=== PATIENT | female | born 1955 | race Caucasian/White ===

== ENCOUNTER 2019-12-23 13:24 | Outpatient (CLI) | payer OTHER, SELFPAY ==
--- NOTE | 2019-12-23 13:30 | MM_ITS ---
WS: [id number] RIGHT DIGITAL MAMMOGRAPHY WITH CAD CLINICAL INFORMATION: Breast mass HISTORY: Breast mass TECHNIQUE: 8 views of the right breast were obtained. FINDINGS: The right breast is composed of heterogeneous fibroglandular density tissue, which can limit the dete ction of small underlying mass lesions. Diffuse skin thickening with architectural distortion mid dep th right breast. Soft tissue thickening in the area of skin ulceration with indentation Architectural distortion mid and posterior depth right breast with punctate indeterminate calcificati ons. Ultrasound is pending. Left breast is unremarkable. ULTRASOUND BREAST RIGHT TECHNIQUE: Ultrasound right breast focused area of concern. CLINICAL INFORMATION: Breast mass COMPARISON: None. FINDINGS: Ultrasound right breast in the area of ulceration. Large hypoechoic ill-defined shadowing lesion susp icious for malignancy. Margins are difficult to define. Recommend further evaluation with ultrasound guided biopsy. Increased vascularity. Overlying skin thickening. Inverted nipple. MM/[place] [id number] IMPRESSION: BI-RADS: 4C-Suspicious: Moderate FOLLOW UP: US Guided Biopsy Recommended
--- NOTE | 2019-12-23 14:00 | US_ITS ---
WS: [id number] RIGHT DIGITAL MAMMOGRAPHY WITH CAD CLINICAL INFORMATION: Breast mass HISTORY: Breast mass TECHNIQUE: 8 views of the right breast were obtained. FINDINGS: The right breast is composed of heterogeneous fibroglandular density tissue, which can limit the dete ction of small underlying mass lesions. Diffuse skin thickening with architectural distortion mid dep th right breast. Soft tissue thickening in the area of skin ulceration with indentation Architectural distortion mid and posterior depth right breast with punctate indeterminate calcificati ons. Ultrasound is pending. Left breast is unremarkable. ULTRASOUND BREAST RIGHT TECHNIQUE: Ultrasound right breast focused area of concern. CLINICAL INFORMATION: Breast mass COMPARISON: None. FINDINGS: Ultrasound right breast in the area of ulceration. Large hypoechoic ill-defined shadowing lesion susp icious for malignancy. Margins are difficult to define. Recommend further evaluation with ultrasound guided biopsy. Increased vascularity. Overlying skin thickening. Inverted nipple. US/US breast RT complete [id number] IMPRESSION: BI-RADS: 4C-Suspicious: Moderate FOLLOW UP: US Guided Biopsy Recommended
== END 2019-12-23 13:25 | disposition home or self-care (01) ==
PROVIDERS: PCP Physician Assistant Medical; Visit Provider Surgery
DX: N63.10 Unspecified lump in the right breast, unspecified quadrant (principal)
CPT/HCPCS: 76641; 77066

== ENCOUNTER 2019-12-30 06:23 | Outpatient (CLI) | payer OTHER, SELFPAY ==
--- NOTE | 2019-12-30 | US_ITS ---
WS: [id number] ULTRASOUND-GUIDED RIGHT BREAST BIOPSY ULTRASOUND-GUIDED RIGHT AXILLARY LYMPH NODE BIOPSY HISTORY: RIGHT breast mass and abnormal RIGHT axillary lymph node. COMPARISON: 12/23/2019 Procedure, risks and complications are explained to the patient. Medications are reviewed. Consent is obtained. The mass in the RIGHT breast is localized with ultrasound. Skin is cleansed with ChloraPrep and anest hetized with 1% buffered lidocaine. Small dermatome is made. Under sterile conditions mass is biopsie d with a 14-gauge Achieve needle. Multiple core biopsies are performed. Material placed in formalin a nd sent to pathology for review. No complications encountered. Breast tissue marker ([employer] ultrasound enhanced ribbon): None. The neoplastic process is diffuse and t he biopsies were scattered over the breast. RIGHT axillary lymph node biopsy performed with 20-gauge achieve needle. Multiple biopsies were obtai zarina. Specimen placed in saline as requested by pathology. No biopsy clip placed in the lymph node. Patient left the radiology suite with no complications. Patient is instructed to return to [facility] or [facility] with any concerns. / biopsy lymph node [id number] IMPRESSION: 1. Uncomplicated core needle biopsy visualized palpable RIGHT breast mass. Mul tiple biopsies were performed at different locations. PATHOLOGY: Invasive lobular carcinoma RECOMMENDATION: Surgical and oncological follow-up. 2. Uncomplicated core needle biopsy RIGHT axillary lymph node. PATHOLOGY: Invasive lobular carcinoma extending into the fibroadipose tissue wi th extensive involvement. RECOMMENDATION: Surgical and oncological follow-up.
--- NOTE | 2019-12-30 08:00 | US_ITS ---
WS: [id number] ULTRASOUND-GUIDED RIGHT BREAST BIOPSY ULTRASOUND-GUIDED RIGHT AXILLARY LYMPH NODE BIOPSY HISTORY: RIGHT breast mass and abnormal RIGHT axillary lymph node. COMPARISON: 12/23/2019 Procedure, risks and complications are explained to the patient. Medications are reviewed. Consent is obtained. The mass in the RIGHT breast is localized with ultrasound. Skin is cleansed with ChloraPrep and anest hetized with 1% buffered lidocaine. Small dermatome is made. Under sterile conditions mass is biopsie d with a 14-gauge Achieve needle. Multiple core biopsies are performed. Material placed in formalin a nd sent to pathology for review. No complications encountered. Breast tissue marker ([employer] ultrasound enhanced ribbon): None. The neoplastic process is diffuse and t he biopsies were scattered over the breast. RIGHT axillary lymph node biopsy performed with 20-gauge achieve needle. Multiple biopsies were obtai zarina. Specimen placed in saline as requested by pathology. No biopsy clip placed in the lymph node. Patient left the radiology suite with no complications. Patient is instructed to return to [facility] or [facility] with any concerns. US/[place] [id number] IMPRESSION: 1. Uncomplicated core needle biopsy visualized palpable RIGHT breast mass. Mul tiple biopsies were performed at different locations. PATHOLOGY: Invasive lobular carcinoma RECOMMENDATION: Surgical and oncological follow-up. 2. Uncomplicated core needle biopsy RIGHT axillary lymph node. PATHOLOGY: Invasive lobular carcinoma extending into the fibroadipose tissue wi th extensive involvement. RECOMMENDATION: Surgical and oncological follow-up.
== END 2019-12-30 06:24 | disposition home or self-care (01) ==
PROVIDERS: PCP Physician Assistant Medical; Visit Provider Surgery
DX: C50.911 Malignant neoplasm of unspecified site of right female breast (principal); C77.3 Secondary and unspecified malignant neoplasm of axilla and upper limb lymph nodes
CPT/HCPCS: 19083; 38505; 76942; 88305

== ENCOUNTER 2020-01-13 07:16 | Outpatient (CLI) | payer OTHER, SELFPAY ==
--- NOTE | 2020-01-13 10:26 | ONC CON_ITS ---
Dr. Antunez New Patient Note Patient: Violetta Beaulieu Unit #: [id number]: [id number] Dicatated By: Lexi Antunez M.D.Date of Visit: Jan 13, 2020 Onc MED New Patient/Consult Referring Physician: Dr. ANDERS CUEVAS M.D. History of Present Illness: Ms. Violetta Beaulieu, is a 64-year-old female with more than year-long history of abnormality in the right breast, as per patient about a year ago she noticed a small skin lesion in her right breast, she thought it was a mosquito bite later on she noticed a scab but it did not bother her until about 2 months ago when she noted a skin wound with some discharge along with damage in the right breast nipple and since then it has progressed, now with destruction of right breast nipple and firmness and shrinkage in more than two third of her right breast eventually patient went to see her primary care physician and underwent bilateral mammogram and ultrasonogram on December 23, 2019 and right breast showed heterogeneous fibroglandular density tissue with diffuse skin thickening with architectural distortion mid depth right breast, soft tissue thickening in the area of skin ulceration and indentation. Architectural distortion mid and posterior depth right breast with punctate indeterminate calcification and ultrasound right breast in the area of ulceration showed large hypoechoic ill-defined shadowing lesion suspicious for malignancy. Margins are difficult to define with overlying skin thickening and inverted nipple. Patient was seen by Dr. cuevas and on exam he he noticed right axillary lymphadenopathy subsequently on December 30, 2019 patient underwent ultrasound-guided right breast biopsy as well as right axillary lymph node biopsy final pathology report came back invasive lobular carcinoma breast 3 out of 5 cores involved longest positive core was 1.2 cm. And right axillary lymph node biopsy also confirmed invasive lobular carcinoma extending into fibroadipose tissue with extensive involvement and very little lymphoid tissue identified. Prognostic molecular profiling was done which confirmed ER KY positive disease ER being 99% positive KY 90% positive HER-2/chuckie negative with a markedly elevated Ki-67 at 75% which is unfavorable. Patient is complaining of vague rib cage pain more on the right side and occasionally back pain otherwise denies any weight loss denies any headaches blurred vision double vision denies any jaundice denies any hemoptysis or hematemesis. No family history positive for breast cancer No history of smoking or alcohol use no history of diabetes, postmenopausal and menarche at age 12 or 13 years of age. Patient denies any fever or chills, denies any nausea or vomiting, denies any diarrhea or constipation, denies any vaginal bleeding denies any hematuria. Past Medical History: Ms. Velez medical history consists of depression and hypertension. Past Surgical History: Ms. Velez surgical/procedural history consists of appendectomy, breast biopsy, and cholecystectomy. Medications: Cardizem CD 1 Capsule (of 240 mg) Capsule SR 24 HR Oral daily, Oxybutynin Chloride 1 Tablet (of 5 mg) Oral daily, PROzac 1 Capsule (of 20 mg) Oral daily Allergies: No Known Allergies. 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 Ms. Beaulieu has never smoked. She has no history of drinking. Ms. Beaulieu reports the following support systems: lives with spouse, significant other, family, or friends, lives in own house, supportive family/friends willing to assist with needs, and transportation problems exist and will require assistance. Her diet consists of regular meals. She indicates her activity level as: regular exercise. Family History: Ms. Beaulieu's mother at age 73: type II diabetes. Ms. Beaulieu's father at age 61: lung cancer. Review Of Symptoms: Constitutional - Appetite is good and weight is stable. No fever, night sweats, or hot flashes. Energy level is fair but Pt does fatigue easily, ENMT - No sinus congestion/drainage. No mouth sores. No sore throat or difficulty swallowing, Hematologic/Lymphatic - Positive for easy bruising, Respiratory - No shortness of breath. No cough. No pleuritic pain or hemoptysis, Cardiovascular - No angina pain. No palpitations, Gastrointestinal - No nausea or vomiting. Positive for heartburn and acid reflux. No diarrhea or constipation. No blood in the stool or black stools, Genitourinary (F) - No dysuria or hematuria. Positive for nighttime urinary frequency. No urgency or incontinence, Musculoskeletal - Positive for joint pain, Neurologic - No headache or dizziness. No numbness or tingling. No other focal neurologic symptoms, Psychiatric - No anxiety or depression. No insomnia. Vital Signs: Performed on Jan 13, 2020 08:32: 0, 31.20 (HIGH), 1.79 sq.m, 62.00 in, 97 %, 59 /min (LOW), 24 /min, 147/75 mm(hg) (HIGH), 98.5 F, and 170.6 lbs (HIGH). Performance Status: 0 - Fully active, able to carry on all predisease activities without restrictions. (ECOG) Physical Examination: ENMT - No mouth sores, no thrush, no jaundice, Respiratory - Lungs are clear, Cardiovascular - Regular rate and rhythm of heart, Abdomen - Soft, bowel sounds present, Extremities - No visible edema, right breast exam shows ulceration and right nipple destruction and about two thirds of breast is replaced by mass with decreased mobility over chest wall, right axilla palpable lymphadenopathy. Lab/Imaging: Most recent lab results are not available for this patient. Impression: Locally advance invasive lobular carcinoma involving the right breast and right axillary lymph node per ultrasound-guided biopsy done on December 30, 2019 ER 99% positive KY 90% positive HER-2/chuckie negative, Ki-67 75% Plan: Discussed with patient regarding her disease status, clinically, it appears she has locally advanced disease, on physical exam she was noted to have large right breast mass which has replaced about two third of her breast with skin ulceration and destruction of nipple and breast appeared to be fixed to the chest wall or with minimum mobility with a palpable right axillary lymphadenopathy again involvement was confirmed by right axial lymph node biopsy. At this point, considering her vague symptoms like rib cage pain and discomfort and also off and on back pain, will consider CT PET scan for staging purposes, if she has metastatic disease, in that case, we will consider limited systemic chemotherapy to achieve enough response in the primary so that simple mastectomy with clear margins can be achieved. Followed by hormonal therapy with aromatase inhibitor or aromatase inhibitor upfront and to assess the response in the primary before considering palliative surgery, but with hormonal therapy, response is usually slow on the other , hand if she has local regional disease then consider neoadjuvant chemotherapy upfront to have better chances of clear surgical margins moreover response to chemotherapy has prognostic value too. And followed by radiation therapy to right chest wall and right axilla and hormonal therapy with aromatase inhibitor for 5 years Case was discussed with Dr cuevas this morning and he agreed with the plan, will consider Port-A-Cath placement to facilitate chemotherapy and in the meantime order CT PET scan for staging purposes and CBC CMP as baseline. Patient expressed full understanding and agreed with the plan. Return to clinic after CT PET scan for further discussion Signed By: Lexi Antunez M.D. <<Signature on File>>
== END 2020-01-13 07:17 | disposition home or self-care (01) ==
LOC: ONCMED 07:20
PROVIDERS: PCP Physician Assistant Medical; Referring Provider Surgery; Visit Provider Internal Medicine Hematology & Oncology
DX: C50.811 Malignant neoplasm of overlapping sites of right female breast (principal); C77.3 Secondary and unspecified malignant neoplasm of axilla and upper limb lymph nodes; Z17.0 Estrogen receptor positive status [ER+]
CPT/HCPCS: 99203

== ENCOUNTER 2020-01-18 06:36 | Day surgery (SDC) | payer OTHER, SELFPAY ==
[2020-01-17 13:07] VITALS: BMI 32.1
--- NOTE | 2020-01-18 | SCC_ITS ---
Procedure Done: Left subclavian vein PowerPort placement under fluoroscopic guidance with all fluoroscopic interpretation was done by me through the whole entire procedure. 10.8 seconds of fluoroscopic guidance, for a cumulative dose of 1.32 mGy, was provided to Dr. Castillo by the radiology department. C-arm images of the chest were saved for the patient's permanent record. [id number]
[2020-01-18 07:00] VITALS: BP 189/92; PULSE 67; RESP 18; TEMP 36.2; O2SAT 94
[2020-01-18] MEDS: sodium chloride 0.9% 1,000 ML 30 ML IV (07:15)
--- NOTE | 2020-01-18 07:37 | P.ANESASSM_ITS ---
Pre-Anesthetic Assessment Pre-Anesthetic Assessment: Height/Weight: Height 1.57 m Weight 79.832 kg Temp Pulse Resp BP Pulse Ox 97.2 F L 67 18 189/92 94 01/18/20 07:00 01/18/20 07:00 01/18/20 07:00 01/18/20 07:00 01/18/20 07:00 Preop Diagnosis: breast cancer Proposed Procedure: Operation Date: 01/18/20 08:10 Proposed Procedures p Portacath Placement 08580 C50.911(Not Applicable) - Lalito Castillo MD Familial anesthetic complications: none Last intake: Intake Last Liquid Date 01/17/20 Last Liquid Time 17:00 Last Solid Date 01/17/20 Last Solid Time 17:00 Social: Social History: No alcohol and No tobacco Exam: Pre-Anes Outpt Exam: alert, oriented x 3, clear to auscultation bilaterally and regular rate & rhythm Airway: Cervical ROM: WNL MP: 3 Dentition: False and Other Anesthetic Plan: ASA status: 2 Anesthesia: MAC Meds/Allergies Current Medications: Current Medications Generic Name Dose Route Start Last Admin Trade Name Freq PRN Reason Stop Dose Admin Sodium Chloride 1,000 mls @ 30 ml s/hr 01/18/20 07:00 01/18/20 07:15 Sodium Chloride 0.9% IV 01/19/20 06:59 30 mls/hr .Q24H CURTIS Administration PFSH Anesthesia PFSH: Medical History (Updated 01/05/20 @ 17:48 by Lalito Castillo MD) Depression Irregularly shaped mass of breast Surgical History History of laparoscopic cholecystectomy (~1994) Status post laparoscopic appendectomy (~1994) Family History Father Cancer LUNG CANCER Hypertension Mother Diabetes Hypertension Denies family history of Anesthesia complication Bleeding disorder Social History Smoking and tobacco status: never smoked Second hand smoke exposure: No Alcohol intake: never Adopted: No Caregiver/support person: Yes Lives independently: Yes Household members: family Housing: Assisted Living Facility Marital status: service: No Current occupational status: employed Current occupational exposures/hazards: No Pets and animals: No History of recent travel: No Sexually active: No Current gender identity: Female Shanell/Orthodoxy: Yazdanism Data Anesthesia Cardiac Studies: No Data to Display
--- NOTE | 2020-01-18 08:06 | W.PM.OPSUD ---
Surgery/Procedure H&P Update DATE OF PROCEDURE: January 18, 2020 DATE H&P PERFORMED: 01/05/20 H&P UPDATE INFORMATION: I have reviewed H&P completed within last 30 days, I have examined patient prior to procedure and No changes to prior documentation PREOP DIAGNOSIS: Breast cancer requiring port-a-cath PRIMARY INDICATION FOR PROCEDURE: The same PLANNED PROCEDURE: Operation Date: 01/18/20 08:10 Proposed Procedures p Portacath Placement 81463 C50.911(Not Applicable) - Lalito Castillo MD
--- NOTE | 2020-01-18 08:11 | SC_ITS ---
WS: [id number] INTRAOPERATIVE TECHNIQUE: 2 Spot fluoroscopic images for intraoperative purposes. FLUOROSCOPY TIME: 10.8 seconds CLINICAL INFORMATION: For Port-A-Cath placement COMPARISON: None. FINDINGS: Left Port-A-Cath with tip in the distal SVC. No pneumothorax. SC/C-arm [place] for CVA [id number] IMPRESSION: Images obtained for intraoperative purposes.
[2020-01-18] MEDS: heparin, porcine 1,000 unit/mL INJ 10 mL 10000 UNIT INJECTION (09:15)
[2020-01-18] MEDS: lidocaine 2% INJ 20 mL INJECTION (09:17)
--- NOTE | 2020-01-18 09:20 | XRR_ITS ---
PROCEDURE INFORMATION: Exam: XR Chest, 1 View Exam date and time: 01/18/2020 9:39 AM Age: 64 years old Clinical indication: Other vascular access device placement or adjustment; Patient HX: S/P left subclavian power port placement; Additional info: Status post left subclavian powerport placement TECHNIQUE: Imaging protocol: XR of the chest Views: 1 view. COMPARISON: No relevant prior studies available. FINDINGS: Tubes, catheters and devices: There is a left subclavian port present with the catheter tip in the superior vena cava. Lungs: Poor inspiration. Decreased lung volumes. Right upper lobe scarring versus atelectasis. Pleural space: No pneumothorax or pleural effusion. Heart/Mediastinum: The heart is not felt to be enlarged when allowing for a left epicardial fat pad. The mediastinal contours are normal. Bones/joints: Old, healed right 4th rib fracture. Curvature of the thoracic spine convex to the right, possibly accentuated by patient rotation. XR/XR chest 1V portable [id number] IMPRESSION: 1. Port catheter tip in the superior vena cava. 2. No pneumothorax.
--- NOTE | 2020-01-18 09:21 | PM.OP ---
Operative Report Date of procedure: January 18, 2020 Pre-op Diagnosis: Breast cancer requiring port-a-cath Post-op diagnosis: same Procedure Done: Left subclavian vein PowerPort placement under fluoroscopic guidance with all fluoroscopic interpretation was done by me through the whole entire procedure. Implants: Left subclavian vein PowerPort placement Surgeon: Lalito Castillo Digital Strategy Manager: Law Guerra Circulating nurse [place]annah Anesthesia: MAC (hand cutter apprentice Smart) Estimated blood loss (mL): 5 Complications: No immediate complication Condition: stable Disposition: same day Brief History: This is a pleasant 64 years old female patient with advanced right breast cancer that will require chemotherapy, patient was counseled for Port-A-Cath placement. Plan of care; After thorough history physical examination and reviewing the chart, I counseled the patient for Port-A-Cath placement, indications, risks including pneumothorax and injury of major vascular structures, benefits,indications and alternatives were all discussed with the patient, patient understands and is interested to proceed. Rationale was carefully and clearly discussed with the patient.Appropriate informed consent have been reviewed and signed. Procedure: Patient was identified in the holding area and taken to the operative room and placed in supine position IV propofol was given by the anesthesia provider ,both arms were tucked,Time-out was done verifying the patient's name/date of /planned procedure and destination after the procedure, all were in agreement. SCDs confirmed to be functioning, preoperative antibiotics administered per protocol, and beta zully protocol was confirmed, appropriate positioning of the patient was done by me. Medications were reviewed to assess for anticoagulant usage. Risks and benefits and prevention of central line associated blood stream infection (CLABSI) were discussed with the patient/CPOA, and a consent was obtained. Monitors were in place and monitored throughout the procedure. All necessary supplies were available prior to start. Hand hygiene was completed prior to starting. Maximum barrier technique was utilized including a sterile gown, sterile gloves with a hat and mask. Site was was prepped with [chlorhexidine] and a full body drape was placed. 5 mL of 2% lidocaine was injected into the skin with a 25 gauge needle. Prep& drape was done under the usual sterile technique, lidocaine 2% was injected at the site of the stick, started by the left subclavian stick that retrieved venous blood was obtained from the first stick, a guidewire was then threaded and under the guidance of fluoroscopy position was confirmed to be in the IVC and my interpretation, there was no PVC changes, at that point the guidewire was secured to the drapes with a hemostat and the needle was taken out, attention was then deviated towards creation of a pocket for the port were lidocaine 2% was injected using an 15 blade knife skin incision was created dissection using the Bovie to create a pocket for the Port-A-Cath to be accommodated, hemostasis was secured, after the port being appropriately flushed it was inserted into the pocket and a tunneler was used to accommodate the catheter of the port cath to be delivered through the incision first created at the site of the stick, at that point under fluoroscopy an estimated length was measured for the catheter and was cut at the designed level, followed by that a dilator with the sheath introduced onto the guidewire the dilator and the wire were retrieved and the catheter of the port was introduced via the sheath where it was peeled off and the catheter maintained to be in the SVC that was confirmed with fluoroscopy, and the fluoroscopy interpretation was done by me throughout the entire procedure. The port continues to be appropriately placed in its pocket, 3-0 Vicryl deep subdermal interrupted sutures, skin was then closed by 4-0 Monocryl as subcuticular closure. The stick site was closed by 3-0 Vicryl and Dermabond was used followed by dressing.Multiple flushes were obtained by diluted and strong heparin and appropriately venous blood was retrieved and flashback with ease. Patient tolerated the procedure well was taken to the recovery area. Count was correct at the end of the procedure I was present for the whole entire procedure. Position of the catheter was checked with a postoperative chest x-ray and it was in good position without evidence of pneumothorax
[2020-01-18 09:31] VITALS: BP 132/54; PULSE 58; RESP 18; TEMP 36.2; O2SAT 98
[2020-01-18 09:56] VITALS: BP 150/68; PULSE 67; RESP 18; TEMP 36.2; O2SAT 98
== END 2020-01-18 10:09 | disposition home or self-care (01) ==
PROVIDERS: PCP Physician Assistant Medical; Visit Provider Surgery
PROC: (CPT 36561; principal; 2020-01-18 08:10)
DX: C50.911 Malignant neoplasm of unspecified site of right female breast (principal); Z79.891 Long term (current) use of opiate analgesic
CPT/HCPCS: 36561; 12345; 71045; 76000; 77001; C1788; J0690; J1644; J3010; J7030

== ENCOUNTER 2020-01-27 12:05 | Outpatient (CLI) | payer OTHER, MEDICAID, SELFPAY ==
[2020-01-27 12:50] LABS: Basophils % 0.6 %; Eosinophils # 0.1 10^3/uL (0.0-0.8); Hematocrit 41.4 % (37.0-47.0); Hemoglobin 12.6 g/dL (11.5-15.3); Lymphocytes # 1.5 10^3/uL (0.8-4.8); Lymphocytes % 21.6 %; Mean Corpuscular HGB Conc 30.4 g/dL (30.0-36.0); Mean Corpuscular Hemoglobin 29.7 pg (28.0-34.0); Mean Corpuscular Volume 97.6 fL (81-99); Monocytes # 0.6 10^3/uL (0.2-0.9); Monocytes % 7.8 %; Neutrophils # 4.91 10^3/uL (1.8-7.7); Neutrophils % 68.7 %; Nucleated Red Blood Cells % 0 %; Platelet Count 346 10^3/cmm (130-400); Red Blood Count 4.24 10^6/uL (4.1-5.3); Red Cell Distribution Width 12.5 % (12.1-15.1); White Blood Count 7.1 10^3/uL (4.0-10.0)
[2020-01-27 13:24] LABS: Alanine Aminotransferase 12 U/L (0-33); Albumin Level 3.9 g/dL (3.5-5.2); Alkaline Phosphatase 79 IU/L (35-105); Anion Gap 12.8 (5-19); Aspartate Amino Transferase 12 U/L (0-32); Blood Urea Nitrogen 17 mg/dL (8-23); Calcium 8.9 mg/dL (8.5-10.5); Carbon Dioxide 25 mmol/L (22-29); Chloride 105 mmol/L (98-107); Globulin 3.4 g/dL (1.3-4.6); Glomerular Filtration Rate 84.2 mL/min (90-130); Glucose 93 mg/dL (65-115); Osmolality Calculated 284 mOsm/kg (285-295); Potassium 3.8 mmol/L (3.5-5.1); Sodium 139 mmol/L (136-145); Total Bilirubin 0.4 mg/dL (0.15-1.2); Total Protein 7.3 g/dL (6.6-8.7)
--- NOTE | 2020-01-27 15:23 | ONC FU_ITS ---
Dr. Antunez follow up note Patient: Violetta Beaulieu Unit #: [id number]: 1955 Dicatated By: Lexi Antunez M.D.Date of Visit:Jan 27, 2020 Onc Med Follow-up/Prog Note History of Present Illness: Ms. Violetta Beaulieu, is a 64-year-old female with more than year-long history of abnormality in the right breast, as per patient about a year ago she noticed a small skin lesion in her right breast, she thought it was a mosquito bite later on she noticed a scab but it did not bother her until about 2 months ago when she noted a skin wound with some discharge along with damage in the right breast nipple and since then it has progressed, now with destruction of right breast nipple and firmness and shrinkage in more than two third of her right breast eventually patient went to see her primary care physician and underwent bilateral mammogram and ultrasonogram on December 23, 2019 and right breast showed heterogeneous fibroglandular density tissue with diffuse skin thickening with architectural distortion mid depth right breast, soft tissue thickening in the area of skin ulceration and indentation. Architectural distortion mid and posterior depth right breast with punctate indeterminate calcification and ultrasound right breast in the area of ulceration showed large hypoechoic ill-defined shadowing lesion suspicious for malignancy. Margins are difficult to define with overlying skin thickening and inverted nipple. Patient was seen by Dr. holt and on exam he he noticed right axillary lymphadenopathy subsequently on December 30, 2019 patient underwent ultrasound-guided right breast biopsy as well as right axillary lymph node biopsy final pathology report came back invasive lobular carcinoma breast 3 out of 5 cores involved longest positive core was 1.2 cm. And right axillary lymph node biopsy also confirmed invasive lobular carcinoma extending into fibroadipose tissue with extensive involvement and very little lymphoid tissue identified. Prognostic molecular profiling was done which confirmed ER [place] positive disease ER being 99% positive CO 90% positive HER-2/chuckie negative with a markedly elevated Ki-67 at 75% which is unfavorable. Patient is complaining of vague rib cage pain more on the right side and occasionally back pain otherwise denies any weight loss denies any headaches blurred vision double vision denies any jaundice denies any hemoptysis or hematemesis. No family history positive for breast cancer No history of smoking or alcohol use no history of diabetes, postmenopausal and menarche at age 12 or 13 years of age. Patient denies any fever or chills, denies any nausea or vomiting, denies any diarrhea or constipation, denies any vaginal bleeding denies any hematuria. Came for follow-up, denies any specific complaints, no fever chills, no nausea or vomiting, no diarrhea or constipation, patient was scheduled follow-up CT PET scan but because of high copayment she could not afford. Medications: Cardizem CD 1 Capsule (of 240 mg) Capsule SR 24 HR Oral daily, Oxybutynin Chloride 1 Tablet (of 5 mg) Oral daily, PROzac 1 Capsule (of 20 mg) Oral daily Allergies: No Known Allergies. Review of Systems: Constitutional - Appetite is good and weight is stable. No fever, night sweats, or hot flashes. Energy level is fair but Pt does fatigue easily, ENMT - No sinus congestion/drainage. No mouth sores. No sore throat or difficulty swallowing, Hematologic/Lymphatic - Positive for easy bruising, Respiratory - No shortness of breath. No cough. No pleuritic pain or hemoptysis, Cardiovascular - No angina pain. No palpitations, Gastrointestinal - No nausea or vomiting. Positive for heartburn and acid reflux. No diarrhea or constipation. No blood in the stool or black stools, Genitourinary (F) - No dysuria or hematuria. Positive for nighttime urinary frequency. No urgency or incontinence, Musculoskeletal - Positive for joint pain, Neurologic - No headache or dizziness. No numbness or tingling. No other focal neurologic symptoms, Psychiatric - No anxiety or depression. No insomnia. Vital Signs: Performed on Jan 27, 2020 13:34 Height - 62.00 in Weight - 175.6 lbs (HIGH) BSA - 1.81 sq.m BMI - 32.12 (HIGH) Temperature - 98.6 F Pulse - 74 /min Respiration - 24 /min BP - 149/58 mm(hg) (HIGH) O2 Sat - 98 % Pain - 0 Performance Status: 0 - Fully active, able to carry on all predisease activities without restrictions. (ECOG) Physical Examination: Respiratory - Lungs are clear, Cardiovascular - Regular rate and rhythm of heart, Gastrointestinal - Soft, bowel sounds present, Extremities - No visible edema, no. Lab/Imaging: Most recent lab results are not available for this patient. Impression: Locally advance invasive lobular carcinoma involving the right breast With a skin ulceration and right axillary lymph node per ultrasound-guided biopsy done on December 30, 2019 ER 99% positive CO 90% positive HER-2/chuckie negative, Ki-67 75% Clinical stage T4b, N1 Mx IIIB Plan: Discussed with patient regarding her labs white blood count 7.1 hemoglobin 12.6 hematocrit 41.4 platelets 346,000 CMP within normal limits Clinically, patient is doing reasonably well, denies any new symptoms except off and on right chest wall discomfort, she was scheduled for CT PET scan but patient could not afford copayments so declined CT PET scan. Case was discussed with Dr. Holt and decided to proceed with neoadjuvant chemotherapy, patient has locally advanced disease with area of skin ulceration, right axillary lymph node biopsy confirmed invasive lobular carcinoma extending into the fibroadipose tissue with very little lymphoid tissue identified and patient has no other comorbid conditions. Patient already has Port-A-Cath placed and, will obtain echocardiogram and if, will consider dose dense Adriamycin/Cytoxan every 2 weeks with Neulasta support followed by Taxol weekly x12 on the other hand if echo shows any abnormality, will consider Cytoxan/Taxotere based regimen. Patient return to clinic after echo for further discussion. Signed By: Lexi Antunez M.D. <<Signature on File>>
== END 2020-01-27 12:06 | disposition home or self-care (01) ==
LOC: ONCMED 12:07
PROVIDERS: PCP Physician Assistant Medical; Visit Provider Internal Medicine Hematology & Oncology
DX: C50.811 Malignant neoplasm of overlapping sites of right female breast (principal); Z17.0 Estrogen receptor positive status [ER+]; I10 Essential (primary) hypertension; F32.9 Major depressive disorder, single episode, unspecified
CPT/HCPCS: 36415; 80053; 85025; 99214

== ENCOUNTER 2020-02-01 14:42 | Outpatient (CLI) | payer OTHER, MEDICAID, SELFPAY ==
--- NOTE | 2020-02-01 14:51 | USCV_ITS ---
Violetta Beaulieu Age: 64 Gender: F : 1955 Exam Date: 02/01/2020 15:12 Ordering Phys: Lexi Antunez MD Technologist: Pablo Isabel [place]am Location[place] [facility] [place]ication: HIGH RISK MEDS BP: 124 / 75 HR: 63 Rhythm: Sinus Technical Quality: Good MEASUREMENTS (Male / Female) Normal Values 2D ECHO LV Diastolic Diameter PLAX 4.2 cm 4.2 - 5.9 / 3.9 - 5.3 cm LV Systolic Diameter PLAX 2.2 cm IVS Diastolic Thickness 1.1 cm 0.6 - 1.0 / 0.6 - 0.9 cm IVS Systolic Thickness 1.2 cm LVPW Diastolic Thickness 1.0 cm 0.6 - 1.0 / 0.6 - 0.9 cm LVPW Systolic Thickness 0.9 cm LVOT Diameter 2.1 cm LV Ejection Fraction 2D Teich 79.6 % LV Ejection Fraction MOD 2C 53.1 % LV Ejection Fraction 2C AL 55.9 % LA Diameter 4.5 cm LA Width 4.3 cm LA Height 5.7 cm RA Width 4.1 cm RA Height 5.0 cm Aorta at Sinotubular Diameter 2.7 cm M-MODE LV Diastolic Diameter MM 5.8 cm 4.2 - 5.9 / 3.9 - 5.3 cm LV Systolic Diameter MM 2.7 cm LV Ejection Fraction MM Teich 83.4 % IVS Diastolic Thickness MM 1.1 cm 0.6 - 1.0 / 0.6 - 0.9 cm IVS Systolic Thickness MM 1.4 cm LVPW Diastolic Thickness MM 1.0 cm 0.6 - 1.0 / 0.6 - 0.9 cm LVPW Systolic Thickness MM 1.5 cm RV Diastolic Diameter MM 0.9 cm Aortic Annulus Diameter 3.4 cm LA Ao Ratio MM 1.3 MV E Point Septal Separation 0.9 cm DOPPLER AV Peak Velocity 209.0 cm/s LVOT Peak Velocity 116.0 cm/s AV Area Cont Eq vti 2.7 cm squared AV Area Cont Eq pk 1.9 cm squared MV Area PHT 5.0 cm squared Mitral E to A Ratio 1.2 MV E' Velocity 10.0 cm/s Mitral E to MV E' Ratio 8.3 Mitral E to LV E' Lateral Ratio 7.3 Mitral E to LV E' Septal Ratio 9.7 TR Peak Velocity 353.0 cm/s TR Peak Gradient 49.8 mmHg TV Peak E Velocity 142.0 cm/s Right Atrial Pressure 3.0 mmHg Pulmonary Artery Systolic Pressu 52.8 mmHg PV Peak Velocity 152.0 cm/s FINDINGS Left Ventricle Normal left ventricular cavity size. Normal left ventricular systolic function. No regional wall motion abnormalities. Left ventricular ejection fraction is estimated at 65 %. No regional wall motion abnormalities. Grade II/IV diastolic dysfunction, moderately elevated filling pressures. Right Ventricle The right ventricle is normal in size and function. Moderate pulmonary hypertension, RVSP 52.8 mmHg. Right Atrium The right atrium is normal in size. Left Atrium Moderately increased left atrial size. Mitral Valve Moderately thickened mitral valve. No mitral valve stenosis. Mild-moderate mitral valve regurgitation. Aortic Valve Moderate aortic valve calcification. Aortic valve sclerosis, mean gradient 6.2 mmHg, LUZ 2.7 cm squared. Tricuspid Valve Structurally normal tricuspid valve without significant stenosis or regurgitation. Pulmonic Valve Structurally normal pulmonic valve without significant stenosis. There is no pulmonic regurgitation. Pericardium Normal pericardium without effusion. Aorta Normal ascending aorta dimension. CONCLUSIONS 1-Normal left ventricular cavity size. Normal left ventricular systolic function. No regional wall motion abnormalities. Left ventricular ejection fraction is estimated at 65 %. No regional wall motion abnormalities. Grade II/IV diastolic dysfunction, moderately elevated filling pressures. 2-Moderately increased left atrial size. 3-Moderate aortic valve calcification. Aortic valve sclerosis, mean gradient 6.2 mmHg, LUZ 2.7 cm squared. 4-Structurally normal tricuspid valve without significant stenosis or regurgitation. Pulmonary artery systolic pressure is normal. 5-Moderately thickened mitral valve. No mitral valve stenosis. Mild-moderate mitral valve regurgitation. 6-There is no pericardial effusion. 7-The right ventricle is normal in size and function. Moderate pulmonary hypertension, RVSP 52.8 mmHg. 8-Right atrial pressure is around 5 mm of mercury. 9-There are no prior echocardiogram studies to compare. Blaze Cartwright MD (Electronically Signed) Final Date: 01 February 2020 19:55 S
--- NOTE | 2020-02-01 14:51 | XRR_ITS ---
PROCEDURE INFORMATION: Exam: XR Chest, 2 Views Exam date and time: 02/01/2020 3:29 PM Age: 64 years old Clinical indication: Condition or disease; Other: Breast cancer; Patient HX: Patient states no chest complaints; Additional info: R breast cancer TECHNIQUE: Imaging protocol: XR of the chest Views: 2 views. COMPARISON: CR XR chest 1V portable [id number] 01/18/2020 9:27 AM FINDINGS: Tubes, catheters and devices: There is a left subclavian port with tip in the superior vena cava. Lungs: There is mild basilar fibrosis versus atelectasis. The lungs are otherwise clear. No lobar consolidation. The vascularity is within normal limits. Pleural space: Unremarkable. No pleural effusion. No pneumothorax. Heart/Mediastinum: There is borderline cardiomegaly. Bones/joints: Old rib fracture deformities are noted. There is scoliosis with moderate degenerative changes in the spine. XR/XR chest 2V* [id number] IMPRESSION: No active pulmonary disease.
== END 2020-02-01 14:43 | disposition home or self-care (01) ==
PROVIDERS: PCP Physician Assistant Medical; Visit Provider Internal Medicine Hematology & Oncology
DX: Z79.899 Other long term (current) drug therapy (principal); I08.3 Combined rheumatic disorders of mitral, aortic and tricuspid valves; C50.811 Malignant neoplasm of overlapping sites of right female breast
CPT/HCPCS: 71046; 93306

== ENCOUNTER 2020-02-03 13:21 | Outpatient (CLI) | payer OTHER, MEDICAID, SELFPAY ==
--- NOTE | 2020-02-03 15:25 | ONC FU_ITS ---
Dr. Antunez follow up note Patient: Violetta Beaulieu Unit #: [id number]: 1955 Dicatated By: Lexi Antunez M.D.Date of Visit:Feb 03, 2020 Onc Med Follow-up/Prog Note History of Present Illness: Ms. Violetta Beaulieu, is a 64-year-old female with more than year-long history of abnormality in the right breast, as per patient about a year ago she noticed a small skin lesion in her right breast, she thought it was a mosquito bite later on she noticed a scab but it did not bother her until about 2 months ago when she noted a skin wound with some discharge along with damage in the right breast nipple and since then it has progressed, now with destruction of right breast nipple and firmness and shrinkage in more than two third of her right breast eventually patient went to see her primary care physician and underwent bilateral mammogram and ultrasonogram on December 23, 2019 and right breast showed heterogeneous fibroglandular density tissue with diffuse skin thickening with architectural distortion mid depth right breast, soft tissue thickening in the area of skin ulceration and indentation. Architectural distortion mid and posterior depth right breast with punctate indeterminate calcification and ultrasound right breast in the area of ulceration showed large hypoechoic ill-defined shadowing lesion suspicious for malignancy. Margins are difficult to define with overlying skin thickening and inverted nipple. Patient was seen by Dr. holt and on exam he he noticed right axillary lymphadenopathy subsequently on December 30, 2019 patient underwent ultrasound-guided right breast biopsy as well as right axillary lymph node biopsy final pathology report came back invasive lobular carcinoma breast 3 out of 5 cores involved longest positive core was 1.2 cm. And right axillary lymph node biopsy also confirmed invasive lobular carcinoma extending into fibroadipose tissue with extensive involvement and very little lymphoid tissue identified. Prognostic molecular profiling was done which confirmed ER [place] positive disease ER being 99% positive [place] 90% positive HER-2/chuckie negative with a markedly elevated Ki-67 at 75% which is unfavorable. Patient is complaining of vague rib cage pain more on the right side and occasionally back pain otherwise denies any weight loss denies any headaches blurred vision double vision denies any jaundice denies any hemoptysis or hematemesis. No family history positive for breast cancer No history of smoking or alcohol use no history of diabetes, postmenopausal and menarche at age 12 or 13 years of age. Patient denies any fever or chills, denies any nausea or vomiting, denies any diarrhea or constipation, denies any vaginal bleeding denies any hematuria. Echocardiogram done on February 01, 2020 showed ejection fraction 65% Came for follow-up, denies any specific complaint except fullness in her right breast otherwise no fever or chills, no nausea or vomiting, no diarrhea or constipation no new bony pains Medications: Cardizem CD 1 Capsule (of 240 mg) Capsule SR 24 HR Oral daily, Oxybutynin Chloride 1 Tablet (of 5 mg) Oral daily, PROzac 1 Capsule (of 20 mg) Oral daily Allergies: No Known Allergies. Review of Systems: Constitutional - Appetite is good and weight is stable. No fever, night sweats, or hot flashes. Energy level is fair but Pt does fatigue easily, ENMT - No sinus congestion/drainage. No mouth sores. No sore throat or difficulty swallowing, Hematologic/Lymphatic - Positive for easy bruising, Respiratory - No shortness of breath. No cough. No pleuritic pain or hemoptysis, Cardiovascular - No angina pain. No palpitations, Gastrointestinal - No nausea or vomiting. Positive for heartburn and acid reflux. No diarrhea or constipation. No blood in the stool or black stools, Genitourinary (F) - No dysuria or hematuria. Positive for nighttime urinary frequency. No urgency or incontinence, Musculoskeletal - Positive for joint pain, Neurologic - No headache or dizziness. No numbness or tingling. No other focal neurologic symptoms, Psychiatric - No anxiety or depression. No insomnia. Vital Signs: Performed on Feb 03, 2020 13:28 Height - 62.00 in Weight - 175.0 lbs (LOW) BSA - 1.81 sq.m BMI - 32.01 (HIGH) Temperature - 98.0 F (LOW) Pulse - 80 /min Respiration - 18 /min BP - 183/72 mm(hg) (HIGH) O2 Sat - 98 % Pain - 6 Performance Status: 0 - Fully active, able to carry on all predisease activities without restrictions. (ECOG) Physical Examination: Respiratory - Lungs are clear, Cardiovascular - Regular rate and rhythm of heart, Gastrointestinal - Soft, bowel sounds present, Extremities - No visible edema or rash. Lab/Imaging: Most recent lab results are not available for this patient. Impression: Locally advance invasive lobular carcinoma involving the right breast With a skin ulceration and right axillary lymph node per ultrasound-guided biopsy done on December 30, 2019 ER 99% positive [place] 90% positive HER-2/chuckie negative, Ki-67 75% Clinical stage T4b, N1 Mx IIIB Plan: Discussed with patient regarding her echocardiogram report which shows ejection fraction within normal limits, in that case because of her locally advanced disease, will consider dose dense chemotherapy with Adriamycin Cytoxan every 2 weeks x4 with Neulasta support to prevent chemotherapy-induced neutropenia/leukopenia, followed by weekly Taxol x12 followed by surgical evaluation for mastectomy followed by referral to radiation oncology for evaluation for post mastectomy radiation therapy and adjuvant hormonal therapy All the side effects possible benefit associated with systemic chemotherapy were discussed again, further teaching done by chemotherapy nurse, will obtain approval from her insurance prior to the treatment. And she return to clinic 1 week after chemotherapy is initiated with CBC CMP Signed By: Lexi Antunez M.D. <<Signature on File>>
== END 2020-02-03 13:22 | disposition home or self-care (01) ==
LOC: ONCMED 13:22
PROVIDERS: PCP Physician Assistant Medical; Visit Provider Internal Medicine Hematology & Oncology
DX: C50.811 Malignant neoplasm of overlapping sites of right female breast (principal); Z17.0 Estrogen receptor positive status [ER+]
CPT/HCPCS: 99214

== ENCOUNTER 2020-02-18 05:35 | Outpatient (RCR) | payer OTHER, MEDICAID, SELFPAY ==
[2020-02-09 08:26] LABS: Basophils % 0.4 %; Eosinophils # 0.1 10^3/uL (0.0-0.8); Eosinophils % 0.9 %; Hematocrit 40.7 % (37.0-47.0); Hemoglobin 12.9 g/dL (11.5-15.3); Lymphocytes # 1.1 10^3/uL (0.8-4.8); Lymphocytes % 14.1 %; Mean Corpuscular HGB Conc 31.7 g/dL (30.0-36.0); Mean Corpuscular Hemoglobin 30.4 pg (28.0-34.0); Mean Corpuscular Volume 95.8 fL (81-99); Mean Platelet Volume 9.2 fL (7.4-10.4); Monocytes # 0.6 10^3/uL (0.2-0.9); Monocytes % 7.8 %; Neutrophils # 6.06 10^3/uL (1.8-7.7); Neutrophils % 76.4 %; Nucleated Red Blood Cells % 0 %; Platelet Count 348 10^3/cmm (130-400); Red Blood Count 4.25 10^6/uL (4.1-5.3); Red Cell Distribution Width 12.5 % (12.1-15.1); White Blood Count 7.9 10^3/uL (4.0-10.0)
[2020-02-09 08:45] LABS: Alanine Aminotransferase 13 U/L (0-33); Albumin Level 3.9 g/dL (3.5-5.2); Alkaline Phosphatase 87 IU/L (35-105); Anion Gap 12.6 (5-19); Aspartate Amino Transferase 13 U/L (0-32); Blood Urea Nitrogen 18 mg/dL (8-23); Calcium 8.7 mg/dL (8.5-10.5); Carbon Dioxide 27 mmol/L (22-29); Chloride 104 mmol/L (98-107); Globulin 3.3 g/dL (1.3-4.6); Glomerular Filtration Rate 84.2 mL/min (90-130); Glucose 131 mg/dL (65-115); Osmolality Calculated 288 mOsm/kg (285-295); Potassium 3.6 mmol/L (3.5-5.1); Sodium 140 mmol/L (136-145); Total Bilirubin 0.4 mg/dL (0.15-1.2); Total Protein 7.2 g/dL (6.6-8.7)
[2020-02-09] MEDS: sodium chloride 0.9% 250 ML 999 ML IV (09:15)
[2020-02-09] MEDS: pegfilgrastim 6 mg/0.6 mL Kit (onpro) SUBCUT (11:40)
--- NOTE | 2020-02-18 11:48 | ONC FU_ITS ---
Dr. Antunez follow up note Patient: Violetta Beaulieu Unit #: [id number]: 1955 Dicatated By: Lexi Antunez M.D.Date of Visit:Feb 18, 2020 Onc Med Follow-up/Prog Note History of Present Illness: Ms. Violetta Beaulieu, is a 64-year-old female with more than year-long history of abnormality in the right breast, as per patient about a year ago she noticed a small skin lesion in her right breast, she thought it was a mosquito bite later on she noticed a scab but it did not bother her until about 2 months ago when she noted a skin wound with some discharge along with damage in the right breast nipple and since then it has progressed, now with destruction of right breast nipple and firmness and shrinkage in more than two third of her right breast eventually patient went to see her primary care physician and underwent bilateral mammogram and ultrasonogram on December 23, 2019 and right breast showed heterogeneous fibroglandular density tissue with diffuse skin thickening with architectural distortion mid depth right breast, soft tissue thickening in the area of skin ulceration and indentation. Architectural distortion mid and posterior depth right breast with punctate indeterminate calcification and ultrasound right breast in the area of ulceration showed large hypoechoic ill-defined shadowing lesion suspicious for malignancy. Margins are difficult to define with overlying skin thickening and inverted nipple. Patient was seen by Dr. holt and on exam he he noticed right axillary lymphadenopathy subsequently on December 30, 2019 patient underwent ultrasound-guided right breast biopsy as well as right axillary lymph node biopsy final pathology report came back invasive lobular carcinoma breast 3 out of 5 cores involved longest positive core was 1.2 cm. And right axillary lymph node biopsy also confirmed invasive lobular carcinoma extending into fibroadipose tissue with extensive involvement and very little lymphoid tissue identified. Prognostic molecular profiling was done which confirmed ER [place] positive disease ER being 99% positive [place] 90% positive HER-2/chuckie negative with a markedly elevated Ki-67 at 75% which is unfavorable. Patient is complaining of vague rib cage pain more on the right side and occasionally back pain otherwise denies any weight loss denies any headaches blurred vision double vision denies any jaundice denies any hemoptysis or hematemesis. No family history positive for breast cancer No history of smoking or alcohol use no history of diabetes, postmenopausal and menarche at age 12 or 13 years of age. Patient denies any fever or chills, denies any nausea or vomiting, denies any diarrhea or constipation, denies any vaginal bleeding denies any hematuria. Echocardiogram done on February 01, 2020 showed ejection fraction 65% Started on dose dense Adriamycin Cytoxan every 2 weeks with Neulasta support on February 09, 2020 Came for follow-up, denies any specific complaints, no fever chills, no nausea or vomiting, no diarrhea constipation, tolerated first cycle of chemotherapy with Adriamycin Cytoxan with Neulasta support to prevent chemotherapy-induced neutropenia well Medications: Cardizem CD 1 Capsule (of 240 mg) Capsule SR 24 HR Oral daily, Oxybutynin Chloride 1 Tablet (of 5 mg) Oral daily, PROzac 1 Capsule (of 20 mg) Oral daily Allergies: No Known Allergies. Review of Systems: Review of Systems is not available for this patient. Vital Signs: Performed on Feb 18, 2020 11:19 Height - 62.00 in Weight - 170.6 lbs (LOW) BSA - 1.79 sq.m BMI - 31.20 (HIGH) Temperature - 97.5 F (LOW) Pulse - 60 /min Respiration - 20 /min BP - 149/57 mm(hg) (HIGH) O2 Sat - 98 % Pain - 0 Performance Status: 0 - Fully active, able to carry on all predisease activities without restrictions. (ECOG) Physical Examination: Respiratory - Lungs are clear, Cardiovascular - Regular rate and rhythm of heart, Gastrointestinal - Soft, bowel sounds present, Extremities - No edema or rash. Lab/Imaging: Test performed on Feb 15, 2020 09:32 Glucose 100 mg/dL BUN 15 mg/dL Creatinine 0.58 mg/dL Cr Clearance (Est) 122.80 mL/min Sodium 138 mmol/L Potassium 4.3 mmol/L Chloride 103 mmol/L CO2 27 mmol/L Calcium 9.1 mg/dL Protein, Total 6.7 g/dL Albumin 3.8 g/dL Bilirubin, Total 0.5 mg/dL Alkaline Phosphatase 80 IU/L AST (SGOT) 10 IU/L ALT (SGPT) 11 IU/L WBC 5.6 10^9/L RBC 4.03 10^12/L HGB 12.2 g/dL HCT 37.7 % MCV 93.5 fl MCH 30.3 pg MCHC 32.4 g/dL RDW 12.0 % Platelet Count 260 10^9/L MPV 9.0 fL Neutrophils (Gran) 4.59 10^9/L Lymphocytes 0.67 10^9/L Monocytes 0.03 10^9/L Eosinophils 0.20 10^9/L Basophils 0.02 10^9/L Manual Lymphocytes 12 % Manual Monocytes 1 % Manual Eosinophils 4 % Manual Basophils 0 % Impression: Locally advance invasive lobular carcinoma involving the right breast With a skin ulceration and right axillary lymph node per ultrasound-guided biopsy done on December 30, 2019 ER 99% positive [place] 90% positive HER-2/chuckie negative, Ki-67 75% Clinical stage T4b, N1 Mx IIIB Ejection fraction was 65% on echo done on February 01, 2020, Started on Neoadjuvant chemotherapy with dose dense Adriamycin Cytoxan with Neulasta support x4 on February 09, 2020, will be followed by weekly Taxol x12 Plan: Discussed with patient regarding her labs white blood count 5.6 hemoglobin 12.2 hematocrit 37.7 platelets 260,000 CMP within normal limits Clinically, patient is doing well with no new signs symptoms, tolerated first cycle of chemotherapy with Adriamycin Cytoxan with Neulasta support, well .her follow-up lab looks reasonable, she will return to clinic in 1 week with CBC CMP and if in a desirable range will proceed with second cycle of chemotherapy with Adriamycin Cytoxan with Neulasta support to prevent chemotherapy-induced neutropenia/leukopenia. Signed By: Lexi Antunez M.D. <<Signature on File>>
== END 2020-02-21 23:59 | disposition home or self-care (01) ==
LOC: ONCMED 05:35
PROVIDERS: PCP Physician Assistant Medical; Visit Provider Internal Medicine Hematology & Oncology
DX: Z51.12 Encounter for antineoplastic immunotherapy (principal); Z51.11 Encounter for antineoplastic chemotherapy; C50.811 Malignant neoplasm of overlapping sites of right female breast; Z17.0 Estrogen receptor positive status [ER+]; F32.9 Major depressive disorder, single episode, unspecified; I10 Essential (primary) hypertension
CPT/HCPCS: 80053; 85025; 96367; 96372; 96411; 96413; 99214; J1100; J1200; J1453; J2469; J2505; J7040; J7050; J9000; J9070

== ENCOUNTER 2020-03-17 05:42 | Outpatient (RCR) | payer OTHER, SELFPAY ==
[2020-03-02] MEDS: sodium chloride 0.9% 250 ML 75 ML IV (13:35)
--- NOTE | 2020-03-11 14:13 | ONC FU_ITS ---
[facility] Patient Note Patient: Violetta Beaulieu Unit #: [id number]: 1955 Dictated By: Cam MarmolejoDate of Visit: Mar 02, 2020 Onc MED Follow-Up/Prog Note Chief Complaint: Right breast cancer History of Present Illness: Ms. Violetta Beaulieu, is a 64-year-old female with more than year-long history of abnormality in the right breast, as per patient about a year ago she noticed a small skin lesion in her right breast, she thought it was a mosquito bite later on she noticed a scab but it did not bother her until about 2 months ago when she noted a skin wound with some discharge along with damage in the right breast nipple and since then it has progressed, now with destruction of right breast nipple and firmness and shrinkage in more than two third of her right breast eventually patient went to see her primary care physician and underwent bilateral mammogram and ultrasonogram on December 23, 2019 and right breast showed heterogeneous fibroglandular density tissue with diffuse skin thickening with architectural distortion mid depth right breast, soft tissue thickening in the area of skin ulceration and indentation. Architectural distortion mid and posterior depth right breast with punctate indeterminate calcification and ultrasound right breast in the area of ulceration showed large hypoechoic ill-defined shadowing lesion suspicious for malignancy. Margins are difficult to define with overlying skin thickening and inverted nipple. Patient was seen by Dr. holt and on exam he he noticed right axillary lymphadenopathy subsequently on December 30, 2019 patient underwent ultrasound-guided right breast biopsy as well as right axillary lymph node biopsy final pathology report came back invasive lobular carcinoma breast 3 out of 5 cores involved longest positive core was 1.2 cm. And right axillary lymph node biopsy also confirmed invasive lobular carcinoma extending into fibroadipose tissue with extensive involvement and very little lymphoid tissue identified. Prognostic molecular profiling was done which confirmed ER MN positive disease ER being 99% positive MN 90% positive HER-2/chuckie negative with a markedly elevated Ki-67 at 75% which is unfavorable. No family history positive for breast cancer No history of smoking or alcohol use no history of diabetes, postmenopausal and menarche at age 12 or 13 years of age. Patient denies any fever or chills, denies any nausea or vomiting, denies any diarrhea or constipation, denies any vaginal bleeding denies any hematuria. Echocardiogram done on February 01, 2020 showed ejection fraction 65%. Ms Beaulieu began dose dense Adriamycin Cytoxan every 2 weeks with Neulasta support on February 09, 2020. She did have severe chemo induced neutropenia resulting in cycle 2 being delayed. She has tolerated it well otherwise. She is here today for consideration of cycle 2 chemotherapy with Adriamycin Cytoxan. Ms. Beaulieu reports overall she is doing well. She is eating good. She denies any fever or chills. She did have some bone pain with the Neulasta but states it was not anything that was all bothersome. She denies nausea or vomiting. She states her bowels have been normal for her. She denies any neuropathy. She is had no alopecia although she has had some shedding currently. She denies any mouth sores, sore throat or difficulty swallowing. She states that her energy is fair. She does tire easily but recovers well with rest. She denies any urinary symptoms. She is had no neuropathy. She states her wound on the right breast is better, and it seems to be slowly improving. She denies any pain or drainage from the area. She denies any other concerns with her chest wall/breast area. Her ECOG is 1. Past Medical History: Depression Hypertension Past Surgical History: Appendectomy Breast biopsy Cholecystectomy Portacatheter placement dr. luis Allergies: No Known Allergies. Medications: Cardizem CD 1 Capsule (of 240 mg) Capsule SR 24 HR Oral daily Oxybutynin Chloride 1 Tablet (of 5 mg) Oral daily PROzac 1 Capsule (of 20 mg) Oral daily Family History: Ms. Beaulieu's mother at age 73: type II diabetes. Ms. Beaulieu's father at age 61: lung cancer. Social History: Ms. 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 Ms. Beaulieu has never smoked. She has no history of drinking. Ms. Beaulieu reports the following support systems: lives with spouse, significant other, family, or friends, lives in own house, supportive family/friends willing to assist with needs, and transportation problems exist and will require assistance. Her diet consists of regular meals. She indicates her activity level as: regular exercise. Review Of Symptoms: Constitutional Denies fevers, chills, night sweats, excessive fatigue or weight loss. Allergic/Immunologic No reactions. Eyes Denies significant visual changes. No diplopia. No amaurosis. ENMT Denies changes in hearing, sore throat, mouth sores, difficulty or changes in swallowing ability, and/or sinus drainage. Endocrine No diabetes, thyroid disease or hormone replacement. Denies hot flashes or night sweats. Hematologic/Lymphatic Denies easy bruising or bleeding. The patient denies any tender or palpable lymph nodes. Respiratory Denies dyspnea on exertion, chest pain, cough or hemoptysis. Denies orthopnea. Cardiovascular Denies anginal chest pain, palpitations or orthopnea. Gastrointestinal Denies nausea, vomiting, diarrhea, GI bleeding, or constipation. Denies change in bowel habits and/or stool color, no heartburn or early satiety. Genitourinary (F) No hematuria, hesitancy, incontinence, vaginal bleeding, discharge or other problems with urination. Musculoskeletal Denies joint pain, swelling or redness. No decreased range of motion. Integumentary Denies chronic rashes, inflammation, ulcerations or skin changes. Neurologic Denies headache, blurred vision, and no areas of focal weakness or numbness. Normal gait. No sensory problems. Psychiatric Denies insomnia, depression, staci or mood swings. Vital Signs: Performed on Mar 02, 2020 12:44 Height - 62.00 in Weight - 172.2 lbs (HIGH) BSA - 1.79 sq.m BMI - 31.50 (HIGH) Temperature - 96.6 F (LOW) Pulse - 65 /min Respiration - 16 /min BP - 151/67 mm(hg) (HIGH) O2 Sat - 96 % Pain - 0,1 - No physically strenuous activity, but ambulatory and able to carry out light or sedentary work (e.g. office work, light house work). (ECOG) Physical Examination: Constitutional Alert, oriented, no acute distress. Skin pink, warm and dry. Head Normocephalic; atraumatic. Eyes Conjunctivae and sclerae are clear and without icterus. Pupils are reactive and equal. ENMT No oral exudates, ulcers, masses, thrush or mucositis. Oropharynx clear. Tongue normal. Neck Supple without masses or thyromegaly. No jugular venous distension. Hematologic/Lymphatic No petechiae or purpura. No tender or palpable lymph nodes in the cervical or supraclavicular areas. Respiratory Lungs are clear to auscultation without rhonchi or wheezing. Cardiovascular Regular rate and rhythm of heart without murmurs,clicks, gallops or rubs. Chest Chest is symmetric without chest wall deformities. Breasts A scabbed area on the right breast that is approximately 3 cm in length by 2 cm in width that is mildly erythemic without tenderness. There is no drainage. The scab is noted to be dry but not peeling at present. There is no associated swelling. There is no odor. She states it has improved since she started on the chemotherapy. Abdomen Non-tender, non-distended, no masses or ascites. Good bowel sounds noted in all quads. No guarding or rebound tenderness. No pulsatile masses. Back/Spine Non-tender to palpation. Extremities No visible deformities, no cyanosis, clubbing or edema. Musculoskeletal No tenderness or swelling, normal range of motion without obvious weakness. Integumentary No rashes or lesions. Neurologic No sensory or motor deficits, normal cerebellar function, normal gait. Psychiatric Alert and oriented times three. Coherent speech. Verbalizes understanding of our discussions today. Laboratory:Test performed on Mar 08, 2020 09:14 WBC 1.2 10^9/L RBC 3.85 10^12/L HGB 11.3 g/dL HCT 35.8 % MCV 93 fl MCH 29.4 pg MCHC 31.6 g/dL RDW 12.5 % Platelet Count 210 10^9/L Neutrophils (Gran) 0.61 10^9/L Lymphocytes 0.49 10^9/L Monocytes 0.01 10^9/L Eosinophils 0.06 10^9/L Basophils 0.01 10^9/L Test performed on Mar 01, 2020 09:40 Glucose 99 mg/dL BUN 13 mg/dL Creatinine 0.87 mg/dL Cr Clearance (Est) 81.86 mL/min Sodium 140 mmol/L Potassium 4.2 mmol/L Chloride 105 mmol/L CO2 27 mmol/L Calcium 9.2 mg/dL Protein, Total 6.5 g/dL Albumin 3.7 g/dL Bilirubin, Total 0.2 mg/dL Alkaline Phosphatase 80 IU/L AST (SGOT) 15 IU/L ALT (SGPT) 12 IU/L MPV 8.0 fL Manual Lymphocytes 14 % Manual Monocytes 14 % Manual Eosinophils 0 % Manual Basophils 1 % Impression: Locally advance invasive lobular carcinoma involving the right breast With a skin ulceration and right axillary lymph node per ultrasound-guided biopsy done on December 30, 2019 ER 99% positive MN 90% positive HER-2/chuckie negative, Ki-67 75% Clinical stage T4b, N1 Mx IIIB Ejection fraction was 65% on echo done on February 01, 2020, Started on Neoadjuvant chemotherapy with dose dense Adriamycin Cytoxan with Neulasta support x4 on February 09, 2020, will be followed by weekly Taxol x12. She is tolerated her first cycle of Adriamycin Cytoxan well although she did have significant chemotherapy-induced neutropenia resulting in a delay in starting cycle 2. She is here today and her counts have recovered she will start cycle 2 Adriamycin and Cytoxan today. Plan: 1. Proceed with cycle 2 Adriamycin Cytoxan. 2. Continue current antiemetics as they are working well. She will continue using Compazine and Ativan as needed at home. 3. We will have her use the actual Neulasta shot and not be on pro with this administration. She did have significant neutropenia with cycle 1 with an ANC of 120. It is uncertain what the shot actually was appropriate or not so therefore we will administer it and monitor her with this cycle. 4. Labs from March 01, 2020 were reviewed in detail and discussed with Mrs. Beaulieu and a copy was given to her. WBC 9.9, hemoglobin 11.8, platelets 674,000 ANC 6660 potassium 4.2 creatinine 0.87 LFTs are normal. 5. She will continue with weekly labs. 6. We will see her back in 2 weeks with CBC CMP and follow-up for consideration of cycle 3 Adriamycin Cytoxan. 7. Ms. Beaulieu was encouraged to contact us in interim should questions or problems arise. Signed By: Cam Marmolejo-ZAIRA, AODORON Antunez MD <<Signature on File>>
--- NOTE | 2020-03-16 09:41 | ONC FU_ITS ---
Dr. Antunez follow up note Patient: Violetta Beaulieu Unit #: [id number]: 1955 Dicatated By: Lexi Antunez M.D.Date of Visit:Mar 16, 2020 Onc Med Follow-up/Prog Note History of Present Illness: Ms. Violetta Beaulieu, is a 64-year-old female with more than year-long history of abnormality in the right breast, as per patient about a year ago she noticed a small skin lesion in her right breast, she thought it was a mosquito bite later on she noticed a scab but it did not bother her until about 2 months ago when she noted a skin wound with some discharge along with damage in the right breast nipple and since then it has progressed, now with destruction of right breast nipple and firmness and shrinkage in more than two third of her right breast eventually patient went to see her primary care physician and underwent bilateral mammogram and ultrasonogram on December 23, 2019 and right breast showed heterogeneous fibroglandular density tissue with diffuse skin thickening with architectural distortion mid depth right breast, soft tissue thickening in the area of skin ulceration and indentation. Architectural distortion mid and posterior depth right breast with punctate indeterminate calcification and ultrasound right breast in the area of ulceration showed large hypoechoic ill-defined shadowing lesion suspicious for malignancy. Margins are difficult to define with overlying skin thickening and inverted nipple. Patient was seen by Dr. holt and on exam he he noticed right axillary lymphadenopathy subsequently on December 30, 2019 patient underwent ultrasound-guided right breast biopsy as well as right axillary lymph node biopsy final pathology report came back invasive lobular carcinoma breast 3 out of 5 cores involved longest positive core was 1.2 cm. And right axillary lymph node biopsy also confirmed invasive lobular carcinoma extending into fibroadipose tissue with extensive involvement and very little lymphoid tissue identified. Prognostic molecular profiling was done which confirmed ER NJ positive disease ER being 99% positive NJ 90% positive HER-2/chuckie negative with a markedly elevated Ki-67 at 75% which is unfavorable. No family history positive for breast cancer No history of smoking or alcohol use no history of diabetes, postmenopausal and menarche at age 12 or 13 years of age. Patient denies any fever or chills, denies any nausea or vomiting, denies any diarrhea or constipation, denies any vaginal bleeding denies any hematuria. Echocardiogram done on February 01, 2020 showed ejection fraction 65%. Ms Beaulieu began dose dense Adriamycin Cytoxan every 2 weeks with Neulasta support on February 09, 2020. She did have severe chemo induced neutropenia resulting in cycle 2 being delayed. She has tolerated it well otherwise. Came for follow-up, denies any specific complaints, no fever chills, no nausea or vomiting, no diarrhea or constipation, no discharge from right breast skin over the mass. But right breast fullness is still there no nipple discharge.. Tolerating neoadjuvant chemotherapy with Adriamycin Cytoxan well Medications: Cardizem CD 1 Capsule (of 240 mg) Capsule SR 24 HR Oral daily, Oxybutynin Chloride 1 Tablet (of 5 mg) Oral daily, PROzac 1 Capsule (of 20 mg) Oral daily Allergies: No Known Allergies. Review of Systems: Review of Systems is not available for this patient. Vital Signs: Performed on Mar 16, 2020 09:11 Height - 62.00 in Weight - 169.2 lbs (LOW) BSA - 1.78 sq.m BMI - 30.95 (HIGH) Temperature - 97.8 F (LOW) Pulse - 58 /min (LOW) Respiration - 22 /min BP - 171/59 mm(hg) (HIGH) O2 Sat - 97 % Pain - 0 Performance Status: 0 - Fully active, able to carry on all predisease activities without restrictions. (ECOG) Physical Examination: Respiratory - Lungs are clear to auscultation, Cardiovascular - Regular rate and rhythm of heart, Gastrointestinal - Soft, bowel sounds present, Extremities - No edema or rash. Lab/Imaging: Test performed on Mar 15, 2020 09:02 Glucose 113 mg/dL BUN 9 mg/dL Creatinine 0.75 mg/dL Cr Clearance (Est) 94.96 mL/min Sodium 142 mmol/L Potassium 3.8 mmol/L Chloride 106 mmol/L CO2 28 mmol/L Calcium 9.5 mg/dL Protein, Total 6.3 g/dL Albumin 3.6 g/dL Bilirubin, Total 0.2 mg/dL Alkaline Phosphatase 72 IU/L AST (SGOT) 12 IU/L ALT (SGPT) 11 IU/L WBC 9.3 10^9/L RBC 3.58 10^12/L HGB 10.9 g/dL HCT 33.2 % MCV 92.7 fl MCH 30.4 pg MCHC 32.8 g/dL RDW 12.3 % Platelet Count 215 10^9/L MPV 8.4 fL Neutrophils (Gran) 6.70 10^9/L Lymphocytes 1.30 10^9/L Monocytes 0.93 10^9/L Eosinophils 0.09 10^9/L Manual Lymphocytes 14 % Manual Monocytes 10 % Manual Eosinophils 1 % Metamyelocytes 3 % Platelet Estimate Consistent with count RBC Morphology normal Test performed on Mar 08, 2020 09:14 Basophils 0.01 10^9/L Test performed on Mar 01, 2020 09:40 Manual Basophils 1 % Impression: Locally advance invasive lobular carcinoma involving the right breast With a skin ulceration and right axillary lymph node per ultrasound-guided biopsy done on December 30, 2019 ER 99% positive NJ 90% positive HER-2/chuckie negative, Ki-67 75% Clinical stage T4b, N1 Mx IIIB Ejection fraction was 65% on echo done on February 01, 2020, Started on Neoadjuvant chemotherapy with dose dense Adriamycin Cytoxan with Neulasta support x4 on February 09, 2020, will be followed by weekly Taxol x12. She is tolerated her first cycle of Adriamycin Cytoxan well although she did have significant chemotherapy-induced neutropenia resulting in a delay in starting cycle 2. She is here today and her counts have recovered she will start cycle 2 Adriamycin and Cytoxan today. Plan: Discussed with patient regarding her labs white blood count 9.3 hemoglobin 10.9 hematocrit 33.2 platelets 215,000 CMP within normal limits Clinically, patient is doing well, tolerating neoadjuvant chemotherapy well, her second dose of Adriamycin Cytoxan was delayed because of persistent leukopenia but this time her blood count has recovered in time so we will proceed with cycle #3/4 Adriamycin Cytoxan in dose dense fashion today with Neulasta support to prevent chemotherapy-induced neutropenia/leukopenia. On physical exam her right breast mass did not show significant shrinkage but overlying skin shows no discharge or oozing. No right axillary lymphadenopathy felt. We will consider right breast sonogram/right axilla sonogram prior to next treatment and if there is no significant improvement when compared with previous study then we may consider changing her neoadjuvant chemotherapy or proceed with surgery. We will check her CBC in a week if she has neutropenia will consider prophylactic Levaquin otherwise she will return to clinic in 2 weeks with CBC CMP and right breast/axilla sonogram to assess disease response. Signed By: Lexi Antunez M.D. <<Signature on File>>
[2020-03-16] MEDS: alteplase 1 mg/mL SDV 2 mL 2 MG INTRACATH ×2 (10:07→12:29)
[2020-03-16] MEDS: sodium chloride 0.9% 250 ML 999 ML IV (10:49)
[2020-03-17] MEDS: pegfilgrastim 6 mg/0.6 mL Kit (onpro) SUBCUT (10:53)
== END 2020-03-22 23:59 | disposition home or self-care (01) ==
LOC: ONCMED 05:42
PROVIDERS: PCP Physician Assistant Medical; Visit Provider Internal Medicine Hematology & Oncology
DX: Z51.12 Encounter for antineoplastic immunotherapy (principal); Z51.11 Encounter for antineoplastic chemotherapy; C50.811 Malignant neoplasm of overlapping sites of right female breast; Z17.0 Estrogen receptor positive status [ER+]; F32.9 Major depressive disorder, single episode, unspecified; I10 Essential (primary) hypertension; Z79.899 Other long term (current) drug therapy
CPT/HCPCS: 36593; 96367; 96372; 96375; 96376; 96411; 96413; 96417; 99214; J1100; J1200; J1453; J2469; J2505; J2997; J3490; J7040; J7050; J9000; J9070

== ENCOUNTER 2020-04-11 09:20 | Outpatient (CLI) | payer OTHER, MEDICAID, SELFPAY ==
--- NOTE | 2020-04-11 09:28 | US_ITS ---
WS: [id number] ULTRASOUND RIGHT BREAST RIGHT axilla ultrasound HISTORY: BREAST CANCER COMPARISON: 12/30/2019 and 12/23/2019 TECHNIQUE: 2-D and Doppler. There is a large amount of edema within the soft tissues of the breast. Also large amount shadowing c entered over the areola. There is no discrete well-formed mass. On the initial evaluation the mass wa s also very difficult to visualize and infiltrating. Posterior to the areola there is persistent ill -defined area measuring 18 x 12 mm in the site of the previously described mass which does appear sma ller. No increased vascularity. Small benign-appearing lymph nodes at the RIGHT axilla. The abnormal lymph node noted on the prior st udy is no longer evident. US/US breast RT complete [id number] IMPRESSION: BI-RADS: 6-Known Biopsy-Proven Malignancy FOLLOW-UP: See Report Large amount of infiltrating soft tissue edema. The large mass in the RIGHT christiano ast does appear smaller in size as compared to 12/23/2019 but the margins are poo rly visualized. The abnormal lymph notes in the RIGHT axilla is no longer present. There are se veral benign-appearing lymph nodes in the RIGHT axilla.
== END 2020-04-11 09:21 | disposition home or self-care (01) ==
LOC: RAD 09:23
PROVIDERS: PCP Physician Assistant Medical; Visit Provider Internal Medicine Hematology & Oncology
DX: C50.811 Malignant neoplasm of overlapping sites of right female breast (principal); R60.0 Localized edema
CPT/HCPCS: 76641

== ENCOUNTER 2020-06-13 11:16 | Outpatient (CLI) | payer MEDICAID, SELFPAY ==
[2020-06-13 12:05] LABS: Basophils % 0.9 %; Eosinophils # 0.1 10^3/uL (0.0-0.8); Eosinophils % 2.5 %; Hematocrit 40.4 % (37.0-47.0); Hemoglobin 12.4 g/dL (11.5-15.3); Lymphocytes # 0.8 10^3/uL (0.8-4.8); Lymphocytes % 17.6 %; Mean Corpuscular HGB Conc 30.7 g/dL (30.0-36.0); Mean Corpuscular Volume 97.6 fL (81-99); Mean Platelet Volume 8.7 fL (7.4-10.4); Monocytes # 0.5 10^3/uL (0.2-0.9); Monocytes % 11.8 %; Neutrophils # 2.96 10^3/uL (1.8-7.7); Nucleated Red Blood Cells % 0 %; Platelet Count 297 10^3/cmm (130-400); Red Blood Count 4.14 10^6/uL (4.1-5.3); Red Cell Distribution Width 12.3 % (12.1-15.1); White Blood Count 4.4 10^3/uL (4.0-10.0)
--- NOTE | 2020-06-13 14:36 | ONC FU_ITS ---
Dr. Antunez follow up note Patient: Violetta Beaulieu Unit #: [id number]: 1955 Dicatated By: Lexi Antunez M.D.Date of Visit:Jun 13, 2020 Onc Med Follow-up/Prog Note History of Present Illness: Ms. Violetta Beaulieu, is a 64-year-old female with more than year-long history of abnormality in the right breast, as per patient about a year ago she noticed a small skin lesion in her right breast, she thought it was a mosquito bite later on she noticed a scab but it did not bother her until about 2 months ago when she noted a skin wound with some discharge along with damage in the right breast nipple and since then it has progressed, now with destruction of right breast nipple and firmness and shrinkage in more than two third of her right breast eventually patient went to see her primary care physician and underwent bilateral mammogram and ultrasonogram on December 23, 2019 and right breast showed heterogeneous fibroglandular density tissue with diffuse skin thickening with architectural distortion mid depth right breast, soft tissue thickening in the area of skin ulceration and indentation. Architectural distortion mid and posterior depth right breast with punctate indeterminate calcification and ultrasound right breast in the area of ulceration showed large hypoechoic ill-defined shadowing lesion suspicious for malignancy. Margins are difficult to define with overlying skin thickening and inverted nipple. Patient was seen by Dr. holt and on exam he he noticed right axillary lymphadenopathy subsequently on December 30, 2019 patient underwent ultrasound-guided right breast biopsy as well as right axillary lymph node biopsy final pathology report came back invasive lobular carcinoma breast 3 out of 5 cores involved longest positive core was 1.2 cm. And right axillary lymph node biopsy also confirmed invasive lobular carcinoma extending into fibroadipose tissue with extensive involvement and very little lymphoid tissue identified. Prognostic molecular profiling was done which confirmed ER VA positive disease ER being 99% positive VA 90% positive HER-2/chuckie negative with a markedly elevated Ki-67 at 75% which is unfavorable. No family history positive for breast cancer No history of smoking or alcohol use no history of diabetes, postmenopausal and menarche at age 12 or 13 years of age. Patient denies any fever or chills, denies any nausea or vomiting, denies any diarrhea or constipation, denies any vaginal bleeding denies any hematuria. Echocardiogram done on February 01, 2020 showed ejection fraction 65%. Ms Beaulieu began dose dense Adriamycin Cytoxan every 2 weeks with Neulasta support on February 09, 2020. She did have severe chemo induced neutropenia resulting in cycle 2 being delayed. She has tolerated it well otherwise. Patient received third cycle of dose dense Adriamycin/Cytoxan on March 16, 2020 subsequently underwent ultrasound right breast which showed large mass in the right breast did appear smaller in size when compared with December 23, 2019 but margins were poorly visualized. The abnormal lymph nodes in the right axilla is no longer present was several benign-appearing lymph nodes seen in the right axilla. Patient was supposed to conclude her dose dense chemotherapy e.g. cycle #4 in first week of March 2020 but patient never came back due to her family/social problems as per patient her brother got sick and there was no one to drive her to the clinic and she was also looking after him and decided to postpone her chemotherapy until he gets better knowing the risk versus benefits involved with delaying any chemotherapy. Came for follow-up, denies any specific complaints, no fever chills, no nausea or vomiting, no diarrhea constipation, still has fullness in her right breast but no discharge or pain. Denies any new bony pains denies any headaches. Patient said she stopped her chemotherapy after third cycle of chemotherapy With Adriamycin/Cytoxan because of her family issue and problem with transportation., She was looking after her sick brother, now he is feeling better and now she would consider resuming her treatments. Medications: Cardizem CD 1 Capsule (of 240 mg) Capsule SR 24 HR Oral daily, Oxybutynin Chloride 1 Tablet (of 5 mg) Oral daily, PROzac 1 Capsule (of 20 mg) Oral daily Allergies: No Known Allergies. Review of Systems: Constitutional - Appetite is good and weight is stable. No fever, night sweats, or hot flashes. Energy level is fair but Pt does fatigue easily, ENMT - No sinus congestion/drainage. No mouth sores. No sore throat or difficulty swallowing, Hematologic/Lymphatic - Positive for easy bruising, Respiratory - No shortness of breath. No cough. No pleuritic pain or hemoptysis, Cardiovascular - No angina pain. No palpitations, Gastrointestinal - No nausea or vomiting. Positive for heartburn and acid reflux. No diarrhea or constipation. No blood in the stool or black stools, Genitourinary (F) - No dysuria or hematuria. Positive for nighttime urinary frequency. No urgency or incontinence, Musculoskeletal - Positive for joint pain, Neurologic - No headache or dizziness. No numbness or tingling. No other focal neurologic symptoms, Psychiatric - No anxiety or depression. No insomnia. Vital Signs: Performed on Jun 13, 2020 12:42 Height - 62.00 in Weight - 168.5 lbs (LOW) BSA - 1.78 sq.m BMI - 30.82 (HIGH) Temperature - 97.6 F (LOW) Pulse - 72 /min Respiration - 16 /min BP - 161/87 mm(hg) (HIGH) O2 Sat - 97 % Pain - 0 Performance Status: 0 - Fully active, able to carry on all predisease activities without restrictions. (ECOG) Physical Examination: Respiratory - Lungs are clear to auscultation, Cardiovascular - Regular rate and rhythm of heart, Breasts - Right breast enlargement with fullness and vague mass in her right breast with overlying crusting but no discharge, no right axillary lymphadenopathy,, Gastrointestinal - Soft, bowel sounds present, Extremities - No edema or rash. Lab/Imaging: Test performed on Mar 15, 2020 09:02 Glucose 113 mg/dL BUN 9 mg/dL Creatinine 0.75 mg/dL Cr Clearance (Est) 94.96 mL/min Sodium 142 mmol/L Potassium 3.8 mmol/L Chloride 106 mmol/L CO2 28 mmol/L Calcium 9.5 mg/dL Protein, Total 6.3 g/dL Albumin 3.6 g/dL Bilirubin, Total 0.2 mg/dL Alkaline Phosphatase 72 IU/L AST (SGOT) 12 IU/L ALT (SGPT) 11 IU/L WBC 9.3 10^9/L RBC 3.58 10^12/L HGB 10.9 g/dL HCT 33.2 % MCV 92.7 fl MCH 30.4 pg MCHC 32.8 g/dL RDW 12.3 % Platelet Count 215 10^9/L MPV 8.4 fL Neutrophils (Gran) 6.70 10^9/L Lymphocytes 1.30 10^9/L Monocytes 0.93 10^9/L Eosinophils 0.09 10^9/L Manual Lymphocytes 14 % Manual Monocytes 10 % Manual Eosinophils 1 % Metamyelocytes 3 % Platelet Estimate Consistent with count RBC Morphology normal Test performed on Mar 08, 2020 09:14 Basophils 0.01 10^9/L Test performed on Mar 01, 2020 09:40 Manual Basophils 1 % Test performed on Feb 09, 2020 08:10 Anion Gap 12.6 eGFR 84.2 mL/min Osmolality - Calculated 288 mOsm/kg Globulin 3.3 g/dL Neutrophil % 76.4 % Lymphocyte % 14.1 % Monocyte % 7.8 % Eosinophil % 0.9 % Basophils % 0.4 % NRBC % 0 % Impression: Locally advance invasive lobular carcinoma involving the right breast With a skin ulceration and right axillary lymph node per ultrasound-guided biopsy done on December 30, 2019 ER 99% positive VA 90% positive HER-2/chuckie negative, Ki-67 75% Clinical stage T4b, N1 Mx IIIB Ejection fraction was 65% on echo done on February 01, 2020, Started on Neoadjuvant chemotherapy with dose dense Adriamycin Cytoxan with Neulasta support x4 on February 09, 2020, will be followed by weekly Taxol x12. She is tolerated her first cycle of Adriamycin Cytoxan well although she did have significant chemotherapy-induced neutropenia resulting in a delay in starting cycle 2.But patient stopped taking dose dense Adriamycin/Cytoxan after cycle # 3/4, because of her personal/family issues, as per patient her brother got sick and she was looking after him so she decided to delay her chemotherapy until he recovers, knowing the risk versus benefit involved with delaying neoadjuvant chemotherapy and also her transportation issue. Right breast ultrasound done After 3 cycles of dose dense Adriamycin/Cytoxan on April 11, 2020 showed large mass in the right breast does appear smaller in size as compared to December 23, 2019 but margins are poorly visualized and abnormal lymph nodes in the right axilla is no longer present Plan: Discussed with patient regarding her labs white blood count 4.4 hemoglobin 12.4 hematocrit 40.4 platelets 297,000 ANC 2960 and her follow-up ultrasound right breast after 3 cycles of Adriamycin/Cytoxan findings which showed improvement in the right breast mass as well as resolution of right axillary lymphadenopathy Clinically, patient is doing well with no new signs symptoms but has persistent mass and edema in her right breast with overlying's scarring no discharge no palpable right axillary lymph node clinically it appears there may be disease progression in her right breast, as patient on her own, against medical advise decided to stop neoadjuvant chemotherapy after third cycle of chemotherapy with Adriamycin Cytoxan done on March 16, 2020 and patient said she was aware of risks involved in delaying her treatment but she was looking after her sick brother and also had some transportation problem but now her brother has improved and would consider completing her neoadjuvant chemotherapy. In that case we will resume her neoadjuvant chemotherapy with cycle #4/final dose of Adriamycin/Cytoxan on Friday after Shalini with Neulasta support to prevent chemotherapy-induced leukopenia/neutropenia and then she will return to clinic following week with CBC CMP and to discuss about further neoadjuvant chemotherapy with weekly Taxol x12. And we will also obtain follow-up echocardiogram. Patient was advised to complete her neoadjuvant chemotherapy as recommended without further delay and also discussed about importance of compliance with the chemotherapy schedule, patient expressed full understanding. Signed By: Lexi Antunez M.D. <<Signature on File>>
== END 2020-06-13 11:17 | disposition home or self-care (01) ==
LOC: ONCMED 11:19
PROVIDERS: PCP Physician Assistant Medical; Visit Provider Internal Medicine Hematology & Oncology
DX: C50.811 Malignant neoplasm of overlapping sites of right female breast (principal); Z17.0 Estrogen receptor positive status [ER+]; R60.0 Localized edema; Z79.899 Other long term (current) drug therapy; Z91.14 Patient's other noncompliance with medication regimen
CPT/HCPCS: 36415; 85025; 99214

== ENCOUNTER 2020-06-22 08:27 | Outpatient (CLI) | payer MEDICAID, SELFPAY ==
--- NOTE | 2020-06-22 08:42 | USCV_ITS ---
Violetta Beaulieu Age: 64 Gender: F : 1955 Exam Date: 06/22/2020 08:53 Ordering Phys: Lexi Antunez MD Technologist: Pascale Hood Exam Location: [facility] – [place] Indication: BASELINE FOR CHEMOTHERAPY BP: / HR: 84 Rhythm: Sinus Technical Quality: Adequate MEASUREMENTS (Male / Female) Normal Values 2D ECHO LV Diastolic Diameter PLAX 4.0 cm 4.2 - 5.9 / 3.9 - 5.3 cm LV Systolic Diameter PLAX 2.1 cm LV Chamber Size 3.7 cm IVS Diastolic Thickness 1.4 cm 0.6 - 1.0 / 0.6 - 0.9 cm IVS Systolic Thickness 1.5 cm LVPW Diastolic Thickness 1.2 cm 0.6 - 1.0 / 0.6 - 0.9 cm LVPW Systolic Thickness 1.6 cm RV Chamber Size 2.5 cm LVOT Diameter 2.0 cm LV Ejection Fraction 2D Teich 77.5 % LV Ejection Fraction MOD 2C 44.6 % LV Ejection Fraction 2C AL 50.5 % LA Diameter 3.6 cm LA Width 2.6 cm LA Height 3.8 cm RA Width 3.3 cm RA Height 4.0 cm Aorta at Sinotubular Diameter 2.9 cm M-MODE LV Diastolic Diameter MM 4.5 cm 4.2 - 5.9 / 3.9 - 5.3 cm LV Systolic Diameter MM 2.4 cm LV Ejection Fraction MM Teich 78.5 % IVS Diastolic Thickness MM 0.9 cm 0.6 - 1.0 / 0.6 - 0.9 cm IVS Systolic Thickness MM 1.4 cm LVPW Diastolic Thickness MM 0.9 cm 0.6 - 1.0 / 0.6 - 0.9 cm LVPW Systolic Thickness MM 1.7 cm RV Diastolic Diameter MM 0.9 cm Aortic Annulus Diameter 3.5 cm LA Ao Ratio MM 1.1 MV E Point Septal Separation 0.3 cm DOPPLER AV Peak Velocity 171.0 cm/s LVOT Peak Velocity 105.0 cm/s AV Area Cont Eq vti 2.1 cm squared AV Area Cont Eq pk 1.9 cm squared MV Area PHT 3.9 cm squared Mitral E to A Ratio 0.8 MV E' Velocity 30.0 cm/s Mitral E to MV E' Ratio 8.8 Mitral E to LV E' Lateral Ratio 11.0 Mitral E to LV E' Septal Ratio 7.4 TR Peak Velocity 237.9 cm/s TR Peak Gradient 22.6 mmHg TR Mean Velocity 183.9 cm/s TR Mean Gradient 14.9 mmHg TR Velocity Time Integral 66.7 cm TV Peak E Velocity 78.0 cm/s Right Atrial Pressure 3.0 mmHg Pulmonary Artery Systolic Pressu 25.6 mmHg PV Peak Velocity 90.0 cm/s RV Acceleration Time 0.1 s RV Ejection Time 0.3 s RV AcT/ET 0.3 FINDINGS Left Ventricle Normal left ventricular size and systolic function with no regional wall motion abnormalities. LV EF is 65%. Grade 1 diastolic dysfunction is seen. Right Ventricle The right ventricle is normal in size and function. RVSP is 30- 35 mmHg. This is consistent with mild pulmonary hypertension. Right Atrium The right atrium is normal in size. Normal RA pressure. Left Atrium The left atrium is normal in size. Mitral Valve Mildly thickened valve without significant stenosis or prolapse. There is mild mitral regurgitation. Aortic Valve Structurally normal aortic valve without significant sclerosis or stenosis. There is no aortic regurgitation. Tricuspid Valve Structurally normal tricuspid valve without significant stenosis or regurgitation. RVSP is 30-35 mmHg. Consistent with a mild pulmonary hypertension. Pulmonic Valve Structurally normal pulmonic valve without significant stenosis. There is trace pulmonic regurgitation. Pericardium Normal pericardium without effusion. Aorta Normal ascending aorta dimension. CONCLUSIONS LV systolic function is normal with a EF of 65%. Grade 1 diastolic dysfunction is seen. There is mild pulmonary hypertension with RVSP of 30 to 35 mmHg There is mild mitral regurgitation. Compared to prior echocardiogram from 02/01/2020, no significant changes are noted. Doug Tran MD (Electronically Signed) Final Date: 02 July 2020 11:52 S
== END 2020-06-22 08:28 | disposition home or self-care (01) ==
LOC: ONCMED 08:27
PROVIDERS: PCP Physician Assistant Medical; Visit Provider Internal Medicine Hematology & Oncology
DX: C50.811 Malignant neoplasm of overlapping sites of right female breast (principal); Z17.0 Estrogen receptor positive status [ER+]
CPT/HCPCS: 93306

== ENCOUNTER 2020-07-04 10:58 | Outpatient (CLI) | payer MEDICAID, SELFPAY ==
[2020-07-04] MEDS: alteplase 1 mg/mL SDV 2 mL 2 MG IV ×2 (11:35→13:55)
[2020-07-04 12:50] LABS: Basophils % 0.5 %; Eosinophils # 0.1 10^3/uL (0.0-0.8); Eosinophils % 1.7 %; Hematocrit 40.7 % (37.0-47.0); Hemoglobin 12.7 g/dL (11.5-15.3); Lymphocytes # 0.8 10^3/uL (0.8-4.8); Lymphocytes % 13.3 %; Mean Corpuscular HGB Conc 31.2 g/dL (30.0-36.0); Mean Corpuscular Hemoglobin 29.9 pg (28.0-34.0); Mean Corpuscular Volume 95.8 fL (81-99); Mean Platelet Volume 8.9 fL (7.4-10.4); Monocytes # 0.6 10^3/uL (0.2-0.9); Monocytes % 10.4 %; Neutrophils # 4.28 10^3/uL (1.8-7.7); Neutrophils % 73.9 %; Nucleated Red Blood Cells % 0 %; Platelet Count 304 10^3/cmm (130-400); Red Blood Count 4.25 10^6/uL (4.1-5.3); White Blood Count 5.8 10^3/uL (4.0-10.0)
[2020-07-04 13:10] LABS: Alanine Aminotransferase 13 U/L (0-33); Albumin Level 3.5 g/dL (3.5-5.2); Alkaline Phosphatase 106 IU/L (35-105); Anion Gap 12.1 (5-19); Aspartate Amino Transferase 12 U/L (0-32); Blood Urea Nitrogen 10 mg/dL (8-23); Calcium 9.4 mg/dL (8.5-10.5); Carbon Dioxide 27 mmol/L (22-29); Chloride 104 mmol/L (98-107); Globulin 3.1 g/dL (1.3-4.6); Glomerular Filtration Rate 100.6 mL/min (90-130); Glucose 98 mg/dL (65-115); Osmolality Calculated 287 mOsm/kg (285-295); Potassium 4.1 mmol/L (3.5-5.1); Sodium 139 mmol/L (136-145); Total Bilirubin 0.3 mg/dL (0.15-1.2); Total Protein 6.6 g/dL (6.6-8.7)
--- NOTE | 2020-07-06 10:28 | ONC FU_ITS ---
[facility] Patient Note Patient: Violetta Beaulieu Unit #: [id number]: 1955 Dictated By: Cam MarmolejoDate of Visit: Jul 04, 2020 Onc MED Follow-Up/Prog Note Chief Complaint: Right breast cancer Invasive lobular carcinoma ER/OH positive HER-2 negative Ki-67 at 75% History of Present Illness: Ms. Beaulieu is a 64-year-old female with more than year-long history of abnormality in the right breast. She reports that in about 2018 she noticed a small skin lesion in her right breast, she thought it was a mosquito bite. Later on she noticed a scab but it did not bother her until about 2 months ago when she noted a skin wound with some discharge along with damage in the right breast nipple and since then it has progressed, now with destruction of right breast nipple and firmness and shrinkage in more than two third of her right breast. Eventually, Ms Beaulieu went to see her primary care physician and underwent bilateral mammogram and ultrasonogram on December 23, 2019. The right breast showed heterogeneous fibroglandular density tissue with diffuse skin thickening with architectural distortion mid depth right breast, soft tissue thickening in the area of skin ulceration and indentation. Architectural distortion mid and posterior depth right breast with punctate indeterminate calcification and ultrasound right breast in the area of ulceration showed large hypoechoic ill-defined shadowing lesion suspicious for malignancy. Margins are difficult to define with overlying skin thickening and inverted nipple. Patient was seen by Dr. Castillo and on exam he he noticed right axillary lymphadenopathy. Subsequently on December 30, 2019 Mrs Beaulieu underwent ultrasound-guided right breast biopsy as well as right axillary lymph node biopsy. The final pathology report came back invasive lobular carcinoma breast 3 out of 5 cores involved longest positive core was 1.2 cm. And right axillary lymph node biopsy also confirmed invasive lobular carcinoma extending into fibroadipose tissue with extensive involvement and very little lymphoid tissue identified. Prognostic molecular profiling was done which confirmed ER OH positive disease ER being 99% positive OH 90% positive HER-2/chuckie negative with a markedly elevated Ki-67 at 75% which is unfavorable. No family history positive for breast cancer No history of smoking or alcohol use no history of diabetes, postmenopausal and menarche at age 12 or 13 years of age. Patient denies any fever or chills, denies any nausea or vomiting, denies any diarrhea or constipation, denies any vaginal bleeding denies any hematuria. Echocardiogram done on February 01, 2020 showed ejection fraction 65%. Ms Beaulieu began dose dense Adriamycin Cytoxan every 2 weeks with Neulasta support on February 09, 2020. She did have severe chemo induced neutropenia resulting in cycle 2 being delayed. She has tolerated it well otherwise. Patient received third cycle of dose dense Adriamycin/Cytoxan on March 16, 2020 subsequently underwent ultrasound right breast which showed large mass in the right breast did appear smaller in size when compared with December 23, 2019 but margins were poorly visualized. The abnormal lymph nodes in the right axilla is no longer present was several benign-appearing lymph nodes seen in the right axilla. Ms Beaulieu was supposed to conclude her dose dense chemotherapy e.g. cycle #4 in first week of March 2020 but patient never came back due to her family/social problems as per patient her brother got sick and there was no one to drive her to the clinic and she was also looking after him and decided to postpone her chemotherapy until he gets better knowing the risk versus benefits involved with delaying any chemotherapy. Ms. Beaulieu is here today for follow-up. Her last chemotherapy was March 16, 2020 at which time she had received cycle 3 cyclophosphamide Adriamycin. She was supported with Neulasta at that time as well. She has not had treatment since then as she took time off to take care of her brother who was ill. Now she wants to resume treatment. Per Dr. Antunez's request she will receive cycle 4 Adriamycin Cytoxan today. She has no new concerns. She denies any shortness of breath orthopnea. She is had no lower extremity edema. She denies any nausea or vomiting. She denies any fever or chills. She denies any known Covid exposure or symptoms. She has had no recent testing or pending test. She states her appetite is good. She denies any diarrhea or constipation. She states her bladder is normal for her. She is able to do all her ADLs without any assistance. She states she is highly motivated to proceed with treatment. Her ECOG is 0. She had restaging echocardiogram on 06/22/2020 which reported mild mitral regurgitation and LV systolic function with EF of 65%. She had mild pulmonary hypertension with RVSP of 30 to 35 mmHg. Compared to her scan from January 2020 there was no significant changes noted. Past Medical History: Depression Hypertension Past Surgical History: Appendectomy Breast biopsy Cholecystectomy Portacatheter placement dr. luis Allergies: No Known Allergies. Medications: Cardizem CD 1 Capsule (of 240 mg) Capsule SR 24 HR Oral daily Oxybutynin Chloride 1 Tablet (of 5 mg) Oral daily PROzac 1 Capsule (of 20 mg) Oral daily Family History: Ms. Beaulieu's mother at age 73: type II diabetes. Ms. Beaulieu's father at age 61: lung cancer. 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 Ms. Beaulieu has never smoked. Ms. Beaulieu reports the following support systems: lives with spouse, significant other, family, or friends, lives in own house, supportive family/friends willing to assist with needs, and transportation problems exist and will require assistance. Her diet consists of regular meals. She indicates her activity level as: regular exercise. Review Of Symptoms: Constitutional Denies fevers, chills, night sweats, excessive fatigue or weight loss. Allergic/Immunologic No reactions. Eyes Denies significant visual changes. No diplopia. No amaurosis. ENMT Denies changes in hearing, sore throat, mouth sores, difficulty or changes in swallowing ability, and/or sinus drainage. Hematologic/Lymphatic Denies easy bruising or bleeding. The patient denies any tender or palpable lymph nodes. Breasts Respiratory Denies dyspnea on exertion, chest pain, cough or hemoptysis. Denies orthopnea. Cardiovascular Denies anginal chest pain, palpitations or orthopnea. Gastrointestinal Denies nausea, vomiting, diarrhea, GI bleeding, or constipation. Denies change in bowel habits and/or stool color, no heartburn or early satiety. Genitourinary (F) No hematuria, hesitancy, incontinence, vaginal bleeding, discharge or other problems with urination. Musculoskeletal Denies joint pain, swelling or redness. No decreased range of motion. Integumentary Denies chronic rashes, inflammation, ulcerations or skin changes. Neurologic Denies headache, blurred vision, and no areas of focal weakness or numbness. Normal gait. No sensory problems. Psychiatric Denies insomnia, depression, staci or mood swings. Vital Signs: Performed on Jul 04, 2020 13:13 Height - 62.00 in Weight - 168.6 lbs (HIGH) BSA - 1.78 sq.m BMI - 30.84 (HIGH) Temperature - 98.0 F (LOW) Pulse - 66 /min Respiration - 18 /min BP - 172/66 mm(hg) (HIGH) O2 Sat - 91 % (LOW) Pain - 5,0 - Fully active, able to carry on all predisease activities without restrictions. (ECOG) Physical Examination: Constitutional Alert, oriented, no acute distress. Skin pink, warm and dry. Head Normocephalic; atraumatic. Eyes Conjunctivae and sclerae are clear and without icterus. Pupils are reactive and equal. Neck Supple without masses or thyromegaly. No jugular venous distension. Hematologic/Lymphatic No petechiae or purpura. No tender or palpable lymph nodes in the cervical or supraclavicular areas. Respiratory Lungs are clear to auscultation without rhonchi or wheezing. Cardiovascular Regular rate and rhythm of heart without murmurs,clicks, gallops or rubs. Chest Chest is symmetric without chest wall deformities. Left venous access device insertion site is unremarkable. Abdomen Non-tender, non-distended, no masses or ascites. Good bowel sounds noted in all quads. No guarding or rebound tenderness. No pulsatile masses. Back/Spine Non-tender to palpation. Extremities No visible deformities, no cyanosis, clubbing or edema. Musculoskeletal No tenderness or swelling, normal range of motion without obvious weakness. Integumentary No rashes or lesions. Neurologic No sensory or motor deficits, normal cerebellar function, normal gait. Psychiatric Alert and oriented times three. Coherent speech. Verbalizes understanding of our discussions today. Laboratory:Test performed on Jul 04, 2020 12:25 Sodium 139 mmol/L Potassium 4.1 mmol/L Chloride 104 mmol/L CO2 27 mmol/L Anion Gap 12.1 BUN 10 mg/dL Creatinine 0.6 mg/dL Cr Clearance (Est) 118.7000 mL/min eGFR 100.6 mL/min Glucose 98 mg/dL Osmolality - Calculated 287 mOsm/kg Calcium 9.4 mg/dL Protein, Total 6.6 g/dL Albumin 3.5 g/dL Globulin 3.1 g/dL Bilirubin, Total 0.3 mg/dL ALT (SGPT) 13 U/L AST (SGOT) 12 U/L Alkaline Phosphatase 106 IU/L WBC 5.8 10 3/uL RBC 4.25 10 6/uL HGB 12.7 g/dL HCT 40.7 % MCV 95.8 fL MCH 29.9 pg MCHC 31.2 g/dL RDW 12.0 % Platelet Count 304 10 3/cmm MPV 8.9 fL Neutrophils 4.28 10 3/uL Lymphocytes 0.8 10 3/uL Monocytes 0.6 10 3/uL Eosinophils 0.1 10 3/uL Basophils 0.0 10 3/uL Neutrophil % 73.9 % Lymphocyte % 13.3 % Monocyte % 10.4 % Eosinophil % 1.7 % Basophils % 0.5 % NRBC % 0 % Test performed on Mar 15, 2020 09:02 Manual Lymphocytes 14 % Manual Monocytes 10 % Manual Eosinophils 1 % Metamyelocytes 3 % Platelet Estimate Consistent with count RBC Morphology normal Test performed on Mar 01, 2020 09:40 Manual Basophils 1 % Impression: Locally advance invasive lobular carcinoma involving the right breast With a skin ulceration and right axillary lymph node per ultrasound-guided biopsy done on December 30, 2019 ER 99% positive OH 90% positive HER-2/chuckie negative, Ki-67 75% Clinical stage T4b, N1 Mx IIIB Ejection fraction was 65% on echo done on February 01, 2020, Started on Neoadjuvant chemotherapy with dose dense Adriamycin Cytoxan with Neulasta support x4 on February 09, 2020, will be followed by weekly Taxol x12. She is tolerated her first cycle of Adriamycin Cytoxan well although she did have significant chemotherapy-induced neutropenia resulting in a delay in starting cycle 2.But patient stopped taking dose dense Adriamycin/Cytoxan after cycle # 3/4, because of her personal/family issues, as per patient her brother got sick and she was looking after him so she decided to delay her chemotherapy until he recovers, knowing the risk versus benefit involved with delaying neoadjuvant chemotherapy and also her transportation issue. Right breast ultrasound done after 3 cycles of dose dense Adriamycin/Cytoxan on April 11, 2020 showed large mass in the right breast does appear smaller in size as compared to December 23, 2019 but margins are poorly visualized and abnormal lymph nodes in the right axilla is no longer present. Mrs. Beaulieu last chemotherapy was cycle 3 Adriamycin Cytoxan on March 16, 2020. She stopped treatment on her own/AGAIN[employer] MEDICAL ADVICE to take care of her brother who was sick and she had transportation issues as well. Those situations have now resolved. Clinically, patient is doing well with no new signs symptoms but has persistent mass and edema in her right breast with overlying scarring. Per Dr Antunez's most recent followup note, clinically it appears there may be disease progression in her right breast. In that case, he has recommended that she resume her neoadjuvant chemotherapy with cycle #4/final dose of Adriamycin/Cytoxan on Friday after [place] with Neulasta support. She will then be encouraged to proceed with weekly Taxol x12. Dr Antunez advised Ms Beaulieu to complete neoadjuvant chemotherapy as recommended without further delay and also discussed about importance of compliance with the chemotherapy schedule, patient expressed full understanding. She is highly motivated to complete treatment per her verbalization today. Plan: PROBLEMS ADDRESSED TODAY 1. Locally advanced invasive lobular carcinoma of the right breast: A. Proceed with cycle 4 Adriamycin Cytoxan at normal dosing. B. Continue with Neulasta support to prevent chemotherapy induced neutropenia. Her ANC on day 8 of cycle 2 was 610. On day 0 of cycle 2 was 6660. C. Continue aggressive antiemetics due to high risk regimen. She may also continue Compazine and lorazepam as needed at home for antiemetics. D. Today's labs were reviewed in detail and discussed with Ms. Beaulieu and a copy was given to her. WBC 5.8, hemoglobin 12.7, platelets 204,000 ANC is 4280. Creatinine 0.6 glucose 98 LFTs are normal alk phos is 106 calcium is 9.4 her weight is stable at 168.6. She is afebrile. D. Follow-up echocardiogram from 06/22/2020 reports LVEF at 65%. Mild pulmonary hypertension with RVSP at 30 to 35 mmHg; mild mitral regurgitation???compared to prior echo from 02/01/2020, no significant changes were noted. E. We will plan for weekly interim counts. F. We did discuss continuation of neoadjuvant chemotherapy with weekly paclitaxel starting in 2 weeks. We discussed the need for premed steroids due to high risk of allergic/infusion reaction. We also discussed other side effects to include but not limited to rash, alopecia, neutropenia, anemia, thrombocytopenia, higher risk for infection, nausea vomiting, peripheral neuropathy, diarrhea, constipation and fatigue as well as taste changes. G. We will plan to see her back in 2 weeks with CBC CMP. She again was reminded she will need to take premed steroids and these will be called in for her and written instructions given to her per chemotherapy nursing staff. H. Mrs. Beaulieu was encouraged to contact us in interim should questions or problems arise. I. Total time spent in review of patient's records, current plan of care, planning and educating for new cycle of chemotherapy as well as post visit documentation was 60 minutes. Signed By: Cam Marmolejo-, AOCNP Lexi Antunez MD <<Signature on File>>
== END 2020-07-04 10:59 | disposition home or self-care (01) ==
LOC: ONCMED 11:01
PROVIDERS: PCP Physician Assistant Medical; Visit Provider Nurse Practitioner
DX: C50.811 Malignant neoplasm of overlapping sites of right female breast (principal); Z17.0 Estrogen receptor positive status [ER+]; C77.3 Secondary and unspecified malignant neoplasm of axilla and upper limb lymph nodes; Z79.899 Other long term (current) drug therapy
CPT/HCPCS: 36593; 80053; 85025; 96374; 96376; 99215; J2469; J2997; J9000

== ENCOUNTER 2020-07-05 09:21 | Outpatient (CLI) | payer MEDICAID, SELFPAY ==
--- NOTE | 2020-07-05 | IR_ITS ---
WS: [id number] FLUOROSCOPIC GUIDED PORT STUDY TECHNIQUE fluoroscopic images for port patency assessment FLUOROSCOPY TIME: 0.6 seconds CLINICAL INFORMATION: HAVING ISSUES WITH DRAWING BLOOD COMPARISON: None. FINDINGS: 15 cc of contrast injected into the existing left central venous catheter. Central venous catheter in the left innominate with tip directed laterally. There is suspected fibrin sheath about the distal a spect of the catheter with subtotal occlusion. Contrast refluxes along the distal aspect of the rocky ter in the distal left innominate and SVC which appear patent. No contrast is seen exiting from the c atheter tip. IR/[place] [id number] IMPRESSION: Suspected fibrin sheath with subtotal occlusion left central venous catheter. C ontrast is seen to reflux along the distal catheter into the left innominate an d SVC.
[2020-07-05] MEDS: iohexol 300 mg/mL 50 mL Btl IV (09:55)
== END 2020-07-05 09:22 | disposition home or self-care (01) ==
LOC: RAD 09:25
PROVIDERS: PCP Physician Assistant Medical; Visit Provider Internal Medicine Hematology & Oncology
DX: T82.9XXA Unspecified complication of cardiac and vascular prosthetic device, implant and graft, initial encounter (principal); X58.XXXA Exposure to other specified factors, initial encounter
CPT/HCPCS: 36598

== ENCOUNTER → 2020-07-13 12:15 | Outpatient (BNVA) | payer MEDICAID, SELFPAY | PROVIDERS: PCP Physician Assistant Medical; Referring Provider Internal Medicine Hematology & Oncology; Visit Provider Surgery | DX: Z01.812 Encounter for preprocedural laboratory examination (principal); C50.911 Malignant neoplasm of unspecified site of right female breast | CPT/HCPCS: 87635 ==

== ENCOUNTER 2020-07-17 11:59 | Day surgery (SDC) | payer MEDICAID, SELFPAY ==
[2020-07-14 13:59] VITALS: BMI 30.3
[2020-07-17] VITALS (7 sets, daily range): BP systolic 130–173; BP diastolic 67–88; PULSE 53–64; RESP 16–18; TEMP 36.2–36.4; O2SAT 93–99
--- NOTE | 2020-07-17 | SCC_ITS ---
Procedure Done: Explantation of a left upper chest Port-A-Cath and placement of left subclavian vein PowerPort. Ultrasound and fluoroscopic interpretation was done by me through the whole entire procedure 101.2 seconds of fluoroscopic guidance, for a cumulative dose of 13.23 mGy, was provided to Dr. Castillo by the radiology department. C-arm images of the chest were saved for the patient's permanent record. SHAHRZAD
--- NOTE | 2020-07-17 12:06 | SC_ITS ---
WS: [id number] INTRAOPERATIVE TECHNIQUE: 3 Spot fluoroscopic images for intraoperative purposes. FLUOROSCOPY TIME: 101.2 seconds CLINICAL INFORMATION: Powerport Placement COMPARISON: None. FINDINGS: Left Port-A-Cath with tip in the mid SVC in good position. No visualized pneumothorax. SC/C-arm FL for CVA [id number] IMPRESSION: Images obtained for intraoperative purposes.
[2020-07-17] MEDS: sodium chloride 0.9% 1,000 ML 30 ML IV (12:45)
--- NOTE | 2020-07-17 12:48 | W.PM.OPSUD ---
Surgery/Procedure H&P Update DATE OF PROCEDURE: July 17, 2020 DATE H&P PERFORMED: 06/13/20 H&P UPDATE INFORMATION: I have reviewed H&P completed within last 30 days, I have examined patient prior to procedure and No changes to prior documentation PREOP DIAGNOSIS: Right breast cancer/malfunction left subclavian port-a-cath. PRIMARY INDICATION FOR PROCEDURE: The same PLANNED PROCEDURE: Operation Date: 07/17/20 13:30 Proposed Procedures p Portacath Exchange 62058 C50.911(Not Applicable) - Lalito Castillo MD
[2020-07-17] MEDS: heparin, porcine 1,000 unit/mL INJ 10 mL 10000 UNIT INJECTION (13:57)
[2020-07-17] MEDS: lidocaine 2% INJ 20 mL INJECTION (14:26)
--- NOTE | 2020-07-17 14:29 | XR_ITS ---
WS: [id number] Exam: XR chest 1V portable [id number] Date/Time of Exam: 07/17/2020 2:37 PM Reason For Exam: s/p replacment of left subclavian power port A left subclavian port has been placed and appears to end in the lower one third of the SVC. The lung s are bilaterally clear and fully expanded. Heart size is top limits normal. No pleural effusions. Ol d fourth posterior right rib fracture XR/XR chest 1V portable [id number] IMPRESSION: 1. Left subclavian port appearing to be in satisfactory position. 2. No acute cardiopulmonary finding.
--- NOTE | 2020-07-17 14:29 | PM.OP ---
Operative Report Date of procedure: July 17, 2020 Pre-op Diagnosis: Right breast cancer/malfunction left subclavian port-a-cath. Post-op diagnosis: same Post-op Diagnosis: Difficulty in passing the wire via the left internal jugular vein Procedure Done: Explantation of a left upper chest Port-A-Cath and placement of left subclavian vein PowerPort. Ultrasound and fluoroscopic interpretation was done by me through the whole entire procedure Implants: PowerPort Specimens removed/disposition: Left subclavian PowerPort for gross pathology Surgeon: Lalito Castillo Blood Bank Order Control Clerk: plastic process technician Bindu Circulating nurse [place] Anesthesia: General (LMA speech and hearing clinic director Siri) Estimated blood loss (mL): 15 Condition: stable Disposition: same day Brief History: This is a pleasant 64 years old female patient with history of right breast cancer requiring chemotherapy. Patient undergone uneventful left subclavian PowerPort back in December 2019 and continued to have good care and receiving chemotherapy yet recently started to have problems with the port and she was referred back to me for potential replacement of this port. Plan of care; After thorough history physical examination and reviewing the chart, I counseled the patient for Port-A-Cath replacement, indications, risks including pneumothorax and injury of major vascular structures, benefits,indications and alternatives were all discussed with the patient, patient understands and is interested to proceed. Rationale was carefully and clearly discussed with the patient.Appropriate informed consent have been reviewed and signed. Procedure: Patient was identified in the holding area and taken to the operative room and placed in supine position LMA was placed by the anesthesia provider ,both arms were tucked,Time-out was done verifying the patient's name/date of /planned procedure and destination after the procedure, all were in agreement.SCDs confirmed to be functioning, preoperative antibiotics administered per protocol, and beta zully protocol was confirmed, appropriate positioning of the patient was done by me. Medications were reviewed to assess for anticoagulant usage. Risks and benefits and prevention of central line associated blood stream infection (CLABSI) were discussed with the patient/CPOA, and a consent was obtained. Monitors were in place and monitored throughout the procedure. All necessary supplies were available prior to start. Hand hygiene was completed prior to starting. Maximum barrier technique was utilized including a sterile gown, sterile gloves with a hat and mask. Site was was prepped with [chlorhexidine] and a full body drape was placed. 5 mL of 2% lidocaine was injected into the skin with a 25 gauge needle. Prep& drape was done under the usual sterile technique, skin incision was created at the previous port site located at the left upper chest and dissection was done all the way to the fascia for explantation of the port that was taken out without complication and pressure was maintained on the side of the index stick for at least 5 minutes. Afterwards,attention was deviated towards the left IJ vein under ultrasound guidance were there was no intraluminal thrombosis and I was able to access the left IJ and retrieved venous blood and multiple attempts were tried to pass the wire but it would not thread at certain point towards the SVC. Interpretation of the ultrasound was done by me through the whole entire procedure,after holding appropriate pressure on the left IJ site.I decided at this point to abort and access the left subclavian vein lidocaine 2% was injected at the site of the stick, started by left subclavian stick that retrieved venous blood was obtained from the first stick, a guidewire was then threaded and under the guidance of fluoroscopy position was confirmed to be in the IVC and my interpretation(I had to tilt the table to the left liver to help with a smooth passage of the wire), there were no PVC changes, at that point the guidewire was secured to the drapes with a hemostat and the needle was taken out, attention was then deviated towards creation of a pocket for the port were lidocaine 2% was injected using an 15 blade knife skin incision(fresh incision) was created dissection using the Bovie to create a pocket for the Port-A-Cath to be accommodated, hemostasis was secured, after the port being appropriately flushed it was inserted into the pocket and a tunneler was used to accommodate the catheter of the port cath to be delivered through the incision first created at the site of the stick, at that point under fluoroscopy an estimated length was measured for the catheter and was cut at the designed level,followed by that a dilator with the sheath introduced onto the guidewire the dilator and the wire were retrieved and the catheter of the port was introduced via the sheath where it was peeled off and the catheter maintained to be in the SVC that was confirmed with fluoroscopy, and the fluoroscopy interpretation was done by me throughout the entire procedure. The port was kept in place,3-0 Vicryl deep subdermal interrupted sutures, skin was then closed by 4-0 Monocryl as subcuticular closure.Thorough irrigation was done at the site of the original port placement from before and was closed by 3-0 Vicryl followed by 4/0 Monocryl. The stick site was closed by 3-0 Vicryl and surgical glue was used followed by dressing. Patient tolerated the procedure well was taken to the recovery area Count was correct at the end of the procedure I was present for the whole entire procedure Position of the catheter was checked with a postoperative chest x-ray and it was in good position without evidence of pneumothorax
--- NOTE | 2020-07-17 15:20 | ANE.PACU2 ---
Inpatient post-anesthesia follow up: Airway intact: Yes Vital signs: Temperature 97.2 F Pulse Rate 57 Respiratory Rate 18 Blood Pressure 161/82 Pulse Oximetry 94 Oxygen Delivery Me thod Room Air Oxygen Flow Rate 8 Fraction of Inspir ed Oxygen Hydration adequate: Yes Nausea and vomiting: No Pain level: 2 Mental status: Baseline
== END 2020-07-17 15:40 | disposition home or self-care (01) ==
PROVIDERS: PCP Physician Assistant Medical; Visit Provider Surgery
PROC: (CPT 36590; principal; 2020-07-17 13:10)
DX: Z45.2 Encounter for adjustment and management of vascular access device (principal); C50.911 Malignant neoplasm of unspecified site of right female breast
CPT/HCPCS: 36590; 12345; 71045; 76000; 77001; 88300; C1788; J0690; J1644; J2250; J2405; J3010; J7030

== ENCOUNTER 2020-08-17 16:00 | Outpatient (RCR) | payer MEDICAID, SELFPAY ==
[2020-07-24] MEDS: alteplase 1 mg/mL SDV 2 mL 2 MG IV ×3 (09:17→11:30)
[2020-07-24 09:23] LABS: Basophils % 0.5 %; Eosinophils % 0.5 %; Hematocrit 41.8 % (37.0-47.0); Hemoglobin 13.1 g/dL (11.5-15.3); Lymphocytes # 0.6 10^3/uL (0.8-4.8); Lymphocytes % 8.7 %; Mean Corpuscular HGB Conc 31.3 g/dL (30.0-36.0); Mean Corpuscular Hemoglobin 29.4 pg (28.0-34.0); Mean Corpuscular Volume 93.7 fL (81-99); Mean Platelet Volume 8.4 fL (7.4-10.4); Monocytes # 0.6 10^3/uL (0.2-0.9); Monocytes % 8.7 %; Neutrophils # 5.95 10^3/uL (1.8-7.7); Neutrophils % 81.2 %; Nucleated Red Blood Cells % 0 %; Platelet Count 332 10^3/cmm (130-400); Red Blood Count 4.46 10^6/uL (4.1-5.3); White Blood Count 7.3 10^3/uL (4.0-10.0)
[2020-07-24 09:50] LABS: Alanine Aminotransferase 7 U/L (0-33); Albumin Level 3.9 g/dL (3.5-5.2); Alkaline Phosphatase 105 IU/L (35-105); Aspartate Amino Transferase 10 U/L (0-32); Blood Urea Nitrogen 17 mg/dL (8-23); Calcium 9.4 mg/dL (8.5-10.5); Carbon Dioxide 27 mmol/L (22-29); Chloride 103 mmol/L (98-107); Globulin 3.2 g/dL (1.3-4.6); Glomerular Filtration Rate 100.6 mL/min (90-130); Glucose 78 mg/dL (65-115); Osmolality Calculated 284 mOsm/kg (285-295); Sodium 137 mmol/L (136-145); Total Bilirubin 0.3 mg/dL (0.15-1.2); Total Protein 7.1 g/dL (6.6-8.7)
[2020-07-24] MEDS: sodium chloride 0.9% 250 ML 75 ML IV (11:30)
[2020-07-24] MEDS: palonosetron 0.25 mg/5 mL SDV IV (11:35)
[2020-07-24] MEDS: diphenhydrAMINE 50 mg/mL SDV 1mL 25 MG IV (11:55)
[2020-07-24] MEDS: pegfilgrastim 6 mg/0.6 mL Kit (onpro) SUBCUT (13:15)
--- NOTE | 2020-07-31 08:50 | ONC FU_ITS ---
[facility] Patient Note Patient: Violetta Beaulieu Unit #: [id number]: 1955 Dictated By: Cam MarmolejoDate of Visit: Jul 24, 2020 Onc MED Follow-Up/Prog Note Chief Complaint: Right breast cancer Invasive lobular carcinoma ER/OK positive HER-2 negative Ki-67 at 75% History of Present Illness: Ms. Beaulieu is a 64-year-old female with more than year-long history of abnormality in the right breast. She reports that in about 2018 she noticed a small skin lesion in her right breast, she thought it was a mosquito bite. Later on she noticed a scab but it did not bother her until about 2 months ago when she noted a skin wound with some discharge along with damage in the right breast nipple and since then it has progressed, now with destruction of right breast nipple and firmness and shrinkage in more than two third of her right breast. Eventually, Ms Beaulieu went to see her primary care physician and underwent bilateral mammogram and ultrasonogram on December 23, 2019. The right breast showed heterogeneous fibroglandular density tissue with diffuse skin thickening with architectural distortion mid depth right breast, soft tissue thickening in the area of skin ulceration and indentation. Architectural distortion mid and posterior depth right breast with punctate indeterminate calcification and ultrasound right breast in the area of ulceration showed large hypoechoic ill-defined shadowing lesion suspicious for malignancy. Margins are difficult to define with overlying skin thickening and inverted nipple. Patient was seen by Dr. Castillo and on exam he he noticed right axillary lymphadenopathy. Subsequently on December 30, 2019 Mrs Beaulieu underwent ultrasound-guided right breast biopsy as well as right axillary lymph node biopsy. The final pathology report came back invasive lobular carcinoma breast 3 out of 5 cores involved longest positive core was 1.2 cm. And right axillary lymph node biopsy also confirmed invasive lobular carcinoma extending into fibroadipose tissue with extensive involvement and very little lymphoid tissue identified. Prognostic molecular profiling was done which confirmed ER OK positive disease ER being 99% positive OK 90% positive HER-2/chuckie negative with a markedly elevated Ki-67 at 75% which is unfavorable. No family history positive for breast cancer No history of smoking or alcohol use no history of diabetes, postmenopausal and menarche at age 12 or 13 years of age. Patient denies any fever or chills, denies any nausea or vomiting, denies any diarrhea or constipation, denies any vaginal bleeding denies any hematuria. Echocardiogram done on February 01, 2020 showed ejection fraction 65%. Ms Beaulieu began dose dense Adriamycin Cytoxan every 2 weeks with Neulasta support on February 09, 2020. She did have severe chemo induced neutropenia resulting in cycle 2 being delayed. She has tolerated it well otherwise. Patient received third cycle of dose dense Adriamycin/Cytoxan on March 16, 2020 subsequently underwent ultrasound right breast which showed large mass in the right breast did appear smaller in size when compared with December 23, 2019 but margins were poorly visualized. The abnormal lymph nodes in the right axilla is no longer present was several benign-appearing lymph nodes seen in the right axilla. Ms Beaulieu was supposed to conclude her dose dense chemotherapy e.g. cycle #4 in first week of March 2020 but patient never came back due to her family/social problems as per patient her brother got sick and there was no one to drive her to the clinic and she was also looking after him and decided to postpone her chemotherapy until he gets better knowing the risk versus benefits involved with delaying any chemotherapy. Ms. Beaulieu is here today for follow-up. Her last chemotherapy was March 16, 2020 at which time she had received cycle 3 cyclophosphamide Adriamycin. She was supported with Neulasta at that time as well. She has not had treatment since then as she took time off to take care of her brother who was ill. Now she wants to resume treatment. Per Dr. Antunez's request she will receive cycle 4 Adriamycin Cytoxan today. She was due to resume treatment on July 04, 2020 but was found to have a nonfunctioning Port-A-Cath. She was referred back to Dr. Castillo and she underwent explantation of the left upper chest Port-A-Cath and placement of a new PowerPort in the left subclavian vein on July 17, 2020. She has no new concerns. She denies any shortness of breath orthopnea. She has had no lower extremity edema. She denies any nausea or vomiting. She denies any fever or chills. She denies any known Covid exposure or symptoms. She has had no recent testing or pending test. She states her appetite is good. She denies any diarrhea or constipation. She states her bladder is normal for her. She is able to do all her ADLs without any assistance. She states she is highly motivated to proceed with treatment. Her ECOG is 0. She had restaging echocardiogram on 06/22/2020 which reported mild mitral regurgitation and LV systolic function with EF of 65%. She had mild pulmonary hypertension with RVSP of 30 to 35 mmHg. Compared to her scan from January 2020 there was no significant changes noted. Past Medical History: Depression Hypertension Past Surgical History: Appendectomy Breast biopsy Cholecystectomy Portacatheter placement dr. luis Allergies: No Known Allergies. Medications: Cardizem CD 1 Capsule (of 240 mg) Capsule SR 24 HR Oral daily Oxybutynin Chloride 1 Tablet (of 5 mg) Oral daily PROzac 1 Capsule (of 20 mg) Oral daily Family History: Ms. Beaulieu's mother at age 73: type II diabetes. Ms. Beaulieu's father at age 61: lung cancer. 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 Ms. Beaulieu has never smoked. Ms. Beaulieu reports the following support systems: lives with spouse, significant other, family, or friends, lives in own house, supportive family/friends willing to assist with needs, and transportation problems exist and will require assistance. Her diet consists of regular meals. She indicates her activity level as: regular exercise. Review Of Symptoms: Constitutional Denies fevers, chills, night sweats, excessive fatigue or weight loss. Allergic/Immunologic No reactions. ENMT Denies changes in hearing, sore throat, mouth sores, difficulty or changes in swallowing ability, and/or sinus drainage. Hematologic/Lymphatic Denies easy bruising or bleeding. The patient denies any tender or palpable lymph nodes. Respiratory Denies dyspnea on exertion, chest pain, cough or hemoptysis. Denies orthopnea. Cardiovascular Denies anginal chest pain, palpitations or orthopnea. Gastrointestinal Denies nausea, vomiting, diarrhea, GI bleeding, or constipation. Denies change in bowel habits and/or stool color, no heartburn or early satiety. Genitourinary (F) No hematuria, hesitancy, incontinence, vaginal bleeding, discharge or other problems with urination. Musculoskeletal Denies joint pain, swelling or redness. No decreased range of motion. Integumentary Denies chronic rashes, inflammation, ulcerations or skin changes. Neurologic Denies headache, blurred vision, and no areas of focal weakness or numbness. Normal gait. No sensory problems. Psychiatric Denies insomnia, depression, staci or mood swings. Vital Signs: Performed on Jul 24, 2020 10:42 Height - 62.00 in Weight - 165.6 lbs (LOW) BSA - 1.76 sq.m BMI - 30.29 (HIGH) Temperature - 96.9 F (LOW) Pulse - 62 /min Respiration - 17 /min BP - 150/66 mm(hg) (HIGH) O2 Sat - 98 % Pain - 5,0 - Fully active, able to carry on all predisease activities without restrictions. (ECOG) Physical Examination: Constitutional Alert, oriented, no acute distress. Skin pink, warm and dry. Head Normocephalic; atraumatic. Eyes Conjunctivae and sclerae are clear and without icterus. Pupils are reactive and equal. Neck Supple without masses or thyromegaly. No jugular venous distension. Hematologic/Lymphatic No petechiae or purpura. No tender or palpable lymph nodes in the cervical or supraclavicular areas. Respiratory Lungs are clear to auscultation without rhonchi or wheezing. Cardiovascular Regular rate and rhythm of heart without murmurs,clicks, gallops or rubs. Chest Chest is symmetric without chest wall deformities. Left venous access device insertion site is unremarkable. It is noted to be healing well. Abdomen Non-tender, non-distended, no masses or ascites. Good bowel sounds noted in all quads. No guarding or rebound tenderness. No pulsatile masses. Back/Spine Non-tender to palpation. Extremities No visible deformities, no cyanosis, clubbing or edema. Musculoskeletal No tenderness or swelling, normal range of motion without obvious weakness. Integumentary No rashes or lesions. Neurologic No sensory or motor deficits, normal cerebellar function, normal gait. Psychiatric Alert and oriented times three. Coherent speech. Verbalizes understanding of our discussions today. Laboratory:Test performed on Jul 24, 2020 09:05 Sodium 137 mmol/L Potassium 4.0 mmol/L Chloride 103 mmol/L CO2 27 mmol/L Anion Gap 11.0 BUN 17 mg/dL Creatinine 0.6 mg/dL Cr Clearance (Est) 118.7000 mL/min eGFR 100.6 mL/min Glucose 78 mg/dL Osmolality - Calculated 284 mOsm/kg Calcium 9.4 mg/dL Protein, Total 7.1 g/dL Albumin 3.9 g/dL Globulin 3.2 g/dL Bilirubin, Total 0.3 mg/dL ALT (SGPT) 7 U/L AST (SGOT) 10 U/L Alkaline Phosphatase 105 IU/L WBC 7.3 10 3/uL RBC 4.46 10 6/uL HGB 13.1 g/dL HCT 41.8 % MCV 93.7 fL MCH 29.4 pg MCHC 31.3 g/dL RDW 12.0 % Platelet Count 332 10 3/cmm MPV 8.4 fL Neutrophils 5.95 10 3/uL Lymphocytes 0.6 10 3/uL Monocytes 0.6 10 3/uL Eosinophils 0.0 10 3/uL Basophils 0.0 10 3/uL Neutrophil % 81.2 % Lymphocyte % 8.7 % Monocyte % 8.7 % Eosinophil % 0.5 % Basophils % 0.5 % NRBC % 0 % Test performed on Mar 15, 2020 09:02 Manual Lymphocytes 14 % Manual Monocytes 10 % Manual Eosinophils 1 % Metamyelocytes 3 % Platelet Estimate Consistent with count RBC Morphology normal Test performed on Mar 01, 2020 09:40 Manual Basophils 1 % Impression: Locally advance invasive lobular carcinoma involving the right breast With a skin ulceration and right axillary lymph node per ultrasound-guided biopsy done on December 30, 2019 ER 99% positive OK 90% positive HER-2/chuckie negative, Ki-67 75% Clinical stage T4b, N1 Mx IIIB Ejection fraction was 65% on echo done on February 01, 2020, Started on Neoadjuvant chemotherapy with dose dense Adriamycin Cytoxan with Neulasta support x4 on February 09, 2020, will be followed by weekly Taxol x12. She is tolerated her first cycle of Adriamycin Cytoxan well although she did have significant chemotherapy-induced neutropenia resulting in a delay in starting cycle 2.But patient stopped taking dose dense Adriamycin/Cytoxan after cycle # 3/4, because of her personal/family issues, as per patient her brother got sick and she was looking after him so she decided to delay her chemotherapy until he recovers, knowing the risk versus benefit involved with delaying neoadjuvant chemotherapy and also her transportation issue. Right breast ultrasound done after 3 cycles of dose dense Adriamycin/Cytoxan on April 11, 2020 showed large mass in the right breast does appear smaller in size as compared to December 23, 2019 but margins are poorly visualized and abnormal lymph nodes in the right axilla is no longer present. Mrs. Beaulieu last chemotherapy was cycle 3 Adriamycin Cytoxan on March 16, 2020. She stopped treatment on her own/[employer]AIN[employer]ICAL ADVICE to take care of her brother who was sick and she had transportation issues as well. Those situations have now resolved. Clinically, patient is doing well with no new signs symptoms but has persistent mass and edema in her right breast with overlying scarring. Per Dr Antunez's most recent followup note, clinically it appears there may be disease progression in her right breast. In that case, he has recommended that she resume her neoadjuvant chemotherapy with cycle #4/final dose of Adriamycin/Cytoxan on Friday after Shalini with Neulasta support. She will then be encouraged to proceed with weekly Taxol x12. Dr Antunez advised Ms Beaulieu to complete neoadjuvant chemotherapy as recommended without further delay and also discussed about importance of compliance with the chemotherapy schedule, patient expressed full understanding. She is highly motivated to complete treatment per her verbalization today. Plan: PROBLEMS ADDRESSED TODAY 1. Locally advanced invasive lobular carcinoma of the right breast: A. Proceed with cycle 4 Adriamycin Cytoxan at normal dosing. She does have a functional venous access device now. B. Continue with Neulasta support to prevent chemotherapy induced neutropenia. Her ANC on day 8 of cycle 2 was 610. On day 0 of cycle 2 was 6660. C. Continue aggressive antiemetics due to high risk regimen. She may also continue Compazine and lorazepam as needed at home for antiemetics. D. Today's labs were reviewed in detail and discussed with Ms. Beaulieu and a copy was given to her. WBC 7.3, hemoglobin 13.1, platelets 332,000 ANC is 6000 creatinine 0.6 random glucose 78 LFTs are normal. D. Follow-up echocardiogram from 06/22/2020 reports LVEF at 65%. Mild pulmonary hypertension with RVSP at 30 to 35 mmHg; mild mitral regurgitation???compared to prior echo from 02/01/2020, no significant changes were noted. E. We will plan for weekly interim counts. F. We did discuss continuation of neoadjuvant chemotherapy with weekly paclitaxel starting in 2 weeks. We discussed the need for premed steroids due to high risk of allergic/infusion reaction. We also discussed other side effects to include but not limited to rash, alopecia, neutropenia, anemia, thrombocytopenia, higher risk for infection, nausea vomiting, peripheral neuropathy, diarrhea, constipation and fatigue as well as taste changes. G. We will plan to see her back in 2 weeks with CBC CMP. She again was reminded she will need to take premed steroids and these will be called in for her and written instructions given to her per chemotherapy nursing staff. H. Mrs. Beaulieu was encouraged to contact us in interim should questions or problems arise. Signed By: Cam Marmolejo-, CNP Mark Antunez MD <<Signature on File>>
[2020-08-17] MEDS: alteplase 1 mg/mL SDV 2 mL 2 MG INTRACATH (13:00)
[2020-08-17 13:42] LABS: Hematocrit 40.1 % (37.0-47.0); Hemoglobin 12.7 g/dL (11.5-15.3); Lymphocytes # 0.2 10^3/uL (0.8-4.8); Lymphocytes % 3.3 %; Mean Corpuscular HGB Conc 31.7 g/dL (30.0-36.0); Mean Corpuscular Hemoglobin 29.7 pg (28.0-34.0); Mean Corpuscular Volume 93.7 fL (81-99); Mean Platelet Volume 8.6 fL (7.4-10.4); Monocytes % 0.4 %; Neutrophils # 4.87 10^3/uL (1.8-7.7); Neutrophils % 95.9 %; Nucleated Red Blood Cells % 0 %; Platelet Count 510 10^3/cmm (130-400); Red Blood Count 4.28 10^6/uL (4.1-5.3); Red Cell Distribution Width 13.8 % (12.1-15.1); White Blood Count 5.1 10^3/uL (4.0-10.0)
[2020-08-17] MEDS: alteplase 1 mg/mL SDV 2 mL 2 MG IV (14:06)
[2020-08-17 14:08] LABS: Alanine Aminotransferase 10 U/L (0-33); Albumin Level 4.1 g/dL (3.5-5.2); Alkaline Phosphatase 92 IU/L (35-105); Aspartate Amino Transferase 10 U/L (0-32); Blood Urea Nitrogen 15 mg/dL (8-23); Calcium 9.5 mg/dL (8.5-10.5); Carbon Dioxide 25 mmol/L (22-29); Chloride 102 mmol/L (98-107); Globulin 3.1 g/dL (1.3-4.6); Glomerular Filtration Rate 100.6 mL/min (90-130); Glucose 156 mg/dL (65-115); Osmolality Calculated 292 mOsm/kg (285-295); Sodium 139 mmol/L (136-145); Total Bilirubin 0.2 mg/dL (0.15-1.2); Total Protein 7.2 g/dL (6.6-8.7)
--- NOTE | 2020-08-17 16:05 | IR_ITS ---
WS: [id number] FLUOROSCOPIC GUIDED PORT INJECTION TECHNIQUE: 20 cc contrast Omnipaque 300 injected through the existing Port-A-Cath under fluoroscopic guidance. FLUOROSCOPY TIME: 1.1 minutes CLINICAL INFORMATION: NO BLOOD RETURN ON VASCULAR DEVICE; HX OF CLOTTING ON PREV P COMPARISON: None. FINDINGS: Left Port-A-Cath with tip in the distal innominate vein directed laterally. This has retracted since the prior examination July 17, 2020. Turbulent flow of contrast exiting from the distal catheter w ith surrounding irregular fibrin sheath. Visualized distal innominate and SVC appear patent. IR/[place] [id number] IMPRESSION: Left Port-A-Cath with tip in the distal innominate directed laterally with fibr in sheath about the distal catheter with partial obstruction and turbulent flow .
[2020-08-17] MEDS: iohexol 300 mg/mL 50 mL Btl IV (16:12)
--- NOTE | 2020-08-18 09:36 | ONC FU_ITS ---
[facility] Patient Note Patient: Violetta Beaulieu Unit #: [id number]: 1955 Dictated By: Cam MarmolejoDate of Visit: Aug 17, 2020 Onc MED Follow-Up/Prog Note Chief Complaint: Right breast cancer Invasive lobular carcinoma ER/MT positive HER-2 negative Ki-67 at 75% History of Present Illness: Ms. Beaulieu is a 64-year-old female with more than year-long history of abnormality in the right breast. She reports that in about 2018 she noticed a small skin lesion in her right breast, she thought it was a mosquito bite. Later on she noticed a scab but it did not bother her until about 2 months ago when she noted a skin wound with some discharge along with damage in the right breast nipple and since then it has progressed, now with destruction of right breast nipple and firmness and shrinkage in more than two third of her right breast. Eventually, Ms Beaulieu went to see her primary care physician and underwent bilateral mammogram and ultrasonogram on December 23, 2019. The right breast showed heterogeneous fibroglandular density tissue with diffuse skin thickening with architectural distortion mid depth right breast, soft tissue thickening in the area of skin ulceration and indentation. Architectural distortion mid and posterior depth right breast with punctate indeterminate calcification and ultrasound right breast in the area of ulceration showed large hypoechoic ill-defined shadowing lesion suspicious for malignancy. Margins are difficult to define with overlying skin thickening and inverted nipple. Ms Curran was seen by Dr. Castillo and on exam he he noticed right axillary lymphadenopathy. Subsequently on December 30, 2019 Mrs Beaulieu underwent ultrasound-guided right breast biopsy as well as right axillary lymph node biopsy. The final pathology report came back invasive lobular carcinoma breast 3 out of 5 cores involved longest positive core was 1.2 cm. And right axillary lymph node biopsy also confirmed invasive lobular carcinoma extending into fibroadipose tissue with extensive involvement and very little lymphoid tissue identified. Prognostic molecular profiling was done which confirmed ER MT positive disease ER being 99% positive MT 90% positive HER-2/chuckie negative with a markedly elevated Ki-67 at 75% which is unfavorable. No family history positive for breast cancer No history of smoking or alcohol use no history of diabetes, postmenopausal and menarche at age 12 or 13 years of age. Patient denies any fever or chills, denies any nausea or vomiting, denies any diarrhea or constipation, denies any vaginal bleeding denies any hematuria. Echocardiogram done on February 01, 2020 showed ejection fraction 65%. Ms Beaulieu began dose dense Adriamycin Cytoxan every 2 weeks with Neulasta support on February 09, 2020. She did have severe chemo induced neutropenia resulting in cycle 2 being delayed. She has tolerated it well otherwise. Patient received third cycle of dose dense Adriamycin/Cytoxan on March 16, 2020 subsequently underwent ultrasound right breast which showed large mass in the right breast did appear smaller in size when compared with December 23, 2019 but margins were poorly visualized. The abnormal lymph nodes in the right axilla is no longer present was several benign-appearing lymph nodes seen in the right axilla. Ms Beaulieu was supposed to conclude her dose dense chemotherapy e.g. cycle #4 in first week of March 2020 but patient never came back due to her family/social problems as per patient her brother got sick and there was no one to drive her to the clinic. 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 Ms. Beaulieu resumed her chemotherapy on 07/24/2020. Her last chemotherapy prior to that was March 16, 2020 at which time she had received cycle 3 cyclophosphamide Adriamycin. She was supported with Neulasta at that time as well. She has not had treatment since then as she took time off to take care of her brother who was ill. She was due to resume treatment on July 04, 2020 but was found to have a nonfunctioning Port-A-Cath. She was referred back to Dr. Castillo and she underwent explantation of the left upper chest Port-A-Cath and placement of a new PowerPort in the left subclavian vein on July 17, 2020. She tolerated cycle 4 adrimycin/Cytoxan well. She was due to start her taxane portion of her treatment plan on 08/07/2020 but that was delayed due to inclement weather. Ms. Beaulieu is here today for follow-up and to begin the taxane portion of her treatment plan. This will be week 1 of 12 of paclitaxel. She has no new concerns. She denies any shortness of breath orthopnea. She has had no lower extremity edema. She denies any nausea or vomiting. She denies any fever or chills. She denies any known Covid exposure or symptoms. She has had no recent testing or pending test. She states her appetite is good. She denies any diarrhea or constipation. She states her bladder is normal for her. She is able to do all her ADLs without any assistance. She states she is highly motivated to proceed with treatment. Her ECOG is 0. Past Medical History: Depression Hypertension Past Surgical History: Appendectomy Breast biopsy Cholecystectomy Portacatheter placement dr. luis Placement of left subclavian Power Port-Dr Castillo in 2020 Removal of left internal juglar port Dr Castillo in 2020 Allergies: No Known Allergies. Medications: Acetaminophen 1 - 2 Capsule (of 325 mg) Oral daily PRN Cardizem CD 1 Capsule (of 240 mg) Capsule SR 24 HR Oral daily Oxybutynin Chloride 1 Tablet (of 5 mg) Oral daily PROzac 1 Capsule (of 20 mg) Oral daily Family History: Ms. Beaulieu's mother at age 73: type II diabetes. Ms. Beaulieu's father at age 61: lung cancer. 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 Ms. Beaulieu has never smoked. Ms. Beaulieu reports the following support systems: lives with spouse, significant other, family, or friends, lives in own house, supportive family/friends willing to assist with needs, and transportation problems exist and will require assistance. Her diet consists of regular meals. She indicates her activity level as: regular exercise. Review Of Symptoms: Constitutional Denies fevers, chills, night sweats, excessive fatigue or weight loss. Allergic/Immunologic No reactions. Eyes Denies significant visual changes. No diplopia. No amaurosis. ENMT Denies changes in hearing, sore throat, mouth sores, difficulty or changes in swallowing ability, and/or sinus drainage. Endocrine No diabetes, thyroid disease or hormone replacement. Denies hot flashes or night sweats. Hematologic/Lymphatic Denies easy bruising or bleeding. The patient denies any tender or palpable lymph nodes. Respiratory Denies dyspnea on exertion, chest pain, cough or hemoptysis. Denies orthopnea. Cardiovascular Denies anginal chest pain, palpitations or orthopnea. Gastrointestinal Denies nausea, vomiting, diarrhea, GI bleeding, or constipation. Denies change in bowel habits and/or stool color, no heartburn or early satiety. Genitourinary (F) No hematuria, hesitancy, incontinence, vaginal bleeding, discharge or other problems with urination. Musculoskeletal Denies joint pain, swelling or redness. No decreased range of motion. Integumentary Denies chronic rashes, inflammation, ulcerations or skin changes. Neurologic Denies headache, blurred vision, and no areas of focal weakness or numbness. Normal gait. No sensory problems. Psychiatric Denies insomnia, depression, staci or mood swings. Vital Signs: Performed on Aug 17, 2020 14:02 Height - 62.00 in Weight - 164.4 lbs (LOW) BSA - 1.76 sq.m BMI - 30.07 (HIGH) Temperature - 97.8 F (LOW) Pulse - 86 /min Respiration - 18 /min BP - 156/73 mm(hg) (HIGH) O2 Sat - 97 % Pain - 0,0 - Fully active, able to carry on all predisease activities without restrictions. (ECOG) Physical Examination: Constitutional Alert, oriented, no acute distress. Skin pink, warm and dry. Head Normocephalic; atraumatic. Eyes Conjunctivae and sclerae are clear and without icterus. Pupils are reactive and equal. Neck Supple without masses or thyromegaly. No jugular venous distension. Hematologic/Lymphatic No petechiae or purpura. No tender or palpable lymph nodes in the cervical or supraclavicular areas. Respiratory Lungs are clear to auscultation without rhonchi or wheezing. Cardiovascular Regular rate and rhythm of heart without murmurs,clicks, gallops or rubs. Chest Chest is symmetric without chest wall deformities. Left venous access device insertion site is unremarkable. It is noted to be healing well. Abdomen Non-tender, non-distended, no masses or ascites. Good bowel sounds noted in all quads. No guarding or rebound tenderness. No pulsatile masses. Back/Spine Non-tender to palpation. Extremities No visible deformities, no cyanosis, clubbing or edema. Musculoskeletal No tenderness or swelling, normal range of motion without obvious weakness. Integumentary No rashes or lesions. Neurologic No sensory or motor deficits, normal cerebellar function, normal gait. Psychiatric Alert and oriented times three. Coherent speech. Verbalizes understanding of our discussions today. Laboratory:Test performed on Aug 17, 2020 13:15 Sodium 139 mmol/L Potassium 4.0 mmol/L Chloride 102 mmol/L CO2 25 mmol/L Anion Gap 16.0 BUN 15 mg/dL Creatinine 0.6 mg/dL Cr Clearance (Est) 111.51 mL/min eGFR 100.6 mL/min Glucose 156 mg/dL Osmolality - Calculated 292 mOsm/kg Calcium 9.5 mg/dL Protein, Total 7.2 g/dL Albumin 4.1 g/dL Globulin 3.1 g/dL Bilirubin, Total 0.2 mg/dL ALT (SGPT) 10 U/L AST (SGOT) 10 U/L Alkaline Phosphatase 92 IU/L WBC 5.1 10 3/uL RBC 4.28 10 6/uL HGB 12.7 g/dL HCT 40.1 % MCV 93.7 fL MCH 29.7 pg MCHC 31.7 g/dL RDW 13.8 % Platelet Count 510 10 3/cmm MPV 8.6 fL Neutrophils 4.87 10 3/uL Lymphocytes 0.2 10 3/uL Monocytes 0.0 10 3/uL Eosinophils 0.0 10 3/uL Basophils 0.0 10 3/uL Neutrophil % 95.9 % Lymphocyte % 3.3 % Monocyte % 0.4 % Eosinophil % 0.0 % Basophils % 0.0 % NRBC % 0 % Test performed on Mar 15, 2020 09:02 Manual Lymphocytes 14 % Manual Monocytes 10 % Manual Eosinophils 1 % Metamyelocytes 3 % Platelet Estimate Consistent with count RBC Morphology normal Test performed on Mar 01, 2020 09:40 Manual Basophils 1 % Impression: Locally advance invasive lobular carcinoma involving the right breast With a skin ulceration and right axillary lymph node per ultrasound-guided biopsy done on December 30, 2019 ER 99% positive MT 90% positive HER-2/chuckie negative, Ki-67 75% Clinical stage T4b, N1 Mx IIIB Ejection fraction was 65% on echo done on February 01, 2020, Started on Neoadjuvant chemotherapy with dose dense Adriamycin Cytoxan with Neulasta support x4 on February 09, 2020, will be followed by weekly Taxol x12. She is tolerated her first cycle of Adriamycin Cytoxan well although she did have significant chemotherapy-induced neutropenia resulting in a delay in starting cycle 2.But patient stopped taking dose dense Adriamycin/Cytoxan after cycle # 3/4, because of her personal/family issues, as per patient her brother got sick and she was looking after him so she decided to delay her chemotherapy until he recovers, knowing the risk versus benefit involved with delaying neoadjuvant chemotherapy and also her transportation issue. Right breast ultrasound done after 3 cycles of dose dense Adriamycin/Cytoxan on April 11, 2020 showed large mass in the right breast does appear smaller in size as compared to December 23, 2019 but margins are poorly visualized and abnormal lymph nodes in the right axilla is no longer present. Mrs. Beaulieu chemotherapy plan with Adriamycin/Cytoxan has been interupted with cycle 3 on March 16, 2020. She stopped treatment on her own/AGAINST MEDICAL ADVICE to take care of her brother who was sick and she had transportation issues as well. Those situations have now resolved. Clinically, patient is doing well with no new signs symptoms but has persistent mass and edema in her right breast with overlying scarring. Per Dr Antunez's most recent followup note, clinically it appears there may be disease progression in her right breast. In that case, it was recommended that she resume her neoadjuvant chemotherapy with cycle #4/final dose of Adriamycin/Cytoxan. She resumed cycle 4 Adriamycin/Cytoxan on 07/24/2020 with Neulasta support. She was due to resume treatment on July 04, 2020 but was found to have a nonfunctioning Port-A-Cath. She was referred back to Dr. Castillo and she underwent explantation of the left upper chest Port-A-Cath and placement of a new PowerPort in the left subclavian vein on July 17, 2020. She tolerated cycle 4 adrimycin/Cytoxan well. She was due to start her taxane portion of her treatment plan on 08/07/2020 but that was delayed due to inclement weather. She was encouraged to proceed with weekly Taxol x12. Dr Antunez advised Ms Beaulieu to complete neoadjuvant chemotherapy as recommended without further delay and also discussed about importance of compliance with the chemotherapy schedule, patient expressed full understanding. She is highly motivated to complete treatment. She presents today for week 1/12 Taxol. However, nursing staff was unable to obtain a blood return from her port. She was sent for fluoroscopy flow study which did show the left Port-A-Cath with the tip in the distal innominate directly lateral with fibrin sheath around the distal catheter with partial obstruction and turbulent flow. Her chemotherapy will be delayed until we can determine how to manage her port. She may require PICC line to allow for completion of her treatment. She will be referred back to Dr Castillo for input on her venous access. Plan: PROBLEMS ADDRESSED TODAY 1. Absense of blood return for left Power Port A. Fluoroscopy flow study reports left Port-A-Cath with tip in the distal innominate vein directed laterally. This is retracted since the prior exam on July 17, 2020. Turbulent flow of contrast exiting from the distal catheter with surrounding irregular fibrin sheath. Visual distal innominate and SVC appear patent. Final impression was left Port-A-Cath with tip in distal innominate vein directly lateral with fibrin sheath around the distal catheter with partial obstruction and turbulent flow. Verbal report to nursing staff per Dr. Shirley was he advised him not to use the Port-A-Cath and recommend that it be replaced. B. Refer her back to Dr. Castillo for further assessment of her venous access. She may require PICC line so that we can complete her 12 weeks of chemotherapy. C. She is currently not on any type of aspirin or blood thinner and this may need to be a consideration as well. 2. Locally advanced invasive lobular carcinoma of the right breast: A. She has completed 4 cycles of Adriamycin Cytoxan at normal dosing. B. She did receive Neulasta support to prevent chemotherapy induced neutropenia. Her ANC on day 8 of cycle 2 was 610. On day 0 of cycle 2 was 6660. C. Continue aggressive antiemetics due to high risk regimen. She may also continue Compazine and lorazepam as needed at home for antiemetics. D. Today's labs were reviewed in detail and discussed with Ms. Beaulieu and a copy was given to her. WBC 5.1, hemoglobin 12.7, platelets 510,000 ANC is 4870. D. Follow-up echocardiogram from 06/22/2020 reports LVEF at 65%. Mild pulmonary hypertension with RVSP at 30 to 35 mmHg; mild mitral regurgitation???compared to prior echo from 02/01/2020, no significant changes were noted. E. Her Taxol will be held today due to lack of venous access and it is not an option to administer the taxane via a peripheral IV due to concerns of potential infiltration and tissue damage. F. She is aware we are contacting Dr Castillo' office and will wait for further instructions from him before proceeding with chemotherapy. G. Mrs. Beaulieu was encouraged to contact us in interim should questions or problems arise. H. Greater than 60 minutes was spent in review of chart and current plan of care; reviewing her labs and arranging for flow study of nonfunctioning port; discussing her venous complications with Dr Antunez, revising her plan of care as well as post visit documentation. Signed By: Cam Marmolejo-, CNP Lexi Antunez MD <<Signature on File>>
== END 2020-08-20 23:59 | disposition home or self-care (01) ==
LOC: ONCMED 16:00
PROVIDERS: PCP Physician Assistant Medical; Visit Provider Nurse Practitioner
DX: Z51.12 Encounter for antineoplastic immunotherapy (principal); Z51.11 Encounter for antineoplastic chemotherapy; C50.811 Malignant neoplasm of overlapping sites of right female breast; Z17.0 Estrogen receptor positive status [ER+]; F32.9 Major depressive disorder, single episode, unspecified; I10 Essential (primary) hypertension; Z79.899 Other long term (current) drug therapy
CPT/HCPCS: 36415; 36593; 36598; 80053; 85025; 96367; 96372; 96375; 96376; 96411; 96413; 99214; 99215; J1100; J1200; J1453; J2469; J2505; J2997; J7040; J7050; J9000; J9070; J9267; Q9967

== ENCOUNTER → 2020-08-18 14:19 | Outpatient (BNVA) | payer MEDICAID, SELFPAY | PROVIDERS: PCP Physician Assistant Medical; Visit Provider Surgery | DX: Z01.812 Encounter for preprocedural laboratory examination (principal); C50.911 Malignant neoplasm of unspecified site of right female breast | CPT/HCPCS: 87635 ==

== ENCOUNTER 2020-09-05 05:59 | Day surgery (SDC) | payer MEDICAID, SELFPAY ==
[2020-09-04 12:53] VITALS: BMI 30.2
--- NOTE | 2020-09-05 | SCC_ITS ---
Procedure Done: Explantation of left upper chest PowerPort. Placement of right internal jugular vein PowerPort under fluoroscopic and ultrasound guidance 6.7 seconds of fluoroscopic guidance, for a cumulative dose of 1.10 mGy, was provided to Dr. Castillo by the radiology department. C-arm images of the chest were saved for the patient's permanent record. [facility]
--- NOTE | 2020-09-05 06:12 | SC_ITS ---
WS: [id number] C-arm FL for CVA [id number] REASON FOR EXAM: Powerport Placement FINDINGS: Chemotherapy infusion port placement over the right anterolateral chest wall. Catheter course is cons istent with right internal jugular venous access. The tip is at the right atrial level. No pneumothor ax. SC/C-arm FL for CVA [id number] IMPRESSION: Chemotherapy infusion port placement as above.
[2020-09-05 06:19] VITALS: BP 162/83; PULSE 63; RESP 18; TEMP 37; O2SAT 98
[2020-09-05] MEDS: sodium chloride 0.9% 1,000 ML 30 ML IV (06:46)
--- NOTE | 2020-09-05 06:51 | W.PM.OPSUD ---
Surgery/Procedure H&P Update DATE OF PROCEDURE: September 05, 2020 DATE H&P PERFORMED: 08/21/20 H&P UPDATE INFORMATION: I have reviewed H&P completed within last 30 days, I have examined patient prior to procedure and No changes to prior documentation PREOP DIAGNOSIS: Breast cancer PRIMARY INDICATION FOR PROCEDURE: The same PLANNED PROCEDURE: Operation Date: 09/05/20 07:45 Proposed Procedures p Portacath Removal 64390 C50.911(Not Applicable) - Lalito Castillo MD s Portacath Placement 17613 C50.911(Not Applicable) - Lalito Castillo MD
--- NOTE | 2020-09-05 07:00 | ANES.PREANE2 ---
Pre-Anesthetic Assessment Pre-Anesthetic Assessment: Height/Weight: Height 1.57 m Weight 74.843 kg Temp Pulse Resp BP Pulse Ox 98.6 F 63 18 162/83 98 09/05/20 06:19 09/05/20 06:19 09/05/20 06:19 09/05/20 06:19 09/05/20 06:19 Preop Diagnosis: Breast cancer Proposed Procedure: Operation Date: 09/05/20 07:45 Proposed Procedures p Portacath Removal 49784 C50.911(Not Applicable) - Lalito Castillo MD s Portacath Placement 14848 C50.911(Not Applicable) - Lalito Castillo MD Was Beta Cal taken within 24 hours: N/A Was Clonidine taken within 24 hours: N/A Last intake: Intake Last Liquid Date 09/04/20 Last Liquid Time 20:00 Last Solid Date 09/04/20 Last Solid Time 17:00 Social: Social History: No alcohol and No tobacco Exam: Pre-Anes Outpt Exam: alert, oriented x 3, clear to auscultation bilaterally and regular rate & rhythm Airway: Submandibular: WNL Cervical ROM: WNL MP: 2 Dentition: False CV/HEM: CV/HEM: HTN Neuropsych: Neuropsych: Depression Anesthetic Plan: ASA status: 3 Anesthesia: MAC Risk of > 500 ml blood loss (7ml/kg in children): No Meds/Allergies Current Medications: Current Medications Generic Name Dose Route Start Last Admin Trade Name Freq PRN Reason Stop Dose Admin Sodium Chloride 1,000 mls @ 30 ml s/hr 09/05/20 06:15 09/05/20 06:46 Sodium Chloride 0.9% IV 09/06/20 06:14 30 mls/hr .Q24H CURTIS Administration PFSH Anesthesia PFSH: Medical History Depression Irregularly shaped mass of breast Port-A-Cath in place (~12/2019) Surgical History History of laparoscopic cholecystectomy (~1994) Status post laparoscopic appendectomy (~1994) Family History Father Cancer LUNG CANCER Hypertension Mother Diabetes Hypertension Denies family history of Anesthesia complication Bleeding disorder Social History Smoking and tobacco status: never smoked Second hand smoke exposure: No Alcohol intake: never Adopted: No Caregiver/support person: Yes Lives independently: Yes Household members: family Housing: Assisted Living Facility Marital status: service: No Current occupational status: employed Current occupational exposures/hazards: No Pets and animals: No History of recent travel: No Sexually active: No Current gender identity: Female Shanell/Islam: Scientologist Data Anesthesia Cardiac Studies: No Data to Display
[2020-09-05] MEDS: lidocaine 2% INJ 20 mL 40 ML (08:57)
[2020-09-05] MEDS: heparin, porcine 1,000 unit/mL INJ 10 mL 10000 UNIT (08:58)
--- NOTE | 2020-09-05 09:14 | PM.OP ---
Operative Report Date of procedure: September 05, 2020 Pre-op Diagnosis: Breast cancer Post-op diagnosis: same Procedure Done: Explantation of left upper chest PowerPort. Placement of right internal jugular vein PowerPort under fluoroscopic and ultrasound guidance All interpretation of the ultrasound and fluoroscopy was done by me through the whole entire procedure Implants: Right upper chest via right internal jugular vein PowerPort Specimens removed/disposition: Left upper chest PowerPort for gross pathology Surgeon: Lalito Castillo Order Picker/Assembler: Surgical jessica Parks Circulating nurse Francheska Anesthesia: MAC (Danis Cabral) Estimated blood loss (mL): 10 Condition: stable Disposition: same day Brief History: This is a pleasant 64 years old female patient with right breast cancer requiring PowerPort placement. Patient had a left upper chest PowerPort placed before couple of months and unfortunately the catheter got malpositioned. And so the patient was counseled for explantation of left upper chest PowerPort and placement of another one. Full H&P and informed consent per chart Procedure: U/S Guided IJ access Patient was identified in the holding area and taken to the operative room and placed in supine position IV propofol was given by the anesthesia provider ,both arms were tucked,Time-out was done verifying the patient's name/date of /planned procedure and destination after the procedure, all were in agreement. SCDs confirmed to be functioning, preoperative antibiotics administered per protocol, and beta zully protocol was confirmed, appropriate positioning of the patient was done by me. Medications were reviewed to assess for anticoagulant usage. Risks and benefits and prevention of central line associated blood stream infection (CLABSI) were discussed with the patient/CPOA, and a consent was obtained. Monitors were in place and monitored throughout the procedure. All necessary supplies were available prior to start. Hand hygiene was completed prior to starting. Maximum barrier technique was utilized including a sterile gown, sterile gloves with a hat and mask. Site was was prepped with [chlorhexidine] and a full body drape was placed. 5 mL of 2% lidocaine was injected into the skin with a 25 gauge needle. Prep and drape of the upper chest was done under the usual sterile technique,injection of lidocaine 2% at the site of the planned incision started by an transverse incision including the previous scar of the PowerPort placement,at the left upper chest wall, the port was then explanted after dissection from the surrounding healthy tissues, at this point the catheter was removed at the same time direct pressure was applied at the site of the left subclavian stick to prevent bleeding.Followed by that after irrigation and hemostasis was secured 3-0 Vicryl was used to close deep subdermal the left upper chest incision followed by 4-0 Monocryl. Attention now was deviated towards placement of a new power port lidocaine 2% was injected at the site of the stick, started by right Subclavian vein first but unfortunately arterial blood was retrieved, pressure was held and retried again and received arterial blood.At this point I decided to abort and access the right internal jugular vein under ultrasound guidance. Internal Juglar vein stick that retrieved venous blood was obtained from the first stick under ultrasound guidance and there was no evidence of intraluminal thrombosis, interpretation was done by me through the whole entire procedure, a guidewire was then threaded and under the guidance of fluoroscopy position was confirmed to be in the IVC and my interpretation, there was no PVC changes, at that point the guidewire was secured to the drapes with a hemostat and the needle was taken out. Attention was then deviated towards creation of a pocket for the port were lidocaine 2% was injected using an 15 blade knife skin incision was created at the right upper Chest ,dissection using the Bovie to create a pocket for the Port-A-Cath to be accommodated, hemostasis was secured, after the port being appropriately flushed it was inserted into the pocket and a tunneler was used to accommodate the catheter of the port cath to be delivered through the incision first created at the site of the stick,and then I was able to retrieve the catheter at the index site of the stick. At that point under fluoroscopy an estimated length was measured for the catheter and was cut at the designed level, followed by that a dilator with the sheath introduced onto the guidewire the dilator and the wire were retrieved and the catheter of the port was introduced via the sheath where it was peeled off and the catheter maintained to be in the SVC that was confirmed with fluoroscopy, and the fluoroscopy interpretation was done by me throughout the entire procedure. Multiple flushes of the port was done by diluted heparin and I was able to retrieve without difficulty venous blood as well as appropriate flushing was achieved. The port was kept secured in its pocket,3-0 Vicryl deep subdermal interrupted sutures, skin was then closed by 4-0 Monocryl as subcuticular closure. The stick site was closed by 3-0 Vicryl and surgical glue was applied to all incisions was used followed by dry dressing. Patient tolerated the procedure well was taken to the recovery area. Count was correct at the end of the procedure I was present for the whole entire procedure Chest x-ray was done postoperatively and showed the port in good position without complications
--- NOTE | 2020-09-05 09:21 | XR_ITS ---
WS: [id number] XR chest 1V portable [id number] REASON FOR EXAM: Status post right internal jugular vein FINDINGS: Chemotherapy infusion port placement over the right anterolateral chest wall. Catheter access is thro ugh the right internal jugular vein. The tip of the catheter is at the IVC atrial junction. There is no pneumothorax. No other acute abnormality identified. XR/XR chest 1V portable [id number] IMPRESSION: Follow-up chest x-ray chemotherapy port placement right chest as above.
[2020-09-05 09:31] VITALS: BP 143/69; PULSE 84; RESP 16; TEMP 36.1; O2SAT 97
[2020-09-05 09:35] VITALS: BP 152/77; PULSE 82; RESP 16; O2SAT 96
[2020-09-05 09:40] VITALS: PULSE 80; RESP 14; TEMP 36.3; O2SAT 96
[2020-09-05 09:53] VITALS: BP 168/78; PULSE 85; RESP 16; TEMP 36.3; O2SAT 96
[2020-09-05 10:06] VITALS: BP 163/78; PULSE 76; RESP 18; O2SAT 98
--- NOTE | 2020-09-05 14:12 | ANE.PACU2 ---
Inpatient post-anesthesia follow up: Airway intact: Yes Vital signs: Temperature 97.4 F Pulse Rate 76 Respiratory Rate 18 Blood Pressure 163/78 Pulse Oximetry 98 Oxygen Delivery Me thod Room Air Oxygen Flow Rate Fraction of Inspir ed Oxygen Hydration adequate: Yes Nausea and vomiting: No Pain level: 2 Mental status: Baseline
== END 2020-09-05 10:28 | disposition home or self-care (01) ==
PROVIDERS: PCP Physician Assistant Medical; Visit Provider Surgery
PROC: (CPT 36589; principal; 2020-09-05 07:45)
PROC: (CPT 36561; 2020-09-05 07:45)
DX: C50.911 Malignant neoplasm of unspecified site of right female breast (principal); I10 Essential (primary) hypertension
CPT/HCPCS: 36561; 36590; 71045; 76000; 77001; 88300; C1788; J0690; J1644; J2704; J3010; J3490; J7030

== ENCOUNTER 2020-09-21 07:30 | Outpatient (CLI) | payer MEDICAID, SELFPAY ==
[2020-09-21 09:13] LABS: Basophils % 0.2 %; Lymphocytes # 0.2 10^3/uL (0.8-4.8); Lymphocytes % 4.5 %; Mean Corpuscular HGB Conc 31.7 g/dL (30.0-36.0); Mean Corpuscular Hemoglobin 30.2 pg (28.0-34.0); Mean Corpuscular Volume 95.1 fL (81-99); Mean Platelet Volume 8.4 fL (7.4-10.4); Monocytes % 0.4 %; Neutrophils # 5.07 10^3/uL (1.8-7.7); Neutrophils % 94.5 %; Nucleated Red Blood Cells % 0 %; Platelet Count 329 10^3/cmm (130-400); Red Blood Count 4.31 10^6/uL (4.1-5.3); Red Cell Distribution Width 14.1 % (12.1-15.1); White Blood Count 5.4 10^3/uL (4.0-10.0)
[2020-09-21 09:37] LABS: Alanine Aminotransferase 10 U/L (0-33); Albumin Level 4.2 g/dL (3.5-5.2); Alkaline Phosphatase 101 IU/L (35-105); Anion Gap 14.9 (5-19); Aspartate Amino Transferase 10 U/L (0-32); Blood Urea Nitrogen 23 mg/dL (8-23); Calcium 9.6 mg/dL (8.5-10.5); Carbon Dioxide 25 mmol/L (22-29); Chloride 104 mmol/L (98-107); Globulin 3.3 g/dL (1.3-4.6); Glomerular Filtration Rate 100.6 mL/min (90-130); Glucose 168 mg/dL (65-115); Osmolality Calculated 298 mOsm/kg (285-295); Potassium 3.9 mmol/L (3.5-5.1); Sodium 140 mmol/L (136-145); Total Bilirubin 0.2 mg/dL (0.15-1.2); Total Protein 7.5 g/dL (6.6-8.7)
[2020-09-21 09:42] LABS: Slide Review Slide Review Perform
[2020-09-21] MEDS: acetaminophen 325 mg Tablet 650 MG PO (10:08)
[2020-09-21] MEDS: sodium chloride 0.9% 250 ML 75 ML IV (10:15)
[2020-09-21] MEDS: famotidine 20 mg/2 mL INJ IVP (10:15)
[2020-09-21] MEDS: ondansetron 2 mg/ML SDV 2 mL 8 MG IVP (10:17)
[2020-09-21] MEDS: diphenhydrAMINE 50 mg/mL SDV 1mL 25 MG IVP (10:20)
--- NOTE | 2020-10-03 06:14 | ONC FU_ITS ---
[facility] Patient Note Patient: Violetta Beaulieu Unit #: [id number]: 1955 Dictated By: Cam MarmolejoDate of Visit: Sep 21, 2020 Onc MED Follow-Up/Prog Note Chief Complaint: Right breast cancer Invasive lobular carcinoma ER/CT positive HER-2 negative Ki-67 at 75% History of Present Illness: Ms. Beaulieu is a 64-year-old female with more than year-long history of abnormality in the right breast. She reports that in about 2018 she noticed a small skin lesion in her right breast, she thought it was a mosquito bite. Later on she noticed a scab but it did not bother her until about 2 months ago when she noted a skin wound with some discharge along with damage in the right breast nipple and since then it has progressed, now with destruction of right breast nipple and firmness and shrinkage in more than two third of her right breast. Eventually, Ms Beaulieu went to see her primary care physician and underwent bilateral mammogram and ultrasonogram on December 23, 2019. The right breast showed heterogeneous fibroglandular density tissue with diffuse skin thickening with architectural distortion mid depth right breast, soft tissue thickening in the area of skin ulceration and indentation. Architectural distortion mid and posterior depth right breast with punctate indeterminate calcification and ultrasound right breast in the area of ulceration showed large hypoechoic ill-defined shadowing lesion suspicious for malignancy. Margins are difficult to define with overlying skin thickening and inverted nipple. Ms Beaulieu was seen by Dr. Castillo and on exam he he noticed right axillary lymphadenopathy. Subsequently on December 30, 2019 Mrs Beaulieu underwent ultrasound-guided right breast biopsy as well as right axillary lymph node biopsy. The final pathology report came back invasive lobular carcinoma breast 3 out of 5 cores involved longest positive core was 1.2 cm. And right axillary lymph node biopsy also confirmed invasive lobular carcinoma extending into fibroadipose tissue with extensive involvement and very little lymphoid tissue identified. Prognostic molecular profiling was done which confirmed ER CT positive disease ER being 99% positive CT 90% positive HER-2/chuckie negative with a markedly elevated Ki-67 at 75% which is unfavorable. No family history positive for breast cancer No history of smoking or alcohol use no history of diabetes, postmenopausal and menarche at age 12 or 13 years of age. Patient denies any fever or chills, denies any nausea or vomiting, denies any diarrhea or constipation, denies any vaginal bleeding denies any hematuria. Echocardiogram done on February 01, 2020 showed ejection fraction 65%. Ms Beaulieu began dose dense Adriamycin Cytoxan every 2 weeks with Neulasta support on February 09, 2020. She did have severe chemo induced neutropenia resulting in cycle 2 being delayed. She has tolerated it well otherwise. Patient received third cycle of dose dense Adriamycin/Cytoxan on March 16, 2020 subsequently underwent ultrasound right breast which showed large mass in the right breast did appear smaller in size when compared with December 23, 2019 but margins were poorly visualized. The abnormal lymph nodes in the right axilla is no longer present was several benign-appearing lymph nodes seen in the right axilla. Ms Beaulieu was supposed to conclude her dose dense chemotherapy e.g. cycle #4 in first week of March 2020 but patient never came back due to her family/social problems as per patient her brother got sick and there was no one to drive her to the clinic. 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 Ms. Beaulieu resumed her chemotherapy on 07/24/2020. Her last chemotherapy prior to that was March 16, 2020 at which time she had received cycle 3 cyclophosphamide Adriamycin. She was supported with Neulasta at that time as well. She has not had treatment since then as she took time off to take care of her brother who was ill. She was due to resume treatment on July 04, 2020 but was found to have a nonfunctioning Port-A-Cath. She was referred back to Dr. Castillo and she underwent explantation of the left upper chest Port-A-Cath and placement of a new PowerPort in the left subclavian vein on July 17, 2020. She tolerated cycle 4 adrimycin/Cytoxan well. She was due to start her taxane portion of her treatment plan on 08/07/2020 but that was delayed due to inclement weather. She had further delay due to venous access complications requiring replacement of her access device again. She had placement of a right internal juglar PowerPort on 09/05/[address] Castillo @ [facility]. Ms. Beaulieu is here today for follow-up and to begin the taxane portion of her treatment plan. This will be week 1 of 12 of paclitaxel. Her last chemotherapy was Adriamycin Cytoxan on July 24, 2020. They completed her 4 cycles. She has had delay due to to IV access issues. She did have Port-A-Cath explantation of the left upper chest PowerPort on September 05, 2020. She also had placement of right internal jugular vein PowerPort on September 05, 2020. This has healed well. She is here today to begin the weekly paclitaxel portion of her planned treatment. She did take her pretreatment steroids as directed. Ms. Beaulieu has no concerns today. She states that her chest wall is healing well. She denies any pain. She has had no fever or chills. She denies any problems at the Port-A-Cath site. She denies any shortness of breath orthopnea. She has had no hemoptysis. She denies any nausea or vomiting. She states her energy is good as well as her appetite. She denies any diarrhea or constipation. She is had no urinary complaints. She denies any orthopnea. She denies any chest pain or palpitations. She has had no lower extremity edema. Her ECOG is 0. Past Medical History: Depression Hypertension Past Surgical History: Appendectomy Breast biopsy Cholecystectomy Portacatheter placement dr. luis Right internal jugular PowerPort-Dr Castillo in 2020 Placement of left subclavian Power Port-Dr Castillo in 2020 Removal of left internal juglar port Dr Castillo in 2020 Allergies: No Known Allergies. Medications: Acetaminophen 1 - 2 Capsule (of 325 mg) Oral daily PRN Cardizem CD 1 Capsule (of 240 mg) Capsule SR 24 HR Oral daily Oxybutynin Chloride 1 Tablet (of 5 mg) Oral daily PROzac 1 Capsule (of 20 mg) Oral daily Family History: Ms. Beaulieu's mother at age 73: type II diabetes. Ms. Beaulieu's father at age 61: lung cancer. 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 Ms. Beaulieu has never smoked. Ms. Beaulieu reports the following support systems: lives with spouse, significant other, family, or friends, lives in own house, supportive family/friends willing to assist with needs, and transportation problems exist and will require assistance. Her diet consists of regular meals. She indicates her activity level as: regular exercise. Review Of Symptoms: Constitutional Denies fevers, chills, night sweats, excessive fatigue or weight loss. Allergic/Immunologic No reactions. Eyes Denies significant visual changes. No diplopia. No amaurosis. ENMT Denies changes in hearing, sore throat, mouth sores, difficulty or changes in swallowing ability, and/or sinus drainage. Hematologic/Lymphatic Denies easy bruising or bleeding. The patient denies any tender or palpable lymph nodes. Breasts no concerns Respiratory Denies dyspnea on exertion, chest pain, cough or hemoptysis. Denies orthopnea. Cardiovascular Denies anginal chest pain, palpitations or orthopnea. Gastrointestinal Denies nausea, vomiting, diarrhea, GI bleeding, or constipation. Denies change in bowel habits and/or stool color, no heartburn or early satiety. Genitourinary (F) No hematuria, hesitancy, incontinence, vaginal bleeding, discharge or other problems with urination. Musculoskeletal Denies joint pain, swelling or redness. No decreased range of motion. Integumentary Denies chronic rashes, inflammation, ulcerations or skin changes. Neurologic Denies headache, blurred vision, and no areas of focal weakness or numbness. Normal gait. No sensory problems. Psychiatric Denies insomnia, depression, staci or mood swings. Vital Signs: Performed on Sep 21, 2020 09:53 Height - 62.00 in Weight - 166.6 lbs (HIGH) BSA - 1.77 sq.m BMI - 30.47 (HIGH) Temperature - 98.1 F (LOW) Pulse - 89 /min Respiration - 17 /min BP - 140/84 mm(hg) O2 Sat - 99 % Pain - 8,0 - Fully active, able to carry on all predisease activities without restrictions. (ECOG) Physical Examination: Constitutional Alert, oriented, no acute distress. Skin pink, warm and dry. Head Normocephalic; atraumatic. Eyes Conjunctivae and sclerae are clear and without icterus. Pupils are reactive and equal. Neck Supple without masses or thyromegaly. No jugular venous distension. Hematologic/Lymphatic No petechiae or purpura. No tender or palpable lymph nodes in the cervical or supraclavicular areas. Respiratory Lungs are clear to auscultation without rhonchi or wheezing. Cardiovascular Regular rate and rhythm of heart without murmurs,clicks, gallops or rubs. Chest Chest is symmetric without chest wall deformities. RIGHT venous access device insertion site is unremarkable. It is noted to be healing well. Back/Spine Non-tender to palpation. Extremities No visible deformities, no cyanosis, clubbing or edema. Musculoskeletal No tenderness or swelling, normal range of motion without obvious weakness. Integumentary No rashes or lesions. Neurologic No sensory or motor deficits, normal cerebellar function, normal gait. Psychiatric Alert and oriented times three. Coherent speech. Verbalizes understanding of our discussions today. Laboratory:Test performed on Sep 28, 2020 10:35 Sodium 138 mmol/L Potassium 4.5 mmol/L Chloride 102 mmol/L CO2 25 mmol/L Anion Gap 15.5 BUN 16 mg/dL Creatinine 0.6 mg/dL Cr Clearance (Est) 111.5100 mL/min eGFR 100.6 mL/min Glucose 172 mg/dL Osmolality - Calculated 291 mOsm/kg Calcium 9.3 mg/dL Protein, Total 6.8 g/dL Albumin 4.0 g/dL Globulin 2.8 g/dL Bilirubin, Total 0.2 mg/dL ALT (SGPT) 10 U/L AST (SGOT) 12 U/L Alkaline Phosphatase 87 IU/L WBC 6.2 10 3/uL RBC 3.78 10 6/uL HGB 11.6 g/dL HCT 36.8 % MCV 97.4 fL MCH 30.7 pg MCHC 31.5 g/dL RDW 13.9 % Platelet Count 324 10 3/cmm MPV 8.9 fL Neutrophils 5.96 10 3/uL Lymphocytes 0.2 10 3/uL Monocytes 0.0 10 3/uL Eosinophils 0.0 10 3/uL Basophils 0.0 10 3/uL Neutrophil % 96.1 % Lymphocyte % 3.1 % Monocyte % 0.2 % Eosinophil % 0.0 % Basophils % 0.0 % NRBC % 0 % Test performed on Sep 21, 2020 08:15 CBC Slide Review Slide Review Perform SLIDE REVIEW AGREES WITH AUTOMATED RESULTS ST Impression: Locally advance invasive lobular carcinoma involving the right breast With a skin ulceration and right axillary lymph node per ultrasound-guided biopsy done on December 30, 2019 ER 99% positive CT 90% positive HER-2/chuckie negative, Ki-67 75% Clinical stage T4b, N1 Mx IIIB Ejection fraction was 65% on echo done on February 01, 2020, Started on Neoadjuvant chemotherapy with dose dense Adriamycin Cytoxan with Neulasta support x4 on February 09, 2020, will be followed by weekly Taxol x12. She is tolerated her first cycle of Adriamycin Cytoxan well although she did have significant chemotherapy-induced neutropenia resulting in a delay in starting cycle 2.But patient stopped taking dose dense Adriamycin/Cytoxan after cycle # 3/4, because of her personal/family issues, as per patient her brother got sick and she was looking after him so she decided to delay her chemotherapy until he recovers, knowing the risk versus benefit involved with delaying neoadjuvant chemotherapy and also her transportation issue. Right breast ultrasound done after 3 cycles of dose dense Adriamycin/Cytoxan on April 11, 2020 showed large mass in the right breast does appear smaller in size as compared to December 23, 2019 but margins are poorly visualized and abnormal lymph nodes in the right axilla is no longer present. Mrs. Beaulieu chemotherapy plan with Adriamycin/Cytoxan has been interupted with cycle 3 on March 16, 2020. She stopped treatment on her own/AGAINST MEDICAL ADVICE to take care of her brother who was sick and she had transportation issues as well. Those situations have now resolved. Clinically, patient is doing well with no new signs symptoms but has persistent mass and edema in her right breast with overlying scarring. Per Dr Antunez's followup note, clinically it appeared there may be disease progression in her right breast. In that case, it was recommended that she resume her neoadjuvant chemotherapy with cycle #4/final dose of Adriamycin/Cytoxan. She resumed cycle 4 Adriamycin/Cytoxan on 07/24/2020 with Neulasta support. She was due to resume treatment on July 04, 2020 but was found to have a nonfunctioning Port-A-Cath. She was referred back to Dr. Castillo and she underwent explantation of the left upper chest Port-A-Cath and placement of a new PowerPort in the left subclavian vein on July 17, 2020. She tolerated cycle 4 adrimycin/Cytoxan well. She was due to start her taxane portion of her treatment plan on 08/07/2020 but that was delayed due to inclement weather. She was encouraged to proceed with weekly Taxol x12. Dr Antunez advised Ms Beaulieu to complete neoadjuvant chemotherapy as recommended without further delay and also discussed about importance of compliance with the chemotherapy schedule, patient expressed full understanding. She is highly motivated to complete treatment. She presents today for week 1/12 Taxol. However, nursing staff was unable to obtain a blood return from her port. She was sent for fluoroscopy flow study which did show the left Port-A-Cath with the tip in the distal innominate directly lateral with fibrin sheath around the distal catheter with partial obstruction and turbulent flow. Her chemotherapy will be delayed until we can determine how to manage her port. She may require PICC line to allow for completion of her treatment. She was referred back to Dr Castillo for input on her venous access. Plan: PROBLEMS ADDRESSED TODAY 1. Absense of blood return for left Power Port A. Fluoroscopy flow study reports left Port-A-Cath with tip in the distal innominate vein directed laterally. This is retracted since the prior exam on July 17, 2020. Turbulent flow of contrast exiting from the distal catheter with surrounding irregular fibrin sheath. Visual distal innominate and SVC appear patent. Final impression was left Port-A-Cath with tip in distal innominate vein directly lateral with fibrin sheath around the distal catheter with partial obstruction and turbulent flow. Verbal report to nursing staff per Dr. Shirley was he advised him not to use the Port-A-Cath and recommend that it be replaced. She did have explantation of the left upper chest PowerPort and replacement with placement of a right internal jugular vein PowerPort on September 05, 2020. A. She has excellent return of the newly placed right internal jugular PowerPort. B. We will plan to proceed with her first cycle of weekly paclitaxel today. 2. Locally advanced invasive lobular carcinoma of the right breast: A. She has completed 4 cycles of Adriamycin Cytoxan at normal dosing. B. She did receive Neulasta support to prevent chemotherapy induced neutropenia. Her ANC on day 8 of cycle 2 was 610. On day 0 of cycle 2 was 6660. C. Continue aggressive antiemetics due to high risk regimen. She may also continue Compazine and lorazepam as needed at home for antiemetics. D. Today's labs were reviewed in detail and discussed with Ms. Beaulieu and a copy was given to her. WBC 5.4, hemoglobin 13, platelets 329,000 ANC is 5070. Creatinine 0.6 random glucose 168 (steroid-induced) potassium 3.9 LFTs are normal. Weight is 166.6. D. Follow-up echocardiogram from 06/22/2020 reports LVEF at 65%. Mild pulmonary hypertension with RVSP at 30 to 35 mmHg; mild mitral regurgitation???compared to prior echo from 02/01/2020, no significant changes were noted. E. We will proceed with her first of 12 weekly paclitaxel at 80 mg/m2. F. Premed steroid compliance confirmed. 3. Follow-up plan A. We will plan to see her back in 1 week with CBC CMP. B. She is encouraged to take her premed steroids weekly prior to the paclitaxel. C. She will have weekly follow-up visits for review of labs, side effects and authorization of weekly chemotherapy. D. Reviewed potential side effects of the chemotherapy to include but not limited to anemia, thrombocytopenia, neutropenia, nausea vomiting, peripheral neuropathy in hands/feet, potential for anaphylaxis after 30% with administration of the paclitaxel thus the need for weekly steroids. We also discussed fatigue, alopecia, rash. Total time spent on this visit and review of records as well as in review of plan of care, reeducating the patient regarding the plan of care, side effect identification and management as well as post visit documentation was 50 minutes. Signed By: Cam Marmolejo-, AOCNP Lexi Antunez MD <<Signature on File>>
== END 2020-09-21 07:31 | disposition home or self-care (01) ==
LOC: ONCMED 07:31
PROVIDERS: PCP Physician Assistant Medical; Visit Provider Nurse Practitioner
DX: C50.811 Malignant neoplasm of overlapping sites of right female breast (principal); Z17.0 Estrogen receptor positive status [ER+]; F32.9 Major depressive disorder, single episode, unspecified; I10 Essential (primary) hypertension; Z79.899 Other long term (current) drug therapy
CPT/HCPCS: 80053; 85025; 96367; 96375; 96413; 99215; J1100; J1200; J1453; J2405; J3490; J7050; J9267

== ENCOUNTER 2020-10-19 05:34 | Outpatient (RCR) | payer MEDICAID, SELFPAY ==
[2020-09-28 11:28] LABS: Hematocrit 36.8 % (37.0-47.0); Hemoglobin 11.6 g/dL (11.5-15.3); Lymphocytes # 0.2 10^3/uL (0.8-4.8); Lymphocytes % 3.1 %; Mean Corpuscular HGB Conc 31.5 g/dL (30.0-36.0); Mean Corpuscular Hemoglobin 30.7 pg (28.0-34.0); Mean Corpuscular Volume 97.4 fL (81-99); Mean Platelet Volume 8.9 fL (7.4-10.4); Monocytes % 0.2 %; Neutrophils # 5.96 10^3/uL (1.8-7.7); Neutrophils % 96.1 %; Nucleated Red Blood Cells % 0 %; Platelet Count 324 10^3/cmm (130-400); Red Blood Count 3.78 10^6/uL (4.1-5.3); Red Cell Distribution Width 13.9 % (12.1-15.1); White Blood Count 6.2 10^3/uL (4.0-10.0)
[2020-09-28 11:47] LABS: Alanine Aminotransferase 10 U/L (0-33); Alkaline Phosphatase 87 IU/L (35-105); Anion Gap 15.5 (5-19); Aspartate Amino Transferase 12 U/L (0-32); Blood Urea Nitrogen 16 mg/dL (8-23); Calcium 9.3 mg/dL (8.5-10.5); Carbon Dioxide 25 mmol/L (22-29); Chloride 102 mmol/L (98-107); Globulin 2.8 g/dL (1.3-4.6); Glomerular Filtration Rate 100.6 mL/min (90-130); Glucose 172 mg/dL (65-115); Osmolality Calculated 291 mOsm/kg (285-295); Potassium 4.5 mmol/L (3.5-5.1); Sodium 138 mmol/L (136-145); Total Bilirubin 0.2 mg/dL (0.15-1.2); Total Protein 6.8 g/dL (6.6-8.7)
[2020-09-28] MEDS: sodium chloride 0.9% 250 ML 75 ML IV (13:40)
[2020-09-28] MEDS: ondansetron 2 mg/ML SDV 2 mL 8 MG IV (13:45)
[2020-09-28] MEDS: acetaminophen 325 mg Tablet 650 MG PO (13:47)
[2020-09-28] MEDS: famotidine 20 mg/2 mL INJ IVP (13:49)
[2020-09-28] MEDS: diphenhydrAMINE 50 mg/mL SDV 1mL 25 MG IV (13:50)
[2020-09-28] MEDS: fosaprepitant 150 MG in sodium chloride 0.9% 150 ML 300 MG IV (13:54)
--- NOTE | 2020-10-05 01:45 | ONC FU_ITS ---
[facility] Patient Note Patient: Violetta Beaulieu Unit #: [id number]: 1955 Dictated By: Cam MarmolejoDate of Visit: Sep 28, 2020 Onc MED Follow-Up/Prog Note Chief Complaint: Right breast cancer Invasive lobular carcinoma ER/SC positive HER-2 negative Ki-67 at 75% History of Present Illness: Ms. Beaulieu is a 64-year-old female with more than year-long history of abnormality in the right breast. She reports that in about 2018 she noticed a small skin lesion in her right breast, she thought it was a mosquito bite. Later on she noticed a scab but it did not bother her until about 2 months ago when she noted a skin wound with some discharge along with damage in the right breast nipple and since then it has progressed, now with destruction of right breast nipple and firmness and shrinkage in more than two third of her right breast. Eventually, Ms Beaulieu went to see her primary care physician and underwent bilateral mammogram and ultrasonogram on December 23, 2019. The right breast showed heterogeneous fibroglandular density tissue with diffuse skin thickening with architectural distortion mid depth right breast, soft tissue thickening in the area of skin ulceration and indentation. Architectural distortion mid and posterior depth right breast with punctate indeterminate calcification and ultrasound right breast in the area of ulceration showed large hypoechoic ill-defined shadowing lesion suspicious for malignancy. Margins are difficult to define with overlying skin thickening and inverted nipple. Ms Beaulieu was seen by Dr. Castillo and on exam he he noticed right axillary lymphadenopathy. Subsequently on December 30, 2019 Mrs Beaulieu underwent ultrasound-guided right breast biopsy as well as right axillary lymph node biopsy. The final pathology report came back invasive lobular carcinoma breast 3 out of 5 cores involved longest positive core was 1.2 cm. And right axillary lymph node biopsy also confirmed invasive lobular carcinoma extending into fibroadipose tissue with extensive involvement and very little lymphoid tissue identified. Prognostic molecular profiling was done which confirmed ER SC positive disease ER being 99% positive SC 90% positive HER-2/chuckie negative with a markedly elevated Ki-67 at 75% which is unfavorable. No family history positive for breast cancer No history of smoking or alcohol use no history of diabetes, postmenopausal and menarche at age 12 or 13 years of age. Patient denies any fever or chills, denies any nausea or vomiting, denies any diarrhea or constipation, denies any vaginal bleeding denies any hematuria. Echocardiogram done on February 01, 2020 showed ejection fraction 65%. Ms Beaulieu began dose dense Adriamycin Cytoxan every 2 weeks with Neulasta support on February 09, 2020. She did have severe chemo induced neutropenia resulting in cycle 2 being delayed. She has tolerated it well otherwise. Patient received third cycle of dose dense Adriamycin/Cytoxan on March 16, 2020 subsequently underwent ultrasound right breast which showed large mass in the right breast did appear smaller in size when compared with December 23, 2019 but margins were poorly visualized. The abnormal lymph nodes in the right axilla is no longer present was several benign-appearing lymph nodes seen in the right axilla. Ms Beaulieu was supposed to conclude her dose dense chemotherapy e.g. cycle #4 in first week of March 2020 but patient never came back due to her family/social problems as per patient her brother got sick and there was no one to drive her to the clinic. 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 Ms. Beaulieu resumed her chemotherapy on 07/24/2020. Her last chemotherapy prior to that was March 16, 2020 at which time she had received cycle 3 cyclophosphamide Adriamycin. She was supported with Neulasta at that time as well. She has not had treatment since then as she took time off to take care of her brother who was ill. She was due to resume treatment on July 04, 2020 but was found to have a nonfunctioning Port-A-Cath. She was referred back to Dr. Castillo and she underwent explantation of the left upper chest Port-A-Cath and placement of a new PowerPort in the left subclavian vein on July 17, 2020. She tolerated cycle 4 adrimycin/Cytoxan well. She was due to start her taxane portion of her treatment plan on 08/07/2020 but that was delayed due to inclement weather. She had further delay due to venous access complications requiring replacement of her access device again. She had placement of a right internal juglar PowerPort on 09/05/[address] Castillo @ [facility]. Ms. Beaulieu is here today for follow-up and week 2 of 12 of paclitaxel. She is doing well overall. She denies any neuropathy. She states she had a little constipation 2 days after the treatment but that was all. She states it is resolved and her bowels are moving extremely well now. We did discuss that she could use stool softeners and laxatives as needed. If she continues to have problems we will need to consider reevaluating her premed antiemetics although she did not receive Aloxi premeds she will received 8 mg of Zofran. She did not have any nausea with her treatment she states. She states her Port-A-Cath is doing well. She has had no pain, swelling or any other concerns with it since last week. She states it gave excellent but returned this morning. She is eating well and her energy is good. She is doing all of her ADLs without any assistance. She denies any mouth sores, sore throat or difficulty swallowing. She denies any shortness of breath orthopnea. She has had no rash or skin changes. Her ECOG is zero. Past Medical History: Depression Hypertension Past Surgical History: Appendectomy Breast biopsy Cholecystectomy Portacatheter placement dr. luis Right internal jugular PowerPort-Dr Castillo in 2020 Placement of left subclavian Power Port-Dr Castillo in 2020 Removal of left internal juglar port Dr Castillo in 2020 Allergies: No Known Allergies. Medications: Acetaminophen 1 - 2 Capsule (of 325 mg) Oral daily PRN Cardizem CD 1 Capsule (of 240 mg) Capsule SR 24 HR Oral daily Oxybutynin Chloride 1 Tablet (of 5 mg) Oral daily PROzac 1 Capsule (of 20 mg) Oral daily Family History: Ms. Beaulieu's mother at age 73: type II diabetes. Ms. Beaulieu's father at age 61: lung cancer. Social History: Ms. 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 Ms. Beaulieu has never smoked. Ms. Beaulieu reports the following support systems: lives with spouse, significant other, family, or friends, lives in own house, supportive family/friends willing to assist with needs, and transportation problems exist and will require assistance. Her diet consists of regular meals. She indicates her activity level as: regular exercise. Review Of Symptoms: see above Vital Signs: Performed on Sep 28, 2020 12:27 Height - 62.00 in Weight - 167.0 lbs (HIGH) BSA - 1.77 sq.m BMI - 30.54 (HIGH) Temperature - 97.7 F (LOW) Pulse - 88 /min Respiration - 17 /min BP - 142/81 mm(hg) (HIGH) O2 Sat - 96 % Pain - 0,0 - Fully active, able to carry on all predisease activities without restrictions. (ECOG) Physical Examination: Constitutional Alert, oriented, no acute distress. Skin pink, warm and dry. Head Normocephalic; atraumatic. Eyes Conjunctivae and sclerae are clear and without icterus. Pupils are reactive and equal. Neck Supple without masses or thyromegaly. No jugular venous distension. Hematologic/Lymphatic No petechiae or purpura. No tender or palpable lymph nodes in the cervical or supraclavicular areas. Respiratory Lungs are clear to auscultation without rhonchi or wheezing. Cardiovascular Regular rate and rhythm of heart without murmurs,clicks, gallops or rubs. Chest Chest is symmetric without chest wall deformities. RIGHT venous access device insertion site is unremarkable. It is noted to be healing well. Abdomen Non-tender, non-distended, no masses or ascites. Good bowel sounds noted in all quads. No guarding or rebound tenderness. No pulsatile masses. Back/Spine Non-tender to palpation. Extremities No visible deformities, no cyanosis, clubbing or edema. Musculoskeletal No tenderness or swelling, normal range of motion without obvious weakness. Integumentary No rashes or lesions. Neurologic No sensory or motor deficits, normal cerebellar function, normal gait. Psychiatric Alert and oriented times three. Coherent speech. Verbalizes understanding of our discussions today. Laboratory:Test performed on Sep 28, 2020 10:35 Sodium 138 mmol/L Potassium 4.5 mmol/L Chloride 102 mmol/L CO2 25 mmol/L Anion Gap 15.5 BUN 16 mg/dL Creatinine 0.6 mg/dL Cr Clearance (Est) 111.5100 mL/min eGFR 100.6 mL/min Glucose 172 mg/dL Osmolality - Calculated 291 mOsm/kg Calcium 9.3 mg/dL Protein, Total 6.8 g/dL Albumin 4.0 g/dL Globulin 2.8 g/dL Bilirubin, Total 0.2 mg/dL ALT (SGPT) 10 U/L AST (SGOT) 12 U/L Alkaline Phosphatase 87 IU/L WBC 6.2 10 3/uL RBC 3.78 10 6/uL HGB 11.6 g/dL HCT 36.8 % MCV 97.4 fL MCH 30.7 pg MCHC 31.5 g/dL RDW 13.9 % Platelet Count 324 10 3/cmm MPV 8.9 fL Neutrophils 5.96 10 3/uL Lymphocytes 0.2 10 3/uL Monocytes 0.0 10 3/uL Eosinophils 0.0 10 3/uL Basophils 0.0 10 3/uL Neutrophil % 96.1 % Lymphocyte % 3.1 % Monocyte % 0.2 % Eosinophil % 0.0 % Basophils % 0.0 % NRBC % 0 % Impression: Locally advance invasive lobular carcinoma involving the right breast With a skin ulceration and right axillary lymph node per ultrasound-guided biopsy done on December 30, 2019 ER 99% positive SC 90% positive HER-2/chuckie negative, Ki-67 75% Clinical stage T4b, N1 Mx IIIB Ejection fraction was 65% on echo done on February 01, 2020, Started on Neoadjuvant chemotherapy with dose dense Adriamycin Cytoxan with Neulasta support x4 on February 09, 2020, will be followed by weekly Taxol x12. She is tolerated her first cycle of Adriamycin Cytoxan well although she did have significant chemotherapy-induced neutropenia resulting in a delay in starting cycle 2.But patient stopped taking dose dense Adriamycin/Cytoxan after cycle # 3/4, because of her personal/family issues, as per patient her brother got sick and she was looking after him so she decided to delay her chemotherapy until he recovers, knowing the risk versus benefit involved with delaying neoadjuvant chemotherapy and also her transportation issue. Right breast ultrasound done after 3 cycles of dose dense Adriamycin/Cytoxan on April 11, 2020 showed large mass in the right breast does appear smaller in size as compared to December 23, 2019 but margins are poorly visualized and abnormal lymph nodes in the right axilla is no longer present. Mrs. Beaulieu chemotherapy plan with Adriamycin/Cytoxan has been interupted with cycle 3 on March 16, 2020. She stopped treatment on her own/AGAINST MEDICAL ADVICE to take care of her brother who was sick and she had transportation issues as well. Those situations have now resolved. Clinically, patient is doing well with no new signs symptoms but has persistent mass and edema in her right breast with overlying scarring. Per Dr Antunez's followup note, clinically it appeared there may be disease progression in her right breast. In that case, it was recommended that she resume her neoadjuvant chemotherapy with cycle #4/final dose of Adriamycin/Cytoxan. She resumed cycle 4 Adriamycin/Cytoxan on 07/24/2020 with Neulasta support. She was due to resume treatment on July 04, 2020 but was found to have a nonfunctioning Port-A-Cath. She was referred back to Dr. Castillo and she underwent explantation of the left upper chest Port-A-Cath and placement of a new PowerPort in the left subclavian vein on July 17, 2020. She tolerated cycle 4 adrimycin/Cytoxan well. She was due to start her taxane portion of her treatment plan on 08/07/2020 but that was delayed due to inclement weather. She was encouraged to proceed with weekly Taxol x12. Dr Antunez advised Ms Beaulieu to complete neoadjuvant chemotherapy as recommended without further delay and also discussed about importance of compliance with the chemotherapy schedule, patient expressed full understanding. She is highly motivated to complete treatment. She presents today for week 1/12 Taxol. However, nursing staff was unable to obtain a blood return from her port. She was sent for fluoroscopy flow study which did show the left Port-A-Cath with the tip in the distal innominate directly lateral with fibrin sheath around the distal catheter with partial obstruction and turbulent flow. Her chemotherapy will be delayed until we can determine how to manage her port. She may require PICC line to allow for completion of her treatment. She was referred back to Dr Castillo for input on her venous access. She did have explantation of the left upper chest PowerPort and replacement with placement of a right internal jugular vein PowerPort on September 05, 2020. Plan: PROBLEMS ADDRESSED TODAY 1. Absense of blood return for left Power Port A. Fluoroscopy flow study reports left Port-A-Cath with tip in the distal innominate vein directed laterally. This is retracted since the prior exam on July 17, 2020. Turbulent flow of contrast exiting from the distal catheter with surrounding irregular fibrin sheath. Visual distal innominate and SVC appear patent. Final impression was left Port-A-Cath with tip in distal innominate vein directly lateral with fibrin sheath around the distal catheter with partial obstruction and turbulent flow. Verbal report to nursing staff per Dr. Shirley was he advised him not to use the Port-A-Cath and recommend that it be replaced. She did have explantation of the left upper chest PowerPort and replacement with placement of a right internal jugular vein PowerPort on September 05, 2020. B. She has excellent blood return of the newly placed right internal jugular PowerPort and no noted concerns today. 2. Locally advanced invasive lobular carcinoma of the right breast: A. She has completed 4 cycles of Adriamycin Cytoxan at normal dosing. B. She did receive Neulasta support to prevent chemotherapy induced neutropenia. Her ANC on day 8 of cycle 2 was 610. On day 0 of cycle 2 was 6660. C. Continue aggressive antiemetics due to high risk regimen. She may also continue Compazine and lorazepam as needed at home for antiemetics. D. Today's labs reviewed in detail and discussed with Mrs. Beaulieu and a copy was given to her. WBC 6.2, hemoglobin 11.6, platelets one 24,000 ANC is 6000. Potassium 4.5 random glucose 172 (steroid-induced) creatinine 0.6 LFTs are normal weight is stable at 167. E.. Follow-up echocardiogram from 06/22/2020 reports LVEF at 65%. Mild pulmonary hypertension with RVSP at 30 to 35 mmHg; mild mitral regurgitation???compared to prior echo from 02/01/2020, no significant changes were noted. F. We will proceed with her 2nd of 12 weekly paclitaxel at 80 mg/m2. G. Premed steroid compliance confirmed. 3. Constipation???intermittent A. This may be treatment related will just need to monitor her closely. B. She is currently using stool softeners and this is working well. C. We did discuss using MiraLAX [id number] as needed and she may add this over the next week if required. D. She was encouraged to let us know if she is having any trouble with the constipation not resolved with the measures above. 4. Follow-up plan A. We will plan to see her back in 1 week with CBC CMP. B. She was encouraged to take her premed steroids weekly prior to the paclitaxel. C. She will have weekly follow-up visits for review of labs, side effects and authorization of weekly chemotherapy. D. Mrs. Beaulieu was encouraged to contact us in interim should questions or problems arise. Signed By: Cam Marmolejo-, AOCNP Lexi Antunez MD <<Signature on File>>
[2020-10-05 10:27] LABS: Basophils % 0.5 %; Hematocrit 35.2 % (37.0-47.0); Hemoglobin 11.5 g/dL (11.5-15.3); Lymphocytes # 0.1 10^3/uL (0.8-4.8); Mean Corpuscular HGB Conc 32.7 g/dL (30.0-36.0); Mean Corpuscular Hemoglobin 31.3 pg (28.0-34.0); Mean Corpuscular Volume 95.7 fL (81-99); Mean Platelet Volume 8.5 fL (7.4-10.4); Monocytes % 0.5 %; Neutrophils # 1.81 10^3/uL (1.8-7.7); Nucleated Red Blood Cells % 0 %; Platelet Count 282 10^3/cmm (130-400); Red Blood Count 3.68 10^6/uL (4.1-5.3); Red Cell Distribution Width 13.5 % (12.1-15.1)
[2020-10-05 10:47] LABS: Alanine Aminotransferase 13 U/L (0-33); Alkaline Phosphatase 79 IU/L (35-105); Anion Gap 13.1 (5-19); Aspartate Amino Transferase 9 U/L (0-32); Blood Urea Nitrogen 12 mg/dL (8-23); Calcium 8.5 mg/dL (8.5-10.5); Carbon Dioxide 24 mmol/L (22-29); Chloride 102 mmol/L (98-107); Globulin 2.8 g/dL (1.3-4.6); Glomerular Filtration Rate 124.2 mL/min (90-130); Glucose 149 mg/dL (65-115); Osmolality Calculated 283 mOsm/kg (285-295); Potassium 4.1 mmol/L (3.5-5.1); Sodium 135 mmol/L (136-145); Total Bilirubin 0.2 mg/dL (0.15-1.2); Total Protein 6.8 g/dL (6.6-8.7)
[2020-10-12 11:45] LABS: Basophils % 0.3 %; Lymphocytes # 0.2 10^3/uL (0.8-4.8); Lymphocytes % 5.9 %; Mean Corpuscular HGB Conc 31.6 g/dL (30.0-36.0); Mean Corpuscular Hemoglobin 30.8 pg (28.0-34.0); Mean Corpuscular Volume 97.7 fL (81-99); Mean Platelet Volume 8.2 fL (7.4-10.4); Monocytes % 1.1 %; Neutrophils # 3.33 10^3/uL (1.8-7.7); Neutrophils % 89.7 %; Nucleated Red Blood Cells % 0 %; Platelet Count 329 10^3/cmm (130-400); Red Blood Count 3.89 10^6/uL (4.1-5.3); Red Cell Distribution Width 13.9 % (12.1-15.1); White Blood Count 3.7 10^3/uL (4.0-10.0)
[2020-10-12 12:13] LABS: Alanine Aminotransferase 12 U/L (0-33); Albumin Level 3.6 g/dL (3.5-5.2); Alkaline Phosphatase 76 IU/L (35-105); Anion Gap 14.2 (5-19); Aspartate Amino Transferase 10 U/L (0-32); Blood Urea Nitrogen 18 mg/dL (8-23); Calcium 8.6 mg/dL (8.5-10.5); Carbon Dioxide 24 mmol/L (22-29); Chloride 104 mmol/L (98-107); Globulin 2.6 g/dL (1.3-4.6); Glomerular Filtration Rate 84.2 mL/min (90-130); Glucose 174 mg/dL (65-115); Osmolality Calculated 292 mOsm/kg (285-295); Potassium 4.2 mmol/L (3.5-5.1); Sodium 138 mmol/L (136-145); Total Bilirubin 0.2 mg/dL (0.15-1.2); Total Protein 6.2 g/dL (6.6-8.7)
[2020-10-12] MEDS: famotidine 20 mg/2 mL INJ IVP (13:49)
[2020-10-12] MEDS: acetaminophen 325 mg Tablet 650 MG PO (13:50)
[2020-10-12] MEDS: sodium chloride 0.9% 250 ML 75 ML IV (13:50)
[2020-10-12] MEDS: ondansetron 2 mg/ML SDV 2 mL 8 MG IVP (13:51)
[2020-10-12] MEDS: diphenhydrAMINE 50 mg/mL SDV 1mL 25 MG IVP (13:53)
--- NOTE | 2020-10-19 00:31 | ONC FU_ITS ---
[facility] Patient Note Patient: Violetta Beaulieu Unit #: [id number]: 1955 Dictated By: Cam MarmolejoDate of Visit: Oct 05, 2020 Onc MED Follow-Up/Prog Note Chief Complaint: Right breast cancer Invasive lobular carcinoma ER/OR positive HER-2 negative Ki-67 at 75% History of Present Illness: Ms. Beaulieu is a 64-year-old female with more than year-long history of abnormality in the right breast. She reports that in about 2018 she noticed a small skin lesion in her right breast, she thought it was a mosquito bite. Later on she noticed a scab but it did not bother her until about 2 months ago when she noted a skin wound with some discharge along with damage in the right breast nipple and since then it has progressed, now with destruction of right breast nipple and firmness and shrinkage in more than two third of her right breast. Eventually, Ms Beaulieu went to see her primary care physician and underwent bilateral mammogram and ultrasonogram on December 23, 2019. The right breast showed heterogeneous fibroglandular density tissue with diffuse skin thickening with architectural distortion mid depth right breast, soft tissue thickening in the area of skin ulceration and indentation. Architectural distortion mid and posterior depth right breast with punctate indeterminate calcification and ultrasound right breast in the area of ulceration showed large hypoechoic ill-defined shadowing lesion suspicious for malignancy. Margins are difficult to define with overlying skin thickening and inverted nipple. Ms Beaulieu was seen by Dr. Castillo and on exam he he noticed right axillary lymphadenopathy. Subsequently on December 30, 2019 Mrs Beaulieu underwent ultrasound-guided right breast biopsy as well as right axillary lymph node biopsy. The final pathology report came back invasive lobular carcinoma breast 3 out of 5 cores involved longest positive core was 1.2 cm. And right axillary lymph node biopsy also confirmed invasive lobular carcinoma extending into fibroadipose tissue with extensive involvement and very little lymphoid tissue identified. Prognostic molecular profiling was done which confirmed ER OR positive disease ER being 99% positive OR 90% positive HER-2/chuckie negative with a markedly elevated Ki-67 at 75% which is unfavorable. No family history positive for breast cancer No history of smoking or alcohol use no history of diabetes, postmenopausal and menarche at age 12 or 13 years of age. Patient denies any fever or chills, denies any nausea or vomiting, denies any diarrhea or constipation, denies any vaginal bleeding denies any hematuria. Echocardiogram done on February 01, 2020 showed ejection fraction 65%. Ms Beaulieu began dose dense Adriamycin Cytoxan every 2 weeks with Neulasta support on February 09, 2020. She did have severe chemo induced neutropenia resulting in cycle 2 being delayed. She has tolerated it well otherwise. Patient received third cycle of dose dense Adriamycin/Cytoxan on March 16, 2020 subsequently underwent ultrasound right breast which showed large mass in the right breast did appear smaller in size when compared with December 23, 2019 but margins were poorly visualized. The abnormal lymph nodes in the right axilla is no longer present was several benign-appearing lymph nodes seen in the right axilla. Ms Beaulieu was supposed to conclude her dose dense chemotherapy e.g. cycle #4 in first week of March 2020 but patient never came back due to her family/social problems as per patient her brother got sick and there was no one to drive her to the clinic. 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 Ms. Beaulieu resumed her chemotherapy on 07/24/2020. Her last chemotherapy prior to that was March 16, 2020 at which time she had received cycle 3 cyclophosphamide Adriamycin. She was supported with Neulasta at that time as well. She has not had treatment since then as she took time off to take care of her brother who was ill. She was due to resume treatment on July 04, 2020 but was found to have a nonfunctioning Port-A-Cath. She was referred back to Dr. Castillo and she underwent explantation of the left upper chest Port-A-Cath and placement of a new PowerPort in the left subclavian vein on July 17, 2020. She tolerated cycle 4 adrimycin/Cytoxan well. She was due to start her taxane portion of her treatment plan on 08/07/2020 but that was delayed due to inclement weather. She had further delay due to venous access complications requiring replacement of her access device again. She had placement of a right internal juglar PowerPort on 09/05/[address] Castillo @ [facility]. Ms. Beaulieu is here today for follow-up and week 3 of 12 of paclitaxel. She states she is still doing well overall. She denies any fever or chills. She is had no signs or symptoms of infection. She states that her energy is good she does tire easily but recovers well with rest. She states she is able to do all of her activities of daily living with no assistance. She has no new concerns today. She denies any shortness of breath or cough. She is had no hemoptysis. She denies any orthopnea. She denies any chest pain or palpitations. She denies any nausea or vomiting. She has had no diarrhea to speak up she denies persistent constipation. She states she has occasionally after treatment but is able to take care of this with stool softeners and hcqz-[id number]-elwuvin laxatives. She denies any lower extremity edema. She has had no peripheral neuropathy that she complains of. She denies any concerns. Her ECOG is 0. Past Medical History: Depression Hypertension Past Surgical History: Appendectomy Breast biopsy Cholecystectomy Portacatheter placement dr. luis Right internal jugular PowerPort-Dr Castillo in 2020 Placement of left subclavian Power Port-Dr Castillo in 2020 Removal of left internal juglar port Dr Castillo in 2020 Allergies: No Known Allergies. Medications: Acetaminophen 1 - 2 Capsule (of 325 mg) Oral daily PRN Cardizem CD 1 Capsule (of 240 mg) Capsule SR 24 HR Oral daily Oxybutynin Chloride 1 Tablet (of 5 mg) Oral daily PROzac 1 Capsule (of 20 mg) Oral daily Family History: Ms. Beaulieu's mother at age 73: type II diabetes. Ms. Beaulieu's father at age 61: lung cancer. 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 Ms. Beaulieu has never smoked. Ms. Beaulieu reports the following support systems: lives with spouse, significant other, family, or friends, lives in own house, supportive family/friends willing to assist with needs, and transportation problems exist and will require assistance. Her diet consists of regular meals. She indicates her activity level as: regular exercise. Review Of Symptoms: Vital Signs: Performed on Oct 05, 2020 10:10 Height - 62.00 in Weight - 164.4 lbs (LOW) BSA - 1.76 sq.m BMI - 30.07 (HIGH) Temperature - 98.0 F (LOW) Pulse - 77 /min Respiration - 17 /min BP - 121/67 mm(hg) O2 Sat - 97 % Pain - 0 Fatigue - 0,0 - Fully active, able to carry on all predisease activities without restrictions. (ECOG) Physical Examination: Constitutional Alert, oriented, no acute distress. Skin pink, warm and dry. Head Normocephalic; atraumatic. Eyes Conjunctivae and sclerae are clear and without icterus. Pupils are reactive and equal. ENMT No oral exudates, ulcers, masses, thrush or mucositis. Oropharynx clear. Tongue normal. Neck Supple without masses or thyromegaly. No jugular venous distension. Hematologic/Lymphatic No petechiae or purpura. No tender or palpable lymph nodes in the cervical or supraclavicular areas. Respiratory Lungs are clear to auscultation without rhonchi or wheezing. Cardiovascular Regular rate and rhythm of heart without murmurs,clicks, gallops or rubs. Back/Spine Non-tender to palpation. Extremities No visible deformities, no cyanosis, clubbing or edema. Musculoskeletal No tenderness or swelling, normal range of motion without obvious weakness. Integumentary No rashes or lesions. Neurologic No sensory or motor deficits, normal cerebellar function, normal gait. Psychiatric Alert and oriented times three. Coherent speech. Verbalizes understanding of our discussions today. Laboratory:Test performed on Oct 12, 2020 11:34 Sodium 138 mmol/L Potassium 4.2 mmol/L Chloride 104 mmol/L CO2 24 mmol/L Anion Gap 14.2 BUN 18 mg/dL Creatinine 0.7 mg/dL Cr Clearance (Est) 95.5800 mL/min eGFR 84.2 mL/min Glucose 174 mg/dL Osmolality - Calculated 292 mOsm/kg Calcium 8.6 mg/dL Protein, Total 6.2 g/dL Albumin 3.6 g/dL Globulin 2.6 g/dL Bilirubin, Total 0.2 mg/dL ALT (SGPT) 12 U/L AST (SGOT) 10 U/L Alkaline Phosphatase 76 IU/L WBC 3.7 10 3/uL RBC 3.89 10 6/uL HGB 12.0 g/dL HCT 38.0 % MCV 97.7 fL MCH 30.8 pg MCHC 31.6 g/dL RDW 13.9 % Platelet Count 329 10 3/cmm MPV 8.2 fL Neutrophils 3.33 10 3/uL Lymphocytes 0.2 10 3/uL Monocytes 0.0 10 3/uL Eosinophils 0.0 10 3/uL Basophils 0.0 10 3/uL Neutrophil % 89.7 % Lymphocyte % 5.9 % Monocyte % 1.1 % Eosinophil % 0.0 % Basophils % 0.3 % NRBC % 0 % Test performed on Sep 21, 2020 08:15 CBC Slide Review Slide Review Perform SLIDE REVIEW AGREES WITH AUTOMATED RESULTS ST Impression: Locally advance invasive lobular carcinoma involving the right breast With a skin ulceration and right axillary lymph node per ultrasound-guided biopsy done on December 30, 2019 ER 99% positive OR 90% positive HER-2/chuckie negative, Ki-67 75% Clinical stage T4b, N1 Mx IIIB Ejection fraction was 65% on echo done on February 01, 2020, Started on Neoadjuvant chemotherapy with dose dense Adriamycin Cytoxan with Neulasta support x4 on February 09, 2020, will be followed by weekly Taxol x12. She is tolerated her first cycle of Adriamycin Cytoxan well although she did have significant chemotherapy-induced neutropenia resulting in a delay in starting cycle 2.But patient stopped taking dose dense Adriamycin/Cytoxan after cycle # 3/4, because of her personal/family issues, as per patient her brother got sick and she was looking after him so she decided to delay her chemotherapy until he recovers, knowing the risk versus benefit involved with delaying neoadjuvant chemotherapy and also her transportation issue. Right breast ultrasound done after 3 cycles of dose dense Adriamycin/Cytoxan on April 11, 2020 showed large mass in the right breast does appear smaller in size as compared to December 23, 2019 but margins are poorly visualized and abnormal lymph nodes in the right axilla is no longer present. Mrs. Beaulieu chemotherapy plan with Adriamycin/Cytoxan has been interupted with cycle 3 on March 16, 2020. She stopped treatment on her own/AGAINST MEDICAL ADVICE to take care of her brother who was sick and she had transportation issues as well. Those situations have now resolved. Clinically, patient is doing well with no new signs symptoms but has persistent mass and edema in her right breast with overlying scarring. Per Dr Antunez's followup note, clinically it appeared there may be disease progression in her right breast. In that case, it was recommended that she resume her neoadjuvant chemotherapy with cycle #4/final dose of Adriamycin/Cytoxan. She resumed cycle 4 Adriamycin/Cytoxan on 07/24/2020 with Neulasta support. She was due to resume treatment on July 04, 2020 but was found to have a nonfunctioning Port-A-Cath. She was referred back to Dr. Castillo and she underwent explantation of the left upper chest Port-A-Cath and placement of a new PowerPort in the left subclavian vein on July 17, 2020. She tolerated cycle 4 adrimycin/Cytoxan well. She was due to start her taxane portion of her treatment plan on 08/07/2020 but that was delayed due to inclement weather. She was encouraged to proceed with weekly Taxol x12. Dr Antunez advised Ms Beaulieu to complete neoadjuvant chemotherapy as recommended without further delay and also discussed about importance of compliance with the chemotherapy schedule, patient expressed full understanding. She is highly motivated to complete treatment. She presents today for week 1/12 Taxol. However, nursing staff was unable to obtain a blood return from her port. She was sent for fluoroscopy flow study which did show the left Port-A-Cath with the tip in the distal innominate directly lateral with fibrin sheath around the distal catheter with partial obstruction and turbulent flow. Her chemotherapy will be delayed until we can determine how to manage her port. She may require PICC line to allow for completion of her treatment. She was referred back to Dr Castillo for input on her venous access. She did have explantation of the left upper chest PowerPort and replacement with placement of a right internal jugular vein PowerPort on September 05, 2020. Plan: PROBLEMS ADDRESSED TODAY 1. Absense of blood return for left Power Port A. Fluoroscopy flow study reports left Port-A-Cath with tip in the distal innominate vein directed laterally. This is retracted since the prior exam on July 17, 2020. Turbulent flow of contrast exiting from the distal catheter with surrounding irregular fibrin sheath. Visual distal innominate and SVC appear patent. Final impression was left Port-A-Cath with tip in distal innominate vein directly lateral with fibrin sheath around the distal catheter with partial obstruction and turbulent flow. Verbal report to nursing staff per Dr. Shirley was he advised him not to use the Port-A-Cath and recommend that it be replaced. She did have explantation of the left upper chest PowerPort and replacement with placement of a right internal jugular vein PowerPort on September 05, 2020. A. She has excellent blood return of the newly placed right internal jugular PowerPort and no noted concerns today. 2. Locally advanced invasive lobular carcinoma of the right breast: A. She has completed 4 cycles of Adriamycin Cytoxan at normal dosing. She has now started the paclitaxel portion of her chemotherapy although significantly delayed. B. She did receive Neulasta support to prevent chemotherapy induced neutropenia. Her ANC on day 8 of cycle 2 was 610. On day 0 of cycle 2 was 6660. C. Continue aggressive antiemetics due to high risk regimen. She may also continue Compazine and lorazepam as needed at home for antiemetics. D. Today's labs reviewed in detail and discussed with Mrs. Beaulieu and a copy was given to her. Do BC 2.0, hemoglobin 11.5, platelets 282,000 ANC is 1810 potassium 4.1 random glucose 149 creatinine 0.5 LFTs are normal. Weight is stable at 164. E.. Follow-up echocardiogram from 06/22/2020 reports LVEF at 65%. Mild pulmonary hypertension with RVSP at 30 to 35 mmHg; mild mitral regurgitation???compared to prior echo from 02/01/2020, no significant changes were noted. F. We will HOLD her planned third of 12 weekly paclitaxel at 80 mg/m2 due to ANC of 1800 compared to 6000 last week. 3. Constipation???intermittent A. This may be treatment related will just need to monitor her closely. B. She is currently using stool softeners and this is working well. C. We did discuss using MiraLAX [id number] as needed and she may add this over the next week if required. D. She was encouraged to let us know if she is having any trouble with the constipation not resolved with the measures above. 4. Follow-up plan A. We will plan to see her back in 1 week with CBC CMP . and consideration for week 3 of 12 paclitaxel. B. Her treatment plan will most likely change to 2 weeks on and 1 week off to help support her neutropenia. May also need to consider growth factors on her day 8. C. Mrs. Beaulieu was encouraged to contact us in interim should questions or problems arise. Signed By: Cam Marmolejo-, AOCNP Lexi Antunez MD <<Signature on File>>
--- NOTE | 2020-10-19 00:31 | ONC FU_ITS ---
[facility] Patient Note Patient: Violetta Beaulieu Unit #: [id number]: 1955 Dictated By: Cam MarmolejoDate of Visit: Oct 12, 2020 Onc MED Follow-Up/Prog Note Chief Complaint: Right breast cancer Invasive lobular carcinoma ER/WV positive HER-2 negative Ki-67 at 75% History of Present Illness: Ms. Beaulieu is a 64-year-old female with more than year-long history of abnormality in the right breast. She reports that in about 2018 she noticed a small skin lesion in her right breast, she thought it was a mosquito bite. Later on she noticed a scab but it did not bother her until about 2 months ago when she noted a skin wound with some discharge along with damage in the right breast nipple and since then it has progressed, now with destruction of right breast nipple and firmness and shrinkage in more than two third of her right breast. Eventually, Ms Beaulieu went to see her primary care physician and underwent bilateral mammogram and ultrasonogram on December 23, 2019. The right breast showed heterogeneous fibroglandular density tissue with diffuse skin thickening with architectural distortion mid depth right breast, soft tissue thickening in the area of skin ulceration and indentation. Architectural distortion mid and posterior depth right breast with punctate indeterminate calcification and ultrasound right breast in the area of ulceration showed large hypoechoic ill-defined shadowing lesion suspicious for malignancy. Margins are difficult to define with overlying skin thickening and inverted nipple. Ms Beaulieu was seen by Dr. Castillo and on exam he he noticed right axillary lymphadenopathy. Subsequently on December 30, 2019 Mrs Beaulieu underwent ultrasound-guided right breast biopsy as well as right axillary lymph node biopsy. The final pathology report came back invasive lobular carcinoma breast 3 out of 5 cores involved longest positive core was 1.2 cm. And right axillary lymph node biopsy also confirmed invasive lobular carcinoma extending into fibroadipose tissue with extensive involvement and very little lymphoid tissue identified. Prognostic molecular profiling was done which confirmed ER WV positive disease ER being 99% positive WV 90% positive HER-2/chuckie negative with a markedly elevated Ki-67 at 75% which is unfavorable. No family history positive for breast cancer No history of smoking or alcohol use no history of diabetes, postmenopausal and menarche at age 12 or 13 years of age. Patient denies any fever or chills, denies any nausea or vomiting, denies any diarrhea or constipation, denies any vaginal bleeding denies any hematuria. Echocardiogram done on February 01, 2020 showed ejection fraction 65%. Ms Beaulieu began dose dense Adriamycin Cytoxan every 2 weeks with Neulasta support on February 09, 2020. She did have severe chemo induced neutropenia resulting in cycle 2 being delayed. She has tolerated it well otherwise. Patient received third cycle of dose dense Adriamycin/Cytoxan on March 16, 2020 subsequently underwent ultrasound right breast which showed large mass in the right breast did appear smaller in size when compared with December 23, 2019 but margins were poorly visualized. The abnormal lymph nodes in the right axilla is no longer present was several benign-appearing lymph nodes seen in the right axilla. Ms Beaulieu was supposed to conclude her dose dense chemotherapy e.g. cycle #4 in first week of March 2020 but patient never came back due to her family/social problems as per patient her brother got sick and there was no one to drive her to the clinic. 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 Ms. Beaulieu resumed her chemotherapy on 07/24/2020. Her last chemotherapy prior to that was March 16, 2020 at which time she had received cycle 3 cyclophosphamide Adriamycin. She was supported with Neulasta at that time as well. She has not had treatment since then as she took time off to take care of her brother who was ill. She was due to resume treatment on July 04, 2020 but was found to have a nonfunctioning Port-A-Cath. She was referred back to Dr. Castillo and she underwent explantation of the left upper chest Port-A-Cath and placement of a new PowerPort in the left subclavian vein on July 17, 2020. She tolerated cycle 4 adrimycin/Cytoxan well. She was due to start her taxane portion of her treatment plan on 08/07/2020 but that was delayed due to inclement weather. She had further delay due to venous access complications requiring replacement of her access device again. She had placement of a right internal juglar PowerPort on 09/05/[address] Castillo @ [facility]. Ms. Beaulieu is here today for follow-up and week 3 of 12 of paclitaxel. Her treatment was held last week due to an ANC of 1800. The week prior it was 6000. She has had no signs or symptoms of fever or chills or any signs of infection. She states she is doing well. She has no new concerns today. She denies any pain. She denies any cough or hemoptysis. She states her breathing is good and denies any shortness of breath orthopnea. She denies any pain. She denies chest pain or palpitations. She denies any nausea or vomiting. She is had intermittent constipation but states that it is normal now and she is having no issues. She states her bladder is normal for her. She denies any UTI symptoms. She denies any neuropathy. She states her appetite is good and her energy is good. Her ECOG remains at 0. She has had alopecia. Past Medical History: Depression Hypertension Past Surgical History: Appendectomy Breast biopsy Cholecystectomy Portacatheter placement dr. luis Right internal jugular PowerPort-Dr Castillo in 2020 Placement of left subclavian Power Port-Dr Castillo in 2020 Removal of left internal juglar port Dr Castillo in 2020 Allergies: No Known Allergies. Medications: Acetaminophen 1 - 2 Capsule (of 325 mg) Oral daily PRN Cardizem CD 1 Capsule (of 240 mg) Capsule SR 24 HR Oral daily Oxybutynin Chloride 1 Tablet (of 5 mg) Oral daily PROzac 1 Capsule (of 20 mg) Oral daily Family History: Ms. Beaulieu's mother at age 73: type II diabetes. Ms. Beaulieu's father at age 61: lung cancer. Social History: Ms. 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 Ms. Beaulieu has never smoked. Ms. Beaulieu reports the following support systems: lives with spouse, significant other, family, or friends, lives in own house, supportive family/friends willing to assist with needs, and transportation problems exist and will require assistance. Her diet consists of regular meals. She indicates her activity level as: regular exercise. Review Of Symptoms: see above Vital Signs: Performed on Oct 12, 2020 15:45 Height - 62.00 in Temperature - 99.2 F (HIGH) Pulse - 82 /min Respiration - 16 /min BP - 134/76 mm(hg) O2 Sat - 95 % (LOW) Performed on Oct 12, 2020 13:02 Height - 62.00 in Weight - 164.4 lbs BSA - 1.76 sq.m BMI - 30.07 (HIGH) Temperature - 98.0 F (LOW) Pulse - 104 /min (HIGH) Respiration - 18 /min BP - 135/79 mm(hg) O2 Sat - 96 % Pain - 0,0 - Fully active, able to carry on all predisease activities without restrictions. (ECOG) Physical Examination: Constitutional Alert, oriented, no acute distress. Skin pink, warm and dry. Head Normocephalic; atraumatic. Eyes Conjunctivae and sclerae are clear and without icterus. Pupils are reactive and equal. ENMT No oral exudates, ulcers, masses, thrush or mucositis. Oropharynx clear. Tongue normal. Neck Supple without masses or thyromegaly. No jugular venous distension. Hematologic/Lymphatic No petechiae or purpura. No tender or palpable lymph nodes in the cervical or supraclavicular areas. Respiratory Lungs are clear to auscultation without rhonchi or wheezing. Cardiovascular Regular rate and rhythm of heart without murmurs,clicks, gallops or rubs. Chest Chest is symmetric without chest wall deformities. RIGHT venous access device insertion site is unremarkable. It has healed well Abdomen Non-tender, non-distended, no masses or ascites. Good bowel sounds noted in all quads. No guarding or rebound tenderness. No pulsatile masses. Back/Spine Non-tender to palpation. Extremities No visible deformities, no cyanosis, clubbing or edema. Musculoskeletal No tenderness or swelling, normal range of motion without obvious weakness. Integumentary No rashes or lesions. Neurologic No sensory or motor deficits, normal cerebellar function, normal gait. Psychiatric Alert and oriented times three. Coherent speech. Verbalizes understanding of our discussions today. Laboratory:Test performed on Oct 12, 2020 11:34 Sodium 138 mmol/L Potassium 4.2 mmol/L Chloride 104 mmol/L CO2 24 mmol/L Anion Gap 14.2 BUN 18 mg/dL Creatinine 0.7 mg/dL Cr Clearance (Est) 95.5800 mL/min eGFR 84.2 mL/min Glucose 174 mg/dL Osmolality - Calculated 292 mOsm/kg Calcium 8.6 mg/dL Protein, Total 6.2 g/dL Albumin 3.6 g/dL Globulin 2.6 g/dL Bilirubin, Total 0.2 mg/dL ALT (SGPT) 12 U/L AST (SGOT) 10 U/L Alkaline Phosphatase 76 IU/L WBC 3.7 10 3/uL RBC 3.89 10 6/uL HGB 12.0 g/dL HCT 38.0 % MCV 97.7 fL MCH 30.8 pg MCHC 31.6 g/dL RDW 13.9 % Platelet Count 329 10 3/cmm MPV 8.2 fL Neutrophils 3.33 10 3/uL Lymphocytes 0.2 10 3/uL Monocytes 0.0 10 3/uL Eosinophils 0.0 10 3/uL Basophils 0.0 10 3/uL Neutrophil % 89.7 % Lymphocyte % 5.9 % Monocyte % 1.1 % Eosinophil % 0.0 % Basophils % 0.3 % NRBC % 0 % Impression: Locally advance invasive lobular carcinoma involving the right breast With a skin ulceration and right axillary lymph node per ultrasound-guided biopsy done on December 30, 2019 ER 99% positive WV 90% positive HER-2/chuckie negative, Ki-67 75% Clinical stage T4b, N1 Mx IIIB Ejection fraction was 65% on echo done on February 01, 2020, Started on Neoadjuvant chemotherapy with dose dense Adriamycin Cytoxan with Neulasta support x4 on February 09, 2020, will be followed by weekly Taxol x12. She is tolerated her first cycle of Adriamycin Cytoxan well although she did have significant chemotherapy-induced neutropenia resulting in a delay in starting cycle 2.But patient stopped taking dose dense Adriamycin/Cytoxan after cycle # 3/4, because of her personal/family issues, as per patient her brother got sick and she was looking after him so she decided to delay her chemotherapy until he recovers, knowing the risk versus benefit involved with delaying neoadjuvant chemotherapy and also her transportation issue. Right breast ultrasound done after 3 cycles of dose dense Adriamycin/Cytoxan on April 11, 2020 showed large mass in the right breast does appear smaller in size as compared to December 23, 2019 but margins are poorly visualized and abnormal lymph nodes in the right axilla is no longer present. Mrs. Beaulieu chemotherapy plan with Adriamycin/Cytoxan has been interupted with cycle 3 on March 16, 2020. She stopped treatment on her own/AGAINST MEDICAL ADVICE to take care of her brother who was sick and she had transportation issues as well. Those situations have now resolved. Clinically, patient is doing well with no new signs symptoms but has persistent mass and edema in her right breast with overlying scarring. Per Dr Antunez's followup note, clinically it appeared there may be disease progression in her right breast. In that case, it was recommended that she resume her neoadjuvant chemotherapy with cycle #4/final dose of Adriamycin/Cytoxan. She resumed cycle 4 Adriamycin/Cytoxan on 07/24/2020 with Neulasta support. She was due to resume treatment on July 04, 2020 but was found to have a nonfunctioning Port-A-Cath. She was referred back to Dr. Castillo and she underwent explantation of the left upper chest Port-A-Cath and placement of a new PowerPort in the left subclavian vein on July 17, 2020. She tolerated cycle 4 adrimycin/Cytoxan well. She was due to start her taxane portion of her treatment plan on 08/07/2020 but that was delayed due to inclement weather. She was encouraged to proceed with weekly Taxol x12. Dr Antunez advised Ms Beaulieu to complete neoadjuvant chemotherapy as recommended without further delay and also discussed about importance of compliance with the chemotherapy schedule, patient expressed full understanding. She is highly motivated to complete treatment. She presents today for week 1/12 Taxol. However, nursing staff was unable to obtain a blood return from her port. She was sent for fluoroscopy flow study which did show the left Port-A-Cath with the tip in the distal innominate directly lateral with fibrin sheath around the distal catheter with partial obstruction and turbulent flow. Her chemotherapy will be delayed until we can determine how to manage her port. She may require PICC line to allow for completion of her treatment. She was referred back to Dr Castillo for input on her venous access. She did have explantation of the left upper chest PowerPort and replacement with placement of a right internal jugular vein PowerPort on September 05, 2020. Plan: PROBLEMS ADDRESSED TODAY 1. Absense of blood return for left Power Port A. Fluoroscopy flow study reports left Port-A-Cath with tip in the distal innominate vein directed laterally. This is retracted since the prior exam on July 17, 2020. Turbulent flow of contrast exiting from the distal catheter with surrounding irregular fibrin sheath. Visual distal innominate and SVC appear patent. Final impression was left Port-A-Cath with tip in distal innominate vein directly lateral with fibrin sheath around the distal catheter with partial obstruction and turbulent flow. Verbal report to nursing staff per Dr. Shirley was he advised him not to use the Port-A-Cath and recommend that it be replaced. She did have explantation of the left upper chest PowerPort and replacement with placement of a right internal jugular vein PowerPort on September 05, 2020. A. She has excellent blood return of the newly placed right internal jugular PowerPort and no noted concerns today. 2. Locally advanced invasive lobular carcinoma of the right breast: A. She has completed 4 cycles of Adriamycin Cytoxan at normal dosing. She has now started the paclitaxel portion of her chemotherapy although significantly delayed. B. She did receive Neulasta support to prevent chemotherapy induced neutropenia. Her ANC on day 8 of cycle 2 was 610. On day 0 of cycle 2 was 6660. C. Continue aggressive antiemetics due to high risk regimen. She may also continue Compazine and lorazepam as needed at home for antiemetics. D. Today's labs reviewed in detail and discussed with Mrs. Beaulieu and a copy was given to her. WBC 3.7, hemoglobin 12.0, platelets 329,000, ANC is 3300. Potassium 4.2, random glucose 174???steroid-induced, creatinine 0.7 LFTs are normal. Her weight is stable at 164. E. Follow-up echocardiogram from 06/22/2020 reports LVEF at 65%. Mild pulmonary hypertension with RVSP at 30 to 35 mmHg; mild mitral regurgitation???compared to prior echo from 02/01/2020, no significant changes were noted. F. We will PROEED WITH WEEK 312 of her planned weekly paclitaxel at 80 mg/m2. G. Steroid compliance confirmed. H. She will continue with Emend, dexamethasone, Zofran for her antiemetics. We did change her to Zofran from Aloxi due to constipation concerns. She has tolerated this well and has had no nausea. 3. Constipation???intermittent A. This may be treatment related will just need to monitor her closely. B. She is currently using stool softeners and this is working well. C. We did discuss using MiraLAX [id number] as needed and she may add this over the next week if required. D. She was encouraged to let us know if she is having any trouble with the constipation not resolved with the measures above. 4. Follow-up plan A. We will plan to see her back in 1 week with CBC CMP and consideration for week 4 of 12 paclitaxel. B. Her treatment plan will most likely change to 2 weeks on and 1 week off to help support her neutropenia. May also need to consider growth factors on her day 8. C. Mrs. Beaulieu was encouraged to contact us in interim should questions or problems arise. Signed By: Cam Marmolejo-, AOCNP Lexi Antunez MD <<Signature on File>>
[2020-10-19 08:54] LABS: Basophils % 0.2 %; Hematocrit 37.2 % (37.0-47.0); Hemoglobin 11.9 g/dL (11.5-15.3); Lymphocytes # 0.2 10^3/uL (0.8-4.8); Lymphocytes % 3.5 %; Mean Corpuscular Hemoglobin 31.6 pg (28.0-34.0); Mean Corpuscular Volume 98.7 fL (81-99); Mean Platelet Volume 8.5 fL (7.4-10.4); Monocytes % 0.2 %; Neutrophils # 5.68 10^3/uL (1.8-7.7); Neutrophils % 95.3 %; Nucleated Red Blood Cells % 0 %; Platelet Count 351 10^3/cmm (130-400); Red Blood Count 3.77 10^6/uL (4.1-5.3); Red Cell Distribution Width 13.5 % (12.1-15.1)
[2020-10-19 09:40] LABS: Alanine Aminotransferase 13 U/L (0-33); Albumin Level 3.8 g/dL (3.5-5.2); Alkaline Phosphatase 75 IU/L (35-105); Aspartate Amino Transferase 10 U/L (0-32); Blood Urea Nitrogen 14 mg/dL (8-23); Calcium 9.1 mg/dL (8.5-10.5); Carbon Dioxide 21 mmol/L (22-29); Chloride 98 mmol/L (98-107); Globulin 2.4 g/dL (1.3-4.6); Glomerular Filtration Rate 100.6 mL/min (90-130); Glucose 189 mg/dL (65-115); Osmolality Calculated 282 mOsm/kg (285-295); Sodium 133 mmol/L (136-145); Total Bilirubin 0.2 mg/dL (0.15-1.2); Total Protein 6.2 g/dL (6.6-8.7)
[2020-10-19 09:48] LABS: Slide Review Slide Review Perform
[2020-10-19] MEDS: famotidine 20 mg/2 mL INJ IVP (11:12)
[2020-10-19] MEDS: sodium chloride 0.9% 250 ML 75 ML IV (11:12)
[2020-10-19] MEDS: acetaminophen 325 mg Tablet 650 MG PO (11:12)
[2020-10-19] MEDS: ondansetron 2 mg/ML SDV 2 mL 8 MG IVP (11:14)
[2020-10-19] MEDS: diphenhydrAMINE 50 mg/mL SDV 1mL 25 MG IVP (11:15)
--- NOTE | 2020-10-24 09:57 | ONC FU_ITS ---
Dr. Antunez follow up note Patient: Violetta Beaulieu Unit #: [id number]: 1955 Dicatated By: Lexi Antunez M.D.Date of Visit:Oct 19, 2020 Onc Med Follow-up/Prog Note History of Present Illness: Ms. Beaulieu is a 64-year-old female with more than year-long history of abnormality in the right breast. She reports that in about 2018 she noticed a small skin lesion in her right breast, she thought it was a mosquito bite. Later on she noticed a scab but it did not bother her until about 2 months ago when she noted a skin wound with some discharge along with damage in the right breast nipple and since then it has progressed, now with destruction of right breast nipple and firmness and shrinkage in more than two third of her right breast. Eventually, Ms Beaulieu went to see her primary care physician and underwent bilateral mammogram and ultrasonogram on December 23, 2019. The right breast showed heterogeneous fibroglandular density tissue with diffuse skin thickening with architectural distortion mid depth right breast, soft tissue thickening in the area of skin ulceration and indentation. Architectural distortion mid and posterior depth right breast with punctate indeterminate calcification and ultrasound right breast in the area of ulceration showed large hypoechoic ill-defined shadowing lesion suspicious for malignancy. Margins are difficult to define with overlying skin thickening and inverted nipple. Ms Beaulieu was seen by Dr. Castillo and on exam he he noticed right axillary lymphadenopathy. Subsequently on December 30, 2019 Mrs Beaulieu underwent ultrasound-guided right breast biopsy as well as right axillary lymph node biopsy. The final pathology report came back invasive lobular carcinoma breast 3 out of 5 cores involved longest positive core was 1.2 cm. And right axillary lymph node biopsy also confirmed invasive lobular carcinoma extending into fibroadipose tissue with extensive involvement and very little lymphoid tissue identified. Prognostic molecular profiling was done which confirmed ER AL positive disease ER being 99% positive AL 90% positive HER-2/chuckie negative with a markedly elevated Ki-67 at 75% which is unfavorable. No family history positive for breast cancer No history of smoking or alcohol use no history of diabetes, postmenopausal and menarche at age 12 or 13 years of age. Patient denies any fever or chills, denies any nausea or vomiting, denies any diarrhea or constipation, denies any vaginal bleeding denies any hematuria. Echocardiogram done on February 01, 2020 showed ejection fraction 65%. Ms Beaulieu began dose dense Adriamycin Cytoxan every 2 weeks with Neulasta support on February 09, 2020. She did have severe chemo induced neutropenia resulting in cycle 2 being delayed. She has tolerated it well otherwise. Patient received third cycle of dose dense Adriamycin/Cytoxan on March 16, 2020 subsequently underwent ultrasound right breast which showed large mass in the right breast did appear smaller in size when compared with December 23, 2019 but margins were poorly visualized. The abnormal lymph nodes in the right axilla is no longer present was several benign-appearing lymph nodes seen in the right axilla. Ms Beaulieu was supposed to conclude her dose dense chemotherapy e.g. cycle #4 in first week of March 2020 but patient never came back due to her family/social problems as per patient her brother got sick and there was no one to drive her to the clinic. 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 Ms. Beaulieu resumed her chemotherapy on 07/24/2020. Her last chemotherapy prior to that was March 16, 2020 at which time she had received cycle 3 cyclophosphamide Adriamycin. She was supported with Neulasta at that time as well. She has not had treatment since then as she took time off to take care of her brother who was ill. She was due to resume treatment on July 04, 2020 but was found to have a nonfunctioning Port-A-Cath. She was referred back to Dr. Castillo and she underwent explantation of the left upper chest Port-A-Cath and placement of a new PowerPort in the left subclavian vein on July 17, 2020. She tolerated cycle 4 adrimycin/Cytoxan well. She was due to start her taxane portion of her treatment plan on 08/07/2020 but that was delayed due to inclement weather. She had further delay due to venous access complications requiring replacement of her access device again. She had placement of a right internal juglar PowerPort on 09/05/[address] Castillo @ [facility]. Came for follow-up, denies any specific complaints, no fever chills, no nausea or vomiting, no diarrhea or constipation, no more discharge from her right breast mass rather crusting only still fullness. No nipple discharge. Denies any peripheral neuropathy, denies any mouth sores, tolerating neoadjuvant chemotherapy with weekly Taxol well Medications: Acetaminophen 1 - 2 Capsule (of 325 mg) Oral daily PRN, Cardizem CD 1 Capsule (of 240 mg) Capsule SR 24 HR Oral daily, Oxybutynin Chloride 1 Tablet (of 5 mg) Oral daily, PROzac 1 Capsule (of 20 mg) Oral daily Allergies: No Known Allergies. Review of Systems: Review of Systems is not available for this patient. Vital Signs: Performed on Oct 19, 2020 12:58 Height - 62.00 in Temperature - 97.4 F (LOW) Pulse - 80 /min Respiration - 16 /min BP - 99/67 mm(hg) O2 Sat - 95 % (LOW) Pain - 0 Performed on Oct 19, 2020 10:15 Height - 62.00 in Weight - 165.8 lbs (HIGH) BSA - 1.77 sq.m BMI - 30.33 (HIGH) Temperature - 98.1 F (LOW) Pulse - 107 /min (HIGH) Respiration - 18 /min BP - 148/77 mm(hg) (HIGH) O2 Sat - 95 % (LOW) Pain - 0 Fatigue - 10 Performance Status: 0 - Fully active, able to carry on all predisease activities without restrictions. (ECOG) Physical Examination: Respiratory - Lungs are clear to auscultation, Cardiovascular - Regular rate and rhythm of heart, Breasts - Large mass, 12 x 10 cm in the right breast with overlying skin crusting but no discharge no nipple discharge, No axillary lymph node palpable, Gastrointestinal - Soft, bowel sounds present, Extremities - No visible edema. Lab/Imaging: Test performed on Oct 12, 2020 11:34 Sodium 138 mmol/L Potassium 4.2 mmol/L Chloride 104 mmol/L CO2 24 mmol/L Anion Gap 14.2 BUN 18 mg/dL Creatinine 0.7 mg/dL Cr Clearance (Est) 95.5800 mL/min eGFR 84.2 mL/min Glucose 174 mg/dL Osmolality - Calculated 292 mOsm/kg Calcium 8.6 mg/dL Protein, Total 6.2 g/dL Albumin 3.6 g/dL Globulin 2.6 g/dL Bilirubin, Total 0.2 mg/dL ALT (SGPT) 12 U/L AST (SGOT) 10 U/L Alkaline Phosphatase 76 IU/L WBC 3.7 10 3/uL RBC 3.89 10 6/uL HGB 12.0 g/dL HCT 38.0 % MCV 97.7 fL MCH 30.8 pg MCHC 31.6 g/dL RDW 13.9 % Platelet Count 329 10 3/cmm MPV 8.2 fL Neutrophils 3.33 10 3/uL Lymphocytes 0.2 10 3/uL Monocytes 0.0 10 3/uL Eosinophils 0.0 10 3/uL Basophils 0.0 10 3/uL Neutrophil % 89.7 % Lymphocyte % 5.9 % Monocyte % 1.1 % Eosinophil % 0.0 % Basophils % 0.3 % NRBC % 0 % Test performed on Sep 21, 2020 08:15 CBC Slide Review Slide Review Perform SLIDE REVIEW AGREES WITH AUTOMATED RESULTS ST Impression: Locally advance invasive lobular carcinoma involving the right breast With a skin ulceration and right axillary lymph node per ultrasound-guided biopsy done on December 30, 2019 ER 99% positive AL 90% positive HER-2/chuckie negative, Ki-67 75% Clinical stage T4b, N1 Mx IIIB Ejection fraction was 65% on echo done on February 01, 2020, Started on Neoadjuvant chemotherapy with dose dense Adriamycin Cytoxan with Neulasta support x4 on February 09, 2020, will be followed by weekly Taxol x12. She is tolerated her first cycle of Adriamycin Cytoxan well although she did have significant chemotherapy-induced neutropenia resulting in a delay in starting cycle 2.But patient stopped taking dose dense Adriamycin/Cytoxan after cycle # 3/4, because of her personal/family issues, as per patient her brother got sick and she was looking after him so she decided to delay her chemotherapy until he recovers, knowing the risk versus benefit involved with delaying neoadjuvant chemotherapy and also her transportation issue. Right breast ultrasound done after 3 cycles of dose dense Adriamycin/Cytoxan on April 11, 2020 showed large mass in the right breast does appear smaller in size as compared to December 23, 2019 but margins are poorly visualized and abnormal lymph nodes in the right axilla is no longer present. Mrs. Beaulieu chemotherapy plan with Adriamycin/Cytoxan has been interupted with cycle 3 on March 16, 2020. She stopped treatment on her own/[employer] to take care of her brother who was sick and she had transportation issues as well. Those situations have now resolved. Clinically, patient is doing well with no new signs symptoms but has persistent mass and edema in her right breast with overlying scarring. , clinically it appeared there may be disease progression in her right breast. In that case, it was recommended that she resume her neoadjuvant chemotherapy with cycle #4/final dose of Adriamycin/Cytoxan. She resumed cycle 4 Adriamycin/Cytoxan on 07/24/2020 with Neulasta support. She was due to resume treatment on July 04, 2020 but was found to have a nonfunctioning Port-A-Cath. She was referred back to Dr. Castillo and she underwent explantation of the left upper chest Port-A-Cath and placement of a new PowerPort in the left subclavian vein on July 17, 2020. She tolerated cycle 4 adrimycin/Cytoxan well. She was due to start her taxane portion of her treatment plan on 08/07/2020 but that was delayed due to inclement weather. She was encouraged to proceed with weekly Taxol x12. Dr Antunez advised Ms Beaulieu to complete neoadjuvant chemotherapy as recommended without further delay and also discussed about importance of compliance with the chemotherapy schedule, patient expressed full understanding. She is highly motivated to complete treatment. She presents today for week 1/12 Taxol. However, nursing staff was unable to obtain a blood return from her port. She was sent for fluoroscopy flow study which did show the left Port-A-Cath with the tip in the distal innominate directly lateral with fibrin sheath around the distal catheter with partial obstruction and turbulent flow. Her chemotherapy will be delayed until we can determine how to manage her port. She may require PICC line to allow for completion of her treatment. She was referred back to Dr Castillo for input on her venous access. She did have explantation of the left upper chest PowerPort and replacement with placement of a right internal jugular vein PowerPort on September 05, 2020. Plan: Discussed with patient regarding her labs white blood count 6 hemoglobin 11.9 hematocrit 37.2 platelets 351,000 CMP within normal limits except sodium 133, and glucose 189 Clinically, patient doing well, tolerating neoadjuvant chemotherapy with weekly Taxol well, but with expected side effects. E.g. hyperglycemia especially with steroids, on exam she has persistent large right breast mass with crusting but no more skin discharge,, at this point will consider right breast sonogram and if it shows no improvement, may consider adding weekly carboplatin to optimize response., Will proceed with next weekly dose of Taxol today followed by Neupogen 40 mcg subcu daily x2 after each weekly Taxol to prevent chemotherapy-induced neutropenia/leukopenia and to maintain chemotherapy schedule Signed By: Lexi Antunez M.D. <<Signature on File>>
== END 2020-10-20 23:59 | disposition home or self-care (01) ==
LOC: ONCMED 05:34
PROVIDERS: Nurse Practitioner; PCP Physician Assistant Medical; Visit Provider Internal Medicine Hematology & Oncology
DX: Z51.11 Encounter for antineoplastic chemotherapy (principal); C50.811 Malignant neoplasm of overlapping sites of right female breast; Z17.0 Estrogen receptor positive status [ER+]; D70.1 Agranulocytosis secondary to cancer chemotherapy; T45.1X5A Adverse effect of antineoplastic and immunosuppressive drugs, initial encounter; F32.9 Major depressive disorder, single episode, unspecified; I10 Essential (primary) hypertension; Z79.899 Other long term (current) drug therapy
CPT/HCPCS: 36591; 80053; 85025; 96367; 96375; 96413; 99214; 99215; J1100; J1200; J1453; J2405; J3490; J7030; J7050; J9267

== ENCOUNTER 2020-11-17 10:28 | Outpatient (RCR) | payer MEDICAID, SELFPAY ==
[2020-10-26 09:48] LABS: Eosinophils % 0.4 %; Hematocrit 36.4 % (37.0-47.0); Hemoglobin 11.3 g/dL (11.5-15.3); Lymphocytes # 0.2 10^3/uL (0.8-4.8); Lymphocytes % 9.1 %; Mean Corpuscular Hemoglobin 30.9 pg (28.0-34.0); Mean Corpuscular Volume 99.5 fL (81-99); Mean Platelet Volume 10.4 fL (7.4-10.4); Monocytes % 0.4 %; Neutrophils # 2.08 10^3/uL (1.8-7.7); Neutrophils % 89.7 %; Nucleated Red Blood Cells % 0 %; Platelet Count 249 10^3/cmm (130-400); Red Blood Count 3.66 10^6/uL (4.1-5.3); Red Cell Distribution Width 13.5 % (12.1-15.1); White Blood Count 2.3 10^3/uL (4.0-10.0)
[2020-10-26 09:54] LABS: Alanine Aminotransferase 12 U/L (0-33); Albumin Level 3.6 g/dL (3.5-5.2); Alkaline Phosphatase 75 IU/L (35-105); Anion Gap 13.1 (5-19); Aspartate Amino Transferase 8 U/L (0-32); Blood Urea Nitrogen 15 mg/dL (8-23); Calcium 8.9 mg/dL (8.5-10.5); Carbon Dioxide 25 mmol/L (22-29); Chloride 105 mmol/L (98-107); Globulin 2.3 g/dL (1.3-4.6); Glomerular Filtration Rate 100.6 mL/min (90-130); Glucose 199 mg/dL (65-115); Osmolality Calculated 294 mOsm/kg (285-295); Potassium 4.1 mmol/L (3.5-5.1); Sodium 139 mmol/L (136-145); Total Bilirubin 0.2 mg/dL (0.15-1.2); Total Protein 5.9 g/dL (6.6-8.7)
[2020-10-26 10:45] LABS: Slide Review Slide Review Perform
[2020-10-26] MEDS: ondansetron 2 mg/ML SDV 2 mL 8 MG IVP (12:08)
[2020-10-26] MEDS: sodium chloride 0.9% 250 ML 75 ML IV (12:08)
[2020-10-26] MEDS: famotidine 20 mg/2 mL INJ IVP (12:10)
[2020-10-26] MEDS: acetaminophen 325 mg Tablet 650 MG PO (12:10)
[2020-10-26] MEDS: diphenhydrAMINE 50 mg/mL SDV 1mL 25 MG IVP (12:12)
[2020-10-30 09:49] LABS: Basophils % 0.2 %; Eosinophils % 0.9 %; Hematocrit 31.8 % (37.0-47.0); Lymphocytes # 0.7 10^3/uL (0.8-4.8); Lymphocytes % 15.4 %; Mean Corpuscular HGB Conc 31.4 g/dL (30.0-36.0); Mean Corpuscular Hemoglobin 31.7 pg (28.0-34.0); Mean Platelet Volume 8.8 fL (7.4-10.4); Monocytes # 0.2 10^3/uL (0.2-0.9); Monocytes % 3.4 %; Neutrophils # 3.55 10^3/uL (1.8-7.7); Neutrophils % 79.4 %; Nucleated Red Blood Cells % 0 %; Platelet Count 272 10^3/cmm (130-400); Red Blood Count 3.15 10^6/uL (4.1-5.3); Red Cell Distribution Width 13.9 % (12.1-15.1); White Blood Count 4.5 10^3/uL (4.0-10.0)
--- NOTE | 2020-10-31 22:32 | ONC FU_ITS ---
[facility] Patient Note Patient: Violetta Beaulieu Unit #: [id number]: 1955 Dictated By: Cam MarmolejoDate of Visit: October 26, 2020 Onc MED Follow-Up/Prog Note Chief Complaint: Right breast cancer Invasive lobular carcinoma ER/RI positive HER-2 negative Ki-67 at 75% History of Present Illness: Ms. Beaulieu is a 64-year-old female with more than year-long history of abnormality in the right breast. She reports that in about 2018 she noticed a small skin lesion in her right breast, she thought it was a mosquito bite. Later on she noticed a scab but it did not bother her until about 2 months ago when she noted a skin wound with some discharge along with damage in the right breast nipple and since then it has progressed, now with destruction of right breast nipple and firmness and shrinkage in more than two third of her right breast. Eventually, Ms Beaulieu went to see her primary care physician and underwent bilateral mammogram and ultrasonogram on December 23, 2019. The right breast showed heterogeneous fibroglandular density tissue with diffuse skin thickening with architectural distortion mid depth right breast, soft tissue thickening in the area of skin ulceration and indentation. Architectural distortion mid and posterior depth right breast with punctate indeterminate calcification and ultrasound right breast in the area of ulceration showed large hypoechoic ill-defined shadowing lesion suspicious for malignancy. Margins are difficult to define with overlying skin thickening and inverted nipple. Ms Beaulieu was seen by Dr. Castillo and on exam he he noticed right axillary lymphadenopathy. Subsequently on December 30, 2019 Mrs Beaulieu underwent ultrasound-guided right breast biopsy as well as right axillary lymph node biopsy. The final pathology report came back invasive lobular carcinoma breast 3 out of 5 cores involved longest positive core was 1.2 cm. And right axillary lymph node biopsy also confirmed invasive lobular carcinoma extending into fibroadipose tissue with extensive involvement and very little lymphoid tissue identified. Prognostic molecular profiling was done which confirmed ER RI positive disease ER being 99% positive RI 90% positive HER-2/chuckie negative with a markedly elevated Ki-67 at 75% which is unfavorable. No family history positive for breast cancer No history of smoking or alcohol use no history of diabetes, postmenopausal and menarche at age 12 or 13 years of age. Patient denies any fever or chills, denies any nausea or vomiting, denies any diarrhea or constipation, denies any vaginal bleeding denies any hematuria. Echocardiogram done on February 01, 2020 showed ejection fraction 65%. Ms Beaulieu began dose dense Adriamycin Cytoxan every 2 weeks with Neulasta support on February 09, 2020. She did have severe chemo induced neutropenia resulting in cycle 2 being delayed. She has tolerated it well otherwise. Patient received third cycle of dose dense Adriamycin/Cytoxan on March 16, 2020 subsequently underwent ultrasound right breast which showed large mass in the right breast did appear smaller in size when compared with December 23, 2019 but margins were poorly visualized. The abnormal lymph nodes in the right axilla is no longer present was several benign-appearing lymph nodes seen in the right axilla. Ms Beaulieu was supposed to conclude her dose dense chemotherapy e.g. cycle #4 in first week of March 2020 but patient never came back due to her family/social problems as per patient her brother got sick and there was no one to drive her to the clinic. 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 Ms. Beaulieu resumed her chemotherapy on 07/24/2020. Her last chemotherapy prior to that was March 16, 2020 at which time she had received cycle 3 cyclophosphamide Adriamycin. She was supported with Neulasta at that time as well. She has not had treatment since then as she took time off to take care of her brother who was ill. She was due to resume treatment on July 04, 2020 but was found to have a nonfunctioning Port-A-Cath. She was referred back to Dr. Castillo and she underwent explantation of the left upper chest Port-A-Cath and placement of a new PowerPort in the left subclavian vein on July 17, 2020. She tolerated cycle 4 adrimycin/Cytoxan well. She was due to start her taxane portion of her treatment plan on 08/07/2020 but that was delayed due to inclement weather. She had further delay due to venous access complications requiring replacement of her access device again. She had placement of a right internal juglar PowerPort on 09/05/[address] Castillo @ [facility]. Ms. Beaulieu is here today for follow-up and week 5 of 12 of paclitaxel. Her treatment was held week 3 due to an ANC of 1800. The week prior it was 6000. She has now new concerns today. She has had no signs or symptoms of fever or chills or any signs of infection. She states she is doing well. She has had alopecia. She denies any pain. She denies any cough or hemoptysis. She states her breathing is good and denies any shortness of breath orthopnea. She denies chest pain or palpitations. She denies any nausea or vomiting. She is had intermittent constipation but states that it is normal now and she is having no issues. She states her bladder is normal for her. She denies any UTI symptoms. She denies any neuropathy. She states her appetite is good and her energy is good. Her ECOG remains at 0. Past Medical History: Depression Hypertension Past Surgical History: Appendectomy Breast biopsy Cholecystectomy Portacatheter placement dr. luis Right internal jugular PowerPort-Dr Castillo in 2020 Placement of left subclavian Power Port-Dr Castillo in 2020 Removal of left internal juglar port Dr Castillo in 2020 Allergies: No Known Allergies. Medications: Acetaminophen 1 - 2 Capsule (of 325 mg) Oral daily PRN Cardizem CD 1 Capsule (of 240 mg) Capsule SR 24 HR Oral daily Oxybutynin Chloride 1 Tablet (of 5 mg) Oral daily PROzac 1 Capsule (of 20 mg) Oral daily Family History: Ms. Beaulieu's mother at age 73: type II diabetes. Ms. Beaulieu's father at age 61: lung cancer. Social History: Ms. 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 Ms. Beaulieu has never smoked. Ms. Beaulieu reports the following support systems: lives with spouse, significant other, family, or friends, lives in own house, supportive family/friends willing to assist with needs, and transportation problems exist and will require assistance. Her diet consists of regular meals. She indicates her activity level as: regular exercise. Review Of Symptoms: <See Above> Vital Signs: Performed on October 26, 2020 11:17 Height - 62.00 in Weight - 164.8 lbs (LOW) BSA - 1.76 sq.m BMI - 30.14 (HIGH) Temperature - 96.1 F (LOW) Pulse - 98 /min Respiration - 18 /min BP - 119/73 mm(hg) O2 Sat - 96 % Pain - 0 Fatigue - 10,0 - Fully active, able to carry on all predisease activities without restrictions. (ECOG) Physical Examination: Constitutional Alert, oriented, no acute distress. Skin pink, warm and dry. Head Normocephalic; atraumatic. Eyes Conjunctivae and sclerae are clear and without icterus. Pupils are reactive and equal. Neck Supple without masses or thyromegaly. No jugular venous distension. Hematologic/Lymphatic No petechiae or purpura. No tender or palpable lymph nodes in the cervical or supraclavicular areas. Respiratory Lungs are clear to auscultation without rhonchi or wheezing. Cardiovascular Regular rate and rhythm of heart without murmurs,clicks, gallops or rubs. Chest Chest is symmetric without chest wall deformities. RIGHT venous access device insertion site is unremarkable. It has healed well Abdomen Non-tender, non-distended, no masses or ascites. Good bowel sounds noted in all quads. No guarding or rebound tenderness. No pulsatile masses. Back/Spine Non-tender to palpation. Extremities No visible deformities, no cyanosis, clubbing or edema. Musculoskeletal No tenderness or swelling, normal range of motion without obvious weakness. Integumentary No rashes or lesions. Neurologic No sensory or motor deficits, normal cerebellar function, normal gait. Psychiatric Alert and oriented times three. Coherent speech. Verbalizes understanding of our discussions today. Laboratory:Test performed on October 26, 2020 09:07 Sodium 139 mmol/L Potassium 4.1 mmol/L Chloride 105 mmol/L CO2 25 mmol/L Anion Gap 13.1 BUN 15 mg/dL Creatinine 0.6 mg/dL Cr Clearance (Est) 111.5100 mL/min eGFR 100.6 mL/min Glucose 199 mg/dL Osmolality - Calculated 294 mOsm/kg Calcium 8.9 mg/dL Protein, Total 5.9 g/dL Albumin 3.6 g/dL Globulin 2.3 g/dL Bilirubin, Total 0.2 mg/dL ALT (SGPT) 12 U/L AST (SGOT) 8 U/L Alkaline Phosphatase 75 IU/L WBC 2.3 10 3/uL RBC 3.66 10 6/uL HGB 11.3 g/dL HCT 36.4 % MCV 99.5 fL MCH 30.9 pg MCHC 31.0 g/dL RDW 13.5 % Platelet Count 249 10 3/cmm MPV 10.4 fL Neutrophils 2.08 10 3/uL Lymphocytes 0.2 10 3/uL Monocytes 0.0 10 3/uL Eosinophils 0.0 10 3/uL Basophils 0.0 10 3/uL Neutrophil % 89.7 % Lymphocyte % 9.1 % Monocyte % 0.4 % Eosinophil % 0.4 % Basophils % 0.0 % NRBC % 0 % CBC Slide Review Slide Review Perform SLIDE REVIEW AGREES WITH AUTMOATED RESULTS Impression: Locally advance invasive lobular carcinoma involving the right breast With a skin ulceration and right axillary lymph node per ultrasound-guided biopsy done on December 30, 2019 ER 99% positive RI 90% positive HER-2/chuckie negative, Ki-67 75% Clinical stage T4b, N1 Mx IIIB Ejection fraction was 65% on echo done on February 01, 2020, Started on Neoadjuvant chemotherapy with dose dense Adriamycin Cytoxan with Neulasta support x4 on February 09, 2020, will be followed by weekly Taxol x12. She is tolerated her first cycle of Adriamycin Cytoxan well although she did have significant chemotherapy-induced neutropenia resulting in a delay in starting cycle 2.But patient stopped taking dose dense Adriamycin/Cytoxan after cycle # 3/4, because of her personal/family issues, as per patient her brother got sick and she was looking after him so she decided to delay her chemotherapy until he recovers, knowing the risk versus benefit involved with delaying neoadjuvant chemotherapy and also her transportation issue. Right breast ultrasound done after 3 cycles of dose dense Adriamycin/Cytoxan on April 11, 2020 showed large mass in the right breast does appear smaller in size as compared to December 23, 2019 but margins are poorly visualized and abnormal lymph nodes in the right axilla is no longer present. Mrs. Beaulieu chemotherapy plan with Adriamycin/Cytoxan has been interupted with cycle 3 on March 16, 2020. She stopped treatment on her own/AGAINST MEDICAL ADVICE to take care of her brother who was sick and she had transportation issues as well. Those situations have now resolved. Clinically, patient is doing well with no new signs symptoms but has persistent mass and edema in her right breast with overlying scarring. Per Dr Antunez's followup note, clinically it appeared there may be disease progression in her right breast. In that case, it was recommended that she resume her neoadjuvant chemotherapy with cycle #4/final dose of Adriamycin/Cytoxan. She resumed cycle 4 Adriamycin/Cytoxan on 07/24/2020 with Neulasta support. She was due to resume treatment on July 04, 2020 but was found to have a nonfunctioning Port-A-Cath. She was referred back to Dr. Castlilo and she underwent explantation of the left upper chest Port-A-Cath and placement of a new PowerPort in the left subclavian vein on July 17, 2020. She tolerated cycle 4 adrimycin/Cytoxan well. She was due to start her taxane portion of her treatment plan on 08/07/2020 but that was delayed due to inclement weather. She was encouraged to proceed with weekly Taxol x12. Dr Antunez advised Ms Beualieu to complete neoadjuvant chemotherapy as recommended without further delay and also discussed about importance of compliance with the chemotherapy schedule, patient expressed full understanding. She is highly motivated to complete treatment. She presents today for week 1/12 Taxol. However, nursing staff was unable to obtain a blood return from her port. She was sent for fluoroscopy flow study which did show the left Port-A-Cath with the tip in the distal innominate directly lateral with fibrin sheath around the distal catheter with partial obstruction and turbulent flow. Her chemotherapy will be delayed until we can determine how to manage her port. She may require PICC line to allow for completion of her treatment. She was referred back to Dr Castillo for input on her venous access. She did have explantation of the left upper chest PowerPort and replacement with placement of a right internal jugular vein PowerPort on September 05, 2020. Plan/Problems Addressed at this Visit: PROBLEMS ADDRESSED TODAY 1. Absense of blood return for left Power Port A. Fluoroscopy flow study reports left Port-A-Cath with tip in the distal innominate vein directed laterally. This is retracted since the prior exam on July 17, 2020. Turbulent flow of contrast exiting from the distal catheter with surrounding irregular fibrin sheath. Visual distal innominate and SVC appear patent. Final impression was left Port-A-Cath with tip in distal innominate vein directly lateral with fibrin sheath around the distal catheter with partial obstruction and turbulent flow. Verbal report to nursing staff per Dr. Shirley was he advised him not to use the Port-A-Cath and recommend that it be replaced. She did have explantation of the left upper chest PowerPort and replacement with placement of a right internal jugular vein PowerPort on September 05, 2020. A. She has excellent blood return of the newly placed right internal jugular PowerPort and no noted concerns today. 2. Locally advanced invasive lobular carcinoma of the right breast: A. She has completed 4 cycles of Adriamycin Cytoxan at normal dosing. She has now started the paclitaxel portion of her chemotherapy although significantly delayed. B. She did receive Neulasta support to prevent chemotherapy induced neutropenia with the adriamycin. Her ANC on day 8 of cycle 2 was 610. On day 0 of cycle 2 was 6660. C. Continue aggressive antiemetics due to high risk regimen. She may also continue Compazine and lorazepam as needed at home for antiemetics. D. Today's labs reviewed in detail and discussed with Mrs. Beaulieu and a copy was given to her. WBC 2.3, Hemoglobin 11.3, platelets 249,000, ANC is 2080. Creatinine 0.6 random glucose 199 potassium 4.1 LFTs are normal. Weight is stable at 164.8. E. Follow-up echocardiogram from 06/22/2020 reports LVEF at 65%. Mild pulmonary hypertension with RVSP at 30 to 35 mmHg; mild mitral regurgitation???compared to prior echo from 02/01/2020, no significant changes were noted. F. We will PROEED WITH WEEK 11/01 of her planned weekly paclitaxel at 80 mg/m2. G. Steroid compliance confirmed. H. She will continue with Emend, dexamethasone, Zofran for her antiemetics. We did change her to Zofran from Aloxi due to constipation concerns. She has tolerated this well and has had no nausea. 3. Constipation???intermittent A. This may be treatment related will just need to monitor her closely. B. She is currently using stool softeners and this is working well. C. We did discuss using MiraLAX [id number] as needed and she may add this over the next week if required. D. She was encouraged to let us know if she is having any trouble with the constipation not resolved with the measures above. 4. Follow-up plan A. We will plan to see her back in 1 week with CBC CMP and consideration for week 6 of 12 paclitaxel. B. Her treatment plan will most likely change to 2 weeks on and 1 week off to help support her neutropenia. May also need to consider growth factors on her day 8. C. Mrs. Beaulieu was encouraged to contact us in interim should questions or problems arise. Signed By: Cam Marmolejo-, AOCNP Lexi Antunez MD <<Signature on File>>
[2020-11-02 11:51] LABS: Basophils % 0.1 %; Hematocrit 32.3 % (37.0-47.0); Hemoglobin 10.1 g/dL (11.5-15.3); Lymphocytes # 0.4 10^3/uL (0.8-4.8); Lymphocytes % 3.1 %; Mean Corpuscular HGB Conc 31.3 g/dL (30.0-36.0); Mean Corpuscular Hemoglobin 31.5 pg (28.0-34.0); Mean Corpuscular Volume 100.6 fL (81-99); Mean Platelet Volume 8.6 fL (7.4-10.4); Monocytes # 0.2 10^3/uL (0.2-0.9); Monocytes % 1.8 %; Neutrophils # 11.67 10^3/uL (1.8-7.7); Neutrophils % 91.9 %; Nucleated Red Blood Cells % 0.2 %; Platelet Count 306 10^3/cmm (130-400); Red Blood Count 3.21 10^6/uL (4.1-5.3); White Blood Count 12.7 10^3/uL (4.0-10.0)
--- NOTE | 2020-11-02 12:00 | US_ITS ---
WS: [id number] DIAGNOSTIC BILATERAL DIGITAL MAMMOGRAM WITH CAD Bilateral breast ultrasound, limited. HISTORY: HX OF BREAST CA, known RIGHT breast cancer status post radiation and chemotherapy treatment. No surgery. Evaluate for progression. COMPARISON: 12/23/2019 and 04/11/2020 TECHNIQUE: Bilateral craniocaudad, mediolateral oblique, and mediolateral views are submitted. Multip le spot compression views in each breast. Computer aided detection utilized. Breast composition: The breasts are heterogeneously dense, which may obscure small masses. There is s ignificant distortion and volume loss in the RIGHT breast since the prior examination. Increased asym metric soft tissue in the posterior superior RIGHT breast is poorly visualized today due to the loss of volume in the RIGHT breast and difficulty positioning the patient. By mammography no significant p rogression in the soft tissue mass. This may in part be due to difficulty obtaining the entire breast on the image. There is a very tiny nodule in the posterior LEFT breast just medial to the nipple elena e on the CC projection. Incompletely visualized LEFT breast nodule. Bilateral breast ultrasound: RIGHT breast: Ultrasound is directed over the RIGHT breast in the outer inferior quadrant. There is areas of decrea sed soft tissue attenuation extending in a fingerlike projections the breast parenchyma with some inc reased vascularity. Soft tissue mass extends just beneath the skin surface and is infiltrating extens ively. Very difficult to measure but does appear to extend from the chest wall to the superficial sof t tissue. There is approximately 3 mm what is probably tumor from the subclavian and soft tissue. Very tiny hypoechoic nodule in the posterior LEFT breast at 10:00 which may be a small lymph node or complex cyst. At this time no additional evaluation is necessary. US/US breast BI limited* [id number] IMPRESSION: BI-RADS: 6-Known Biopsy-Proven Malignancy FOLLOW UP: See Report Patient has known RIGHT breast cancer which is undergoing treatment prior to [facility]. On the ultrasound there does appear to be soft tissue extension of the R IGHT breast tumor within 3 mm of extending beyond the breast tissue.
[2020-11-02 12:14] LABS: Alanine Aminotransferase 16 U/L (0-33); Albumin Level 3.6 g/dL (3.5-5.2); Alkaline Phosphatase 104 IU/L (35-105); Anion Gap 16.1 (5-19); Aspartate Amino Transferase 11 U/L (0-32); Blood Urea Nitrogen 10 mg/dL (8-23); Calcium 9.2 mg/dL (8.5-10.5); Carbon Dioxide 24 mmol/L (22-29); Chloride 102 mmol/L (98-107); Globulin 2.4 g/dL (1.3-4.6); Glomerular Filtration Rate 84.2 mL/min (90-130); Glucose 187 mg/dL (65-115); Osmolality Calculated 290 mOsm/kg (285-295); Potassium 4.1 mmol/L (3.5-5.1); Sodium 138 mmol/L (136-145); Total Bilirubin 0.2 mg/dL (0.15-1.2)
[2020-11-02 12:25] LABS: Slide Review Slide Review Perform
[2020-11-02] MEDS: sodium chloride 0.9% 250 ML 75 ML IV (13:55)
[2020-11-02] MEDS: famotidine 20 mg/2 mL INJ IVP (13:55)
[2020-11-02] MEDS: acetaminophen 325 mg Tablet 650 MG PO (13:55)
[2020-11-02] MEDS: diphenhydrAMINE 50 mg/mL SDV 1mL 25 MG IV (13:57)
[2020-11-02] MEDS: ondansetron 2 mg/ML SDV 2 mL 8 MG IV (13:57)
[2020-11-02] MEDS: fosaprepitant 150 MG in sodium chloride 0.9% 150 ML 300 MG IV (14:25)
[2020-11-09 08:39] LABS: Basophils % 0.6 %; Hematocrit 32.6 % (37.0-47.0); Hemoglobin 10.2 g/dL (11.5-15.3); Lymphocytes # 0.4 10^3/uL (0.8-4.8); Lymphocytes % 5.7 %; Mean Corpuscular HGB Conc 31.3 g/dL (30.0-36.0); Mean Corpuscular Volume 99.1 fL (81-99); Mean Platelet Volume 8.2 fL (7.4-10.4); Monocytes % 0.4 %; Neutrophils # 6.18 10^3/uL (1.8-7.7); Neutrophils % 86.3 %; Nucleated Red Blood Cells % 0 %; Platelet Count 373 10^3/cmm (130-400); Red Blood Count 3.29 10^6/uL (4.1-5.3); Red Cell Distribution Width 13.7 % (12.1-15.1); White Blood Count 7.2 10^3/uL (4.0-10.0)
[2020-11-09 09:04] LABS: Alanine Aminotransferase 14 U/L (0-33); Albumin Level 3.8 g/dL (3.5-5.2); Alkaline Phosphatase 86 IU/L (35-105); Anion Gap 12.4 (5-19); Aspartate Amino Transferase 8 U/L (0-32); Blood Urea Nitrogen 10 mg/dL (8-23); Calcium 8.7 mg/dL (8.5-10.5); Carbon Dioxide 24 mmol/L (22-29); Chloride 107 mmol/L (98-107); Globulin 2.3 g/dL (1.3-4.6); Glomerular Filtration Rate 124.2 mL/min (90-130); Glucose 198 mg/dL (65-115); Osmolality Calculated 293 mOsm/kg (285-295); Potassium 4.4 mmol/L (3.5-5.1); Sodium 139 mmol/L (136-145); Total Bilirubin 0.2 mg/dL (0.15-1.2); Total Protein 6.1 g/dL (6.6-8.7)
[2020-11-09 09:10] LABS: Slide Review Slide Review Perform
[2020-11-09] MEDS: ondansetron 2 mg/ML SDV 2 mL 8 MG IVP (10:28)
[2020-11-09] MEDS: sodium chloride 0.9% 250 ML 75 ML IV (10:28)
[2020-11-09] MEDS: diphenhydrAMINE 50 mg/mL SDV 1mL 25 MG IVP (10:30)
[2020-11-09] MEDS: acetaminophen 325 mg Tablet 650 MG PO (10:30)
[2020-11-09] MEDS: famotidine 20 mg/2 mL INJ IVP (10:34)
--- NOTE | 2020-11-10 08:19 | ONC FU_ITS ---
Dr. Antunez follow up note Patient: Violetta Beaulieu Unit #: [id number]: 1955 Dicatated By: Lexi Antunez M.D.Date of Visit:November 09, 2020 Onc Med Follow-up/Prog Note History of Present Illness: Ms. Beaulieu is a 64-year-old female with more than year-long history of abnormality in the right breast. She reports that in about 2018 she noticed a small skin lesion in her right breast, she thought it was a mosquito bite. Later on she noticed a scab but it did not bother her until about 2 months ago when she noted a skin wound with some discharge along with damage in the right breast nipple and since then it has progressed, now with destruction of right breast nipple and firmness and shrinkage in more than two third of her right breast. Eventually, Ms Beaulieu went to see her primary care physician and underwent bilateral mammogram and ultrasonogram on December 23, 2019. The right breast showed heterogeneous fibroglandular density tissue with diffuse skin thickening with architectural distortion mid depth right breast, soft tissue thickening in the area of skin ulceration and indentation. Architectural distortion mid and posterior depth right breast with punctate indeterminate calcification and ultrasound right breast in the area of ulceration showed large hypoechoic ill-defined shadowing lesion suspicious for malignancy. Margins are difficult to define with overlying skin thickening and inverted nipple. Ms Beaulieu was seen by Dr. Castillo and on exam he he noticed right axillary lymphadenopathy. Subsequently on December 30, 2019 Mrs Beaulieu underwent ultrasound-guided right breast biopsy as well as right axillary lymph node biopsy. The final pathology report came back invasive lobular carcinoma breast 3 out of 5 cores involved longest positive core was 1.2 cm. And right axillary lymph node biopsy also confirmed invasive lobular carcinoma extending into fibroadipose tissue with extensive involvement and very little lymphoid tissue identified. Prognostic molecular profiling was done which confirmed ER OH positive disease ER being 99% positive OH 90% positive HER-2/chuckie negative with a markedly elevated Ki-67 at 75% which is unfavorable. No family history positive for breast cancer No history of smoking or alcohol use no history of diabetes, postmenopausal and menarche at age 12 or 13 years of age. Patient denies any fever or chills, denies any nausea or vomiting, denies any diarrhea or constipation, denies any vaginal bleeding denies any hematuria. Echocardiogram done on February 01, 2020 showed ejection fraction 65%. Ms Beaulieu began dose dense Adriamycin Cytoxan every 2 weeks with Neulasta support on February 09, 2020. She did have severe chemo induced neutropenia resulting in cycle 2 being delayed. She has tolerated it well otherwise. Patient received third cycle of dose dense Adriamycin/Cytoxan on March 16, 2020 subsequently underwent ultrasound right breast which showed large mass in the right breast did appear smaller in size when compared with December 23, 2019 but margins were poorly visualized. The abnormal lymph nodes in the right axilla is no longer present was several benign-appearing lymph nodes seen in the right axilla. Ms Beaulieu was supposed to conclude her dose dense chemotherapy e.g. cycle #4 in first week of March 2020 but patient never came back due to her family/social problems as per patient her brother got sick and there was no one to drive her to the clinic. 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 Ms. Beaulieu resumed her chemotherapy on 07/24/2020. Her last chemotherapy prior to that was March 16, 2020 at which time she had received cycle 3 cyclophosphamide Adriamycin. She was supported with Neulasta at that time as well. She has not had treatment since then as she took time off to take care of her brother who was ill. She was due to resume treatment on July 04, 2020 but was found to have a nonfunctioning Port-A-Cath. She was referred back to Dr. Castillo and she underwent explantation of the left upper chest Port-A-Cath and placement of a new PowerPort in the left subclavian vein on July 17, 2020. She tolerated cycle 4 adrimycin/Cytoxan well. She was due to start her taxane portion of her treatment plan on 08/07/2020 but that was delayed due to inclement weather. She had further delay due to venous access complications requiring replacement of her access device again. She had placement of a right internal juglar PowerPort on 09/05/[address] Castillo @ [facility]. Came for follow-up, denies any specific complaints, no fever chills, no nausea or vomiting, no diarrhea constipation, no peripheral numbness, no mouth sores, tolerating neoadjuvant weekly Taxol well Medications: Acetaminophen 1 - 2 Capsule (of 325 mg) Oral daily PRN, Cardizem CD 1 Capsule (of 240 mg) Capsule SR 24 HR Oral daily, Oxybutynin Chloride 1 Tablet (of 5 mg) Oral daily, PROzac 1 Capsule (of 20 mg) Oral daily Allergies: No Known Allergies. Review of Systems: Review of Systems is not available for this patient. Vital Signs: Performed on November 09, 2020 12:31 Height - 62.00 in Temperature - 98.1 F (LOW) Pulse - 65 /min Respiration - 18 /min BP - 121/69 mm(hg) O2 Sat - 98 % Performed on November 09, 2020 09:30 Height - 62.00 in Weight - 165.2 lbs BSA - 1.76 sq.m BMI - 30.22 (HIGH) Temperature - 96.7 F (LOW) Pulse - 88 /min Respiration - 18 /min BP - 111/72 mm(hg) O2 Sat - 97 % Pain - 0 Fatigue - 8 Performance Status: 0 - Fully active, able to carry on all predisease activities without restrictions. (ECOG) Physical Examination: Respiratory - Lungs are clear to auscultation, Cardiovascular - Regular rate and rhythm of heart, Gastrointestinal - Soft, bowel sounds present, Extremities - No visible edema or rash. Lab/Imaging: Test performed on November 02, 2020 11:35 Sodium 138 mmol/L Potassium 4.1 mmol/L Chloride 102 mmol/L CO2 24 mmol/L Anion Gap 16.1 BUN 10 mg/dL Creatinine 0.7 mg/dL Cr Clearance (Est) 95.5800 mL/min eGFR 84.2 mL/min Glucose 187 mg/dL Osmolality - Calculated 290 mOsm/kg Calcium 9.2 mg/dL Protein, Total 6.0 g/dL Albumin 3.6 g/dL Globulin 2.4 g/dL Bilirubin, Total 0.2 mg/dL ALT (SGPT) 16 U/L AST (SGOT) 11 U/L Alkaline Phosphatase 104 IU/L WBC 12.7 10 3/uL RBC 3.21 10 6/uL HGB 10.1 g/dL HCT 32.3 % MCV 100.6 fL MCH 31.5 pg MCHC 31.3 g/dL RDW 14.0 % Platelet Count 306 10 3/cmm MPV 8.6 fL Neutrophils 11.67 10 3/uL Lymphocytes 0.4 10 3/uL Monocytes 0.2 10 3/uL Eosinophils 0.0 10 3/uL Basophils 0.0 10 3/uL Neutrophil % 91.9 % Lymphocyte % 3.1 % Monocyte % 1.8 % Eosinophil % 0.0 % Basophils % 0.1 % NRBC % 0.2 % CBC Slide Review Slide Review Perform SLIDE REVIEW AGREES WITH AUTOMATED RESULT Impression: Locally advance invasive lobular carcinoma involving the right breast With a skin ulceration and right axillary lymph node per ultrasound-guided biopsy done on December 30, 2019 ER 99% positive OH 90% positive HER-2/chuckie negative, Ki-67 75% Clinical stage T4b, N1 Mx IIIB Ejection fraction was 65% on echo done on February 01, 2020, Started on Neoadjuvant chemotherapy with dose dense Adriamycin Cytoxan with Neulasta support x4 on February 09, 2020, will be followed by weekly Taxol x12. She is tolerated her first cycle of Adriamycin Cytoxan well although she did have significant chemotherapy-induced neutropenia resulting in a delay in starting cycle 2.But patient stopped taking dose dense Adriamycin/Cytoxan after cycle # 3/4, because of her personal/family issues, as per patient her brother got sick and she was looking after him so she decided to delay her chemotherapy until he recovers, knowing the risk versus benefit involved with delaying neoadjuvant chemotherapy and also her transportation issue. Right breast ultrasound done after 3 cycles of dose dense Adriamycin/Cytoxan on April 11, 2020 showed large mass in the right breast does appear smaller in size as compared to December 23, 2019 but margins are poorly visualized and abnormal lymph nodes in the right axilla is no longer present. Mrs. Beaulieu chemotherapy plan with Adriamycin/Cytoxan has been interupted with cycle 3 on March 16, 2020. She stopped treatment on her own/[employer]AIN[employer]ICAL ADVICE to take care of her brother who was sick and she had transportation issues as well. Those situations have now resolved. Clinically, patient is doing well with no new signs symptoms but has persistent mass and edema in her right breast with overlying scarring. clinically it appeared there may be disease progression in her right breast. In that case, it was recommended that she resume her neoadjuvant chemotherapy with cycle #4/final dose of Adriamycin/Cytoxan. She resumed cycle 4 Adriamycin/Cytoxan on 07/24/2020 with Neulasta support. She was due to resume treatment on July 04, 2020 but was found to have a nonfunctioning Port-A-Cath. She was referred back to Dr. Castillo and she underwent explantation of the left upper chest Port-A-Cath and placement of a new PowerPort in the left subclavian vein on July 17, 2020. She tolerated cycle 4 adrimycin/Cytoxan well. She was due to start her taxane portion of her treatment plan on 08/07/2020 but that was delayed due to inclement weather. She was encouraged to proceed with weekly Taxol x12. Dr Antunez advised Ms Beaulieu to complete neoadjuvant chemotherapy as recommended without further delay and also discussed about importance of compliance with the chemotherapy schedule, patient expressed full understanding. She is highly motivated to complete treatment. She presents today for week 1/12 Taxol. However, nursing staff was unable to obtain a blood return from her port. She was sent for fluoroscopy flow study which did show the left Port-A-Cath with the tip in the distal innominate directly lateral with fibrin sheath around the distal catheter with partial obstruction and turbulent flow. Her chemotherapy will be delayed until we can determine how to manage her port. She may require PICC line to allow for completion of her treatment. She was referred back to Dr Castillo for input on her venous access. She did have explantation of the left upper chest PowerPort and replacement with placement of a right internal jugular vein PowerPort on September 05, 2020. Plan: Discussed with patient regarding her labs white blood count 7.2 hemoglobin 10.2 hematocrit 32.6 platelets 373,000 CMP within normal limits Clinically, patient doing well, tolerating neoadjuvant chemotherapy with weekly Taxol as well, will review her follow-up breast sonogram to assess the response, patient is somewhat reluctant to consider surgery at this point rather wants to finish her treatment and then she will decide again knowing the risk versus benefits We will proceed with next weekly dose of Taxol today then she will return to clinic in 1 week with CBC CMP and for her Taxol Signed By: Lexi Antunez M.D. <<Signature on File>>
--- NOTE | 2020-11-14 13:03 | ONC FU_ITS ---
[facility] Patient Note Patient: Violetta Beaulieu Unit #: [id number]: 1955 Dictated By: Cam MarmolejoDate of Visit: November 02, 2020 Onc MED Follow-Up/Prog Note Chief Complaint: Right breast cancer Invasive lobular carcinoma ER/IL positive HER-2 negative Ki-67 at 75% History of Present Illness: Ms. Beaulieu is a 64-year-old female with more than year-long history of abnormality in the right breast. She reports that in about 2018 she noticed a small skin lesion in her right breast, she thought it was a mosquito bite. Later on she noticed a scab but it did not bother her until about 2 months ago when she noted a skin wound with some discharge along with damage in the right breast nipple and since then it has progressed, now with destruction of right breast nipple and firmness and shrinkage in more than two third of her right breast. Eventually, Ms Beaulieu went to see her primary care physician and underwent bilateral mammogram and ultrasonogram on December 23, 2019. The right breast showed heterogeneous fibroglandular density tissue with diffuse skin thickening with architectural distortion mid depth right breast, soft tissue thickening in the area of skin ulceration and indentation. Architectural distortion mid and posterior depth right breast with punctate indeterminate calcification and ultrasound right breast in the area of ulceration showed large hypoechoic ill-defined shadowing lesion suspicious for malignancy. Margins are difficult to define with overlying skin thickening and inverted nipple. Ms Beaulieu was seen by Dr. Castillo and on exam he he noticed right axillary lymphadenopathy. Subsequently on December 30, 2019 Mrs Beaulieu underwent ultrasound-guided right breast biopsy as well as right axillary lymph node biopsy. The final pathology report came back invasive lobular carcinoma breast 3 out of 5 cores involved longest positive core was 1.2 cm. And right axillary lymph node biopsy also confirmed invasive lobular carcinoma extending into fibroadipose tissue with extensive involvement and very little lymphoid tissue identified. Prognostic molecular profiling was done which confirmed ER IL positive disease ER being 99% positive IL 90% positive HER-2/chuckie negative with a markedly elevated Ki-67 at 75% which is unfavorable. No family history positive for breast cancer No history of smoking or alcohol use no history of diabetes, postmenopausal and menarche at age 12 or 13 years of age. Patient denies any fever or chills, denies any nausea or vomiting, denies any diarrhea or constipation, denies any vaginal bleeding denies any hematuria. Echocardiogram done on February 01, 2020 showed ejection fraction 65%. Ms Beaulieu began dose dense Adriamycin Cytoxan every 2 weeks with Neulasta support on February 09, 2020. She did have severe chemo induced neutropenia resulting in cycle 2 being delayed. She has tolerated it well otherwise. Patient received third cycle of dose dense Adriamycin/Cytoxan on March 16, 2020 subsequently underwent ultrasound right breast which showed large mass in the right breast did appear smaller in size when compared with December 23, 2019 but margins were poorly visualized. The abnormal lymph nodes in the right axilla is no longer present was several benign-appearing lymph nodes seen in the right axilla. Ms Beaulieu was supposed to conclude her dose dense chemotherapy e.g. cycle #4 in first week of March 2020 but patient never came back due to her family/social problems as per patient her brother got sick and there was no one to drive her to the clinic. 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 Ms. Beaulieu resumed her chemotherapy on 07/24/2020. Her last chemotherapy prior to that was March 16, 2020 at which time she had received cycle 3 cyclophosphamide Adriamycin. She was supported with Neulasta at that time as well. She has not had treatment since then as she took time off to take care of her brother who was ill. She was due to resume treatment on July 04, 2020 but was found to have a nonfunctioning Port-A-Cath. She was referred back to Dr. Castillo and she underwent explantation of the left upper chest Port-A-Cath and placement of a new PowerPort in the left subclavian vein on July 17, 2020. She tolerated cycle 4 adrimycin/Cytoxan well. She was due to start her taxane portion of her treatment plan on 08/07/2020 but that was delayed due to inclement weather. She had further delay due to venous access complications requiring replacement of her access device again. She had placement of a right internal juglar PowerPort on 09/05/[address] Castillo @ [facility]. Ms. Beaulieu is here today for follow-up and week 7 of 12 of paclitaxel. Her treatment was held week 3 due to an ANC of 1800. The week prior it was 6000. She has no new concerns today. She has had no signs or symptoms of fever or chills or any signs of infection. She states she is doing well. She has had alopecia. She denies any pain. She denies any cough or hemoptysis. She states her breathing is good and denies any shortness of breath orthopnea. She denies chest pain or palpitations. She has developed nausea but no vomiting. She states the nausea is worse at night. She states that she takes her nausea meds and then she feels okay . She states that she has been taking heartburn medicine- Tums for years. She is unsure if the heartburn is getting worse but may be . She is tolerating the interim Neupogen well. She denies any bone pain. She had had intermittent constipation but states that her bowels are normal now. She states her bladder is normal for her. She denies any UTI symptoms. She denies any neuropathy. She states her appetite is good and her energy is good. Her ECOG remains at 0. Past Medical History: Depression Hypertension Past Surgical History: Appendectomy Breast biopsy Cholecystectomy Portacatheter placement dr. luis Right internal jugular PowerPort-Dr Castillo in 2020 Placement of left subclavian Power Port-Dr Castillo in 2020 Removal of left internal juglar port Dr Castillo in 2020 Allergies: No Known Allergies. Medications: Acetaminophen 1 - 2 Capsule (of 325 mg) Oral daily PRN Cardizem CD 1 Capsule (of 240 mg) Capsule SR 24 HR Oral daily Oxybutynin Chloride 1 Tablet (of 5 mg) Oral daily PROzac 1 Capsule (of 20 mg) Oral daily Family History: Ms. Beaulieu's mother at age 73: type II diabetes. Ms. Beaulieu's father at age 61: lung cancer. 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 Ms. Beaulieu has never smoked. Ms. Beaulieu reports the following support systems: lives with spouse, significant other, family, or friends, lives in own house, supportive family/friends willing to assist with needs, and transportation problems exist and will require assistance. Her diet consists of regular meals. She indicates her activity level as: regular exercise. Review Of Symptoms: <See Above> Vital Signs: Performed on November 02, 2020 15:50 Height - 62.00 in Temperature - 97.4 F (LOW) Pulse - 76 /min Respiration - 18 /min BP - 139/72 mm(hg) O2 Sat - 96 % Performed on November 02, 2020 13:15 Height - 62.00 in Weight - 165.2 lbs (HIGH) BSA - 1.76 sq.m BMI - 30.22 (HIGH) Temperature - 97.8 F (LOW) Pulse - 92 /min Respiration - 17 /min BP - 136/78 mm(hg) O2 Sat - 98 % Pain - 0,1 - No physically strenuous activity, but ambulatory and able to carry out light or sedentary work (e.g. office work, light house work). (ECOG) Physical Examination: Laboratory:Test performed on November 09, 2020 08:25 Sodium 139 mmol/L Potassium 4.4 mmol/L Chloride 107 mmol/L CO2 24 mmol/L Anion Gap 12.4 BUN 10 mg/dL Creatinine 0.5 mg/dL Cr Clearance (Est) 133.8200 mL/min eGFR 124.2 mL/min Glucose 198 mg/dL Osmolality - Calculated 293 mOsm/kg Calcium 8.7 mg/dL Protein, Total 6.1 g/dL Albumin 3.8 g/dL Globulin 2.3 g/dL Bilirubin, Total 0.2 mg/dL ALT (SGPT) 14 U/L AST (SGOT) 8 U/L Alkaline Phosphatase 86 IU/L WBC 7.2 10 3/uL RBC 3.29 10 6/uL HGB 10.2 g/dL HCT 32.6 % MCV 99.1 fL MCH 31.0 pg MCHC 31.3 g/dL RDW 13.7 % Platelet Count 373 10 3/cmm MPV 8.2 fL Neutrophils 6.18 10 3/uL Lymphocytes 0.4 10 3/uL Monocytes 0.0 10 3/uL Eosinophils 0.0 10 3/uL Basophils 0.0 10 3/uL Neutrophil % 86.3 % Lymphocyte % 5.7 % Monocyte % 0.4 % Eosinophil % 0.0 % Basophils % 0.6 % NRBC % 0 % CBC Slide Review Slide Review Perform SLIDE REVIEW AGREES WITH AUTOMATED RESULTS ST Impression: Locally advance invasive lobular carcinoma involving the right breast With a skin ulceration and right axillary lymph node per ultrasound-guided biopsy done on December 30, 2019 ER 99% positive IL 90% positive HER-2/chuckie negative, Ki-67 75% Clinical stage T4b, N1 Mx IIIB Ejection fraction was 65% on echo done on February 01, 2020, Started on Neoadjuvant chemotherapy with dose dense Adriamycin Cytoxan with Neulasta support x4 on February 09, 2020, will be followed by weekly Taxol x12. She is tolerated her first cycle of Adriamycin Cytoxan well although she did have significant chemotherapy-induced neutropenia resulting in a delay in starting cycle 2.But patient stopped taking dose dense Adriamycin/Cytoxan after cycle # 3/4, because of her personal/family issues, as per patient her brother got sick and she was looking after him so she decided to delay her chemotherapy until he recovers, knowing the risk versus benefit involved with delaying neoadjuvant chemotherapy and also her transportation issue. Right breast ultrasound done after 3 cycles of dose dense Adriamycin/Cytoxan on April 11, 2020 showed large mass in the right breast does appear smaller in size as compared to December 23, 2019 but margins are poorly visualized and abnormal lymph nodes in the right axilla is no longer present. Mrs. Beaulieu chemotherapy plan with Adriamycin/Cytoxan has been interupted with cycle 3 on March 16, 2020. She stopped treatment on her own/AGAINST MEDICAL ADVICE to take care of her brother who was sick and she had transportation issues as well. Those situations have now resolved. Clinically, patient is doing well with no new signs symptoms but has persistent mass and edema in her right breast with overlying scarring. Per Dr Antunez's followup note, clinically it appeared there may be disease progression in her right breast. In that case, it was recommended that she resume her neoadjuvant chemotherapy with cycle #4/final dose of Adriamycin/Cytoxan. She resumed cycle 4 Adriamycin/Cytoxan on 07/24/2020 with Neulasta support. She was due to resume treatment on July 04, 2020 but was found to have a nonfunctioning Port-A-Cath. She was referred back to Dr. Castillo and she underwent explantation of the left upper chest Port-A-Cath and placement of a new PowerPort in the left subclavian vein on July 17, 2020. She tolerated cycle 4 adrimycin/Cytoxan well. She was due to start her taxane portion of her treatment plan on 08/07/2020 but that was delayed due to inclement weather. She was encouraged to proceed with weekly Taxol x12. Dr Antunez advised Ms Beaulieu to complete neoadjuvant chemotherapy as recommended without further delay and also discussed about importance of compliance with the chemotherapy schedule, patient expressed full understanding. She is highly motivated to complete treatment. She presentes for week 1/12 Taxol. However, nursing staff was unable to obtain a blood return from her port. She was sent for fluoroscopy flow study which did show the left Port-A-Cath with the tip in the distal innominate directly lateral with fibrin sheath around the distal catheter with partial obstruction and turbulent flow. Her chemotherapy will be delayed until we can determine how to manage her port. She may require PICC line to allow for completion of her treatment. She was referred back to Dr Castillo for input on her venous access. She did have explantation of the left upper chest PowerPort and replacement with placement of a right internal jugular vein PowerPort on September 05, 2020. Plan/Problems Addressed at this Visit: PROBLEMS ADDRESSED TODAY 1. Absense of blood return for left Power Port A. Fluoroscopy flow study reports left Port-A-Cath with tip in the distal innominate vein directed laterally. This is retracted since the prior exam on July 17, 2020. Turbulent flow of contrast exiting from the distal catheter with surrounding irregular fibrin sheath. Visual distal innominate and SVC appear patent. Final impression was left Port-A-Cath with tip in distal innominate vein directly lateral with fibrin sheath around the distal catheter with partial obstruction and turbulent flow. Verbal report to nursing staff per Dr. Shirley was he advised him not to use the Port-A-Cath and recommend that it be replaced. She did have explantation of the left upper chest PowerPort and replacement with placement of a right internal jugular vein PowerPort on September 05, 2020. A. She has excellent blood return of the newly placed right internal jugular PowerPort and no noted concerns today. 2. Locally advanced invasive lobular carcinoma of the right breast: A. She has completed 4 cycles of Adriamycin Cytoxan at normal dosing. She has now started the paclitaxel portion of her chemotherapy although significantly delayed. B. She did receive Neulasta support to prevent chemotherapy induced neutropenia with the adriamycin. Her ANC on day 8 of cycle 2 was 610. On day 0 of cycle 2 was 6660. C. Continue aggressive antiemetics due to high risk regimen. She may also continue Compazine and lorazepam as needed at home for antiemetics. D. Today's labs reviewed in detail and discussed with Mrs. Beaulieu and a copy was given to her. WBC 2.3, Hemoglobin 11.3, platelets 249,000, ANC is 2080. Creatinine 0.6 random glucose 199 potassium 4.1 LFTs are normal. Weight is stable at 164.8. E. Follow-up echocardiogram from 06/22/2020 reports LVEF at 65%. Mild pulmonary hypertension with RVSP at 30 to 35 mmHg; mild mitral regurgitation???compared to prior echo from 02/01/2020, no significant changes were noted. F. We will PROEED WITH WEEK 01/01 of her planned weekly paclitaxel at 80 mg/m2. G. Steroid compliance confirmed. H. She will continue with Emend, dexamethasone, Zofran for her antiemetics. We did change her to Zofran from Aloxi due to constipation concerns. She has tolerated this well and has had no nausea. I. I did not add Neupogen to her care plan this week given her ANC today is 11,670. 3. Constipation???intermittent A. This may be treatment related will just need to monitor her closely. B. She is currently using stool softeners and this is working well. C. We did discuss using MiraLAX [id number] as needed and she may add this over the next week if required. D. She was encouraged to let us know if she is having any trouble with the constipation not resolved with the measures above. E. We will Prilosec 20 mg once or twice daily as needed for gastritis syptoms. 4. Follow-up plan A. We will plan to see her back in 1 week with CBC CMP and consideration for week 8 of 12 paclitaxel. B. Her treatment plan may need tochange to 2 weeks on and 1 week off to help support her neutropenia. C. Mrs. Beaulieu was encouraged to contact us in interim should questions or problems arise. Signed By: Cam Marmolejo-, AOCNP Lexi Antunez MD <<Signature on File>>
[2020-11-16 09:23] LABS: Basophils % 0.3 %; Hematocrit 33.7 % (37.0-47.0); Hemoglobin 10.5 g/dL (11.5-15.3); Lymphocytes # 0.2 10^3/uL (0.8-4.8); Lymphocytes % 7.6 %; Mean Corpuscular HGB Conc 31.2 g/dL (30.0-36.0); Mean Corpuscular Hemoglobin 31.3 pg (28.0-34.0); Mean Corpuscular Volume 100.6 fL (81-99); Mean Platelet Volume 8.3 fL (7.4-10.4); Monocytes % 0.3 %; Neutrophils # 2.87 10^3/uL (1.8-7.7); Neutrophils % 90.5 %; Nucleated Red Blood Cells % 0 %; Platelet Count 348 10^3/cmm (130-400); Red Blood Count 3.35 10^6/uL (4.1-5.3); Red Cell Distribution Width 14.5 % (12.1-15.1); White Blood Count 3.2 10^3/uL (4.0-10.0)
[2020-11-16 09:44] LABS: Slide Review Slide Review Perform
[2020-11-16 09:51] LABS: Alanine Aminotransferase 13 U/L (0-33); Albumin Level 3.7 g/dL (3.5-5.2); Alkaline Phosphatase 90 IU/L (35-105); Anion Gap 18.4 (5-19); Aspartate Amino Transferase 11 U/L (0-32); Blood Urea Nitrogen 14 mg/dL (8-23); Calcium 8.8 mg/dL (8.5-10.5); Carbon Dioxide 22 mmol/L (22-29); Chloride 104 mmol/L (98-107); Globulin 2.6 g/dL (1.3-4.6); Glomerular Filtration Rate 100.6 mL/min (90-130); Glucose 198 mg/dL (65-115); Osmolality Calculated 296 mOsm/kg (285-295); Potassium 4.4 mmol/L (3.5-5.1); Sodium 140 mmol/L (136-145); Total Bilirubin 0.2 mg/dL (0.15-1.2); Total Protein 6.3 g/dL (6.6-8.7)
[2020-11-16] MEDS: sodium chloride 0.9% 250 ML 75 ML IV (11:45)
[2020-11-16] MEDS: acetaminophen 325 mg Tablet 650 MG PO (11:45)
[2020-11-16] MEDS: famotidine 20 mg/2 mL INJ IVP (11:46)
[2020-11-16] MEDS: ondansetron 2 mg/ML SDV 2 mL 8 MG IVP (11:48)
[2020-11-16] MEDS: diphenhydrAMINE 50 mg/mL SDV 1mL 25 MG IVP (11:50)
--- NOTE | 2020-11-16 16:33 | ONC FU_ITS ---
Dr. Antunez follow up note Patient: Violetta Beaulieu Unit #: [id number]: 1955 Dicatated By: Lexi Antunez M.D.Date of Visit:November 16, 2020 Onc Med Follow-up/Prog Note History of Present Illness: Ms. Beaulieu is a 64-year-old female with more than year-long history of abnormality in the right breast. She reports that in about 2018 she noticed a small skin lesion in her right breast, she thought it was a mosquito bite. Later on she noticed a scab but it did not bother her until about 2 months ago when she noted a skin wound with some discharge along with damage in the right breast nipple and since then it has progressed, now with destruction of right breast nipple and firmness and shrinkage in more than two third of her right breast. Eventually, Ms Beaulieu went to see her primary care physician and underwent bilateral mammogram and ultrasonogram on December 23, 2019. The right breast showed heterogeneous fibroglandular density tissue with diffuse skin thickening with architectural distortion mid depth right breast, soft tissue thickening in the area of skin ulceration and indentation. Architectural distortion mid and posterior depth right breast with punctate indeterminate calcification and ultrasound right breast in the area of ulceration showed large hypoechoic ill-defined shadowing lesion suspicious for malignancy. Margins are difficult to define with overlying skin thickening and inverted nipple. Ms Beaulieu was seen by Dr. Castillo and on exam he he noticed right axillary lymphadenopathy. Subsequently on December 30, 2019 Mrs Beaulieu underwent ultrasound-guided right breast biopsy as well as right axillary lymph node biopsy. The final pathology report came back invasive lobular carcinoma breast 3 out of 5 cores involved longest positive core was 1.2 cm. And right axillary lymph node biopsy also confirmed invasive lobular carcinoma extending into fibroadipose tissue with extensive involvement and very little lymphoid tissue identified. Prognostic molecular profiling was done which confirmed ER TN positive disease ER being 99% positive TN 90% positive HER-2/chuckie negative with a markedly elevated Ki-67 at 75% which is unfavorable. No family history positive for breast cancer No history of smoking or alcohol use no history of diabetes, postmenopausal and menarche at age 12 or 13 years of age. Patient denies any fever or chills, denies any nausea or vomiting, denies any diarrhea or constipation, denies any vaginal bleeding denies any hematuria. Echocardiogram done on February 01, 2020 showed ejection fraction 65%. Ms Beaulieu began dose dense Adriamycin Cytoxan every 2 weeks with Neulasta support on February 09, 2020. She did have severe chemo induced neutropenia resulting in cycle 2 being delayed. She has tolerated it well otherwise. Patient received third cycle of dose dense Adriamycin/Cytoxan on March 16, 2020 subsequently underwent ultrasound right breast which showed large mass in the right breast did appear smaller in size when compared with December 23, 2019 but margins were poorly visualized. The abnormal lymph nodes in the right axilla is no longer present was several benign-appearing lymph nodes seen in the right axilla. Ms Beaulieu was supposed to conclude her dose dense chemotherapy e.g. cycle #4 in first week of March 2020 but patient never came back due to her family/social problems as per patient her brother got sick and there was no one to drive her to the clinic. 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 Ms. Beaulieu resumed her chemotherapy on 07/24/2020. Her last chemotherapy prior to that was March 16, 2020 at which time she had received cycle 3 cyclophosphamide Adriamycin. She was supported with Neulasta at that time as well. She has not had treatment since then as she took time off to take care of her brother who was ill. She was due to resume treatment on July 04, 2020 but was found to have a nonfunctioning Port-A-Cath. She was referred back to Dr. Castillo and she underwent explantation of the left upper chest Port-A-Cath and placement of a new PowerPort in the left subclavian vein on July 17, 2020. She tolerated cycle 4 adrimycin/Cytoxan well. She was due to start her taxane portion of her treatment plan on 08/07/2020 but that was delayed due to inclement weather. She had further delay due to venous access complications requiring replacement of her access device again. She had placement of a right internal juglar PowerPort on 09/05/[address] Castillo @ [facility]. Came for follow-up, denies any specific complaints, no fever chills, no nausea or vomiting, no diarrhea constipation, no peripheral neuropathy, no mouth sores, tolerating weekly Taxol well Medications: Acetaminophen 1 - 2 Capsule (of 325 mg) Oral daily PRN, Cardizem CD 1 Capsule (of 240 mg) Capsule SR 24 HR Oral daily, Oxybutynin Chloride 1 Tablet (of 5 mg) Oral daily, PROzac 1 Capsule (of 20 mg) Oral daily Allergies: No Known Allergies. Review of Systems: Review of Systems is not available for this patient. Vital Signs: Performed on November 16, 2020 13:48 Height - 62.00 in Temperature - 97.8 F (LOW) Pulse - 82 /min Respiration - 18 /min BP - 123/66 mm(hg) O2 Sat - 96 % Pain - 0 Performed on November 16, 2020 11:23 Height - 62.00 in Weight - 164.8 lbs (LOW) BSA - 1.76 sq.m BMI - 30.14 (HIGH) Temperature - 96.8 F (LOW) Pulse - 102 /min (HIGH) Respiration - 18 /min BP - 140/76 mm(hg) O2 Sat - 97 % Pain - 0 Fatigue - 0 Performance Status: 0 - Fully active, able to carry on all predisease activities without restrictions. (ECOG) Physical Examination: Respiratory - Lungs are clear to auscultation, Cardiovascular - Regular rate and rhythm of heart, Gastrointestinal - Soft, bowel sounds present, Extremities - No visible edema or rash. Lab/Imaging: Test performed on November 09, 2020 08:25 Sodium 139 mmol/L Potassium 4.4 mmol/L Chloride 107 mmol/L CO2 24 mmol/L Anion Gap 12.4 BUN 10 mg/dL Creatinine 0.5 mg/dL Cr Clearance (Est) 133.8200 mL/min eGFR 124.2 mL/min Glucose 198 mg/dL Osmolality - Calculated 293 mOsm/kg Calcium 8.7 mg/dL Protein, Total 6.1 g/dL Albumin 3.8 g/dL Globulin 2.3 g/dL Bilirubin, Total 0.2 mg/dL ALT (SGPT) 14 U/L AST (SGOT) 8 U/L Alkaline Phosphatase 86 IU/L WBC 7.2 10 3/uL RBC 3.29 10 6/uL HGB 10.2 g/dL HCT 32.6 % MCV 99.1 fL MCH 31.0 pg MCHC 31.3 g/dL RDW 13.7 % Platelet Count 373 10 3/cmm MPV 8.2 fL Neutrophils 6.18 10 3/uL Lymphocytes 0.4 10 3/uL Monocytes 0.0 10 3/uL Eosinophils 0.0 10 3/uL Basophils 0.0 10 3/uL Neutrophil % 86.3 % Lymphocyte % 5.7 % Monocyte % 0.4 % Eosinophil % 0.0 % Basophils % 0.6 % NRBC % 0 % CBC Slide Review Slide Review Perform SLIDE REVIEW AGREES WITH AUTOMATED RESULTS ST Impression: Locally advance invasive lobular carcinoma involving the right breast With a skin ulceration and right axillary lymph node per ultrasound-guided biopsy done on December 30, 2019 ER 99% positive TN 90% positive HER-2/chuckie negative, Ki-67 75% Clinical stage T4b, N1 Mx IIIB Ejection fraction was 65% on echo done on February 01, 2020, Started on Neoadjuvant chemotherapy with dose dense Adriamycin Cytoxan with Neulasta support x4 on February 09, 2020, will be followed by weekly Taxol x12. She is tolerated her first cycle of Adriamycin Cytoxan well although she did have significant chemotherapy-induced neutropenia resulting in a delay in starting cycle 2.But patient stopped taking dose dense Adriamycin/Cytoxan after cycle # 3/4, because of her personal/family issues, as per patient her brother got sick and she was looking after him so she decided to delay her chemotherapy until he recovers, knowing the risk versus benefit involved with delaying neoadjuvant chemotherapy and also her transportation issue. Right breast ultrasound done after 3 cycles of dose dense Adriamycin/Cytoxan on April 11, 2020 showed large mass in the right breast does appear smaller in size as compared to December 23, 2019 but margins are poorly visualized and abnormal lymph nodes in the right axilla is no longer present. Mrs. Beaulieu chemotherapy plan with Adriamycin/Cytoxan has been interupted with cycle 3 on March 16, 2020. She stopped treatment on her own/[employer]VICE to take care of her brother who was sick and she had transportation issues as well. Those situations have now resolved. Clinically, patient is doing well with no new signs symptoms but has persistent mass and edema in her right breast with overlying scarring. clinically it appeared there may be disease progression in her right breast. In that case, it was recommended that she resume her neoadjuvant chemotherapy with cycle #4/final dose of Adriamycin/Cytoxan. She resumed cycle 4 Adriamycin/Cytoxan on 07/24/2020 with Neulasta support. She was due to resume treatment on July 04, 2020 but was found to have a nonfunctioning Port-A-Cath. She was referred back to Dr. Castillo and she underwent explantation of the left upper chest Port-A-Cath and placement of a new PowerPort in the left subclavian vein on July 17, 2020. She tolerated cycle 4 adrimycin/Cytoxan well. She was due to start her taxane portion of her treatment plan on 08/07/2020 but that was delayed due to inclement weather. She was encouraged to proceed with weekly Taxol x12. Dr Antunez advised Ms Beaulieu to complete neoadjuvant chemotherapy as recommended without further delay and also discussed about importance of compliance with the chemotherapy schedule, patient expressed full understanding. She is highly motivated to complete treatment. She presents today for week 1/12 Taxol. However, nursing staff was unable to obtain a blood return from her port. She was sent for fluoroscopy flow study which did show the left Port-A-Cath with the tip in the distal innominate directly lateral with fibrin sheath around the distal catheter with partial obstruction and turbulent flow. Her chemotherapy will be delayed until we can determine how to manage her port. She may require PICC line to allow for completion of her treatment. She was referred back to Dr Castillo for input on her venous access. She did have explantation of the left upper chest PowerPort and replacement with placement of a right internal jugular vein PowerPort on September 05, 2020. Plan: Discussed with patient regarding her labs white blood count 3.2 hemoglobin 10.5 hematocrit 33.7 platelets 348,000 CMP within normal limit except glucose 198 Clinically, patient doing well, tolerating weekly Taxol well we will proceed with next dose today followed by Neupogen 400 mcg subcu daily for 2 days and then she return to clinic in 1 week with CBC CMP if reasonable, for Taxol Signed By: Lexi Antunez M.D. <<Signature on File>>
== END 2020-11-20 23:59 | disposition home or self-care (01) ==
LOC: ONCMED 10:28
PROVIDERS: Nurse Practitioner; PCP Physician Assistant Medical; Visit Provider Internal Medicine Hematology & Oncology
DX: Z51.11 Encounter for antineoplastic chemotherapy (principal); C50.811 Malignant neoplasm of overlapping sites of right female breast; Z17.0 Estrogen receptor positive status [ER+]; D70.1 Agranulocytosis secondary to cancer chemotherapy; T45.1X5A Adverse effect of antineoplastic and immunosuppressive drugs, initial encounter; Z79.899 Other long term (current) drug therapy
CPT/HCPCS: 36415; 76642; 77066; 80053; 85025; 96367; 96372; 96375; 96413; 96523; 99214; 99215; J1100; J1200; J1442; J1453; J2405; J3490; J7050; J9267

== ENCOUNTER 2020-12-14 05:31 | Outpatient (RCR) | payer MEDICARE, MEDICAID, SELFPAY ==
[2020-11-23 09:36] LABS: Alanine Aminotransferase 14 U/L (0-33); Albumin Level 3.9 g/dL (3.5-5.2); Alkaline Phosphatase 113 IU/L (35-105); Anion Gap 17.5 (5-19); Aspartate Amino Transferase 11 U/L (0-32); Blood Urea Nitrogen 19 mg/dL (8-23); Calcium 8.7 mg/dL (8.5-10.5); Carbon Dioxide 22 mmol/L (22-29); Chloride 102 mmol/L (98-107); Globulin 2.6 g/dL (1.3-4.6); Glomerular Filtration Rate 100.6 mL/min (90-130); Glucose 191 mg/dL (65-115); Osmolality Calculated 291 mOsm/kg (285-295); Potassium 4.5 mmol/L (3.5-5.1); Sodium 137 mmol/L (136-145); Total Bilirubin 0.2 mg/dL (0.15-1.2); Total Protein 6.5 g/dL (6.6-8.7)
[2020-11-23 09:39] LABS: Basophils % 0.1 %; Hematocrit 35.2 % (37.0-47.0); Hemoglobin 10.7 g/dL (11.5-15.3); Lymphocytes # 0.5 10^3/uL (0.8-4.8); Mean Corpuscular HGB Conc 30.4 g/dL (30.0-36.0); Mean Corpuscular Hemoglobin 30.9 pg (28.0-34.0); Mean Corpuscular Volume 101.7 fL (81-99); Mean Platelet Volume 8.5 fL (7.4-10.4); Monocytes # 0.1 10^3/uL (0.2-0.9); Monocytes % 1.3 %; Neutrophils % 68.3 %; Nucleated Red Blood Cells % 0.4 %; Platelet Count 337 10^3/cmm (130-400); Red Blood Count 3.46 10^6/uL (4.1-5.3); Red Cell Distribution Width 15.3 % (12.1-15.1); White Blood Count 8.5 10^3/uL (4.0-10.0)
[2020-11-23 10:29] LABS: Slide Review Slide Review Perform
[2020-11-23] MEDS: sodium chloride 0.9% 250 ML 75 ML IV (12:05)
[2020-11-23] MEDS: ondansetron 2 mg/ML SDV 2 mL 8 MG IVP (12:05)
[2020-11-23] MEDS: diphenhydrAMINE 50 mg/mL SDV 1mL 25 MG IVP (12:07)
[2020-11-23] MEDS: famotidine 20 mg/2 mL INJ IVP (12:09)
[2020-11-23] MEDS: acetaminophen 325 mg Tablet 650 MG PO (12:11)
--- NOTE | 2020-11-23 14:40 | ONC FU_ITS ---
Dr. Antunez follow up note Patient: Violetta Beaulieu Unit #: [id number]: 1955 Dicatated By: Lexi Antunez M.D.Date of Visit:Nov 23, 2020 Onc Med Follow-up/Prog Note History of Present Illness: Ms. Beaulieu is a 64-year-old female with more than year-long history of abnormality in the right breast. She reports that in about 2018 she noticed a small skin lesion in her right breast, she thought it was a mosquito bite. Later on she noticed a scab but it did not bother her until about 2 months ago when she noted a skin wound with some discharge along with damage in the right breast nipple and since then it has progressed, now with destruction of right breast nipple and firmness and shrinkage in more than two third of her right breast. Eventually, Ms Beaulieu went to see her primary care physician and underwent bilateral mammogram and ultrasonogram on December 23, 2019. The right breast showed heterogeneous fibroglandular density tissue with diffuse skin thickening with architectural distortion mid depth right breast, soft tissue thickening in the area of skin ulceration and indentation. Architectural distortion mid and posterior depth right breast with punctate indeterminate calcification and ultrasound right breast in the area of ulceration showed large hypoechoic ill-defined shadowing lesion suspicious for malignancy. Margins are difficult to define with overlying skin thickening and inverted nipple. Ms Beaulieu was seen by Dr. Castillo and on exam he he noticed right axillary lymphadenopathy. Subsequently on December 30, 2019 Mrs Beaulieu underwent ultrasound-guided right breast biopsy as well as right axillary lymph node biopsy. The final pathology report came back invasive lobular carcinoma breast 3 out of 5 cores involved longest positive core was 1.2 cm. And right axillary lymph node biopsy also confirmed invasive lobular carcinoma extending into fibroadipose tissue with extensive involvement and very little lymphoid tissue identified. Prognostic molecular profiling was done which confirmed ER NJ positive disease ER being 99% positive NJ 90% positive HER-2/chuckie negative with a markedly elevated Ki-67 at 75% which is unfavorable. No family history positive for breast cancer No history of smoking or alcohol use no history of diabetes, postmenopausal and menarche at age 12 or 13 years of age. Patient denies any fever or chills, denies any nausea or vomiting, denies any diarrhea or constipation, denies any vaginal bleeding denies any hematuria. Echocardiogram done on February 01, 2020 showed ejection fraction 65%. Ms Beaulieu began dose dense Adriamycin Cytoxan every 2 weeks with Neulasta support on February 09, 2020. She did have severe chemo induced neutropenia resulting in cycle 2 being delayed. She has tolerated it well otherwise. Patient received third cycle of dose dense Adriamycin/Cytoxan on March 16, 2020 subsequently underwent ultrasound right breast which showed large mass in the right breast did appear smaller in size when compared with December 23, 2019 but margins were poorly visualized. The abnormal lymph nodes in the right axilla is no longer present was several benign-appearing lymph nodes seen in the right axilla. Ms Beaulieu was supposed to conclude her dose dense chemotherapy e.g. cycle #4 in first week of March 2020 but patient never came back due to her family/social problems as per patient her brother got sick and there was no one to drive her to the clinic. 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 Ms. Beaulieu resumed her chemotherapy on 07/24/2020. Her last chemotherapy prior to that was March 16, 2020 at which time she had received cycle 3 cyclophosphamide Adriamycin. She was supported with Neulasta at that time as well. She has not had treatment since then as she took time off to take care of her brother who was ill. She was due to resume treatment on July 04, 2020 but was found to have a nonfunctioning Port-A-Cath. She was referred back to Dr. Castillo and she underwent explantation of the left upper chest Port-A-Cath and placement of a new PowerPort in the left subclavian vein on July 17, 2020. She tolerated cycle 4 adrimycin/Cytoxan well. She was due to start her taxane portion of her treatment plan on 08/07/2020 but that was delayed due to inclement weather. She had further delay due to venous access complications requiring replacement of her access device again. She had placement of a right internal juglar PowerPort on 09/05/[address] Castillo @ [facility]. Came for follow-up, denies any specific complaints, no fever chills, no nausea or vomiting, no diarrhea constipation, no peripheral neuropathy, tolerating weekly Taxol well otherwise Medications: Acetaminophen 1 - 2 Capsule (of 325 mg) Oral daily PRN, Cardizem CD 1 Capsule (of 240 mg) Capsule SR 24 HR Oral daily, Oxybutynin Chloride 1 Tablet (of 5 mg) Oral daily, PROzac 1 Capsule (of 20 mg) Oral daily Allergies: No Known Allergies. Review of Systems: Review of Systems is not available for this patient. Vital Signs: Performed on Nov 23, 2020 11:17 Height - 62.00 in Weight - 167 lbs (HIGH) BSA - 1.77 sq.m BMI - 30.54 (HIGH) Temperature - 97.7 F (LOW) Pulse - 102 /min (HIGH) Respiration - 18 /min BP - 149/73 mm(hg) (HIGH) O2 Sat - 97 % Pain - 0 Fatigue - 5 Performance Status: 0 - Fully active, able to carry on all predisease activities without restrictions. (ECOG) Physical Examination: Respiratory - Lungs are clear to auscultation, Cardiovascular - Regular rate and rhythm of heart, Gastrointestinal - Soft, bowel sounds present, Extremities - No visible edema or rash. Lab/Imaging: Test performed on November 09, 2020 08:25 Sodium 139 mmol/L Potassium 4.4 mmol/L Chloride 107 mmol/L CO2 24 mmol/L Anion Gap 12.4 BUN 10 mg/dL Creatinine 0.5 mg/dL Cr Clearance (Est) 133.8200 mL/min eGFR 124.2 mL/min Glucose 198 mg/dL Osmolality - Calculated 293 mOsm/kg Calcium 8.7 mg/dL Protein, Total 6.1 g/dL Albumin 3.8 g/dL Globulin 2.3 g/dL Bilirubin, Total 0.2 mg/dL ALT (SGPT) 14 U/L AST (SGOT) 8 U/L Alkaline Phosphatase 86 IU/L WBC 7.2 10 3/uL RBC 3.29 10 6/uL HGB 10.2 g/dL HCT 32.6 % MCV 99.1 fL MCH 31.0 pg MCHC 31.3 g/dL RDW 13.7 % Platelet Count 373 10 3/cmm MPV 8.2 fL Neutrophils 6.18 10 3/uL Lymphocytes 0.4 10 3/uL Monocytes 0.0 10 3/uL Eosinophils 0.0 10 3/uL Basophils 0.0 10 3/uL Neutrophil % 86.3 % Lymphocyte % 5.7 % Monocyte % 0.4 % Eosinophil % 0.0 % Basophils % 0.6 % NRBC % 0 % CBC Slide Review Slide Review Perform SLIDE REVIEW AGREES WITH AUTOMATED RESULTS ST Impression: Locally advance invasive lobular carcinoma involving the right breast With a skin ulceration and right axillary lymph node per ultrasound-guided biopsy done on December 30, 2019 ER 99% positive NJ 90% positive HER-2/chuckie negative, Ki-67 75% Clinical stage T4b, N1 Mx IIIB Ejection fraction was 65% on echo done on February 01, 2020, Started on Neoadjuvant chemotherapy with dose dense Adriamycin Cytoxan with Neulasta support x4 on February 09, 2020, will be followed by weekly Taxol x12. She is tolerated her first cycle of Adriamycin Cytoxan well although she did have significant chemotherapy-induced neutropenia resulting in a delay in starting cycle 2.But patient stopped taking dose dense Adriamycin/Cytoxan after cycle # 3/4, because of her personal/family issues, as per patient her brother got sick and she was looking after him so she decided to delay her chemotherapy until he recovers, knowing the risk versus benefit involved with delaying neoadjuvant chemotherapy and also her transportation issue. Right breast ultrasound done after 3 cycles of dose dense Adriamycin/Cytoxan on April 11, 2020 showed large mass in the right breast does appear smaller in size as compared to December 23, 2019 but margins are poorly visualized and abnormal lymph nodes in the right axilla is no longer present. Mrs. Beaulieu chemotherapy plan with Adriamycin/Cytoxan has been interupted with cycle 3 on March 16, 2020. She stopped treatment on her own/AGAINST MEDICAL ADVICE to take care of her brother who was sick and she had transportation issues as well. Those situations have now resolved. Clinically, patient is doing well with no new signs symptoms but has persistent mass and edema in her right breast with overlying scarring. clinically it appeared there may be disease progression in her right breast. In that case, it was recommended that she resume her neoadjuvant chemotherapy with cycle #4/final dose of Adriamycin/Cytoxan. She resumed cycle 4 Adriamycin/Cytoxan on 07/24/2020 with Neulasta support. She was due to resume treatment on July 04, 2020 but was found to have a nonfunctioning Port-A-Cath. She was referred back to Dr. Castillo and she underwent explantation of the left upper chest Port-A-Cath and placement of a new PowerPort in the left subclavian vein on July 17, 2020. She tolerated cycle 4 adrimycin/Cytoxan well. She was due to start her taxane portion of her treatment plan on 08/07/2020 but that was delayed due to inclement weather. She was encouraged to proceed with weekly Taxol x12. Dr Antunez advised Ms Beaulieu to complete neoadjuvant chemotherapy as recommended without further delay and also discussed about importance of compliance with the chemotherapy schedule, patient expressed full understanding. She is highly motivated to complete treatment. She presents today for week 1/12 Taxol. However, nursing staff was unable to obtain a blood return from her port. She was sent for fluoroscopy flow study which did show the left Port-A-Cath with the tip in the distal innominate directly lateral with fibrin sheath around the distal catheter with partial obstruction and turbulent flow. Her chemotherapy will be delayed until we can determine how to manage her port. She may require PICC line to allow for completion of her treatment. She was referred back to Dr Castillo for input on her venous access. She did have explantation of the left upper chest PowerPort and replacement with placement of a right internal jugular vein PowerPort on September 05, 2020. Plan: Discussed with patient regarding her labs white blood count 8.5 hemoglobin 10.7 medical 35.2 platelets 337,000 CMP within normal limit except glucose 191 Clinically, patient doing well with no new signs symptoms testicular disease progression, tolerating adjuvant therapy with weekly Taxol well, will proceed with cycle #10 with weekly Taxol today and then she will return clinic in 1 week with CBC CMP if reasonable, then will consider second last dose of weekly Taxol Signed By: Lexi Antunez M.D. <<Signature on File>>
[2020-11-30 09:33] LABS: Basophils % 0.1 %; Hematocrit 33.3 % (37.0-47.0); Hemoglobin 10.6 g/dL (11.5-15.3); Lymphocytes # 0.2 10^3/uL (0.8-4.8); Lymphocytes % 2.8 %; Mean Corpuscular HGB Conc 31.8 g/dL (30.0-36.0); Mean Corpuscular Volume 100.6 fL (81-99); Mean Platelet Volume 8.6 fL (7.4-10.4); Monocytes % 0.3 %; Neutrophils # 6.93 10^3/uL (1.8-7.7); Neutrophils % 95.6 %; Nucleated Red Blood Cells % 0 %; Platelet Count 324 10^3/cmm (130-400); Red Blood Count 3.31 10^6/uL (4.1-5.3); Red Cell Distribution Width 15.2 % (12.1-15.1); White Blood Count 7.3 10^3/uL (4.0-10.0)
[2020-11-30 09:54] LABS: Alanine Aminotransferase 11 U/L (0-33); Albumin Level 3.9 g/dL (3.5-5.2); Alkaline Phosphatase 91 IU/L (35-105); Anion Gap 17.3 (5-19); Aspartate Amino Transferase 8 U/L (0-32); Blood Urea Nitrogen 15 mg/dL (8-23); Calcium 8.4 mg/dL (8.5-10.5); Carbon Dioxide 21 mmol/L (22-29); Chloride 104 mmol/L (98-107); Globulin 1.9 g/dL (1.3-4.6); Glomerular Filtration Rate 124.2 mL/min (90-130); Glucose 196 mg/dL (65-115); Osmolality Calculated 292 mOsm/kg (285-295); Potassium 4.3 mmol/L (3.5-5.1); Sodium 138 mmol/L (136-145); Total Bilirubin 0.2 mg/dL (0.15-1.2); Total Protein 5.8 g/dL (6.6-8.7)
[2020-11-30 10:31] LABS: Slide Review Slide Review Perform
[2020-11-30] MEDS: sodium chloride 0.9% 250 ML 75 ML IV (11:13)
[2020-11-30] MEDS: famotidine 20 mg/2 mL INJ IVP (11:14)
[2020-11-30] MEDS: diphenhydrAMINE 50 mg/mL SDV 1mL 25 MG IVP (11:15)
[2020-11-30] MEDS: acetaminophen 325 mg Tablet 650 MG PO (11:15)
[2020-11-30] MEDS: ondansetron 2 mg/ML SDV 2 mL 8 MG IVP (11:16)
--- NOTE | 2020-12-07 00:16 | ONC FU_ITS ---
[facility] Patient Note Patient: Violetta Beaulieu Unit #: [id number]: 1955 Dictated By: Cam MarmolejoDate of Visit: Nov 30, 2020 Onc MED Follow-Up/Prog Note Chief Complaint: Right breast cancer Invasive lobular carcinoma ER/KS positive HER-2 negative Ki-67 at 75% History of Present Illness: Ms. Beaulieu is a 64-year-old female with more than year-long history of abnormality in the right breast. She reports that in about 2018 she noticed a small skin lesion in her right breast, she thought it was a mosquito bite. Later on she noticed a scab but it did not bother her until about 2 months ago when she noted a skin wound with some discharge along with damage in the right breast nipple and since then it has progressed, now with destruction of right breast nipple and firmness and shrinkage in more than two third of her right breast. Eventually, Ms Beaulieu went to see her primary care physician and underwent bilateral mammogram and ultrasonogram on December 23, 2019. The right breast showed heterogeneous fibroglandular density tissue with diffuse skin thickening with architectural distortion mid depth right breast, soft tissue thickening in the area of skin ulceration and indentation. Architectural distortion mid and posterior depth right breast with punctate indeterminate calcification and ultrasound right breast in the area of ulceration showed large hypoechoic ill-defined shadowing lesion suspicious for malignancy. Margins are difficult to define with overlying skin thickening and inverted nipple. Ms Beaulieu was seen by Dr. Castillo and on exam he he noticed right axillary lymphadenopathy. Subsequently on December 30, 2019 Mrs Beaulieu underwent ultrasound-guided right breast biopsy as well as right axillary lymph node biopsy. The final pathology report came back invasive lobular carcinoma breast 3 out of 5 cores involved longest positive core was 1.2 cm. And right axillary lymph node biopsy also confirmed invasive lobular carcinoma extending into fibroadipose tissue with extensive involvement and very little lymphoid tissue identified. Prognostic molecular profiling was done which confirmed ER KS positive disease ER being 99% positive KS 90% positive HER-2/chuckie negative with a markedly elevated Ki-67 at 75% which is unfavorable. No family history positive for breast cancer No history of smoking or alcohol use no history of diabetes, postmenopausal and menarche at age 12 or 13 years of age. Patient denies any fever or chills, denies any nausea or vomiting, denies any diarrhea or constipation, denies any vaginal bleeding denies any hematuria. Echocardiogram done on February 01, 2020 showed ejection fraction 65%. Ms Beaulieu began dose dense Adriamycin Cytoxan every 2 weeks with Neulasta support on February 09, 2020. She did have severe chemo induced neutropenia resulting in cycle 2 being delayed. She has tolerated it well otherwise. Patient received third cycle of dose dense Adriamycin/Cytoxan on March 16, 2020 subsequently underwent ultrasound right breast which showed large mass in the right breast did appear smaller in size when compared with December 23, 2019 but margins were poorly visualized. The abnormal lymph nodes in the right axilla is no longer present was several benign-appearing lymph nodes seen in the right axilla. Ms Beaulieu was supposed to conclude her dose dense chemotherapy e.g. cycle #4 in first week of March 2020 but patient never came back due to her family/social problems as per patient her brother got sick and there was no one to drive her to the clinic. 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 Ms. Beaulieu resumed her chemotherapy on 07/24/2020. Her last chemotherapy prior to that was March 16, 2020 at which time she had received cycle 3 cyclophosphamide Adriamycin. She was supported with Neulasta at that time as well. She has not had treatment since then as she took time off to take care of her brother who was ill. She was due to resume treatment on July 04, 2020 but was found to have a nonfunctioning Port-A-Cath. She was referred back to Dr. Castillo and she underwent explantation of the left upper chest Port-A-Cath and placement of a new PowerPort in the left subclavian vein on July 17, 2020. She tolerated cycle 4 adrimycin/Cytoxan well. She was due to start her taxane portion of her treatment plan on 08/07/2020 but that was delayed due to inclement weather. She had further delay due to venous access complications requiring replacement of her access device again. She had placement of a right internal juglar PowerPort on 09/05/[address] Castillo @ [facility]. Ms. Beaulieu is here today for follow-up. She is due for cycle/week 10 paclitaxel. She is doing well overall. She is anxious to complete this portion of her treatment plan. She states she has been feeling good. She remains very active. She denies any mouth sores, sore throat or difficulty swallowing. She denies any fever or chills. She denies any pain. She states she is eating well. She denies any nausea or vomiting. She states she has had some tingling in her fingers but typically goes away before her next treatment. She is having no residual neuropathy. She denies any diarrhea or constipation. She denies any urine difficulties or hematuria. She denies cough. She denies any hemoptysis. She states overall she continues to do well. She is just anxious to finish with her treatment plan. Her ECOG is 0. Past Medical History: Depression Hypertension Past Surgical History: Appendectomy Breast biopsy Cholecystectomy Portacatheter placement dr. luis Right internal jugular PowerPort-Dr Castillo in 2020 Placement of left subclavian Power Port-Dr Castillo in 2020 Removal of left internal juglar port Dr Castillo in 2020 Allergies: No Known Allergies. Medications: Acetaminophen 1 - 2 Capsule (of 325 mg) Oral daily PRN Cardizem CD 1 Capsule (of 240 mg) Capsule SR 24 HR Oral daily Oxybutynin Chloride 1 Tablet (of 5 mg) Oral daily PROzac 1 Capsule (of 20 mg) Oral daily Family History: Ms. Beaulieu's mother at age 73: type II diabetes. Ms. Beaulieu's father at age 61: lung cancer. 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 Ms. Beaulieu has never smoked. Ms. Beaulieu reports the following support systems: lives with spouse, significant other, family, or friends, lives in own house, supportive family/friends willing to assist with needs, and transportation problems exist and will require assistance. Her diet consists of regular meals. She indicates her activity level as: regular exercise. Review Of Symptoms: <See Above> Vital Signs: Performed on Nov 30, 2020 10:40 Height - 62.00 in Weight - 168 lbs (HIGH) BSA - 1.77 sq.m BMI - 30.73 (HIGH) Temperature - 96.8 F (LOW) Pulse - 91 /min Respiration - 18 /min BP - 127/75 mm(hg) O2 Sat - 96 % Pain - 0 Fatigue - 5,0 - Fully active, able to carry on all predisease activities without restrictions. (ECOG) Physical Examination: Constitutional Alert, oriented, no acute distress. Skin pink, warm and dry. Head Normocephalic; atraumatic. Eyes Conjunctivae and sclerae are clear and without icterus. Pupils are reactive and equal. Neck Supple without masses or thyromegaly. No jugular venous distension. Hematologic/Lymphatic No petechiae or purpura. No tender or palpable lymph nodes in the cervical or supraclavicular areas. Respiratory Lungs are clear to auscultation without rhonchi or wheezing. Cardiovascular Regular rate and rhythm of heart without murmurs,clicks, gallops or rubs. Chest Chest is symmetric without chest wall deformities. RIGHT venous access device insertion site is unremarkable. Abdomen Non-tender, non-distended, no masses or ascites. Good bowel sounds noted in all quads. No guarding or rebound tenderness. No pulsatile masses. Back/Spine Non-tender to palpation. Extremities No visible deformities, no cyanosis, clubbing or edema. Musculoskeletal No tenderness or swelling, normal range of motion without obvious weakness. Integumentary No rashes or lesions. Neurologic No sensory or motor deficits, normal cerebellar function, normal gait. Psychiatric Alert and oriented times three. Coherent speech. Verbalizes understanding of our discussions today. Laboratory:Test performed on Nov 30, 2020 09:05 Sodium 138 mmol/L Potassium 4.3 mmol/L Chloride 104 mmol/L CO2 21 mmol/L Anion Gap 17.3 BUN 15 mg/dL Creatinine 0.5 mg/dL Cr Clearance (Est) 133.8200 mL/min eGFR 124.2 mL/min Glucose 196 mg/dL Osmolality - Calculated 292 mOsm/kg Calcium 8.4 mg/dL Protein, Total 5.8 g/dL Albumin 3.9 g/dL Globulin 1.9 g/dL Bilirubin, Total 0.2 mg/dL ALT (SGPT) 11 U/L AST (SGOT) 8 U/L Alkaline Phosphatase 91 IU/L WBC 7.3 10 3/uL RBC 3.31 10 6/uL HGB 10.6 g/dL HCT 33.3 % MCV 100.6 fL MCH 32.0 pg MCHC 31.8 g/dL RDW 15.2 % Platelet Count 324 10 3/cmm MPV 8.6 fL Neutrophils 6.93 10 3/uL Lymphocytes 0.2 10 3/uL Monocytes 0.0 10 3/uL Eosinophils 0.0 10 3/uL Basophils 0.0 10 3/uL Neutrophil % 95.6 % Lymphocyte % 2.8 % Monocyte % 0.3 % Eosinophil % 0.0 % Basophils % 0.1 % NRBC % 0 % CBC Slide Review Slide Review Perform SLIDE REVIEW AGREES WITH AUTOMATED RESULTS Impression: Locally advance invasive lobular carcinoma involving the right breast With a skin ulceration and right axillary lymph node per ultrasound-guided biopsy done on December 30, 2019 ER 99% positive KS 90% positive HER-2/chuckie negative, Ki-67 75% Clinical stage T4b, N1 Mx IIIB Ejection fraction was 65% on echo done on February 01, 2020, Started on Neoadjuvant chemotherapy with dose dense Adriamycin Cytoxan with Neulasta support x4 on February 09, 2020, will be followed by weekly Taxol x12. She is tolerated her first cycle of Adriamycin Cytoxan well although she did have significant chemotherapy-induced neutropenia resulting in a delay in starting cycle 2.But patient stopped taking dose dense Adriamycin/Cytoxan after cycle # 3/4, because of her personal/family issues, as per patient her brother got sick and she was looking after him so she decided to delay her chemotherapy until he recovers, knowing the risk versus benefit involved with delaying neoadjuvant chemotherapy and also her transportation issue. Right breast ultrasound done after 3 cycles of dose dense Adriamycin/Cytoxan on April 11, 2020 showed large mass in the right breast does appear smaller in size as compared to December 23, 2019 but margins are poorly visualized and abnormal lymph nodes in the right axilla is no longer present. Mrs. Beaulieu chemotherapy plan with Adriamycin/Cytoxan has been interupted with cycle 3 on March 16, 2020. She stopped treatment on her own/AGAINST MEDICAL ADVICE to take care of her brother who was sick and she had transportation issues as well. Those situations have now resolved. Clinically, patient is doing well with no new signs symptoms but has persistent mass and edema in her right breast with overlying scarring. Per Dr Antunez's followup note, clinically it appeared there may be disease progression in her right breast. In that case, it was recommended that she resume her neoadjuvant chemotherapy with cycle #4/final dose of Adriamycin/Cytoxan. She resumed cycle 4 Adriamycin/Cytoxan on 07/24/2020 with Neulasta support. She was due to resume treatment on July 04, 2020 but was found to have a nonfunctioning Port-A-Cath. She was referred back to Dr. Castillo and she underwent explantation of the left upper chest Port-A-Cath and placement of a new PowerPort in the left subclavian vein on July 17, 2020. She tolerated cycle 4 adrimycin/Cytoxan well. She was due to start her taxane portion of her treatment plan on 08/07/2020 but that was delayed due to inclement weather. She was encouraged to proceed with weekly Taxol x12. Dr Antunez advised Ms Beaulieu to complete neoadjuvant chemotherapy as recommended without further delay and also discussed about importance of compliance with the chemotherapy schedule, patient expressed full understanding. She is highly motivated to complete treatment. She presentes for week 1/12 Taxol. However, nursing staff was unable to obtain a blood return from her port. She was sent for fluoroscopy flow study which did show the left Port-A-Cath with the tip in the distal innominate directly lateral with fibrin sheath around the distal catheter with partial obstruction and turbulent flow. Her chemotherapy will be delayed until we can determine how to manage her port. She may require PICC line to allow for completion of her treatment. She was referred back to Dr Castillo for input on her venous access. She did have explantation of the left upper chest PowerPort and replacement with placement of a right internal jugular vein PowerPort on September 05, 2020. Plan/Problems Addressed at this Visit: 1. Locally advanced invasive lobular carcinoma of the right breast: A. She has completed 4 cycles of Adriamycin Cytoxan at normal dosing. She has now started the paclitaxel portion of her chemotherapy although significantly delayed. B. She did receive Neulasta support to prevent chemotherapy induced neutropenia with the adriamycin. Her ANC on day 8 of cycle 2 was 610. On day 0 of cycle 2 was 6660. C. Continue aggressive antiemetics due to high risk regimen. She may also continue Compazine and lorazepam as needed at home for antiemetics. D. Today's labs reviewed in detail and discussed with Mrs. Beaulieu and a copy was given to her. WBC 2.3, Hemoglobin 11.3, platelets 249,000, ANC is 2080. Creatinine 0.6 random glucose 199 potassium 4.1 LFTs are normal. Weight is stable at 164.8. E. Follow-up echocardiogram from 06/22/2020 reports LVEF at 65%. Mild pulmonary hypertension with RVSP at 30 to 35 mmHg; mild mitral regurgitation???compared to prior echo from 02/01/2020, no significant changes were noted. F. We will PROEED WITH WEEK 04/03 of her planned weekly paclitaxel at 80 mg/m2. G. Steroid compliance confirmed. H. She will continue with Emend, dexamethasone, Zofran for her antiemetics. We did change her to Zofran from Aloxi due to constipation concerns. She has tolerated this well and has had no nausea. I. I did not add Neupogen to her care plan this week given her ANC today is 6930. 2. Constipation???intermittent A. This may be treatment related will just need to monitor her closely. B. She is currently using stool softeners and this is working well. C. We did discuss using MiraLAX [id number] as needed and she may add this over the next week if required. D. She was encouraged to let us know if she is having any trouble with the constipation not resolved with the measures above. E. We will have her continuePrilosec 20 mg once or twice daily as needed for gastritis syptoms. She states this is working well. 3. Absense of blood return for left Power Port A. Fluoroscopy flow study reports left Port-A-Cath with tip in the distal innominate vein directed laterally. This is retracted since the prior exam on July 17, 2020. Turbulent flow of contrast exiting from the distal catheter with surrounding irregular fibrin sheath. Visual distal innominate and SVC appear patent. Final impression was left Port-A-Cath with tip in distal innominate vein directly lateral with fibrin sheath around the distal catheter with partial obstruction and turbulent flow. Verbal report to nursing staff per Dr. Shirley was he advised him not to use the Port-A-Cath and recommend that it be replaced. She did have explantation of the left upper chest PowerPort and replacement with placement of a right internal jugular vein PowerPort on September 05, 2020. A. She has excellent blood return of the newly placed right internal jugular PowerPort and no noted concerns today. 4. Follow-up plan A. We will plan to see her back in 1 week with CBC CMP and consideration for week 11 of 12 paclitaxel. B. I have asked that she see Dr. Antunez for plan of care after completion of this treatment plan and determination of any further treatment plan. She is ER/KS positive and most likely will need aromatase inhibitor. Her right axillary lymph node biopsy was positive for malignancy. c. Mrs. Beaulieu was encouraged to contact us in interim should questions or problems arise. Signed By: Cam Marmolejo-, AOP Lexi Antunze MD <<Signature on File>>
[2020-12-07 09:49] LABS: Hematocrit 32.4 % (37.0-47.0); Hemoglobin 10.1 g/dL (11.5-15.3); Lymphocytes # 0.3 10^3/uL (0.8-4.8); Lymphocytes % 6.4 %; Mean Corpuscular HGB Conc 31.2 g/dL (30.0-36.0); Mean Corpuscular Hemoglobin 30.9 pg (28.0-34.0); Mean Corpuscular Volume 99.1 fL (81-99); Mean Platelet Volume 8.5 fL (7.4-10.4); Monocytes % 0.4 %; Neutrophils # 4.29 10^3/uL (1.8-7.7); Neutrophils % 92.1 %; Nucleated Red Blood Cells % 0 %; Platelet Count 333 10^3/cmm (130-400); Red Blood Count 3.27 10^6/uL (4.1-5.3); Red Cell Distribution Width 15.4 % (12.1-15.1); White Blood Count 4.7 10^3/uL (4.0-10.0)
[2020-12-07 10:17] LABS: Alanine Aminotransferase 12 U/L (0-33); Albumin Level 3.7 g/dL (3.5-5.2); Alkaline Phosphatase 82 IU/L (35-105); Anion Gap 17.3 (5-19); Aspartate Amino Transferase 9 U/L (0-32); Blood Urea Nitrogen 15 mg/dL (8-23); Calcium 8.8 mg/dL (8.5-10.5); Carbon Dioxide 23 mmol/L (22-29); Chloride 103 mmol/L (98-107); Globulin 2.3 g/dL (1.3-4.6); Glomerular Filtration Rate 124.2 mL/min (90-130); Glucose 147 mg/dL (65-115); Osmolality Calculated 292 mOsm/kg (285-295); Potassium 4.3 mmol/L (3.5-5.1); Sodium 139 mmol/L (136-145); Total Bilirubin 0.2 mg/dL (0.15-1.2)
[2020-12-07] MEDS: sodium chloride 0.9% 250 ML 75 ML IV (12:06)
[2020-12-07] MEDS: acetaminophen 325 mg Tablet 650 MG PO (12:06)
[2020-12-07] MEDS: famotidine 20 mg/2 mL INJ IVP (12:06)
[2020-12-07] MEDS: diphenhydrAMINE 50 mg/mL SDV 1mL 25 MG IVP (12:08)
[2020-12-07] MEDS: ondansetron 2 mg/ML SDV 2 mL 8 MG IVP (12:12)
--- NOTE | 2020-12-08 12:47 | ONC FU_ITS ---
Dr. Antunez follow up note Patient: Violetta Beaulieu Unit #: [id number]: 1955 Dicatated By: Lexi Antunez M.D.Date of Visit:Dec 07, 2020 Onc Med Follow-up/Prog Note History of Present Illness: Ms. Beaulieu is a 64-year-old female with more than year-long history of abnormality in the right breast. She reports that in about 2018 she noticed a small skin lesion in her right breast, she thought it was a mosquito bite. Later on she noticed a scab but it did not bother her until about 2 months ago when she noted a skin wound with some discharge along with damage in the right breast nipple and since then it has progressed, now with destruction of right breast nipple and firmness and shrinkage in more than two third of her right breast. Eventually, Ms Beaulieu went to see her primary care physician and underwent bilateral mammogram and ultrasonogram on December 23, 2019. The right breast showed heterogeneous fibroglandular density tissue with diffuse skin thickening with architectural distortion mid depth right breast, soft tissue thickening in the area of skin ulceration and indentation. Architectural distortion mid and posterior depth right breast with punctate indeterminate calcification and ultrasound right breast in the area of ulceration showed large hypoechoic ill-defined shadowing lesion suspicious for malignancy. Margins are difficult to define with overlying skin thickening and inverted nipple. Ms Beaulieu was seen by Dr. Castillo and on exam he he noticed right axillary lymphadenopathy. Subsequently on December 30, 2019 Mrs Beaulieu underwent ultrasound-guided right breast biopsy as well as right axillary lymph node biopsy. The final pathology report came back invasive lobular carcinoma breast 3 out of 5 cores involved longest positive core was 1.2 cm. And right axillary lymph node biopsy also confirmed invasive lobular carcinoma extending into fibroadipose tissue with extensive involvement and very little lymphoid tissue identified. Prognostic molecular profiling was done which confirmed ER NM positive disease ER being 99% positive NM 90% positive HER-2/chuckie negative with a markedly elevated Ki-67 at 75% which is unfavorable. No family history positive for breast cancer No history of smoking or alcohol use no history of diabetes, postmenopausal and menarche at age 12 or 13 years of age. Patient denies any fever or chills, denies any nausea or vomiting, denies any diarrhea or constipation, denies any vaginal bleeding denies any hematuria. Echocardiogram done on February 01, 2020 showed ejection fraction 65%. Ms Beaulieu began dose dense Adriamycin Cytoxan every 2 weeks with Neulasta support on February 09, 2020. She did have severe chemo induced neutropenia resulting in cycle 2 being delayed. She has tolerated it well otherwise. Patient received third cycle of dose dense Adriamycin/Cytoxan on March 16, 2020 subsequently underwent ultrasound right breast which showed large mass in the right breast did appear smaller in size when compared with December 23, 2019 but margins were poorly visualized. The abnormal lymph nodes in the right axilla is no longer present was several benign-appearing lymph nodes seen in the right axilla. Ms Beaulieu was supposed to conclude her dose dense chemotherapy e.g. cycle #4 in first week of March 2020 but patient never came back due to her family/social problems as per patient her brother got sick and there was no one to drive her to the clinic. 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 Ms. Beaulieu resumed her chemotherapy on 07/24/2020. Her last chemotherapy prior to that was March 16, 2020 at which time she had received cycle 3 cyclophosphamide Adriamycin. She was supported with Neulasta at that time as well. She has not had treatment since then as she took time off to take care of her brother who was ill. She was due to resume treatment on July 04, 2020 but was found to have a nonfunctioning Port-A-Cath. She was referred back to Dr. Castillo and she underwent explantation of the left upper chest Port-A-Cath and placement of a new PowerPort in the left subclavian vein on July 17, 2020. She tolerated cycle 4 adrimycin/Cytoxan well. She was due to start her taxane portion of her treatment plan on 08/07/2020 but that was delayed due to inclement weather. She had further delay due to venous access complications requiring replacement of her access device again. She had placement of a right internal juglar PowerPort on 09/05/[address] Castillo @ [facility]. Came for follow-up, denies any specific complaints, no fever chills, no nausea or vomiting, no diarrhea constipation, no peripheral numbness, tolerating weekly Taxol well Medications: Acetaminophen 1 - 2 Capsule (of 325 mg) Oral daily PRN, Cardizem CD 1 Capsule (of 240 mg) Capsule SR 24 HR Oral daily, Oxybutynin Chloride 1 Tablet (of 5 mg) Oral daily, PROzac 1 Capsule (of 20 mg) Oral daily Allergies: No Known Allergies. Review of Systems: Review of Systems is not available for this patient. Vital Signs: Performed on Dec 07, 2020 12:02 Height - 62.00 in Weight - 169.4 lbs (HIGH) BSA - 1.78 sq.m BMI - 30.98 (HIGH) Temperature - 97.6 F (LOW) Pulse - 91 /min Respiration - 18 /min BP - 148/70 mm(hg) (HIGH) O2 Sat - 97 % Pain - 0 Fatigue - 0 Performance Status: 0 - Fully active, able to carry on all predisease activities without restrictions. (ECOG) Physical Examination: Respiratory - Lungs are clear to auscultation, Cardiovascular - Regular rate and rhythm of heart, Gastrointestinal - Soft, bowel sounds present, Extremities - No visible edema. Lab/Imaging: Test performed on Nov 30, 2020 09:05 Sodium 138 mmol/L Potassium 4.3 mmol/L Chloride 104 mmol/L CO2 21 mmol/L Anion Gap 17.3 BUN 15 mg/dL Creatinine 0.5 mg/dL Cr Clearance (Est) 133.8200 mL/min eGFR 124.2 mL/min Glucose 196 mg/dL Osmolality - Calculated 292 mOsm/kg Calcium 8.4 mg/dL Protein, Total 5.8 g/dL Albumin 3.9 g/dL Globulin 1.9 g/dL Bilirubin, Total 0.2 mg/dL ALT (SGPT) 11 U/L AST (SGOT) 8 U/L Alkaline Phosphatase 91 IU/L WBC 7.3 10 3/uL RBC 3.31 10 6/uL HGB 10.6 g/dL HCT 33.3 % MCV 100.6 fL MCH 32.0 pg MCHC 31.8 g/dL RDW 15.2 % Platelet Count 324 10 3/cmm MPV 8.6 fL Neutrophils 6.93 10 3/uL Lymphocytes 0.2 10 3/uL Monocytes 0.0 10 3/uL Eosinophils 0.0 10 3/uL Basophils 0.0 10 3/uL Neutrophil % 95.6 % Lymphocyte % 2.8 % Monocyte % 0.3 % Eosinophil % 0.0 % Basophils % 0.1 % NRBC % 0 % CBC Slide Review Slide Review Perform SLIDE REVIEW AGREES WITH AUTOMATED RESULTS Impression: Locally advance invasive lobular carcinoma involving the right breast With a skin ulceration and right axillary lymph node per ultrasound-guided biopsy done on December 30, 2019 ER 99% positive NM 90% positive HER-2/chuckie negative, Ki-67 75% Clinical stage T4b, N1 Mx IIIB Ejection fraction was 65% on echo done on February 01, 2020, Started on Neoadjuvant chemotherapy with dose dense Adriamycin Cytoxan with Neulasta support x4 on February 09, 2020, will be followed by weekly Taxol x12. She is tolerated her first cycle of Adriamycin Cytoxan well although she did have significant chemotherapy-induced neutropenia resulting in a delay in starting cycle 2.But patient stopped taking dose dense Adriamycin/Cytoxan after cycle # 3/4, because of her personal/family issues, as per patient her brother got sick and she was looking after him so she decided to delay her chemotherapy until he recovers, knowing the risk versus benefit involved with delaying neoadjuvant chemotherapy and also her transportation issue. Right breast ultrasound done after 3 cycles of dose dense Adriamycin/Cytoxan on April 11, 2020 showed large mass in the right breast does appear smaller in size as compared to December 23, 2019 but margins are poorly visualized and abnormal lymph nodes in the right axilla is no longer present. Mrs. Beaulieu chemotherapy plan with Adriamycin/Cytoxan has been interupted with cycle 3 on March 16, 2020. She stopped treatment on her own/[employer]ICE to take care of her brother who was sick and she had transportation issues as well. Those situations have now resolved. Clinically, patient is doing well with no new signs symptoms but has persistent mass and edema in her right breast with overlying scarring. Per Dr Antunez's followup note, clinically it appeared there may be disease progression in her right breast. In that case, it was recommended that she resume her neoadjuvant chemotherapy with cycle #4/final dose of Adriamycin/Cytoxan. She resumed cycle 4 Adriamycin/Cytoxan on 07/24/2020 with Neulasta support. She was due to resume treatment on July 04, 2020 but was found to have a nonfunctioning Port-A-Cath. She was referred back to Dr. Castillo and she underwent explantation of the left upper chest Port-A-Cath and placement of a new PowerPort in the left subclavian vein on July 17, 2020. She tolerated cycle 4 adrimycin/Cytoxan well. She was due to start her taxane portion of her treatment plan on 08/07/2020 but that was delayed due to inclement weather. She was encouraged to proceed with weekly Taxol x12. Dr Antunez advised Ms Beaulieu to complete neoadjuvant chemotherapy as recommended without further delay and also discussed about importance of compliance with the chemotherapy schedule, patient expressed full understanding. She is highly motivated to complete treatment. She presentes for week 1/12 Taxol. However, nursing staff was unable to obtain a blood return from her port. She was sent for fluoroscopy flow study which did show the left Port-A-Cath with the tip in the distal innominate directly lateral with fibrin sheath around the distal catheter with partial obstruction and turbulent flow. Her chemotherapy will be delayed until we can determine how to manage her port. She may require PICC line to allow for completion of her treatment. She was referred back to Dr Castillo for input on her venous access. She did have explantation of the left upper chest PowerPort and replacement with placement of a right internal jugular vein PowerPort on September 05, 2020. Plan: Discussed with patient regarding her labs white blood count 4.7 hemoglobin 10.1 hematocrit 32.4 platelets 333,000 CMP within normal limits Clinically, patient doing well with no new signs symptom, will proceed with cycle #11/12 dose of Taxol and then she will return to clinic in 1 week with CBC CMP if reasonable for final dose of Taxol then will refer her to surgery for evaluation, patient will also need adjuvant radiation therapy Signed By: Lexi Antunez M.D. <<Signature on File>>
[2020-12-14 10:16] LABS: Basophils % 0.2 %; Hematocrit 33.6 % (37.0-47.0); Hemoglobin 10.3 g/dL (11.5-15.3); Lymphocytes # 0.3 10^3/uL (0.8-4.8); Lymphocytes % 4.5 %; Mean Corpuscular HGB Conc 30.7 g/dL (30.0-36.0); Mean Corpuscular Hemoglobin 30.1 pg (28.0-34.0); Mean Corpuscular Volume 98.2 fL (81-99); Mean Platelet Volume 8.3 fL (7.4-10.4); Monocytes % 0.4 %; Neutrophils # 5.21 10^3/uL (1.8-7.7); Neutrophils % 92.8 %; Nucleated Red Blood Cells % 0 %; Platelet Count 369 10^3/cmm (130-400); Red Blood Count 3.42 10^6/uL (4.1-5.3); Red Cell Distribution Width 15.7 % (12.1-15.1); White Blood Count 5.6 10^3/uL (4.0-10.0)
[2020-12-14 10:45] LABS: Alanine Aminotransferase 13 U/L (0-33); Albumin Level 3.7 g/dL (3.5-5.2); Alkaline Phosphatase 87 IU/L (35-105); Anion Gap 14.2 (5-19); Aspartate Amino Transferase 10 U/L (0-32); Blood Urea Nitrogen 14 mg/dL (8-23); Carbon Dioxide 23 mmol/L (22-29); Chloride 104 mmol/L (98-107); Globulin 2.4 g/dL (1.3-4.6); Glomerular Filtration Rate 100.6 mL/min (90-130); Glucose 160 mg/dL (65-115); Osmolality Calculated 288 mOsm/kg (285-295); Potassium 4.2 mmol/L (3.5-5.1); Sodium 137 mmol/L (136-145); Total Bilirubin 0.3 mg/dL (0.15-1.2); Total Protein 6.1 g/dL (6.6-8.7)
[2020-12-14] MEDS: famotidine 20 mg/2 mL INJ IVP (12:18)
[2020-12-14] MEDS: acetaminophen 325 mg Tablet 650 MG PO (12:18)
[2020-12-14] MEDS: sodium chloride 0.9% 250 ML 75 ML IV (12:18)
[2020-12-14] MEDS: ondansetron 2 mg/ML SDV 2 mL 8 MG IVP (12:20)
[2020-12-14] MEDS: diphenhydrAMINE 50 mg/mL SDV 1mL 25 MG IVP (12:23)
--- NOTE | 2020-12-26 23:10 | ONC FU_ITS ---
[facility] Patient Note Patient: Violetta Beaulieu Unit #: [id number]: 1955 Dictated By: Cam MarmolejoDate of Visit: Dec 14, 2020 Onc MED Follow-Up/Prog Note Chief Complaint: Right breast cancer Invasive lobular carcinoma ER/TX positive HER-2 negative Ki-67 at 75% History of Present Illness: Ms. Beaulieu is a 64-year-old female with more than year-long history of abnormality in the right breast. She reports that in about 2018 she noticed a small skin lesion in her right breast, she thought it was a mosquito bite. Later on she noticed a scab but it did not bother her until about 2 months ago when she noted a skin wound with some discharge along with damage in the right breast nipple and since then it has progressed, now with destruction of right breast nipple and firmness and shrinkage in more than two third of her right breast. Eventually, Ms Beaulieu went to see her primary care physician and underwent bilateral mammogram and ultrasonogram on December 23, 2019. The right breast showed heterogeneous fibroglandular density tissue with diffuse skin thickening with architectural distortion mid depth right breast, soft tissue thickening in the area of skin ulceration and indentation. Architectural distortion mid and posterior depth right breast with punctate indeterminate calcification and ultrasound right breast in the area of ulceration showed large hypoechoic ill-defined shadowing lesion suspicious for malignancy. Margins are difficult to define with overlying skin thickening and inverted nipple. Ms Beaulieu was seen by Dr. Castillo and on exam he he noticed right axillary lymphadenopathy. Subsequently on December 30, 2019 Mrs Beaulieu underwent ultrasound-guided right breast biopsy as well as right axillary lymph node biopsy. The final pathology report came back invasive lobular carcinoma breast 3 out of 5 cores involved longest positive core was 1.2 cm. And right axillary lymph node biopsy also confirmed invasive lobular carcinoma extending into fibroadipose tissue with extensive involvement and very little lymphoid tissue identified. Prognostic molecular profiling was done which confirmed ER TX positive disease ER being 99% positive TX 90% positive HER-2/chuckie negative with a markedly elevated Ki-67 at 75% which is unfavorable. No family history positive for breast cancer No history of smoking or alcohol use no history of diabetes, postmenopausal and menarche at age 12 or 13 years of age. Patient denies any fever or chills, denies any nausea or vomiting, denies any diarrhea or constipation, denies any vaginal bleeding denies any hematuria. Echocardiogram done on February 01, 2020 showed ejection fraction 65%. Ms Beaulieu began dose dense Adriamycin Cytoxan every 2 weeks with Neulasta support on February 09, 2020. She did have severe chemo induced neutropenia resulting in cycle 2 being delayed. She has tolerated it well otherwise. Patient received third cycle of dose dense Adriamycin/Cytoxan on March 16, 2020 subsequently underwent ultrasound right breast which showed large mass in the right breast did appear smaller in size when compared with December 23, 2019 but margins were poorly visualized. The abnormal lymph nodes in the right axilla is no longer present was several benign-appearing lymph nodes seen in the right axilla. Ms Beaulieu was supposed to conclude her dose dense chemotherapy e.g. cycle #4 in first week of March 2020 but patient never came back due to her family/social problems as per patient her brother got sick and there was no one to drive her to the clinic. 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 Ms. Beaulieu resumed her chemotherapy on 07/24/2020. Her last chemotherapy prior to that was March 16, 2020 at which time she had received cycle 3 cyclophosphamide Adriamycin. She was supported with Neulasta at that time as well. She has not had treatment since then as she took time off to take care of her brother who was ill. She was due to resume treatment on July 04, 2020 but was found to have a nonfunctioning Port-A-Cath. She was referred back to Dr. Castillo and she underwent explantation of the left upper chest Port-A-Cath and placement of a new PowerPort in the left subclavian vein on July 17, 2020. She tolerated cycle 4 adrimycin/Cytoxan well. She was due to start her taxane portion of her treatment plan on 08/07/2020 but that was delayed due to inclement weather. She had further delay due to venous access complications requiring replacement of her access device again. She had placement of a right internal juglar PowerPort on 09/05/[address] Castillo @ [facility]. Ms. Beauliue is here today for follow-up. She is due for cycle/week 12 paclitaxel. She is doing well overall. She is anxious to complete this portion of her treatment plan. She states she has been feeling good. She remains very active. She denies any mouth sores, sore throat or difficulty swallowing. She denies any fever or chills. She denies any pain. She states she is eating well. She denies any nausea or vomiting. She states she has had some tingling in her fingers but typically goes away before her next treatment. She is having no residual neuropathy. She denies any diarrhea or constipation. She denies any urine difficulties or hematuria. She denies cough. She denies any hemoptysis. She states overall she continues to do well. She is just anxious to finish with her treatment plan. Her ECOG is 0. Past Medical History: Depression Hypertension Past Surgical History: Appendectomy Breast biopsy Cholecystectomy Portacatheter placement dr. luis Right internal jugular PowerPort-Dr Castillo in 2020 Placement of left subclavian Power Port-Dr Castillo in 2020 Removal of left internal juglar port Dr Castillo in 2020 Allergies: No Known Allergies. Medications: Acetaminophen 1 - 2 Capsule (of 325 mg) Oral daily PRN Cardizem CD 1 Capsule (of 240 mg) Capsule SR 24 HR Oral daily Oxybutynin Chloride 1 Tablet (of 5 mg) Oral daily PROzac 1 Capsule (of 20 mg) Oral daily Family History: Ms. Beaulieu's mother at age 73: type II diabetes. Ms. Beaulieu's father at age 61: lung cancer. 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 Ms. Beaulieu has never smoked. Ms. Beaulieu reports the following support systems: lives with spouse, significant other, family, or friends, lives in own house, supportive family/friends willing to assist with needs, and transportation problems exist and will require assistance. Her diet consists of regular meals. She indicates her activity level as: regular exercise. Review Of Symptoms: <See Above> Vital Signs: Performed on Dec 14, 2020 11:34 Height - 62.00 in Weight - 167.4 lbs (LOW) BSA - 1.77 sq.m BMI - 30.62 (HIGH) Temperature - 97.9 F (LOW) Pulse - 90 /min Respiration - 18 /min BP - 100/60 mm(hg) O2 Sat - 96 % Pain - 0 Fatigue - 0,0 - Fully active, able to carry on all predisease activities without restrictions. (ECOG) Physical Examination: Constitutional Alert, oriented, no acute distress. Skin pink, warm and dry. Head Normocephalic; atraumatic. Eyes Conjunctivae and sclerae are clear and without icterus. Pupils are reactive and equal. ENMT No oral exudates, ulcers, masses, thrush or mucositis. Oropharynx clear. Tongue normal. Neck Supple without masses or thyromegaly. No jugular venous distension. Hematologic/Lymphatic No petechiae or purpura. No tender or palpable lymph nodes in the cervical or supraclavicular areas. Respiratory Lungs are clear to auscultation without rhonchi or wheezing. Cardiovascular Regular rate and rhythm of heart without murmurs,clicks, gallops or rubs. Chest Chest is symmetric without chest wall deformities. RIGHT venous access device insertion site is unremarkable. Abdomen Non-tender, non-distended, no masses or ascites. Good bowel sounds noted in all quads. No guarding or rebound tenderness. No pulsatile masses. Back/Spine Non-tender to palpation. Extremities No visible deformities, no cyanosis, clubbing or edema. Musculoskeletal No tenderness or swelling, normal range of motion without obvious weakness. Integumentary No rashes or lesions. Neurologic No sensory or motor deficits, normal cerebellar function, normal gait. Psychiatric Alert and oriented times three. Coherent speech. Verbalizes understanding of our discussions today. Laboratory:Test performed on Dec 14, 2020 10:03 Sodium 137 mmol/L Potassium 4.2 mmol/L Chloride 104 mmol/L CO2 23 mmol/L Anion Gap 14.2 BUN 14 mg/dL Creatinine 0.6 mg/dL Cr Clearance (Est) 111.5100 mL/min eGFR 100.6 mL/min Glucose 160 mg/dL Osmolality - Calculated 288 mOsm/kg Calcium 9.0 mg/dL Protein, Total 6.1 g/dL Albumin 3.7 g/dL Globulin 2.4 g/dL Bilirubin, Total 0.3 mg/dL ALT (SGPT) 13 U/L AST (SGOT) 10 U/L Alkaline Phosphatase 87 IU/L WBC 5.6 10 3/uL RBC 3.42 10 6/uL HGB 10.3 g/dL HCT 33.6 % MCV 98.2 fL MCH 30.1 pg MCHC 30.7 g/dL RDW 15.7 % Platelet Count 369 10 3/cmm MPV 8.3 fL Neutrophils 5.21 10 3/uL Lymphocytes 0.3 10 3/uL Monocytes 0.0 10 3/uL Eosinophils 0.0 10 3/uL Basophils 0.0 10 3/uL Neutrophil % 92.8 % Lymphocyte % 4.5 % Monocyte % 0.4 % Eosinophil % 0.0 % Basophils % 0.2 % NRBC % 0 % Test performed on Nov 30, 2020 09:05 CBC Slide Review Slide Review Perform SLIDE REVIEW AGREES WITH AUTOMATED RESULTS Impression: Locally advance invasive lobular carcinoma involving the right breast With a skin ulceration and right axillary lymph node per ultrasound-guided biopsy done on December 30, 2019 ER 99% positive TX 90% positive HER-2/chuckie negative, Ki-67 75% Clinical stage T4b, N1 Mx IIIB Ejection fraction was 65% on echo done on February 01, 2020, Started on Neoadjuvant chemotherapy with dose dense Adriamycin Cytoxan with Neulasta support x4 on February 09, 2020, will be followed by weekly Taxol x12. She is tolerated her first cycle of Adriamycin Cytoxan well although she did have significant chemotherapy-induced neutropenia resulting in a delay in starting cycle 2.But patient stopped taking dose dense Adriamycin/Cytoxan after cycle # 3/4, because of her personal/family issues, as per patient her brother got sick and she was looking after him so she decided to delay her chemotherapy until he recovers, knowing the risk versus benefit involved with delaying neoadjuvant chemotherapy and also her transportation issue. Right breast ultrasound done after 3 cycles of dose dense Adriamycin/Cytoxan on April 11, 2020 showed large mass in the right breast does appear smaller in size as compared to December 23, 2019 but margins are poorly visualized and abnormal lymph nodes in the right axilla is no longer present. Mrs. Beaulieu chemotherapy plan with Adriamycin/Cytoxan has been interupted with cycle 3 on March 16, 2020. She stopped treatment on her own/AGAINST MEDICAL ADVICE to take care of her brother who was sick and she had transportation issues as well. Those situations have now resolved. Clinically, patient is doing well with no new signs symptoms but has persistent mass and edema in her right breast with overlying scarring. Per Dr Antunez's followup note, clinically it appeared there may be disease progression in her right breast. In that case, it was recommended that she resume her neoadjuvant chemotherapy with cycle #4/final dose of Adriamycin/Cytoxan. She resumed cycle 4 Adriamycin/Cytoxan on 07/24/2020 with Neulasta support. She was due to resume treatment on July 04, 2020 but was found to have a nonfunctioning Port-A-Cath. She was referred back to Dr. Castillo and she underwent explantation of the left upper chest Port-A-Cath and placement of a new PowerPort in the left subclavian vein on July 17, 2020. She tolerated cycle 4 adrimycin/Cytoxan well. She was due to start her taxane portion of her treatment plan on 08/07/2020 but that was delayed due to inclement weather. She was encouraged to proceed with weekly Taxol x12. Dr Antunez advised Ms Beaulieu to complete neoadjuvant chemotherapy as recommended without further delay and also discussed about importance of compliance with the chemotherapy schedule, patient expressed full understanding. She is highly motivated to complete treatment. She presented for week 1/12 Taxol. However, nursing staff was unable to obtain a blood return from her port. She was sent for fluoroscopy flow study which did show the left Port-A-Cath with the tip in the distal innominate directly lateral with fibrin sheath around the distal catheter with partial obstruction and turbulent flow. Her chemotherapy will be delayed until we can determine how to manage her port. She may require PICC line to allow for completion of her treatment. She was referred back to Dr Castillo for input on her venous access. She did have explantation of the left upper chest PowerPort and replacement with placement of a right internal jugular vein PowerPort on September 05, 2020. Plan/Problems Addressed at this Visit: 1. Locally advanced invasive lobular carcinoma of the right breast: A. She has completed 4 cycles of Adriamycin Cytoxan at normal dosing. She has now started the paclitaxel portion of her chemotherapy although significantly delayed. B. She did receive Neulasta support to prevent chemotherapy induced neutropenia with the adriamycin. Her ANC on day 8 of cycle 2 was 610. On day 0 of cycle 2 was 6660. C. Continue aggressive antiemetics due to high risk regimen. She may also continue Compazine and lorazepam as needed at home for antiemetics. D. Today's labs reviewed in detail and discussed with Mrs. Beaulieu and a copy was given to her. WBC 5.6, hemoglobin 10.3, platelets 3 and 69,000, ANC is 5210. Potassium 4.0 random glucose 160 creatinine 0.6 LFTs are normal. E. Follow-up echocardiogram from 06/22/2020 reports LVEF at 65%. Mild pulmonary hypertension with RVSP at 30 to 35 mmHg; mild mitral regurgitation???compared to prior echo from 02/01/2020, no significant changes were noted. F. We will PROEED WITH WEEK 06/03 of her planned weekly paclitaxel at 80 mg/m2. G. Steroid compliance confirmed. H. She will continue with Emend, dexamethasone, Zofran for her antiemetics. We did change her to Zofran from Aloxi due to constipation concerns. She has tolerated this well and has had no nausea. I. I did not add Neupogen to her care plan this week given her ANC today is 5210. 2. Constipation???intermittent A. This may be treatment related will just need to monitor her closely. B. She is currently using stool softeners and this is working well. C. We did discuss using MiraLAX [id number] as needed and she may add this over the next week if required. D. She was encouraged to let us know if she is having any trouble with the constipation not resolved with the measures above. E. We will have her continuePrilosec 20 mg once or twice daily as needed for gastritis syptoms. She states this is working well. 3. Absense of blood return for left Power Port A. Fluoroscopy flow study reports left Port-A-Cath with tip in the distal innominate vein directed laterally. This is retracted since the prior exam on July 17, 2020. Turbulent flow of contrast exiting from the distal catheter with surrounding irregular fibrin sheath. Visual distal innominate and SVC appear patent. Final impression was left Port-A-Cath with tip in distal innominate vein directly lateral with fibrin sheath around the distal catheter with partial obstruction and turbulent flow. Verbal report to nursing staff per Dr. Shirley was he advised him not to use the Port-A-Cath and recommend that it be replaced. She did have explantation of the left upper chest PowerPort and replacement with placement of a right internal jugular vein PowerPort on September 05, 2020. A. She has excellent blood return of the newly placed right internal jugular PowerPort and no noted concerns today. 4. Follow-up plan A. We will refer her to radiation oncology for consult for consideration of post chemotherapy radiation. B. She will be seen back to see Dr. Antunez in the next 5 to 6 weeks for discussion of further plan of care and possibly start treatment for her ER/TX positive findings of her breast cancer. I have asked that she have a follow-up CBC CMP for monitoring post chemotherapy. B. I have asked that she see Dr. Antunez for completion of this treatment plan and determination of any further treatment plan. She is ER/TX positive and most likely will need aromatase inhibitor. Her right axillary lymph node biopsy was positive for malignancy. c. Mrs. Beaulieu was encouraged to contact us in interim should questions or problems arise. Signed By: Cam Marmolejo-, [facility] Lexi Antunez MD <<Signature on File>>
== END 2020-12-20 23:59 | disposition home or self-care (01) ==
LOC: ONCMED 05:31
PROVIDERS: Internal Medicine Hematology & Oncology; PCP Physician Assistant Medical; Visit Provider Nurse Practitioner
DX: Z51.11 Encounter for antineoplastic chemotherapy (principal); C50.811 Malignant neoplasm of overlapping sites of right female breast; Z17.0 Estrogen receptor positive status [ER+]; D70.1 Agranulocytosis secondary to cancer chemotherapy; T45.1X5A Adverse effect of antineoplastic and immunosuppressive drugs, initial encounter; F32.9 Major depressive disorder, single episode, unspecified; I10 Essential (primary) hypertension; Z79.899 Other long term (current) drug therapy
CPT/HCPCS: 36415; 80053; 85025; 96367; 96375; 96413; 99214; 99215; J1100; J1200; J1453; J2405; J3490; J7050; J9267

== ENCOUNTER → 2020-12-29 09:46 | Outpatient (BNVA) | payer MEDICARE, MEDICAID, SELFPAY | PROVIDERS: PCP Physician Assistant Medical; Visit Provider Surgery | DX: Z01.812 Encounter for preprocedural laboratory examination (principal); Z20.822 Contact with and (suspected) exposure to COVID-19 | CPT/HCPCS: 87635 ==

== ENCOUNTER 2021-01-04 06:19 | Day surgery (SDC) | payer MEDICARE, MEDICAID, SELFPAY ==
[2021-01-03 15:12] VITALS: BMI 30.2
[2021-01-04] VITALS (7 sets, daily range): BP systolic 101–149; BP diastolic 56–81; PULSE 72–92; RESP 12–18; TEMP 36.1–36.7; O2SAT 92–100
--- NOTE | 2021-01-04 06:45 | W.PM.OPSUD ---
Surgery/Procedure H&P Update DATE OF PROCEDURE: January 04, 2021 DATE H&P PERFORMED: 12/14/20 H&P UPDATE INFORMATION: I have reviewed H&P completed within last 30 days, I have examined patient prior to procedure and No changes to prior documentation PREOP DIAGNOSIS: Right breast cancer PRIMARY INDICATION FOR PROCEDURE: The same PLANNED PROCEDURE: Operation Date: 01/04/21 08:10 Proposed Procedures p Mastectomy Simple [id number] c50.911(Right) - Lalito Castillo MD s poss Portacath Removal(Not Applicable) - Lalito Castillo MD
[2021-01-04] MEDS: heparin 5,000 unit/mL INJ 1 mL 2000 UNIT SUBCUT (06:46)
[2021-01-04] MEDS: sodium chloride 0.9% 1,000 ML 30 ML IV (06:46)
[2021-01-04] MEDS: acetaminophen 1,000 MG/100 ML PIGGYBACK 400 MG IV (06:48)
--- NOTE | 2021-01-04 07:05 | ANES.PREANE2 ---
Pre-Anesthetic Assessment Pre-Anesthetic Assessment: Height/Weight: Height 1.57 m Weight 74.843 kg Temp Pulse Resp BP Pulse Ox 98.1 F 92 18 149/78 95 01/04/21 06:32 01/04/21 06:32 01/04/21 06:32 01/04/21 06:32 01/04/21 06:32 Preop Diagnosis: Right breast cancer Proposed Procedure: Operation Date: 01/04/21 08:10 Proposed Procedures p Mastectomy Simple [id number] c50.911(Right) - Lalito Castillo MD s poss Portacath Removal(Not Applicable) - Lalito Castillo MD Was Beta Cal taken within 24 hours: N/A Was Clonidine taken within 24 hours: N/A Last intake: Intake Last Liquid Date 01/03/21 Last Liquid Time 17:00 Last Solid Date 01/03/21 Last Solid Time 17:00 Social: Social History: No alcohol and No tobacco Exam: Pre-Anes Outpt Exam: alert, oriented x 3, clear to auscultation bilaterally and regular rate & rhythm Airway: Submandibular: WNL Cervical ROM: WNL MP: 2 Dentition: False CV/HEM: CV/HEM: HTN Neuropsych: Neuropsych: Depression Anesthetic Plan: ASA status: 2 Anesthesia: General Risk of > 500 ml blood loss (7ml/kg in children): No Meds/Allergies Current Medications: Current Medications Generic Name Dose Route Start Last Admin Trade Name Freq PRN Reason Stop Dose Admin Sodium Chloride 1,000 mls @ 30 ml s/hr 01/04/21 06:30 01/04/21 06:46 Sodium Chloride 0.9% IV 01/05/21 06:29 30 mls/hr .Q24H CURTIS Administration PFSH Anesthesia PFSH: Medical History Depression Irregularly shaped mass of breast Port-A-Cath in place (~12/2019) Surgical History History of laparoscopic cholecystectomy (~1994) Status post laparoscopic appendectomy (~1994) Family History Father Cancer LUNG CANCER Hypertension Mother Diabetes Hypertension Denies family history of Anesthesia complication Bleeding disorder Social History Smoking and tobacco status: never smoked Second hand smoke exposure: No Alcohol intake: never Adopted: No Caregiver/support person: Yes Lives independently: Yes Household members: family Housing: Assisted Living Facility Marital status: service: No Current occupational status: employed Current occupational exposures/hazards: No Pets and animals: No History of recent travel: No Sexually active: No Current gender identity: Female Shanell/Cheondoism: [employer]beterian Data Anesthesia Cardiac Studies: No Data to Display
--- NOTE | 2021-01-04 08:57 | P.OP_ITS ---
Operative Report Date of procedure: January 04, 2021 Pre-op Diagnosis: Right breast cancer Post-op diagnosis: same Procedure Done: Right total mastectomy Implants: 10 mm Brice-Proctor drain Specimens removed/disposition: Right total mastectomy with short sutures marked superior and long sutures marked lateral Surgeon: Lalito Castillo Manufacturing Finance Manager: Surgical jessica Little and eli Myers library technical assistant student Circulating nurse Francheska Anesthesia: General (skimmer reverberatory Marianna) Estimated blood loss (mL): 25 IV fluids (mL): 1,000 Condition: stable Disposition: same day Brief History: Right breast cancer requiring total mastectomy after neoadjuvant chemo therapy. Full H&P informed consent per chart Procedure: Patient was identified in holding area and the right breast was marked by me in the presence of female websphere consultant Marion nursing staff,Patient was brought then to the operating room.Time-out was done verifying the patient's name/date of /planned procedure and destination after the procedure, all were in agreement. SCDs confirmed to be functioning, preoperative antibiotics and heparin subcu administered per protocol, and beta zully protocol was confirmed, appropriate positioning of the patient was done by me and the staff were all pressure points were padded. Right sided chest wall axilla and the right side of the neck were prepped and draped in the usual sterile fashion. Skin incision was made that encompassed the nipple area complex and the previous biopsy scar passed in a generally transverse/oblique direction across the breast Flaps were raised in the avascular plane between the subcutaneous tissue and breast tissue superiorly, special attention was paid to the presence of the right upper chest Port-A-Cath not to violate its plane and not to have it communicating with the wound. Yet having a sound and appropriate safety margin, dissection was carried towards the sternum medially, the anterior rectus sheath inferiorly, and anterior border of the latissimus dorsi muscle laterally. Hemostasis was achieved of the flaps. Next the breast tissue underlying pectoralis fascia were excised from the pectoralis major muscle, progressing from medially to laterally in the avascular plane. At the lateral border of the pectoralis major muscle which appeared to be very attenuated, the breast tissue was swung laterally and at this point completion of the mastectomy was achieved and the specimen was taken to the back table where short sutures marked superior and long sutures marked lateral. Copious and thorough irrigation of the wound was achieved and hemostasis was accomplished, multiple 2-0 silk [id number] sutures were used for hemostasis particularly at the muscle layer and the superior flap. I elected to place a Brice-Proctor drain to the wound bed and secured to the skin via the inferior flap by 2-0 nylonx2. Wound was then closed using deep subdermal 2-0 Vicryl , followed by skin kunal, dry dressing, drain dressings, Telfa, fluffs on top and sports bra was applied. Patient was then extubated and transferred to the recovery area in stable condition. Counts of sponges, needles and instruments were completed at the end of the procedure I was present for the whole entire procedure.
--- NOTE | 2021-01-04 16:36 | ANE.PACU2 ---
Inpatient post-anesthesia follow up: Airway intact: Yes Vital signs: Temperature 97.8 F Pulse Rate 75 Respiratory Rate 15 Blood Pressure 101/72 Pulse Oximetry 94 Oxygen Delivery Me thod Room Air Oxygen Flow Rate 8 Fraction of Inspir ed Oxygen Hydration adequate: Yes Nausea and vomiting: No Pain level: 2 Mental status: Baseline
== END 2021-01-04 10:32 | disposition home or self-care (01) ==
PROVIDERS: PCP Physician Assistant Medical; Visit Provider Surgery
PROC: (CPT 19303; principal; 2021-01-04 08:10)
DX: C50.911 Malignant neoplasm of unspecified site of right female breast (principal)
CPT/HCPCS: 19303; 88309; 96365; J0690; J1100; J1170; J1200; J1644; J1885; J2370; J2405; J2704; J3010; J7030

== ENCOUNTER 2021-01-19 06:07 | Outpatient (RCR) | payer MEDICARE, MEDICAID, SELFPAY ==
[2021-01-19 09:45] LABS: Basophils % 0.6 %; Eosinophils # 0.1 10^3/uL (0.0-0.8); Eosinophils % 1.8 %; Hematocrit 35.9 % (37.0-47.0); Hemoglobin 10.7 g/dL (11.5-15.3); Lymphocytes # 0.8 10^3/uL (0.8-4.8); Lymphocytes % 11.9 %; Mean Corpuscular HGB Conc 29.8 g/dL (30.0-36.0); Mean Corpuscular Hemoglobin 28.5 pg (28.0-34.0); Mean Corpuscular Volume 95.7 fL (81-99); Mean Platelet Volume 8.8 fL (7.4-10.4); Monocytes # 0.5 10^3/uL (0.2-0.9); Monocytes % 7.4 %; Neutrophils # 5.12 10^3/uL (1.8-7.7); Neutrophils % 77.8 %; Nucleated Red Blood Cells % 0 %; Platelet Count 322 10^3/cmm (130-400); Red Blood Count 3.75 10^6/uL (4.1-5.3); Red Cell Distribution Width 16.9 % (12.1-15.1); White Blood Count 6.6 10^3/uL (4.0-10.0)
[2021-01-19 10:10] LABS: Alanine Aminotransferase 9 U/L (0-33); Albumin Level 3.6 g/dL (3.5-5.2); Alkaline Phosphatase 109 IU/L (35-105); Aspartate Amino Transferase 12 U/L (0-32); Blood Urea Nitrogen 11 mg/dL (8-23); Calcium 8.9 mg/dL (8.5-10.5); Carbon Dioxide 24 mmol/L (22-29); Chloride 104 mmol/L (98-107); Globulin 2.4 g/dL (1.3-4.6); Glucose 114 mg/dL (65-115); Osmolality Calculated 290 mOsm/kg (285-295); Sodium 140 mmol/L (136-145); Total Bilirubin 0.3 mg/dL (0.15-1.2)
--- NOTE | 2021-01-19 13:28 | ONC FU_ITS ---
Dr. Antunez follow up note Patient: Violetta Beaulieu Unit #: [id number]: 1955 Dicatated By: Lexi Antunez M.D.Date of Visit:Jan 19, 2021 Onc Med Follow-up/Prog Note History of Present Illness: Ms. Beaulieu is a 64-year-old female with more than year-long history of abnormality in the right breast. She reports that in about 2018 she noticed a small skin lesion in her right breast, she thought it was a mosquito bite. Later on she noticed a scab but it did not bother her until about 2 months ago when she noted a skin wound with some discharge along with damage in the right breast nipple and since then it has progressed, now with destruction of right breast nipple and firmness and shrinkage in more than two third of her right breast. Eventually, Ms Beaulieu went to see her primary care physician and underwent bilateral mammogram and ultrasonogram on December 23, 2019. The right breast showed heterogeneous fibroglandular density tissue with diffuse skin thickening with architectural distortion mid depth right breast, soft tissue thickening in the area of skin ulceration and indentation. Architectural distortion mid and posterior depth right breast with punctate indeterminate calcification and ultrasound right breast in the area of ulceration showed large hypoechoic ill-defined shadowing lesion suspicious for malignancy. Margins are difficult to define with overlying skin thickening and inverted nipple. Ms Beaulieu was seen by Dr. Castillo and on exam he he noticed right axillary lymphadenopathy. Subsequently on December 30, 2019 Mrs Beaulieu underwent ultrasound-guided right breast biopsy as well as right axillary lymph node biopsy. The final pathology report came back invasive lobular carcinoma breast 3 out of 5 cores involved longest positive core was 1.2 cm. And right axillary lymph node biopsy also confirmed invasive lobular carcinoma extending into fibroadipose tissue with extensive involvement and very little lymphoid tissue identified. Prognostic molecular profiling was done which confirmed ER NE positive disease ER being 99% positive NE 90% positive HER-2/chuckie negative with a markedly elevated Ki-67 at 75% which is unfavorable. No family history positive for breast cancer No history of smoking or alcohol use no history of diabetes, postmenopausal and menarche at age 12 or 13 years of age. Patient denies any fever or chills, denies any nausea or vomiting, denies any diarrhea or constipation, denies any vaginal bleeding denies any hematuria. Echocardiogram done on February 01, 2020 showed ejection fraction 65%. Ms Beaulieu began dose dense Adriamycin Cytoxan every 2 weeks with Neulasta support on February 09, 2020. She did have severe chemo induced neutropenia resulting in cycle 2 being delayed. She has tolerated it well otherwise. Patient received third cycle of dose dense Adriamycin/Cytoxan on March 16, 2020 subsequently underwent ultrasound right breast which showed large mass in the right breast did appear smaller in size when compared with December 23, 2019 but margins were poorly visualized. The abnormal lymph nodes in the right axilla is no longer present was several benign-appearing lymph nodes seen in the right axilla. Ms Beaulieu was supposed to conclude her dose dense chemotherapy e.g. cycle #4 in first week of March 2020 but patient never came back due to her family/social problems as per patient her brother got sick and there was no one to drive her to the clinic. 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 Ms. Beaulieu resumed her chemotherapy on 07/24/2020. Her last chemotherapy prior to that was March 16, 2020 at which time she had received cycle 3 cyclophosphamide Adriamycin. She was supported with Neulasta at that time as well. She has not had treatment since then as she took time off to take care of her brother who was ill. She was due to resume treatment on July 04, 2020 but was found to have a nonfunctioning Port-A-Cath. She was referred back to Dr. Castillo and she underwent explantation of the left upper chest Port-A-Cath and placement of a new PowerPort in the left subclavian vein on July 17, 2020. She tolerated cycle 4 adrimycin/Cytoxan well. She was due to start her taxane portion of her treatment plan on 08/07/2020 but that was delayed due to inclement weather. She had further delay due to venous access complications requiring replacement of her access device again. She had placement of a right internal juglar PowerPort on 09/05/[address] Castillo @ [facility] Patient completed her recommended neoadjuvant chemotherapy e.g. Adriamycin and Cytoxan followed by Taxol on December 14, 2020 and subsequently underwent right mastectomy on January 04, 2021 which showed invasive lobular carcinoma size of 5.1 cm clear surgical margin, T3, no lymph node identified NX, Ki-67 75%, estrogen receptor 99%, progesterone 90%, HER-2/chuckie negative Came for follow-up, denies any specific complaints, no fever chills, no nausea or vomiting, no diarrhea or constipation, no new bony pains, patient underwent right mastectomy on January 04, 2021, now recovering well as per patient her kunal were removed yesterday. She is here to discuss further management Medications: Acetaminophen 1 - 2 Capsule (of 325 mg) Oral daily PRN, Cardizem CD 1 Capsule (of 240 mg) Capsule SR 24 HR Oral daily, Oxybutynin Chloride 1 Tablet (of 5 mg) Oral daily, PROzac 1 Capsule (of 20 mg) Oral daily Allergies: No Known Allergies. Review of Systems: Review of Systems is not available for this patient. Vital Signs: Performed on Jan 19, 2021 10:28 Height - 62.00 in Weight - 163.2 lbs (LOW) BSA - 1.75 sq.m BMI - 29.85 Temperature - 97.4 F (LOW) Pulse - 93 /min Respiration - 18 /min BP - 121/78 mm(hg) O2 Sat - 98 % Pain - 0 Performance Status: 0 - Fully active, able to carry on all predisease activities without restrictions. (ECOG) Physical Examination: Respiratory - Lungs are clear to auscultation, Cardiovascular - Regular rate and rhythm of heart, Gastrointestinal - Soft, bowel sounds present, Extremities - No visible edema or rash. Lab/Imaging: Test performed on Dec 14, 2020 10:03 Sodium 137 mmol/L Potassium 4.2 mmol/L Chloride 104 mmol/L CO2 23 mmol/L Anion Gap 14.2 BUN 14 mg/dL Creatinine 0.6 mg/dL Cr Clearance (Est) 111.5100 mL/min eGFR 100.6 mL/min Glucose 160 mg/dL Osmolality - Calculated 288 mOsm/kg Calcium 9.0 mg/dL Protein, Total 6.1 g/dL Albumin 3.7 g/dL Globulin 2.4 g/dL Bilirubin, Total 0.3 mg/dL ALT (SGPT) 13 U/L AST (SGOT) 10 U/L Alkaline Phosphatase 87 IU/L WBC 5.6 10 3/uL RBC 3.42 10 6/uL HGB 10.3 g/dL HCT 33.6 % MCV 98.2 fL MCH 30.1 pg MCHC 30.7 g/dL RDW 15.7 % Platelet Count 369 10 3/cmm MPV 8.3 fL Neutrophils 5.21 10 3/uL Lymphocytes 0.3 10 3/uL Monocytes 0.0 10 3/uL Eosinophils 0.0 10 3/uL Basophils 0.0 10 3/uL Neutrophil % 92.8 % Lymphocyte % 4.5 % Monocyte % 0.4 % Eosinophil % 0.0 % Basophils % 0.2 % NRBC % 0 % Test performed on Nov 30, 2020 09:05 CBC Slide Review Slide Review Perform SLIDE REVIEW AGREES WITH AUTOMATED RESULTS Impression: Locally advance invasive lobular carcinoma involving the right breast With a skin ulceration and right axillary lymph node per ultrasound-guided biopsy done on December 30, 2019 ER 99% positive NE 90% positive HER-2/chuckie negative, Ki-67 75% Clinical stage T4b, N1 Mx IIIB Ejection fraction was 65% on echo done on February 01, 2020, Started on Neoadjuvant chemotherapy with dose dense Adriamycin Cytoxan with Neulasta support x4 on February 09, 2020, will be followed by weekly Taxol x12. She is tolerated her first cycle of Adriamycin Cytoxan well although she did have significant chemotherapy-induced neutropenia resulting in a delay in starting cycle 2.But patient stopped taking dose dense Adriamycin/Cytoxan after cycle # 3/4, because of her personal/family issues, as per patient her brother got sick and she was looking after him so she decided to delay her chemotherapy until he recovers, knowing the risk versus benefit involved with delaying neoadjuvant chemotherapy and also her transportation issue. Right breast ultrasound done after 3 cycles of dose dense Adriamycin/Cytoxan on April 11, 2020 showed large mass in the right breast does appear smaller in size as compared to December 23, 2019 but margins are poorly visualized and abnormal lymph nodes in the right axilla is no longer present. Mrs. Beaulieu chemotherapy plan with Adriamycin/Cytoxan has been interupted with cycle 3 on March 16, 2020. She stopped treatment on her own/AGAINST MEDICAL ADVICE to take care of her brother who was sick and she had transportation issues as well. Those situations have now resolved. Clinically, patient is doing well with no new signs symptoms but has persistent mass and edema in her right breast with overlying scarring. clinically it appeared there may be disease progression in her right breast. In that case, it was recommended that she resume her neoadjuvant chemotherapy with cycle #4/final dose of Adriamycin/Cytoxan. She resumed cycle 4 Adriamycin/Cytoxan on 07/24/2020 with Neulasta support. She was due to resume treatment on July 04, 2020 but was found to have a nonfunctioning Port-A-Cath. She was referred back to Dr. Castillo and she underwent explantation of the left upper chest Port-A-Cath and placement of a new PowerPort in the left subclavian vein on July 17, 2020. She tolerated cycle 4 adrimycin/Cytoxan well. She was due to start her taxane portion of her treatment plan on 08/07/2020 but that was delayed due to inclement weather. She was encouraged to proceed with weekly Taxol x12. , advised Ms Beaulieu to complete neoadjuvant chemotherapy as recommended without further delay and also discussed about importance of compliance with the chemotherapy schedule, patient expressed full understanding. She is highly motivated to complete treatment., Patient completed her adjuvant chemotherapy e.g. Adriamycin and Cytoxan followed by Taxol on December 14, 2020, subsequently underwent right mastectomy on January 04, 2021 which showed 5.1 cm, invasive lobular carcinoma, high-grade, clear surgical margin T3, no lymph nodes identified, NX, ER/NE positive HER-2/chuckie negative, Patient was started on adjuvant hormonal therapy with Arimidex 1 mg p.o. daily for 5 years on January 19, 2021 And was referred to radiation oncology for evaluation for postmastectomy radiation therapy Plan: Discussed with patient regarding her labs white blood count 6.6 hemoglobin 10.7 hematocrit 35.9 platelets 322,000 CMP within normal limit except alk phos 109 and her final pathology report which showed residual disease but clear surgical margin and no lymph nodes were identified in the sample, ER/NE positive HER-2/chuckie negative Clinically, patient doing well, tolerated right mastectomy well now healing well, her pathology reviewed with her, now we will recommend adjuvant hormone therapy with Arimidex 1 mg p.o. daily for 5 years all the side effect possible benefits associated with Arimidex including but not limited to hot flashes, musculoskeletal discomfort, bone demineralization, mood swings, were mentioned further teaching will be done by chemotherapy nurse, patient was given prescription and then she will return to clinic in 1 month with CBC and if Arimidex tolerated well then will continue.And also refer her to radiation oncology for evaluation for post mastectomy radiation therapy As far as mild anemia is concerned, will consider anemia work-up check iron studies B12 folic acid and if deficiency, will supplement. Signed By: Lexi Antunez M.D. <<Signature on File>>
[2021-01-19 23:09] LABS: Ferritin 92 ng/mL (15-150); Iron 34 ug/dL (37-145); Total Iron Binding Capacity 308 mcg/dl; Unsaturated Iron Binding 274 ug/dL (112-347)
[2021-01-19 23:23] LABS: Vitamin B12 707 pg/mL (232-1245)
== END 2021-01-20 23:59 | disposition home or self-care (01) ==
LOC: ONCMED 06:07
PROVIDERS: Internal Medicine Hematology & Oncology; PCP Physician Assistant Medical; Visit Provider Nurse Practitioner
DX: C50.811 Malignant neoplasm of overlapping sites of right female breast (principal); Z17.0 Estrogen receptor positive status [ER+]; Z90.11 Acquired absence of right breast and nipple; D51.9 Vitamin B12 deficiency anemia, unspecified; Z79.811 Long term (current) use of aromatase inhibitors; Z92.21 Personal history of antineoplastic chemotherapy
CPT/HCPCS: 36591; 80053; 82607; 82728; 83540; 83550; 85025; 99214

== ENCOUNTER 2021-02-19 06:03 | Outpatient (RCR) | payer MEDICARE, MEDICAID, SELFPAY ==
--- NOTE | 2021-01-31 08:54 | N.ONRAD NP_ITS ---
Radiation Oncology Consultation Patient Name: Violetta Beaulieu Date of : 1955 Date of Service: 01/31/2021 Attending Physician: Kaushal Adame M.D. Violetta Beaulieu was seen in consultation this morning at the request of Norris Antunez M.D. for evaluation regarding potential postmastectomy radiotherapy for the management of a locally advanced breast cancer. She was evaluated in December 2019 a palpable right breast mass associated with skin ulceration. A right diagnostic mammogram ordered on December 23, 2019 revealed diffuse skin thickening with architectural distortion of the mid right breast. Ultrasonography confirmed a large hypoechoic ill-defined lesion with indistinct margins and a right axillary lymph node. A core needle biopsy of the breast mass and axillary lymph node obtained on December 30, 2019 diagnosed and invasive lobular carcinoma. The breast cancer prognostic profile was positive for estrogen receptor (99%) and progesterone receptor (90%), but negative for HER-2 (ratio 1.1). The KI???67 was 75%. Neoadjuvant chemotherapy was prescribed. Dose dense Adriamycin and cyclophosphamide were administered between the dates of February 09, 2020 through July 24, 2020. The fourth cycle of chemotherapy was delayed on account of the patient providing medical care for a family member. Subsequent to dose dense AC, weekly Taxol was prescribed completing December 14, 2020. A right total mastectomy was performed by Lalito Castillo M.D. on January 04, 2021. A 5.1 cm high-grade invasive lobular carcinoma was identified with dermal involvement. No lymph nodes were identified. All margins were negative for malignancy (closest margin was 2 mm). The patient was evaluated for postmastectomy radiotherapy. I reviewed with the patient her AJCC initial clinical stage IIIB (T4bN1) breast cancer, in addition to her pathological stage yIIIA ??? T3Nx. I also discussed The National Comprehensive Cancer Network Guidelines for post-operative radiotherapy in patients with positive lymph node metastases. I described the classic studies by the [place] [facility] and the Early Breast Cancer Trialists??? Collaborative Group. She is aware that these studies demonstrated an overall survival improvement in patients treated with post-mastectomy radiotherapy. I would recommend a 5 week course of chest wall and regional lymph node radiotherapy. A computed tomographic scan with contrast in the treatment position will be acquired for radiotherapy planning. The potential toxicities of postmastectomy radiotherapy were also addressed. The patient has verbalized understanding would like to discuss treatment with her family. The patient's medical treatment plan was discussed with Norris Antunez M.D. Signed by: Dr. Kaushal Adame 01/31/2021 8:53:05 AM
--- NOTE | 2021-02-19 | CT_ITS ---
Radiation Therapy Planning CT images; total exam DLP: 506.04 mGy-cm MTDD
== END 2021-02-20 23:59 | disposition home or self-care (01) ==
LOC: ONCMED 06:03
PROVIDERS: PCP Physician Assistant Medical; Visit Provider Specialist
DX: Z51.0 Encounter for antineoplastic radiation therapy (principal); C50.811 Malignant neoplasm of overlapping sites of right female breast; Z17.0 Estrogen receptor positive status [ER+]; Z90.11 Acquired absence of right breast and nipple; Z79.899 Other long term (current) drug therapy; Z92.21 Personal history of antineoplastic chemotherapy
CPT/HCPCS: 77290; 99205

== ENCOUNTER 2021-03-22 06:32 | Outpatient (RCR) | payer MEDICARE, MEDICAID, SELFPAY ==
[2021-02-23 10:13] LABS: Basophils % 0.6 %; Eosinophils # 0.2 10^3/uL (0.0-0.8); Eosinophils % 2.3 %; Hematocrit 36.3 % (37.0-47.0); Hemoglobin 10.9 g/dL (11.5-15.3); Lymphocytes % 14.2 %; Mean Corpuscular Hemoglobin 27.5 pg (28.0-34.0); Mean Corpuscular Volume 91.7 fl (81-99); Monocytes # 0.5 10^3/uL (0.2-0.9); Monocytes % 7.3 %; Neutrophils # 5.15 10^3/uL (1.8-7.7); Neutrophils % 75.3 %; Nucleated Red Blood Cells % 0 %; Platelet Count 361 10^3/cmm (130-400); Red Blood Count 3.96 10^6/uL (4.1-5.3); Red Cell Distribution Width 15.2 % (12.1-15.1); White Blood Count 6.8 10^3/uL (4.0-10.0)
[2021-02-23 10:36] LABS: Alanine Aminotransferase 9 U/L (0-33); Albumin Level 3.6 g/dL (3.5-5.2); Alkaline Phosphatase 126 IU/L (35-105); Anion Gap 14.7 (5-19); Aspartate Amino Transferase 11 U/L (0-32); Blood Urea Nitrogen 14 mg/dL (8-23); Calcium 8.6 mg/dL (8.5-10.5); Carbon Dioxide 25 mmol/L (22-29); Chloride 105 mmol/L (98-107); Globulin 2.7 g/dL (1.3-4.6); Glomerular Filtration Rate 100.3 mL/min (90-130); Glucose 108 mg/dL (65-115); Osmolality Calculated 293 mOsm/kg (285-295); Potassium 3.7 mmol/L (3.5-5.1); Sodium 141 mmol/L (136-145); Total Bilirubin 0.2 mg/dL (0.15-1.2); Total Protein 6.3 g/dL (6.6-8.7)
--- NOTE | 2021-02-23 11:36 | ONC FU_ITS ---
Dr. Antunez follow up note Patient: Violetta Beaulieu Unit #: [id number]: 1955 Dicatated By: Lexi Antunez M.D.Date of Visit:Feb 23, 2021 Onc Med Follow-up/Prog Note History of Present Illness: Ms. Beaulieu is a 65-year-old female with more than year-long history of abnormality in the right breast. She reports that in about 2018 she noticed a small skin lesion in her right breast, she thought it was a mosquito bite. Later on she noticed a scab but it did not bother her until about 2 months ago when she noted a skin wound with some discharge along with damage in the right breast nipple and since then it has progressed, now with destruction of right breast nipple and firmness and shrinkage in more than two third of her right breast. Eventually, Ms Beaulieu went to see her primary care physician and underwent bilateral mammogram and ultrasonogram on December 23, 2019. The right breast showed heterogeneous fibroglandular density tissue with diffuse skin thickening with architectural distortion mid depth right breast, soft tissue thickening in the area of skin ulceration and indentation. Architectural distortion mid and posterior depth right breast with punctate indeterminate calcification and ultrasound right breast in the area of ulceration showed large hypoechoic ill-defined shadowing lesion suspicious for malignancy. Margins are difficult to define with overlying skin thickening and inverted nipple. Ms Beaulieu was seen by Dr. Castillo and on exam he he noticed right axillary lymphadenopathy. Subsequently on December 30, 2019 Mrs Beaulieu underwent ultrasound-guided right breast biopsy as well as right axillary lymph node biopsy. The final pathology report came back invasive lobular carcinoma breast 3 out of 5 cores involved longest positive core was 1.2 cm. And right axillary lymph node biopsy also confirmed invasive lobular carcinoma extending into fibroadipose tissue with extensive involvement and very little lymphoid tissue identified. Prognostic molecular profiling was done which confirmed ER CO positive disease ER being 99% positive CO 90% positive HER-2/chuckie negative with a markedly elevated Ki-67 at 75% which is unfavorable. No family history positive for breast cancer No history of smoking or alcohol use no history of diabetes, postmenopausal and menarche at age 12 or 13 years of age. Patient denies any fever or chills, denies any nausea or vomiting, denies any diarrhea or constipation, denies any vaginal bleeding denies any hematuria. Echocardiogram done on February 01, 2020 showed ejection fraction 65%. Ms Beaulieu began dose dense Adriamycin Cytoxan every 2 weeks with Neulasta support on February 09, 2020. She did have severe chemo induced neutropenia resulting in cycle 2 being delayed. She has tolerated it well otherwise. Patient received third cycle of dose dense Adriamycin/Cytoxan on March 16, 2020 subsequently underwent ultrasound right breast which showed large mass in the right breast did appear smaller in size when compared with December 23, 2019 but margins were poorly visualized. The abnormal lymph nodes in the right axilla is no longer present was several benign-appearing lymph nodes seen in the right axilla. Ms Beaulieu was supposed to conclude her dose dense chemotherapy e.g. cycle #4 in first week of March 2020 but patient never came back due to her family/social problems as per patient her brother got sick and there was no one to drive her to the clinic. 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 Ms. Beaulieu resumed her chemotherapy on 07/24/2020. Her last chemotherapy prior to that was March 16, 2020 at which time she had received cycle 3 cyclophosphamide Adriamycin. She was supported with Neulasta at that time as well. She has not had treatment since then as she took time off to take care of her brother who was ill. She was due to resume treatment on July 04, 2020 but was found to have a nonfunctioning Port-A-Cath. She was referred back to Dr. Castillo and she underwent explantation of the left upper chest Port-A-Cath and placement of a new PowerPort in the left subclavian vein on July 17, 2020. She tolerated cycle 4 adrimycin/Cytoxan well. She was due to start her taxane portion of her treatment plan on 08/07/2020 but that was delayed due to inclement weather. She had further delay due to venous access complications requiring replacement of her access device again. She had placement of a right internal juglar PowerPort on 09/05/[address] Castillo @ [facility] Patient completed her recommended neoadjuvant chemotherapy e.g. Adriamycin and Cytoxan followed by Taxol on December 14, 2020 and subsequently underwent right mastectomy on January 04, 2021 which showed invasive lobular carcinoma size of 5.1 cm clear surgical margin, T3, no lymph node identified NX, Ki-67 75%, estrogen receptor 99%, progesterone 90%, HER-2/chuckie negative Came for follow-up, denies any specific complaints, no fever chills, no nausea or vomiting, no diarrhea or constipation, tolerating Arimidex well, as per patient she scheduled to start postmastectomy radiation therapy on coming Friday. Denies any melena or hematochezia, denies any shortness of breath or palpitation. Medications: Acetaminophen 1 - 2 Capsule (of 325 mg) Oral daily PRN, Cardizem CD 1 Capsule (of 240 mg) Capsule SR 24 HR Oral daily, Oxybutynin Chloride 1 Tablet (of 5 mg) Oral daily, PROzac 1 Capsule (of 20 mg) Oral daily Allergies: No Known Allergies. Review of Systems: Review of Systems is not available for this patient. Vital Signs: Performed on Feb 23, 2021 10:55 Height - 62.00 in Weight - 166 lbs (HIGH) BSA - 1.77 sq.m BMI - 30.36 (HIGH) Temperature - 97.3 F (LOW) Pulse - 69 /min Respiration - 18 /min BP - 137/76 mm(hg) O2 Sat - 99 % Pain - 0 Fatigue - 0 Performance Status: 0 - Fully active, able to carry on all predisease activities without restrictions. (ECOG) Physical Examination: Respiratory - Lungs are clear to auscultation, Cardiovascular - Regular rate and rhythm of heart, Gastrointestinal - Soft, bowel sounds present, Extremities - No visible edema or rash. Lab/Imaging: Test performed on Dec 14, 2020 10:03 Sodium 137 mmol/L Potassium 4.2 mmol/L Chloride 104 mmol/L CO2 23 mmol/L Anion Gap 14.2 BUN 14 mg/dL Creatinine 0.6 mg/dL Cr Clearance (Est) 111.5100 mL/min eGFR 100.6 mL/min Glucose 160 mg/dL Osmolality - Calculated 288 mOsm/kg Calcium 9.0 mg/dL Protein, Total 6.1 g/dL Albumin 3.7 g/dL Globulin 2.4 g/dL Bilirubin, Total 0.3 mg/dL ALT (SGPT) 13 U/L AST (SGOT) 10 U/L Alkaline Phosphatase 87 IU/L WBC 5.6 10 3/uL RBC 3.42 10 6/uL HGB 10.3 g/dL HCT 33.6 % MCV 98.2 fL MCH 30.1 pg MCHC 30.7 g/dL RDW 15.7 % Platelet Count 369 10 3/cmm MPV 8.3 fL Neutrophils 5.21 10 3/uL Lymphocytes 0.3 10 3/uL Monocytes 0.0 10 3/uL Eosinophils 0.0 10 3/uL Basophils 0.0 10 3/uL Neutrophil % 92.8 % Lymphocyte % 4.5 % Monocyte % 0.4 % Eosinophil % 0.0 % Basophils % 0.2 % NRBC % 0 % Test performed on Nov 30, 2020 09:05 CBC Slide Review Slide Review Perform SLIDE REVIEW AGREES WITH AUTOMATED RESULTS Impression: Locally advance invasive lobular carcinoma involving the right breast With a skin ulceration and right axillary lymph node per ultrasound-guided biopsy done on December 30, 2019 ER 99% positive CO 90% positive HER-2/chuckie negative, Ki-67 75% Clinical stage T4b, N1 Mx IIIB Ejection fraction was 65% on echo done on February 01, 2020, Started on Neoadjuvant chemotherapy with dose dense Adriamycin Cytoxan with Neulasta support x4 on February 09, 2020, will be followed by weekly Taxol x12. She is tolerated her first cycle of Adriamycin Cytoxan well although she did have significant chemotherapy-induced neutropenia resulting in a delay in starting cycle 2.But patient stopped taking dose dense Adriamycin/Cytoxan after cycle # 3/4, because of her personal/family issues, as per patient her brother got sick and she was looking after him so she decided to delay her chemotherapy until he recovers, knowing the risk versus benefit involved with delaying neoadjuvant chemotherapy and also her transportation issue. Right breast ultrasound done after 3 cycles of dose dense Adriamycin/Cytoxan on April 11, 2020 showed large mass in the right breast does appear smaller in size as compared to December 23, 2019 but margins are poorly visualized and abnormal lymph nodes in the right axilla is no longer present. Mrs. Beaulieu chemotherapy plan with Adriamycin/Cytoxan has been interupted with cycle 3 on March 16, 2020. She stopped treatment on her own/AGAINST MEDICAL ADVICE to take care of her brother who was sick and she had transportation issues as well. Those situations have now resolved. Clinically, patient is doing well with no new signs symptoms but has persistent mass and edema in her right breast with overlying scarring. clinically it appeared there may be disease progression in her right breast. In that case, it was recommended that she resume her neoadjuvant chemotherapy with cycle #4/final dose of Adriamycin/Cytoxan. She resumed cycle 4 Adriamycin/Cytoxan on 07/24/2020 with Neulasta support. She was due to resume treatment on July 04, 2020 but was found to have a nonfunctioning Port-A-Cath. She was referred back to Dr. Castillo and she underwent explantation of the left upper chest Port-A-Cath and placement of a new PowerPort in the left subclavian vein on July 17, 2020. She tolerated cycle 4 adrimycin/Cytoxan well. She was due to start her taxane portion of her treatment plan on 08/07/2020 but that was delayed due to inclement weather. She was encouraged to proceed with weekly Taxol x12. , advised Ms Beaulieu to complete neoadjuvant chemotherapy as recommended without further delay and also discussed about importance of compliance with the chemotherapy schedule, patient expressed full understanding. She is highly motivated to complete treatment., Patient completed her adjuvant chemotherapy e.g. Adriamycin and Cytoxan followed by Taxol on December 14, 2020, subsequently underwent right mastectomy on January 04, 2021 which showed 5.1 cm, invasive lobular carcinoma, high-grade, clear surgical margin T3, no lymph nodes identified, NX, ER/CO positive HER-2/chuckie negative, Patient was started on adjuvant hormonal therapy with Arimidex 1 mg p.o. daily for 5 years on January 19, 2021 And was referred to radiation oncology for evaluation for postmastectomy radiation therapy Plan: Discussed with patient regarding her labs white blood count 6.8 hemoglobin 10.9 g hematocrit 36.3 platelets 361,000 anemia work-up done recently showed iron saturation 11% iron 34 ferritin 92 TIBC 308 vitamin B12 707 Clinically, patient is doing reasonably well, now recovering from systemic therapy and surgery her follow-up labs shows persistent mild anemia and anemia work-up shows iron deficiency, will consider oral iron 2 tablets p.o. daily and then she will return to clinic in 1 month with CBC and iron studies Patient states she is starting postmastectomy radiation therapy I think on coming Friday. In the meantime she will continue with Arimidex 1 mg p.o. daily along with vitamin D and calcium total 5 years. Signed By: Lexi Antunez M.D. <<Signature on File>>
--- NOTE | 2021-02-27 14:53 | ONCRAD TMN_ITS ---
Radiation Oncology Treatment Management Note Patient Name: Violetta Beaulieu Date of : 1955 Date of Service: 02/27/2021 Attending Physician: Kaushal Adame M.D. Violetta Beaulieu is a 65 year-old white female diagnosed with a pathological stage yIIIA (T3Nx) invasive lobular carcinoma of the right breast. The breast cancer prognostic profile was positive for estrogen receptor (99%) and progesterone receptor (90%), but negative for HER-2 (ratio 1.1). The KI???67 was 75%. Neoadjuvant chemotherapy was prescribed. Dose dense Adriamycin and cyclophosphamide were administered between the dates of February 09, 2020 through July 24, 2020. Subsequent to dose dense AC, weekly Taxol was prescribed completing December 14, 2020. A right total mastectomy was performed by Lalito Castillo M.D. on January 04, 2021. A 5.1 cm high-grade invasive lobular carcinoma was identified with dermal involvement. No lymph nodes were identified. All margins were negative for malignancy (closest margin was 2 mm). She has received 2 Gy of a prescribed 50 Gy delivered with a 3D conformal radiotherapy plan utilizing opposed tangential portal pickett matched to supraclavicular fossa and PAB ports. Upon review of systems, she denied chest wall complaints related to radiotherapy. On physical examination, the patient weighed 166 lbs. Her temperature was 97.9 ???F with a blood pressure of 152/81 mmHg. Her pulse was 68 bpm and her respiratory rate was 18. There was no erythema within the treatment pickett of the right chest wall. Continue right chest wall and regional lymph node irradiation as prescribed. Signed by: Dr. Kaushal Adame 02/27/2021 2:51:45 PM
--- NOTE | 2021-03-05 10:51 | ONCRAD TMN_ITS ---
Radiation Oncology Treatment Management Note Patient Name: Violetta Beaulieu Date of : 1955 Date of Service: 03/05/2021 Attending Physician: Kaushal Adame M.D. Violetta Beaulieu is a 65 year-old white female diagnosed with a pathological stage yIIIA (T3Nx) invasive lobular carcinoma of the right breast. The breast cancer prognostic profile was positive for estrogen receptor (99%) and progesterone receptor (90%), but negative for HER-2 (ratio 1.1). The KI???67 was 75%. Neoadjuvant chemotherapy was prescribed. Dose dense Adriamycin and cyclophosphamide were administered between the dates of February 09, 2020 through July 24, 2020. Subsequent to dose dense AC, weekly Taxol was prescribed completing December 14, 2020. A right total mastectomy was performed by Lalito Castillo M.D. on January 04, 2021. A 5.1 cm high-grade invasive lobular carcinoma was identified with dermal involvement. No lymph nodes were identified. All margins were negative for malignancy (closest margin was 2 mm). She has received 10 Gy of a prescribed 50 Gy delivered with a 3D conformal radiotherapy plan utilizing opposed tangential portal pickett matched to supraclavicular fossa and PAB ports. Upon review of systems, she denied chest wall complaints related to radiotherapy. On physical examination, the patient weighed 165 lbs. Her temperature was 97.5 ???F with a blood pressure of 145/65 mmHg. Her pulse was 64 bpm and her respiratory rate was 18. There was no erythema within the treatment pickett of the right chest wall. Continue right chest wall and regional lymph node irradiation as prescribed. Signed by: Dr. Kaushal Adame 03/05/2021 10:50:34 AM
--- NOTE | 2021-03-12 10:53 | ONCRAD TMN_ITS ---
Radiation Oncology Treatment Management Note Patient Name: Violetta Beaulieu Date of : 1955 Date of Service: 03/12/2021 Attending Physician: Kaushal Adame M.D. Violetta Beaulieu is a 65 year-old white female diagnosed with a pathological stage yIIIA (T3Nx) invasive lobular carcinoma of the right breast. The initial clinical stage was IIIB (T4bN1) The breast cancer prognostic profile was positive for estrogen receptor (99%) and progesterone receptor (90%), but negative for HER-2 (ratio 1.1). The KI???67 was 75%. Neoadjuvant chemotherapy was prescribed. Dose dense Adriamycin and cyclophosphamide were administered between the dates of February 09, 2020 through July 24, 2020. Subsequent to dose dense AC, weekly Taxol was prescribed completing December 14, 2020. A right total mastectomy was performed by Lalito Castillo M.D. on January 04, 2021. A 5.1 cm high-grade invasive lobular carcinoma was identified with dermal involvement. No lymph nodes were identified. All margins were negative for malignancy (closest margin was 2 mm). She has received 20 Gy of a prescribed 50 Gy delivered with a 3D conformal radiotherapy plan utilizing opposed tangential portal pickett matched to supraclavicular fossa and PAB ports. Upon review of systems, she denied chest wall complaints related to radiotherapy. On physical examination, the patient weighed 166 lbs. Her temperature was 97.4 ???F with a blood pressure of 133/68 mmHg. Her pulse was 61 bpm and her respiratory rate was 18. There was no erythema within the treatment pickett of the right chest wall. Continue right chest wall and regional lymph node irradiation as prescribed. Signed by: Dr. Kaushal Adame 03/12/2021 10:51:43 AM
--- NOTE | 2021-03-20 10:57 | ONCRAD TMN_ITS ---
Radiation Oncology Treatment Management Note Patient Name: Violetta Beaulieu Date of : 1955 Date of Service: 03/20/2021 Attending Physician: Kaushal Adame M.D. Violetta Beaulieu is a 65 year-old white female diagnosed with a pathological stage yIIIA (T3Nx) invasive lobular carcinoma of the right breast. The initial clinical stage was IIIB (T4bN1) The breast cancer prognostic profile was positive for estrogen receptor (99%) and progesterone receptor (90%), but negative for HER-2 (ratio 1.1). The KI???67 was 75%. Neoadjuvant chemotherapy was prescribed. Dose dense Adriamycin and cyclophosphamide were administered between the dates of February 09, 2020 through July 24, 2020. Subsequent to dose dense AC, weekly Taxol was prescribed completing December 14, 2020. A right total mastectomy was performed by Lalito Castillo M.D. on January 04, 2021. A 5.1 cm high-grade invasive lobular carcinoma was identified with dermal involvement. No lymph nodes were identified. All margins were negative for malignancy (closest margin was 2 mm). She has received 32 Gy of a prescribed 50 Gy delivered with a 3D conformal radiotherapy plan utilizing opposed tangential portal pickett matched to supraclavicular fossa and PAB ports. Upon review of systems, she denied chest wall complaints related to radiotherapy. On physical examination, the patient weighed 167 lbs. Her temperature was 97.6 ???F with a blood pressure of 128/62 mmHg. Her pulse was 65 bpm and her respiratory rate was 18. There was a grade I erythema within the treatment pickett of the right chest wall. Continue right chest wall and regional lymph node irradiation as planned. Signed by: Dr. Kaushal Adame 03/20/2021 10:54:52 AM
== END 2021-03-22 23:59 | disposition home or self-care (01) ==
LOC: ONCMED 06:32
PROVIDERS: Internal Medicine Hematology & Oncology; PCP Physician Assistant Medical; Visit Provider Radiology Radiation Oncology
DX: Z51.0 Encounter for antineoplastic radiation therapy (principal); C50.811 Malignant neoplasm of overlapping sites of right female breast; Z17.0 Estrogen receptor positive status [ER+]; D64.9 Anemia, unspecified; Z90.11 Acquired absence of right breast and nipple; Z79.811 Long term (current) use of aromatase inhibitors
CPT/HCPCS: 36591; 77295; 77300; 77334; 77336; 77387; 77412; 80053; 85025; 99214

== ENCOUNTER 2021-04-20 06:18 | Outpatient (RCR) | payer MEDICARE, MEDICAID, SELFPAY ==
--- NOTE | 2021-03-26 10:31 | ONCRAD TMN_ITS ---
Radiation Oncology Treatment Management Note Patient Name: Violetta Beaulieu Date of : 1955 Date of Service: 03/26/2021 Attending Physician: Kaushal Adame M.D. Violetta Beaulieu is a 65 year-old white female diagnosed with a pathological stage yIIIA (T3Nx) invasive lobular carcinoma of the right breast. The initial clinical stage was IIIB (T4bN1) The breast cancer prognostic profile was positive for estrogen receptor (99%) and progesterone receptor (90%), but negative for HER-2 (ratio 1.1). The KI???67 was 75%. Neoadjuvant chemotherapy was prescribed. Dose dense Adriamycin and cyclophosphamide were administered between the dates of February 09, 2020 through July 24, 2020. Subsequent to dose dense AC, weekly Taxol was prescribed completing December 14, 2020. A right total mastectomy was performed by Lalito Castillo M.D. on January 04, 2021. A 5.1 cm high-grade invasive lobular carcinoma was identified with dermal involvement. No lymph nodes were identified. All margins were negative for malignancy (closest margin was 2 mm). She has received 48 Gy of a prescribed 50 Gy delivered with a 3D conformal radiotherapy plan utilizing opposed tangential portal pickett matched to supraclavicular fossa and PAB ports. Upon review of systems, she denied chest wall complaints related to radiotherapy. On physical examination, the patient weighed 167 lbs. Her temperature was 97.9 ???F with a blood pressure of 155/95 mmHg. Her pulse was 82 bpm and her respiratory rate was 18. There was a grade II erythema within the treatment pickett of the right chest wall. Continue right chest wall and regional lymph node irradiation as prescribed. Signed by: Dr. Kaushal Adame 03/26/2021 10:29:17 AM
--- NOTE | 2021-04-16 10:00 | ONCRAD TMN_ITS ---
Radiation Oncology Treatment Management Note Patient Name: Violetta Beaulieu Date of : 1955 Date of Service: 04/16/2021 Attending Physician: Kaushal Adame M.D. Violetta Beaulieu is a 65 year-old white female diagnosed with a pathological stage yIIIA (T3Nx) invasive lobular carcinoma of the right breast. The initial clinical stage was IIIB (T4bN1) The breast cancer prognostic profile was positive for estrogen receptor (99%) and progesterone receptor (90%), but negative for HER-2 (ratio 1.1). The KI???67 was 75%. Neoadjuvant chemotherapy was prescribed. Dose dense Adriamycin and cyclophosphamide were administered between the dates of February 09, 2020 through July 24, 2020. Subsequent to dose dense AC, weekly Taxol was prescribed completing December 14, 2020. A right total mastectomy was performed by Lalito Castillo M.D. on January 04, 2021. A 5.1 cm high-grade invasive lobular carcinoma was identified with dermal involvement. No lymph nodes were identified. All margins were negative for malignancy (closest margin was 2 mm). She has received 42 Gy of a prescribed 50 Gy delivered with a 3D conformal radiotherapy plan utilizing opposed tangential portal pickett matched to supraclavicular fossa and PAB ports. Upon review of systems, she denied chest wall complaints related to radiotherapy. On physical examination, the patient weighed 172 lbs. Her temperature was 98.2 ???F and the blood pressure was 158/78 mmHg. Her pulse was 87 bpm and her respiratory rate was 20. There was a grade I erythema within the treatment pickett of the right chest wall. Continue right chest wall and regional lymph node irradiation as planned. Signed by: Dr. Kaushal Adame 04/16/2021 9:58:50 AM
--- NOTE | 2021-04-25 13:52 | N.ONRD TS_ITS ---
Radiation OncologyTreatment Summary Patient Name: Violetta Beaulieu Date of : 1955 Date of Service: 04/20/2021 Attending Physician: Kaushal Adame M.D. Violetta Beaulieu has completed adjuvant radiotherapy for the management of a pathological stage yIIIA (T3Nx) invasive lobular carcinoma of the right breast. The initial clinical stage was IIIB (T4bN1). The breast cancer prognostic profile was positive for estrogen receptor (99%) and progesterone receptor (90%), but negative for HER-2 (ratio 1.1). The KI???67 was 75%. Neoadjuvant chemotherapy was prescribed (dose dense Adriamycin and cyclophosphamide were administered between the dates of February 09, 2020 through July 24, 2020). Subsequent to dose dense AC, weekly Taxol was prescribed completing December 14, 2020. A right total mastectomy was performed by Lalito Castillo M.D. on January 04, 2021. A 5.1 cm high-grade invasive lobular carcinoma was identified with dermal involvement. No lymph nodes were identified. All margins were negative for malignancy (closest margin was 2 mm). Daily radiotherapy was administered between the dates of February 27, 2021 through April 20, 2021. A dose of 50 Gy was delivered in 25 fractions encompassing 53 elapsed days. The right chest wall and regional lymph nodes were treated utilizing a 3-dimensional conformal radiotherapy plan with an opposed tangential portal field design matched to a right anterior oblique port and posterior axillary boost field. The medial tangential field utilized a 51??? gantry angle with an associated collimator angle of 0???. The field size measured 13 cm x 3.5 cm within the X-direction and 18.5 cm x 0 cm within the Y-direction. The measured SSD was 93.2 cm with the field delivering 106 monitor units with low energy photons. Complementary pickett were incorporated in a [id number] approach that apportioned 11 MU and 5 MU. The lateral tangential field employed a gantry angle of 226??? and an associated collimator angle of 0???. The field size measured 3.5 cm x 13 cm within X-direction and 18.5 cm x 0 cm within the Y-direction. The measured SSD was 87.6 cm with the port delivering 110 monitor units. A photon energy of 6 MV was prescribed. Additional lateral tangential pickett were arranged using a [id number]-qa-[id number] technique with 6 MV photon energy prescribed that allocated 12 MU, 8 MU, and 5 MU. The supraclavicular portal pickett implemented an SWEDISH port with a gantry angle of 15??? and an associated collimator angle 0???. The port size measured 7 cm x 7 cm within the X-direction and 7 cm x 0 cm within the Y-direction. The measured SSD was 95.2 cm with the port apportioning 111 monitor units. A photon energy of 15 MV was prescribed. Supplemental [id number] were designed prescribing 15 MV photon energies that distributed 78 MU and 9 MU. A posterior axillary boost field was incorporated with a gantry angle of 180??? and a 0???collimator angle. The field measured 4 cm x 7 cm within the X-direction and 0 cm x 7 cm within the Y-direction. High energy photons were prescribed. The port allotted 30 monitor units. All treatments were performed with the NuLabel iX linear accelerator with an isocentric technique. The dose was calculated by anisotropic analytic algorithm. The plan normalized to deliver 100% of the prescription dose to 97% of the planning target volume. The supraclavicular and posterior axillary plans were normalized to administer 100% of the dose to a defined reference point. The plan was approved by the [facility] physician. Signed by: Dr. Kaushal Adame 04/25/2021 1:51:32 PM
== END 2021-04-22 23:59 | disposition home or self-care (01) ==
LOC: ONCMED 06:18
PROVIDERS: PCP Physician Assistant Medical; Visit Provider Radiology Radiation Oncology
DX: Z51.0 Encounter for antineoplastic radiation therapy (principal); C50.811 Malignant neoplasm of overlapping sites of right female breast; Z17.0 Estrogen receptor positive status [ER+]; D70.1 Agranulocytosis secondary to cancer chemotherapy; T45.1X5D Adverse effect of antineoplastic and immunosuppressive drugs, subsequent encounter
CPT/HCPCS: 77014; 77336; 77387; 77412; 77427; 96523

== ENCOUNTER 2021-05-11 06:27 | Outpatient (RCR) | payer MEDICARE, MEDICAID, SELFPAY ==
[2021-05-04 09:10] LABS: Basophils # 0.1 10^3/uL (0.0-0.1); Basophils % 0.7 %; Eosinophils # 0.1 10^3/uL (0.0-0.8); Eosinophils % 1.2 %; Hematocrit 39.5 % (37.0-47.0); Hemoglobin 12.2 g/dL (11.5-15.3); Lymphocytes # 0.4 10^3/uL (0.8-4.8); Lymphocytes % 5.3 %; Mean Corpuscular HGB Conc 30.9 g/dL (30.0-36.0); Mean Corpuscular Hemoglobin 28.8 pg (28.0-34.0); Mean Corpuscular Volume 93.2 fl (81-99); Mean Platelet Volume 8.4 fL (7.4-10.4); Monocytes # 0.7 10^3/uL (0.2-0.9); Monocytes % 8.3 %; Neutrophils % 84.3 %; Nucleated Red Blood Cells % 0 %; Platelet Count 302 10^3/cmm (130-400); Red Blood Count 4.24 10^6/uL (4.1-5.3); Red Cell Distribution Width 16.1 % (12.1-15.1); White Blood Count 8.3 10^3/uL (4.0-10.0)
[2021-05-04 09:34] LABS: Ferritin 127 ng/mL (15-150); Iron 64 ug/dL (37-145); Percent Saturation 22.3 % (20-50); Total Iron Binding Capacity 286 mcg/dl; Unsaturated Iron Binding 222 ug/dL (112-347)
--- NOTE | 2021-05-06 18:26 | ONC FU_ITS ---
Dr. Antunez follow up note Patient: Violetta Beaulieu Unit #: [id number]: 1955 Dicatated By: Lexi Antunez M.D.Date of Visit:May 04, 2021 Onc Med Follow-up/Prog Note History of Present Illness: Ms. Beaulieu is a 64-year-old female with more than year-long history of abnormality in the right breast. She reports that in about 2018 she noticed a small skin lesion in her right breast, she thought it was a mosquito bite. Later on she noticed a scab but it did not bother her until about 2 months ago when she noted a skin wound with some discharge along with damage in the right breast nipple and since then it has progressed, now with destruction of right breast nipple and firmness and shrinkage in more than two third of her right breast. Eventually, Ms Beaulieu went to see her primary care physician and underwent bilateral mammogram and ultrasonogram on December 23, 2019. The right breast showed heterogeneous fibroglandular density tissue with diffuse skin thickening with architectural distortion mid depth right breast, soft tissue thickening in the area of skin ulceration and indentation. Architectural distortion mid and posterior depth right breast with punctate indeterminate calcification and ultrasound right breast in the area of ulceration showed large hypoechoic ill-defined shadowing lesion suspicious for malignancy. Margins are difficult to define with overlying skin thickening and inverted nipple. Ms Beaulieu was seen by Dr. Castillo and on exam he he noticed right axillary lymphadenopathy. Subsequently on December 30, 2019 Mrs Beaulieu underwent ultrasound-guided right breast biopsy as well as right axillary lymph node biopsy. The final pathology report came back invasive lobular carcinoma breast 3 out of 5 cores involved longest positive core was 1.2 cm. And right axillary lymph node biopsy also confirmed invasive lobular carcinoma extending into fibroadipose tissue with extensive involvement and very little lymphoid tissue identified. Prognostic molecular profiling was done which confirmed ER AR positive disease ER being 99% positive AR 90% positive HER-2/chuckie negative with a markedly elevated Ki-67 at 75% which is unfavorable. No family history positive for breast cancer No history of smoking or alcohol use no history of diabetes, postmenopausal and menarche at age 12 or 13 years of age. Patient denies any fever or chills, denies any nausea or vomiting, denies any diarrhea or constipation, denies any vaginal bleeding denies any hematuria. Echocardiogram done on February 01, 2020 showed ejection fraction 65%. Ms Beaulieu began dose dense Adriamycin Cytoxan every 2 weeks with Neulasta support on February 09, 2020. She did have severe chemo induced neutropenia resulting in cycle 2 being delayed. She has tolerated it well otherwise. Patient received third cycle of dose dense Adriamycin/Cytoxan on March 16, 2020 subsequently underwent ultrasound right breast which showed large mass in the right breast did appear smaller in size when compared with December 23, 2019 but margins were poorly visualized. The abnormal lymph nodes in the right axilla is no longer present was several benign-appearing lymph nodes seen in the right axilla. Ms Beaulieu was supposed to conclude her dose dense chemotherapy e.g. cycle #4 in first week of March 2020 but patient never came back due to her family/social problems as per patient her brother got sick and there was no one to drive her to the clinic. 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 Ms. Beaulieu resumed her chemotherapy on 07/24/2020. Her last chemotherapy prior to that was March 16, 2020 at which time she had received cycle 3 cyclophosphamide Adriamycin. She was supported with Neulasta at that time as well. She has not had treatment since then as she took time off to take care of her brother who was ill. She was due to resume treatment on July 04, 2020 but was found to have a nonfunctioning Port-A-Cath. She was referred back to Dr. Castillo and she underwent explantation of the left upper chest Port-A-Cath and placement of a new PowerPort in the left subclavian vein on July 17, 2020. She tolerated cycle 4 adrimycin/Cytoxan well. She was due to start her taxane portion of her treatment plan on 08/07/2020 but that was delayed due to inclement weather. She had further delay due to venous access complications requiring replacement of her access device again. She had placement of a right internal juglar PowerPort on 09/05/[address] Castillo @ [facility] Patient completed her recommended neoadjuvant chemotherapy e.g. Adriamycin and Cytoxan followed by Taxol on December 14, 2020 and Subsequently underwent postmastectomy radiation therapy and completed radiation therapy on April 20, 2021 subsequently underwent right mastectomy on January 04, 2021 which showed invasive lobular carcinoma size of 5.1 cm clear surgical margin, T3, no lymph node identified NX, Ki-67 75%, estrogen receptor 99%, progesterone 90%, HER-2/chuckie negative tolerating Arimidex well, Came for follow-up, denies any specific complaints, no fever chills, no nausea or vomiting, no diarrhea or constipation, no melena hematochezia, no jaundice, no new bony pains, tolerating Arimidex well along with vitamin D and calcium supplements Medications: Acetaminophen 1 - 2 Capsule (of 325 mg) Oral daily PRN, Cardizem CD 1 Capsule (of 240 mg) Capsule SR 24 HR Oral daily, Oxybutynin Chloride 1 Tablet (of 5 mg) Oral daily, PROzac 1 Capsule (of 20 mg) Oral daily Allergies: No Known Allergies. Review of Systems: Review of Systems is not available for this patient. Vital Signs: Performed on May 04, 2021 10:04 Height - 62.00 in Weight - 172 lbs BSA - 1.79 sq.m BMI - 31.46 (HIGH) Temperature - 98.1 F (LOW) Pulse - 77 /min Respiration - 18 /min BP - 175/89 mm(hg) (HIGH) O2 Sat - 95 % (LOW) Pain - 0 Fatigue - 0 Performance Status: 0 - Fully active, able to carry on all predisease activities without restrictions. (ECOG) Physical Examination: Respiratory - Lungs are clear to auscultation, Cardiovascular - Regular rate and rhythm of heart, Gastrointestinal - Soft, bowel sounds present, Extremities - No visible edema. Lab/Imaging: Test performed on Dec 14, 2020 10:03 Sodium 137 mmol/L Potassium 4.2 mmol/L Chloride 104 mmol/L CO2 23 mmol/L Anion Gap 14.2 BUN 14 mg/dL Creatinine 0.6 mg/dL Cr Clearance (Est) 111.5100 mL/min eGFR 100.6 mL/min Glucose 160 mg/dL Osmolality - Calculated 288 mOsm/kg Calcium 9.0 mg/dL Protein, Total 6.1 g/dL Albumin 3.7 g/dL Globulin 2.4 g/dL Bilirubin, Total 0.3 mg/dL ALT (SGPT) 13 U/L AST (SGOT) 10 U/L Alkaline Phosphatase 87 IU/L WBC 5.6 10 3/uL RBC 3.42 10 6/uL HGB 10.3 g/dL HCT 33.6 % MCV 98.2 fL MCH 30.1 pg MCHC 30.7 g/dL RDW 15.7 % Platelet Count 369 10 3/cmm MPV 8.3 fL Neutrophils 5.21 10 3/uL Lymphocytes 0.3 10 3/uL Monocytes 0.0 10 3/uL Eosinophils 0.0 10 3/uL Basophils 0.0 10 3/uL Neutrophil % 92.8 % Lymphocyte % 4.5 % Monocyte % 0.4 % Eosinophil % 0.0 % Basophils % 0.2 % NRBC % 0 % Test performed on Nov 30, 2020 09:05 CBC Slide Review Slide Review Perform SLIDE REVIEW AGREES WITH AUTOMATED RESULTS Impression: Locally advance invasive lobular carcinoma involving the right breast With a skin ulceration and right axillary lymph node per ultrasound-guided biopsy done on December 30, 2019 ER 99% positive AR 90% positive HER-2/chuckie negative, Ki-67 75% Clinical stage T4b, N1 Mx IIIB Ejection fraction was 65% on echo done on February 01, 2020, Started on Neoadjuvant chemotherapy with dose dense Adriamycin Cytoxan with Neulasta support x4 on February 09, 2020, will be followed by weekly Taxol x12. She is tolerated her first cycle of Adriamycin Cytoxan well although she did have significant chemotherapy-induced neutropenia resulting in a delay in starting cycle 2.But patient stopped taking dose dense Adriamycin/Cytoxan after cycle # 3/4, because of her personal/family issues, as per patient her brother got sick and she was looking after him so she decided to delay her chemotherapy until he recovers, knowing the risk versus benefit involved with delaying neoadjuvant chemotherapy and also her transportation issue. Right breast ultrasound done after 3 cycles of dose dense Adriamycin/Cytoxan on April 11, 2020 showed large mass in the right breast does appear smaller in size as compared to December 23, 2019 but margins are poorly visualized and abnormal lymph nodes in the right axilla is no longer present. Mrs. Beaulieu chemotherapy plan with Adriamycin/Cytoxan has been interupted with cycle 3 on March 16, 2020. She stopped treatment on her own/AGAINST MEDICAL ADVICE to take care of her brother who was sick and she had transportation issues as well. Those situations have now resolved. Clinically, patient is doing well with no new signs symptoms but has persistent mass and edema in her right breast with overlying scarring. clinically it appeared there may be disease progression in her right breast. In that case, it was recommended that she resume her neoadjuvant chemotherapy with cycle #4/final dose of Adriamycin/Cytoxan. She resumed cycle 4 Adriamycin/Cytoxan on 07/24/2020 with Neulasta support. She was due to resume treatment on July 04, 2020 but was found to have a nonfunctioning Port-A-Cath. She was referred back to Dr. Castillo and she underwent explantation of the left upper chest Port-A-Cath and placement of a new PowerPort in the left subclavian vein on July 17, 2020. She tolerated cycle 4 adrimycin/Cytoxan well. She was due to start her taxane portion of her treatment plan on 08/07/2020 but that was delayed due to inclement weather. She was encouraged to proceed with weekly Taxol x12. , advised Ms Beaulieu to complete neoadjuvant chemotherapy as recommended without further delay and also discussed about importance of compliance with the chemotherapy schedule, patient expressed full understanding. She is highly motivated to complete treatment., Patient completed her adjuvant chemotherapy e.g. Adriamycin and Cytoxan followed by Taxol on December 14, 2020, subsequently underwent right mastectomy on January 04, 2021 which showed 5.1 cm, invasive lobular carcinoma, high-grade, clear surgical margin T3, no lymph nodes identified, NX, ER/AR positive HER-2/chuckie negative, Patient was started on adjuvant hormonal therapy with Arimidex 1 mg p.o. daily for 5 years on January 19, 2021 And was referred to radiation oncology for evaluation for postmastectomy radiation therapy, Patient completed radiation therapy on April 20, 2021 Plan: Discussed with patient regarding her labs white blood count 8.3 hemoglobin 12.2 hematocrit 39.5 platelets 302,000 iron studies showed iron saturation 22.3% compared to 11% previously ferritin 127 iron 64 TIBC 286 Clinically, patient doing well with no new signs symptom suggestive of recurrence of disease her follow-up labs shows resolution of her anemia and iron studies within normal range. Patient will return to clinic in 3 months with CBC in the meantime continue with monthly port maintenance and daily Arimidex along with vitamin D and calcium supplements Signed By: Lexi Antunez M.D. <<Signature on File>>
--- NOTE | 2021-05-11 10:57 | ONCRAD EPV_ITS ---
Radiation Oncology Follow-Up Note Patient Name: Violetta Beaulieu Date of : 1955 Date of Service: 05/11/2021 Attending Physician: Kaushal Adame M.D. Violetta Beaulieu returned to my office this morning for a routinely scheduled post-radiotherapy appointment. She completed adjuvant radiotherapy in March for the management of a pathological stage yIIIA (T3Nx) invasive lobular carcinoma of the right breast. The initial clinical stage was IIIB (T4bN1). The breast cancer prognostic profile was positive for estrogen receptor (99%) and progesterone receptor (90%), but negative for HER-2 (ratio 1.1). The KI???67 was 75%. Neoadjuvant chemotherapy was prescribed (dose dense Adriamycin and cyclophosphamide were administered between the dates of February 09, 2020 through July 24, 2020). Subsequent to dose dense AC, weekly Taxol was prescribed completing December 14, 2020. A right total mastectomy was performed by Lalito Castillo M.D. on January 04, 2021. A 5.1 cm high-grade invasive lobular carcinoma was identified with dermal involvement. No lymph nodes were identified. All margins were negative for malignancy (closest margin was 2 mm). Daily radiotherapy was administered between the dates of February 27, 2021 through April 20, 2021. A dose of 50 Gy was delivered in 25 fractions encompassing 53 elapsed days. On review of systems, she denied skin complaints of the right chest wall. On physical examination, she weighed 175 lbs and her temperature was 97.8???F. Her blood pressure was 137/72 mmHg. The pulse was 60 bpm and her respiratory rate was 18 breaths per minute. The right chest wall demonstrated minimal hyperpigmentation without any areas of ulceration. In summary, Ms. Beaulieu returned for a routine post-radiotherapy follow-up. No sequelae from treatment were present. She will continue follow-up with her medical oncologist. Signed by: Dr. Kaushal Adame 05/11/2021 10:55:28 AM
== END 2021-05-22 23:59 | disposition home or self-care (01) ==
LOC: ONCMED 06:27
PROVIDERS: Internal Medicine Hematology & Oncology; PCP Physician Assistant Medical; Visit Provider Radiology Radiation Oncology
DX: C50.811 Malignant neoplasm of overlapping sites of right female breast (principal); Z17.0 Estrogen receptor positive status [ER+]; D50.9 Iron deficiency anemia, unspecified; E55.9 Vitamin D deficiency, unspecified; Z79.899 Other long term (current) drug therapy; Z79.811 Long term (current) use of aromatase inhibitors; Z92.21 Personal history of antineoplastic chemotherapy; Z92.3 Personal history of irradiation; Z90.11 Acquired absence of right breast and nipple
CPT/HCPCS: 36591; 82728; 83540; 83550; 85025; 99024; 99214

== ENCOUNTER 2021-06-04 06:42 | Outpatient (RCR) | payer MEDICARE, MEDICAID, SELFPAY | END 2021-06-22 23:59 | disposition home or self-care (01) | LOC: ONCMED 06:42 | PROVIDERS: PCP Physician Assistant Medical; Visit Provider Internal Medicine Hematology & Oncology | DX: Z45.2 Encounter for adjustment and management of vascular access device (principal) | CPT/HCPCS: 96523 ==

== ENCOUNTER 2021-06-26 13:47 | Outpatient (RCR) | payer MEDICARE, MEDICAID, SELFPAY | END 2021-07-23 23:59 | disposition home or self-care (01) | LOC: ONCMED 13:47 | PROVIDERS: Visit Provider Internal Medicine Hematology & Oncology | DX: C50.811 Malignant neoplasm of overlapping sites of right female breast (principal); Z17.0 Estrogen receptor positive status [ER+]; D70.1 Agranulocytosis secondary to cancer chemotherapy; T45.1X5A Adverse effect of antineoplastic and immunosuppressive drugs, initial encounter; Z79.899 Other long term (current) drug therapy | CPT/HCPCS: 36591 ==

== ENCOUNTER 2021-09-24 10:37 | Outpatient (RCR) | payer MEDICARE, MEDICAID, SELFPAY ==
[2021-09-24 11:29] LABS: Basophils % 0.5 %; Eosinophils # 0.1 10^3/uL (0.0-0.8); Hematocrit 40.8 % (37.0-47.0); Hemoglobin 13.1 g/dL (11.5-15.3); Lymphocytes # 0.7 10^3/uL (0.8-4.8); Lymphocytes % 11.8 %; Mean Corpuscular HGB Conc 32.1 g/dL (30.0-36.0); Mean Corpuscular Hemoglobin 31.5 pg (28.0-34.0); Mean Corpuscular Volume 98.1 fl (81-99); Mean Platelet Volume 8.8 fL (7.4-10.4); Monocytes # 0.5 10^3/uL (0.2-0.9); Monocytes % 8.7 %; Neutrophils # 4.69 10^3/uL (1.8-7.7); Neutrophils % 76.8 %; Nucleated Red Blood Cells % 0 %; Platelet Count 285 10^3/cmm (130-400); Red Blood Count 4.16 10^6/uL (4.1-5.3); Red Cell Distribution Width 12.7 % (12.1-15.1); White Blood Count 6.1 10^3/uL (4.0-10.0)
--- NOTE | 2021-09-28 08:58 | ONC FU_ITS ---
Dr. Antunez follow up note Patient: Violetta Beaulieu Unit #: [id number]: 1955 Dicatated By: Lexi Antunez M.D.Date of Visit:Sep 24, 2021 Onc Med Follow-up/Prog Note History of Present Illness: Ms. Beaulieu is a 65-year-old female with more than year-long history of abnormality in the right breast. She reports that in about 2018 she noticed a small skin lesion in her right breast, she thought it was a mosquito bite. Later on she noticed a scab but it did not bother her until about 2 months ago when she noted a skin wound with some discharge along with damage in the right breast nipple and since then it has progressed, now with destruction of right breast nipple and firmness and shrinkage in more than two third of her right breast. Eventually, Ms Beaulieu went to see her primary care physician and underwent bilateral mammogram and ultrasonogram on December 23, 2019. The right breast showed heterogeneous fibroglandular density tissue with diffuse skin thickening with architectural distortion mid depth right breast, soft tissue thickening in the area of skin ulceration and indentation. Architectural distortion mid and posterior depth right breast with punctate indeterminate calcification and ultrasound right breast in the area of ulceration showed large hypoechoic ill-defined shadowing lesion suspicious for malignancy. Margins are difficult to define with overlying skin thickening and inverted nipple. Ms Beaulieu was seen by Dr. Castillo and on exam he he noticed right axillary lymphadenopathy. Subsequently on December 30, 2019 Mrs Beaulieu underwent ultrasound-guided right breast biopsy as well as right axillary lymph node biopsy. The final pathology report came back invasive lobular carcinoma breast 3 out of 5 cores involved longest positive core was 1.2 cm. And right axillary lymph node biopsy also confirmed invasive lobular carcinoma extending into fibroadipose tissue with extensive involvement and very little lymphoid tissue identified. Prognostic molecular profiling was done which confirmed ER MA positive disease ER being 99% positive MA 90% positive HER-2/chuckie negative with a markedly elevated Ki-67 at 75% which is unfavorable. No family history positive for breast cancer No history of smoking or alcohol use no history of diabetes, postmenopausal and menarche at age 12 or 13 years of age. Patient denies any fever or chills, denies any nausea or vomiting, denies any diarrhea or constipation, denies any vaginal bleeding denies any hematuria. Echocardiogram done on February 01, 2020 showed ejection fraction 65%. Ms Beaulieu began dose dense Adriamycin Cytoxan every 2 weeks with Neulasta support on February 09, 2020. She did have severe chemo induced neutropenia resulting in cycle 2 being delayed. She has tolerated it well otherwise. Patient received third cycle of dose dense Adriamycin/Cytoxan on March 16, 2020 subsequently underwent ultrasound right breast which showed large mass in the right breast did appear smaller in size when compared with December 23, 2019 but margins were poorly visualized. The abnormal lymph nodes in the right axilla is no longer present was several benign-appearing lymph nodes seen in the right axilla. Ms Beaulieu was supposed to conclude her dose dense chemotherapy e.g. cycle #4 in first week of March 2020 but patient never came back due to her family/social problems as per patient her brother got sick and there was no one to drive her to the clinic. 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 Ms. Beaulieu resumed her chemotherapy on 07/24/2020. Her last chemotherapy prior to that was March 16, 2020 at which time she had received cycle 3 cyclophosphamide Adriamycin. She was supported with Neulasta at that time as well. She has not had treatment since then as she took time off to take care of her brother who was ill. She was due to resume treatment on July 04, 2020 but was found to have a nonfunctioning Port-A-Cath. She was referred back to Dr. Castillo and she underwent explantation of the left upper chest Port-A-Cath and placement of a new PowerPort in the left subclavian vein on July 17, 2020. She tolerated cycle 4 adrimycin/Cytoxan well. She was due to start her taxane portion of her treatment plan on 08/07/2020 but that was delayed due to inclement weather. She had further delay due to venous access complications requiring replacement of her access device again. She had placement of a right internal juglar PowerPort on 09/05/[address] Castillo @ [facility] Patient completed her recommended neoadjuvant chemotherapy e.g. Adriamycin and Cytoxan followed by Taxol on December 14, 2020 and Subsequently underwent postmastectomy radiation therapy and completed radiation therapy on April 20, 2021 subsequently underwent right mastectomy on January 04, 2021 which showed invasive lobular carcinoma size of 5.1 cm clear surgical margin, T3, no lymph node identified NX, Ki-67 75%, estrogen receptor 99%, progesterone 90%, HER-2/chuckie negative tolerating Arimidex well, Came for follow-up, denies any specific complaints, no fever chills, no nausea or vomiting, no diarrhea constipation, no melena hematochezia, no hemoptysis hematemesis, no left breast nipple discharge or fullness, occasionally hot flashes otherwise tolerating Arimidex along with vitamin D and calcium well Medications: Acetaminophen 1 - 2 Capsule (of 325 mg) Oral daily PRN, Cardizem CD 1 Capsule (of 240 mg) Capsule SR 24 HR Oral daily, Oxybutynin Chloride 1 Tablet (of 5 mg) Oral daily, PROzac 1 Capsule (of 20 mg) Oral daily Allergies: No Known Allergies. Review of Systems: Review of Systems is not available for this patient. Vital Signs: Performed on Sep 24, 2021 12:31 Height - 62.00 in Weight - 179.8 lbs (HIGH) BSA - 1.83 sq.m BMI - 32.89 (HIGH) Temperature - 97.6 F (LOW) Pulse - 56 /min (LOW) Respiration - 19 /min BP - 162/61 mm(hg) (HIGH) O2 Sat - 99 % Pain - 0 Fatigue - 3 Performance Status: 0 - Fully active, able to carry on all predisease activities without restrictions. (ECOG) Physical Examination: Respiratory - Lungs are clear to auscultation, Cardiovascular - Regular rate and rhythm of heart, Gastrointestinal - Soft, bowel sounds present, Extremities - No visible edema. Lab/Imaging: Most recent lab results are not available for this patient. Impression: Locally advance invasive lobular carcinoma involving the right breast With a skin ulceration and right axillary lymph node per ultrasound-guided biopsy done on December 30, 2019 ER 99% positive MA 90% positive HER-2/chuckie negative, Ki-67 75% Clinical stage T4b, N1 Mx IIIB Ejection fraction was 65% on echo done on February 01, 2020, Started on Neoadjuvant chemotherapy with dose dense Adriamycin Cytoxan with Neulasta support x4 on February 09, 2020, will be followed by weekly Taxol x12. She is tolerated her first cycle of Adriamycin Cytoxan well although she did have significant chemotherapy-induced neutropenia resulting in a delay in starting cycle 2.But patient stopped taking dose dense Adriamycin/Cytoxan after cycle # 3/4, because of her personal/family issues, as per patient her brother got sick and she was looking after him so she decided to delay her chemotherapy until he recovers, knowing the risk versus benefit involved with delaying neoadjuvant chemotherapy and also her transportation issue. Right breast ultrasound done after 3 cycles of dose dense Adriamycin/Cytoxan on April 11, 2020 showed large mass in the right breast does appear smaller in size as compared to December 23, 2019 but margins are poorly visualized and abnormal lymph nodes in the right axilla is no longer present. Mrs. Beaulieu chemotherapy plan with Adriamycin/Cytoxan has been interupted with cycle 3 on March 16, 2020. She stopped treatment on her own/AGAINST MEDICAL ADVICE to take care of her brother who was sick and she had transportation issues as well. Those situations have now resolved. Clinically, patient is doing well with no new signs symptoms but has persistent mass and edema in her right breast with overlying scarring. clinically it appeared there may be disease progression in her right breast. In that case, it was recommended that she resume her neoadjuvant chemotherapy with cycle #4/final dose of Adriamycin/Cytoxan. She resumed cycle 4 Adriamycin/Cytoxan on 07/24/2020 with Neulasta support. She was due to resume treatment on July 04, 2020 but was found to have a nonfunctioning Port-A-Cath. She was referred back to Dr. Catsillo and she underwent explantation of the left upper chest Port-A-Cath and placement of a new PowerPort in the left subclavian vein on July 17, 2020. She tolerated cycle 4 adrimycin/Cytoxan well. She was due to start her taxane portion of her treatment plan on 08/07/2020 but that was delayed due to inclement weather. She was encouraged to proceed with weekly Taxol x12. , advised Ms Beaulieu to complete neoadjuvant chemotherapy as recommended without further delay and also discussed about importance of compliance with the chemotherapy schedule, patient expressed full understanding. She is highly motivated to complete treatment., Patient completed her adjuvant chemotherapy e.g. Adriamycin and Cytoxan followed by Taxol on December 14, 2020, subsequently underwent right mastectomy on January 04, 2021 which showed 5.1 cm, invasive lobular carcinoma, high-grade, clear surgical margin T3, no lymph nodes identified, NX, ER/MA positive HER-2/chuckie negative, Patient was started on adjuvant hormonal therapy with Arimidex 1 mg p.o. daily for 5 years on January 19, 2021 And was referred to radiation oncology for evaluation for postmastectomy radiation therapy, Patient completed radiation therapy on April 20, 2021 Plan: Discussed with patient regarding her labs white blood count 6.1 hemoglobin 13.1 hematocrit 40.8 platelets 285,000 Clinically, patient doing well with no new signs symptoms history of recurrence of disease, tolerating Arimidex/vitamin D/calcium well, will continue with same and return to clinic in 4 months with CBC CMP and follow-up left breast mammogram. Signed By: Lexi Antunez M.D. <<Signature on File>>
== END 2021-10-20 23:59 | disposition home or self-care (01) ==
LOC: ONCMED 10:37
PROVIDERS: Visit Provider Internal Medicine Hematology & Oncology
DX: C50.811 Malignant neoplasm of overlapping sites of right female breast (principal); Z17.0 Estrogen receptor positive status [ER+]; E55.9 Vitamin D deficiency, unspecified; Z90.11 Acquired absence of right breast and nipple; Z79.818 Long term (current) use of other agents affecting estrogen receptors and estrogen levels; Z79.899 Other long term (current) drug therapy; Z92.21 Personal history of antineoplastic chemotherapy; Z92.3 Personal history of irradiation
CPT/HCPCS: 36415; 36591; 85025; 99215

== ENCOUNTER 2021-12-26 08:37 | Outpatient (CLI) | payer MEDICARE, MEDICAID, SELFPAY ==
--- NOTE | 2021-12-26 08:41 | MM_ITS ---
WS: [id number] LEFT DIGITAL BREAST TOMOSYNTHESIS MAMMOGRAPHY WITH CAD. HISTORY: HX OF BREAST Ca; rt MAST COMPARISON: 11/02/2020 and 2019 Technique: CC, MLO and ML views. Breast composition: There are scattered areas of fibroglandular density. No suspicious masses or lisa cifications. There are a few scattered calcifications. Fibroglandular pattern is stable. MM/[place] [id number] IMPRESSION: BI-RADS: 2-Benign FOLLOW UP: 1 Year Follow-up
== END 2021-12-26 08:38 | disposition home or self-care (01) ==
PROVIDERS: Visit Provider Internal Medicine Hematology & Oncology
DX: Z85.3 Personal history of malignant neoplasm of breast (principal); Z90.11 Acquired absence of right breast and nipple
CPT/HCPCS: 77061

== ENCOUNTER 2022-01-30 09:34 | Oncology outpatient (recurring) (ONCR) | payer MEDICARE, MEDICAID, SELFPAY ==
[2022-01-30 10:15] VITALS: BMI 32.0
[2022-01-30 10:33] LABS: Basophils # 0.1 10^3/uL (0.0-0.1); Basophils % 0.6 %; Eosinophils # 0.2 10^3/uL (0.0-0.8); Eosinophils % 2.2 %; Hematocrit 39.2 % (37.0-47.0); Hemoglobin 12.2 g/dL (11.5-15.3); Lymphocytes # 0.7 10^3/uL (0.8-4.8); Lymphocytes % 7.5 %; Mean Corpuscular HGB Conc 31.1 g/dL (30.0-36.0); Mean Corpuscular Hemoglobin 29.7 pg (28.0-34.0); Mean Corpuscular Volume 95.4 fl (81-99); Mean Platelet Volume 8.6 fL (7.4-10.4); Monocytes # 0.7 10^3/uL (0.2-0.9); Monocytes % 7.8 %; Neutrophils # 7.04 10^3/uL (1.8-7.7); Neutrophils % 81.7 %; Nucleated Red Blood Cells % 0 %; Platelet Count 322 10^3/cmm (130-400); Red Blood Count 4.11 10^6/uL (4.1-5.3); Red Cell Distribution Width 13.6 % (12.1-15.1); White Blood Count 8.6 10^3/uL (4.0-10.0)
[2022-01-30 10:48] LABS: Alanine Aminotransferase 10 U/L (0-33); Albumin Level 3.9 g/dL (3.5-5.2); Alkaline Phosphatase 154 IU/L (35-105); Anion Gap 17.1 (5-19); Aspartate Amino Transferase 18 U/L (0-32); Blood Urea Nitrogen 12 mg/dL (8-23); Calcium 9.6 mg/dL (8.5-10.5); Carbon Dioxide 27 mmol/L (22-29); Chloride 102 mmol/L (98-107); Globulin 3.2 g/dL (1.3-4.6); Glomerular Filtration Rate 55.5 mL/min (90-130); Glucose 144 mg/dL (65-115); Osmolality Calculated 296 mOsm/kg (285-295); Potassium 4.1 mmol/L (3.5-5.1); Sodium 142 mmol/L (136-145); Total Bilirubin 0.4 mg/dL (0.15-1.2); Total Protein 7.1 g/dL (6.6-8.7)
== END 2022-02-20 23:59 | disposition home or self-care (01) ==
LOC: ONCMED 09:34
PROVIDERS: Nurse Practitioner; Visit Provider Internal Medicine Hematology & Oncology
DX: C50.811 Malignant neoplasm of overlapping sites of right female breast (principal)
CPT/HCPCS: 36591; 80053; 85025

== ENCOUNTER 2022-03-26 10:38 | Oncology outpatient (recurring) (ONCR) | payer MEDICARE, MEDICAID, SELFPAY ==
[2022-03-26] MEDS: alteplase 1 mg/mL SDV 2 mL 2 MG INTRACATH (11:30)
[2022-03-26 11:46] VITALS: BMI 28.6
[2022-03-26 12:04] LABS: Basophils # 0.1 10^3/uL (0.0-0.1); Basophils % 0.5 %; Eosinophils # 0.1 10^3/uL (0.0-0.8); Eosinophils % 0.5 %; Hematocrit 41.9 % (37.0-47.0); Hemoglobin 13.3 g/dL (11.5-15.3); Lymphocytes # 0.4 10^3/uL (0.8-4.8); Mean Corpuscular HGB Conc 31.7 g/dL (30.0-36.0); Mean Corpuscular Hemoglobin 29.6 pg (28.0-34.0); Mean Corpuscular Volume 93.1 fl (81-99); Monocytes # 0.8 10^3/uL (0.2-0.9); Monocytes % 7.7 %; Neutrophils # 9.05 10^3/uL (1.8-7.7); Neutrophils % 86.5 %; Nucleated Red Blood Cells % 0 %; Platelet Count 389 10^3/cmm (130-400); White Blood Count 10.5 10^3/uL (4.0-10.0)
[2022-03-26 12:56] LABS: Alanine Aminotransferase 16 U/L (0-33); Albumin Level 3.7 g/dL (3.5-5.2); Alkaline Phosphatase 101 U/L (35-105); Anion Gap 16.3 (5-19); Aspartate Amino Transferase 18 U/L (0-32); Blood Urea Nitrogen 12 mg/dL (8-23); Carbon Dioxide 30 mmol/L (22-29); Chloride 97 mmol/L (98-107); Globulin 3.4 g/dL (1.3-4.6); Glomerular Filtration Rate 55.5 mL/min (90-130); Glucose 108 mg/dL (65-115); Osmolality Calculated 290 mOsm/kg (285-295); Potassium 3.3 mmol/L (3.5-5.1); Sodium 140 mmol/L (136-145); Total Bilirubin 0.4 mg/dL (0.15-1.2); Total Protein 7.1 g/dL (6.6-8.7)
== END 2022-04-22 23:59 | disposition home or self-care (01) ==
PROVIDERS: Visit Provider Internal Medicine Hematology & Oncology
DX: C50.811 Malignant neoplasm of overlapping sites of right female breast (principal); Z79.811 Long term (current) use of aromatase inhibitors; C77.3 Secondary and unspecified malignant neoplasm of axilla and upper limb lymph nodes; Z17.0 Estrogen receptor positive status [ER+]; Z92.3 Personal history of irradiation; Z90.11 Acquired absence of right breast and nipple; Z92.21 Personal history of antineoplastic chemotherapy; E87.6 Hypokalemia; D72.819 Decreased white blood cell count, unspecified
CPT/HCPCS: 36591; 36593; 80053; 85025; 99214; J2997

== ENCOUNTER 2022-04-27 12:22 | Emergency (ER) | payer MEDICARE, MEDICAID, SELFPAY ==
[2022-04-27 12:23] VITALS: BP 125/86; PULSE 95; RESP 16; TEMP 36.7; O2SAT 95; BMI 32.9
--- NOTE | 2022-04-27 12:37 | CTR_ITS ---
PROCEDURE INFORMATION: Exam: CT Abdomen And Pelvis Without Contrast Exam date and time: 04/27/2022 12:59 PM Age: 66 years old Clinical indication: Nausea and vomiting; Abdominal pain; Generalized; Prior surgery; Surgery type: Gb; Additional info: Abd pain TECHNIQUE: Imaging protocol: Computed tomography of the abdomen and pelvis without contrast. Radiation optimization: All CT scans at this facility use at least one of these dose optimization techniques: automated exposure control; mA and/or kV adjustment per patient size (includes targeted exams where dose is matched to clinical indication); or iterative reconstruction. COMPARISON: No relevant prior studies available. RADIATION DOSE METRICS: Total DLP (mGy-cm): 481.14 FINDINGS: Lungs: Evidence of prior pulmonary granulomatous disease. Pleural spaces: Partially visualized small pleural effusions, larger on the right side. Liver: Ill-defined low-attenuation change in the anterior right lobe of the liver. Related to prior right breast/chest wall irradiation? Gallbladder and bile ducts: Prior cholecystectomy. No biliary ductal dilatation allowing for that. Pancreas: No pancreatic enlargement or ductal dilatation. Spleen: The spleen is homogeneous and is not enlarged. Adrenal glands: No right adrenal nodule. The left adrenal gland is not visualized. Kidneys and ureters: There is bilateral hydronephrosis and hydroureter extending to the level of the sacroiliac joints. No renal or ureteral calculus. There is increased attenuation in the left sultana- and pararenal spaces, cause uncertain. This could be due to infection, forniceal rupture with urine extravasation, or may be related to neoplasm. Stomach and bowel: No bowel obstruction. Appendix: No evidence of appendicitis. Intraperitoneal space: Small volume free intraperitoneal fluid. No pneumoperitoneum. Vasculature: No abdominal aortic aneurysm. Lymph nodes: Left retroperitoneal adenopathy not excluded. Urinary bladder: No urinary bladder calculus or wall thickening. Reproductive: Unremarkable as visualized. Bones/joints: Curvature of the lumbar spine convex to the left associated with multilevel disc degeneration and facet arthropathy. Grade 1 degenerative anterolisthesis at L5-S1. Soft tissues: Prior right mastectomy with possible thin subcutaneous seroma. CT/CT abdomen pelvis wo con [id number] IMPRESSION: 1. Bilateral ureteral obstruction. However, no ureteral calculi visualized. 2. Increased attenuation in the left sultana- and perirenal spaces which could be due to infection, forniceal rupture with urine extravasation or may be related to neoplasm. 3. Ill-defined low-attenuation change in the anterior right lobe of the liver. This could potentially be due to prior radiation therapy given prior right mastectomy. 4. Consider further evaluation with CT ABDOMEN/PELVIS with IV and oral contrast, include delayed imaging.
[2022-04-27] MEDS: sodium chloride 0.9% 1,000 ML 999 ML IV (12:51)
[2022-04-27] MEDS: ondansetron 2 mg/ML SDV 2 mL 4 MG IVP (12:51)
--- NOTE | 2022-04-27 12:53 | ED_ITS ---
HPI - Nausea/Vomiting/Diarrhea General: Chief complaint: Nausea/Vomiting/Diarrhea Stated complaint: N/V/D Time Seen by Provider: 04/27/22 12:32 Source: patient and EMS Mode of arrival: EMS Limitations: no limitations History of Present Illness: 66-year-old female states she has been having abdominal pain along with intermittent vomiting over the last month. States that her vomiting got worse today she is having diffuse pain. She denies any diarrhea states her pain is a 4 out of 10 and crampy in nature denies any fever denies any worsening improving factors. She has had a history of an appendect josefina and a cholecystectomy she believes. Associated nausea: Yes Associated symtoms: Reports nausea; Denies chest pain, dysuria or headache(s) Review of Systems Const: Denies: fever(s), chills, body aches or change in appetite Eyes: Denies: blurry vision or eye discomfort ENMT: Denies: throat pain or dental pain Card: Denies: chest pain Resp: Denies: dyspnea GI: Reports: abdominal pain, nausea and vomiting : Denies: dysuria Musc: Denies: neck pain or back pain Skin/Breast: Denies: rash Neuro: Denies: headache(s) Psych: Denies: depression Wily/Lymph: Denies: easy bruising All/Imm: Denies: urticaria PFSH ED PFSH: Medical History Breast cancer, right Depression Irregularly shaped mass of breast Malignant neoplasm of overlapping sites of right female breast Port-A-Cath in place (~12/2019) Surgical History History of laparoscopic cholecystectomy (~1994) Status post laparoscopic appendectomy (~1994) Family History Father Cancer LUNG CANCER Hypertension Mother Diabetes Hypertension Denies family history of Anesthesia complication Bleeding disorder Social History Smoking and tobacco status: never smoked Second hand smoke exposure: No Alcohol intake: never Adopted: No Caregiver/support person: Yes Lives independently: Yes Household members: family Housing: Assisted Living Facility Marital status: service: No Current occupational status: employed Current occupational exposures/hazards: No Pets and animals: No History of recent travel: No Sexually active: No Current gender identity: Female Shanell/Mormonism: Confucianist Physical Exam Const: COMMON NORMALS: no acute distress, patient oriented x3 and healthy appearing HENMT: COMMON NORMALS: normocephalic and atraumatic HEAD & SCALP: normocephalic and atraumatic Eye: COMMON NORMALS: Equal, round and reactive pupils present and EOMs intact bilaterally PUPIL: Yes Equal, round and reactive pupils present Neck/C-Spine: COMMON NORMALS: full ROM and supple Chest: COMMONS NORMALS: normal inspection of the chest and normal palpation of entire chest wall Resp: COMMON NORMALS: normal respiratory effort, No retractions, No use of accessory muscles and clear to auscultation bilaterally AUSCULTATION: clear to auscultation bilaterally Cardio: COMMON NORMALS: regular rate, regular rhythm and No murmurs present (Cardio) RATE: regular rate RHYTHM: regular rhythm GI: COMMON NORMALS: Normal to inspection, nondistended, normoactive bowel sounds present, Soft to palpation, non-tender and no masses PALPATION: Yes Soft to palpation Extremity: COMMON NORMALS: normal to inspection and full ROM Neuro: COMMON NORMALS: patient oriented x3, moves all extremities and no focal motor deficits Psych: COMMON NORMALS: mental status grossly normal, Normal thought process present and cooperative THOUGHT PROCESS: Normal thought process present Skin: COMMON NORMALS: no rashes or lesions noted and no wounds GENERAL SKIN EXAM: no rashes or lesions noted Course Vital Signs: Vital signs: Vital Signs Temperature 98.1 F 04/27/22 12:23 Pulse Rate 90 04/27/22 15:09 Respiratory Rate 16 04/27/22 15:09 Blood Pressure 157/79 04/27/22 15:09 Pulse Oximetry 94 04/27/22 15:09 Oxygen Delivery Me thod 04/27/22 15:01 MDM - Nausea/Vomiting/Diarrhea Medical Decision Making Patient presents here with vomiting she feels much improved here she does have a UTI CT also showed bilateral ureteral obstruction with no stones I did speak to Dr. Hunt will start patient on antibiotics and will follow up with him next week she is return if worsening. Lab Data : 04/27/22 12:32 04/27/22 12:32 Radiology Impressions Abdomen/Pelvis CT 04/27/22 12:37 IMPRESSION: 1. Bilateral ureteral obstruction. However, no ureteral calculi visualized. 2. Increased attenuation in the left sultana- and perirenal spaces which could be due to infection, forniceal rupture with urine extravasation or may be related to neoplasm. 3. Ill-defined low-attenuation change in the anterior right lobe of the liver. This could potentially be due to prior radiation therapy given prior right mastectomy. 4. Consider further evaluation with CT ABDOMEN/PELVIS with IV and oral contrast, include delayed imaging. Laboratory Results WBC 9.3 10^3/uL (4.0-10.0) 04/27/22 12:32 RBC 4.72 10^6/uL (4.1-5.3) 04/27/22 12:32 Hgb 13.9 g/dL (11.5-15.3) 04/27/22 12:32 Hct 43.7 % (37.0-47.0) 04/27/22 12:32 MCV 92.6 fl (81-99) 04/27/22 12:32 MCH 29.4 pg (28.0-34.0) 04/27/22 12:32 MCHC 31.8 g/dL (30.0-36.0) 04/27/22 12:32 RDW 13.6 % (12.1-15.1) 04/27/22 12:32 Plt Count 341 10^3/cmm (130-400) 04/27/22 12:32 MPV 9.0 fL (7.4-10.4) 04/27/22 12:32 Neut % (Auto) 85.1 % 04/27/22 12:32 Lymph % (Auto) 3.9 % 04/27/22 12:32 [place] % (Auto) 8.9 % 04/27/22 12:32 Eos % (Auto) 0.6 % 04/27/22 12:32 Baso % (Auto) 0.6 % 04/27/22 12:32 Neut # (Auto) 7.92 10^3/uL (1.8-7.7) H 04/27/22 12:32 Lymph # (Auto) 0.4 10^3/uL (0.8-4.8) L 04/27/22 12:32 [place] # (Auto) 0.8 10^3/uL (0.2-0.9) 04/27/22 12:32 Eos # (Auto) 0.1 10^3/uL (0.0-0.8) 04/27/22 12:32 Baso # (Auto) 0.1 10^3/uL (0.0-0.1) 04/27/22 12:32 Nucleated RBC % (auto) 0 % 04/27/22 12:32 Nucleated RBCs # 0.0 /100WBC 04/27/22 12:32 Sodium 135 mmol/L (136-145) L 04/27/22 12:32 Potassium 4.4 mmol/L (3.5-5.1) 04/27/22 12:32 Chloride 93 mmol/L (98-107) L 04/27/22 12:32 Carbon Dioxide 23 mmol/L (22-29) 04/27/22 12:32 Anion Gap 23.4 (5-19) H 04/27/22 12:32 BUN 24 mg/dL (8-23) H 04/27/22 12:32 Creatinine 1.3 mg/dL (0.5-0.9) H 04/27/22 12:32 GFR Calculation 41.0 mL/min (90-130) L 04/27/22 12:32 Glucose 92 mg/dL (65-115) 04/27/22 12:32 Calculated Osmolality 284 mOsm/kg (285-295) L 04/27/22 12:32 Calcium 10.7 mg/dL (8.5-10.5) H 04/27/22 12:32 Total Bilirubin 0.6 mg/dL (0.15-1.2) 04/27/22 12:32 AST 23 U/L (0-32) 04/27/22 12:32 ALT 18 U/L (0-33) 04/27/22 12:32 Alkaline Phosphatase 97 U/L (35-105) 04/27/22 12:32 Total Protein 7.3 g/dL (6.6-8.7) 04/27/22 12:32 Albumin 3.6 g/dL (3.5-5.2) 04/27/22 12:32 Globulin 3.7 g/dL (1.3-4.6) 04/27/22 12:32 Lipase 31 U/L (13-60) 04/27/22 12:32 Urine Color Dark yellow (Yellow) 04/27/22 14:17 Urine Appearance Cloudy (CLEAR) A 04/27/22 14:17 Urine pH 5 (5-7) 04/27/22 14:17 Ur Specific [place] 1.025 (1.005-1.030) 04/27/22 14:17 Urine Protein 1+ (Negative) H 04/27/22 14:17 Urine Glucose (UA) Norm (Normal) 04/27/22 14:17 Urine Ketones 1+ (Negative) H 04/27/22 14:17 Urine Blood Neg (Negative) 04/27/22 14:17 Urine Nitrate Positive (Negative) H 04/27/22 14:17 Urine Bilirubin 2+ (Negative) H 04/27/22 14:17 Urine Urobilinogen 4 mg/dL (Negative) H 04/27/22 14:17 Ur Leukocyte Esterase 2+ (Negative) H 04/27/22 14:17 Urine RBC None /hpf (0-2) 04/27/22 14:17 Urine WBC 55-80 /hpf (0-5) H 04/27/22 14:17 Ur Squamous Epith Cells 0-4 /hpf (0-5) H 04/27/22 14:17 Ur Transition Epith Cell 0-4 /hpf 04/27/22 14:17 Amorphous Sediment Not Reportable 04/27/22 14:17 Urine Bacteria 2+ /hpf (NONE) H 04/27/22 14:17 Urine Mucus 2+ /hpf 04/27/22 14:17 Discharge Plan Discharge Patient Disposition: Home Clinical Impression: Acute cystitis, Bilateral ureteral obstruction Condition: Stable Prescriptions: New cephalexin 500 mg capsule 500 mg PO TID 7 Days Qty: 21 0RF ondansetron 4 mg tablet,disintegrating 4 mg PO Q6H PRN (Reason: nausea and vomiting) Qty: 14 0RF No Action sulfamethoxazole-trimethoprim [Bactrim DS] 800-160 mg tablet 1 tab PO BID 10 Days Qty: 20 0RF fluoxetine [Prozac] 20 mg capsule 20 mg PO DAILY oxybutynin chloride 5 mg tablet 5 mg PO DAILY diltiazem HCl [Cardizem CD] 240 mg capsule,extended release 24hr 240 mg PO DAILY potassium chloride 20 mEq tablet extended release 20 meq PO DAILY 7 Days Qty: 7 0RF Santyl 250 unit/gram ointment 1 applic topical DAILY Qty: 30 0RF omeprazole 20 mg capsule,delayed release(DR/EC) 20 mg PO DAILY Qty: 90 3RF hydrocodone-acetaminophen 5-325 mg tablet 1 tab PO Q6H PRN (Reason: pain) Qty: 28 0RF Discharge Orders: Discharge ED (Routine); Ordered 04/27/22 Ordered By: Josue Cristina Referrals: Jorge Hunt MD [Physician] - 1-3 days Discharge Diet: Advance as tolerated Discharge Activity: Resume usual activity Patient Instructions: Urinary Tract Infection in Women (ED) Coding Level of Care Code ED Job Press Feeder for Chg Fwd Exam Comprehensive
[2022-04-27 12:54] LABS: Basophils # 0.1 10^3/uL (0.0-0.1); Basophils % 0.6 %; Eosinophils # 0.1 10^3/uL (0.0-0.8); Eosinophils % 0.6 %; Hematocrit 43.7 % (37.0-47.0); Hemoglobin 13.9 g/dL (11.5-15.3); Lymphocytes # 0.4 10^3/uL (0.8-4.8); Lymphocytes % 3.9 %; Mean Corpuscular HGB Conc 31.8 g/dL (30.0-36.0); Mean Corpuscular Hemoglobin 29.4 pg (28.0-34.0); Mean Corpuscular Volume 92.6 fl (81-99); Monocytes # 0.8 10^3/uL (0.2-0.9); Monocytes % 8.9 %; Neutrophils # 7.92 10^3/uL (1.8-7.7); Neutrophils % 85.1 %; Nucleated Red Blood Cells % 0 %; Platelet Count 341 10^3/cmm (130-400); Red Blood Count 4.72 10^6/uL (4.1-5.3); Red Cell Distribution Width 13.6 % (12.1-15.1); White Blood Count 9.3 10^3/uL (4.0-10.0)
[2022-04-27 13:00] VITALS: BP 125/86; PULSE 83; RESP 18; O2SAT 96
[2022-04-27 13:05] LABS: Alanine Aminotransferase 18 U/L (0-33); Albumin Level 3.6 g/dL (3.5-5.2); Alkaline Phosphatase 97 U/L (35-105); Anion Gap 23.4 (5-19); Aspartate Amino Transferase 23 U/L (0-32); Blood Urea Nitrogen 24 mg/dL (8-23); Calcium 10.7 mg/dL (8.5-10.5); Carbon Dioxide 23 mmol/L (22-29); Chloride 93 mmol/L (98-107); Globulin 3.7 g/dL (1.3-4.6); Glucose 92 mg/dL (65-115); Lipase 31 U/L (13-60); Osmolality Calculated 284 mOsm/kg (285-295); Potassium 4.4 mmol/L (3.5-5.1); Sodium 135 mmol/L (136-145); Total Bilirubin 0.6 mg/dL (0.15-1.2); Total Protein 7.3 g/dL (6.6-8.7)
[2022-04-27 14:12] VITALS: BP 140/87; PULSE 88; RESP 16; O2SAT 96
[2022-04-27 14:35] LABS: Add Urine Microscopic? YES; Bilirubin Urine 2+ (Negative); Blood Urine Neg (Negative); Glucose Urine UA Norm (Normal); Ketones Urine 1+ (Negative); Leukocyte Esterase Urine 2+ (Negative); Nitrate Urine Positive (Negative); Protein Urine 1+ (Negative); Specific Gravity, Urine 1.025 (1.005-1.030); Urine Appearance Cloudy (CLEAR); Urine Color Dark Yellow (Yellow); Urobilinogen Urine 4 mg/dL (Negative); pH Urine 5 (5-7)
[2022-04-27 14:37] LABS: WBC Urine 55-80 /hpf (0-5)
[2022-04-27 14:38] LABS: Add Urine Culture? Yes; Bacteria Urine 2+ /hpf; Mucus Urine 2+ /hpf; Squamous Epithelial Cell Urine 0-4 /hpf (0-5); Transitional Epi Cells Urine 0-4 /hpf
[2022-04-27] MEDS: cephALEXin 500 mg Capsule PO (15:00)
[2022-04-27 15:01] VITALS: BP 157/79; PULSE 90; RESP 16; O2SAT 94
[2022-04-27 15:09] VITALS: BP 157/79; PULSE 90; RESP 16; O2SAT 94
--- NOTE | 2022-04-29 11:56 | DCPLANNER ---
Addendum entered by Reny Cavanaugh 05/02/22 16:36: Patient had a follow up appointment scheduled with urology - patient did attend appointment. Original Note: manager financial planning had message to schedule a follow up appointment for patient with urology. manager financial planning sent patients information to the front office staff at urology. Patients information will be printed and reviewed. Clinic will call patient with appointment information.
== END 2022-04-27 15:11 | disposition home or self-care (01) ==
PROVIDERS: Emergency Provider Emergency Medicine
DX: N30.90 Cystitis, unspecified without hematuria (principal); N13.5 Crossing vessel and stricture of ureter without hydronephrosis
CPT/HCPCS: 51701; 74176; 80053; 81001; 83690; 85025; 87086; 96361; 96374; 99285; J2405; J7030

== ENCOUNTER 2022-05-01 06:00 | Outpatient (CLI) | payer MEDICARE, MEDICAID, SELFPAY | END 2022-05-01 06:01 | disposition home or self-care (01) | LOC: LAB 05-18 10:02 | PROVIDERS: Visit Provider Urology | DX: N30.00 Acute cystitis without hematuria (principal); N13.5 Crossing vessel and stricture of ureter without hydronephrosis | CPT/HCPCS: 51798; 81003; 99203 ==

== ENCOUNTER 2022-05-01 12:09 | Outpatient (CLI) | payer MEDICARE, MEDICAID, SELFPAY ==
--- NOTE | 2022-05-01 12:16 | XR_ITS ---
WS: [id number] KUB, AP view, 05/01/2022 Clinical Data: STONES Comparison: None. Findings: No abnormal intraabdominal masses or calcifications are seen. There is no dilatated small bowel or ev idence of obstruction. There is a large amount of fecal material throughout the colon. The bladder is partly full. There are clips in the right upper quadrant from a cholecystectomy. There is a levoscoliosis of the lumbar spi ne. XR/XR KUB [id number] Impression: Large amount of fecal material in the colon.
--- NOTE | 2022-05-01 15:30 | CTR_ITS ---
PROCEDURE INFORMATION: Exam: CT Abdomen And Pelvis Without And With Contrast Exam date and time: 05/01/2022 4:51 PM Age: 66 years old Clinical indication: Abdominal pain; Generalized; Prior surgery; Patient HX: HX of breast cancer, pain across abdomen x 1 month; Additional info: Bilateral ureteral obstruction, CT abd/pelvis with and without contrast klever! TECHNIQUE: Imaging protocol: Computed tomography of the abdomen and pelvis without and with contrast. 3D rendering (Not supervised by radiologist): MIP and/or 3D reconstructed images were created by the technologist. Radiation optimization: All CT scans at this facility use at least one of these dose optimization techniques: automated exposure control; mA and/or kV adjustment per patient size (includes targeted exams where dose is matched to clinical indication); or iterative reconstruction. Contrast material: OMNI 350; Contrast volume: 95 ml; Contrast route: INTRAVENOUS (IV); COMPARISON: CT abdomen pelvis wo con [id number] 04/27/2022 12:59 PM RADIATION DOSE METRICS: Total DLP (mGy-cm): 2650.83 FINDINGS: Pleural spaces: Small right-sided pleural effusion. Trace left-sided pleural effusion. Liver: Area of hypoattenuation along the anterior margin of the liver adjacent to the falciform ligament consistent with focal fatty infiltration. Mild intra hepatic biliary prominence likely related to post cholecystectomy changes. Gallbladder and bile ducts: The gallbladder is surgically absent. Pancreas: Simple appearing 6 mm cyst noted in the tail of the pancreas. Spleen: The spleen appears normal. Adrenal glands: Left adrenal gland is not well visualized. The right adrenal gland appears unremarkable. Kidneys and ureters: Significant left-sided perinephric fat stranding similar to prior exam. Left-sided hydronephrosis. No hydroureter. Mucosal enhancement in the left renal pelvis and at the ureteropelvic junction. The left kidney enhances with contrast but poorly compared to the right. Right-sided hydronephrosis. Endothelial hyperemia at the right ureteropelvic junction extending through the remainder of the course of the right ureter. Trace right-sided hydroureter. No contrast within the left renal collecting system on delayed phase imaging. Contrast is noted within the right renal collecting system on delayed phase imaging the no significant opacification of the ureter. Stomach and bowel: The stomach appears unremarkable. The small bowel loops are not abnormally dilated. The large bowel loops are not abnormally dilated. Wall thickening along the medial margin of the colon at the splenic flexure adjacent to the left kidney. Appendix: The appendix is not readily identified. Intraperitoneal space: Trace perihepatic ascites along the anterior margin of the liver with focal peritoneal thickening. Minimal free fluid in the pelvis along the superior margin of the urinary bladder. Vasculature: The aorta is nonaneurysmal. The IVC appears normal. Lymph nodes: There are no enlarged lymph nodes. Urinary bladder: Possible focal wall thickening along the posterosuperior margin of the left bladder (sagittal series 10, image 29), and in the anterior right portion (sagittal series 10, image 41). Reproductive: Heterogenous attenuation of the uterus. Ovaries are not well visualized. Bones/joints: Multilevel degenerative changes in the spine. Grade 1 anterolisthesis of L5 on S1. Soft tissues: Unremarkable. CT/CT abdomen pelvis wo/w [id number] IMPRESSION: 1. Significant left-sided perinephric fat stranding again noted similar to prior exam with persistent left-sided hydronephrosis, with mucosal enhancement of the renal pelvis and ureteropelvic junction noted. Poor contrast enhancement of the left kidney compared to the right concerning for delayed/decreased perfusion. Findings overall concerning for infection, urinary extravasation, or hematoma. Recommend follow-up with urology. 2. Persistent right-sided hydronephrosis and hydroureter with ureteral endothelial enhancement, concerning for possible infection. 3. Multifocal wall thickening in the bladder. Recommend consideration of cystoscopy to exclude malignancy. 4. Wall thickening along the medial margin of the colon at the splenic flexure adjacent to the left kidney, concerning for infectious/inflammatory extension from the kidney causing colitis. Minimal free fluid in the pelvis along the superior margin of the urinary bladder. 5. Trace perihepatic ascites along the anterior margin of the liver with focal peritoneal thickening. 6. Small right-sided and trace left-sided pleural effusions, similar to prior exam.
[2022-05-01] MEDS: iohexol 350 mg/mL 100 mL Btl IV (16:56)
== END 2022-05-01 12:10 | disposition home or self-care (01) ==
LOC: RAD 12:10
PROVIDERS: Visit Provider Urology
DX: N13.5 Crossing vessel and stricture of ureter without hydronephrosis (principal); Z85.3 Personal history of malignant neoplasm of breast; N13.30 Unspecified hydronephrosis; J90 Pleural effusion, not elsewhere classified; N13.4 Hydroureter
CPT/HCPCS: 74018; 74178; Q9967

== ENCOUNTER → 2022-05-03 09:38 | Outpatient (BNVA) | payer MEDICARE, MEDICAID, SELFPAY | PROVIDERS: Visit Provider Urology | DX: N13.5 Crossing vessel and stricture of ureter without hydronephrosis (principal) | CPT/HCPCS: 99214 ==

== ENCOUNTER 2022-05-08 07:24 | Day surgery (SDC) | payer MEDICARE, MEDICAID, SELFPAY ==
[2022-05-03 13:00] VITALS: BMI 30.2
--- NOTE | 2022-05-03 13:09 | ECG_ITS ---
[facility] Test Date: 2022-05-03 Pat Name: Violetta Beaulieu Department: Room: Gender: Female Insulation Sprayer: : 1955 Requested By: Quentin Sullivan Order Number: [id number] Alycia MD: Charisse Herrmann M.D. Measurements Intervals [place] Rate: 71 P: 50 [place]: 147 QRS: 20 QRSD: 82 T: 38 QT: 394 QTc: 430 Interpretive Statements SINUS RHYTHM POSSIBLE LEFT ATRIAL ENLARGEMENT [-0.1mV P-WAVE IN V1/V2] LEFT VENTRICULAR HYPERTROPHY AND ST-T CHANGE [VOLTAGE CRITERIA PLUS ST/T ABNORMALITY] No previous ECG available for comparison Electronically Signed On 05-04-2022 15:23:31 COMMUNITY RELATIONS MANAGER by Cahrisse Herrmann M.D. [id number]
--- NOTE | 2022-05-03 16:17 | P.ANESASSM_ITS ---
Pre-Anesthetic Assessment Height/Weight: Height 1.52 m Weight 70.307 kg Preop Diagnosis: Right breast cancer Operation Date: 05/08/22 07:10 Proposed Procedures p Cystoscopy(Not Applicable) - Jorge Hunt MD s Retrograde Pyelogram(Bilateral) - Jorge Hunt MD s Ureteroscopy(Bilateral) - MD gem Nuno Ureteral Stent Placement(Bilateral) - Jorge Hunt MD Familial anesthetic complications: none Was Beta Cal taken within 24 hours: N/A Was Clonidine taken within 24 hours: N/A Social No alcohol and No tobacco Exam alert, oriented x 3, clear to auscultation bilaterally and regular rate & rhythm Airway Submandibular: within normal limits Cervical ROM: within normal limits Mallampati: Class II Dentition: false CV/HEM Hypertension GI Gastroesophageal Reflux Disease Musc/skel Weakness Neuropsych Anxiety and Depression Anesthetic Plan ASA status: 3 Anesthesia: General Medications/Allergies Home Medications Medication Instructions Recorded Confirmed Last Taken Type diltiazem HCl 240 mg 240 mg PO DAILY 12/23/19 05/03/22 05/03/22 06:00 History capsule,extended release 24 hr (Cardizem CD) fluoxetine 20 mg capsule (Prozac) 20 mg PO DAILY 12/23/19 05/03/22 05/03/22 06:00 History oxybutynin chloride 5 mg tablet 5 mg PO DAILY 12/23/19 05/03/22 05/03/22 06:00 History hydrocodone 5 mg-acetaminophen 325 1 tab PO Q6H PRN pain #28 tabs 01/04/21 05/03/22 Unknown Rx mg tablet omeprazole 20 mg capsule,delayed 20 mg PO DAILY #90 caps 12/18/21 05/03/22 05/03/22 06:00 Rx release potassium chloride 20 mEq 20 meq PO DAILY 1 week #7 tabs 03/26/22 05/03/22 05/03/22 06:00 Rx tablet,extended release cephalexin 500 mg capsule 500 mg PO TID 7 days #21 caps 04/27/22 05/03/22 05/03/22 06:00 Rx ondansetron 4 mg disintegrating 4 mg PO Q6H PRN nausea and 04/27/22 05/03/22 Unknown Rx tablet vomiting #14 tabs ondansetron 4 mg disintegrating mg 05/03/22 Unknown History tablet Allergies Allergy/AdvReac Type Severity Reaction Status Date / Time No Known Allergies Allergy Verified 05/03/22 12:54 [facility] Anesthesia Medical History Breast cancer, right Depression Irregularly shaped mass of breast Malignant neoplasm of overlapping sites of right female breast Port-A-Cath in place (~12/2019) Surgical History History of laparoscopic cholecystectomy (~1994) Status post laparoscopic appendectomy (~1994) Family History Father , AT AGE 61 Cancer LUNG CANCER Hypertension Mother , AT AGE 73 Diabetes Hypertension Denies family history of Anesthesia complication Bleeding disorder Social History Smoking and tobacco status: never smoked Second hand smoke exposure: No Alcohol intake: never Adopted: No Caregiver/support person: Yes Lives independently: Yes Household members: family Housing: Assisted Living Facility Marital status: Single service: No Current occupational status: disabled Current occupational exposures/hazards: No Pets and animals: No History of recent travel: No Sexually active: No Current gender identity: Female Shanell/Church: [employer] Data Anesthesia Cardiac Studies: Echocardiogram Ultrasound 06/22/20
[2022-05-08] VITALS (11 sets, daily range): BP systolic 112–138; BP diastolic 62–76; PULSE 65–83; RESP 16–18; TEMP 36.4–37.1; O2SAT 95–100
--- NOTE | 2022-05-08 06:20 | W.PM.OPSUD ---
Surgery/Procedure H&P Update DATE OF PROCEDURE: May 08, 2022 DATE H&P PERFORMED: 05/03/21 H&P UPDATE INFORMATION: I have reviewed H&P completed within last 30 days, I have examined patient prior to procedure, No changes to prior documentation and H&P is in [facility] EMR on date indicated PREOP DIAGNOSIS: Right breast cancer PLANNED PROCEDURE: Operation Date: 05/08/22 09:45 Proposed Procedures p CYSTOSCOPY BILATERAL RETROGRADE URETEROSCOPY STENT [id number] MODIFIER 26,N1305(Not Applicable) - Jorge Hunt MD s Retrograde Pyelogram(Bilateral) - Jorge Hunt MD s Ureteroscopy(Bilateral) - Jorge Hunt MD s Ureteral Stent Placement(Bilateral) - Jorge Hunt MD
[2022-05-08] MEDS: sodium chloride 0.9% 1,000 ML 30 ML IV (08:07)
--- NOTE | 2022-05-08 08:13 | P.ANESUD_ITS ---
Pre-Anesthetic Update Pre-Anesthetic Assessment: Date of Surgery/Procedure: 05/08/22 Preop Arti gnosis: Bilateral ureteral obstruction Proposed Procedure: Operation Date: 05/08/22 09:45 Proposed Procedures p CYSTOSCOPY BILATERAL RETROGRADE URETEROSCOPY STENT [id number] MODIFIER 26,N1305(Not Applicable) - Jorge Hunt MD s Retrograde Pyelogram(Bilateral) - MD gem Nuno Ureteroscopy(Bilateral) - MD gem Nuno Ureteral Stent Placement(Bilateral) - Jorge Hunt MD Any changes to Pre-Anesthetic Assessment?: No Last Intake: Intake Last Liquid Date 05/08/22 Last Liquid Time 04:00 Last Solid Date 05/06/22 Last Solid Time 12:00 Vitals: Temperature 97.5 F L 05/08/22 07:28 Temperature Source Temporal Artery S can 05/08/22 07:28 Pulse Rate 83 05/08/22 07:28 Pulse Rhythm 05/08/22 07:55 Pulse Strength 3+ Normal 05/08/22 07:55 Respiratory Rate 16 05/08/22 07:28 Blood Pressure 135/76 05/08/22 07:28 Blood Pressure [place] n 95 05/08/22 07:28 Pulse Oximetry 97 05/08/22 07:28 Oxygen Delivery Me thod 05/08/22 07:55 Exam: Pre-Anes Outpt Exam: alert, oriented x 3, clear to auscultation bilaterally and regular rate & rhythm Cardiac Studies: 2 Echocardiogram Ultrasound 06/22/20
--- NOTE | 2022-05-08 09:19 | SC_ITS ---
WS: [id number] INTRAOPERATIVE TECHNIQUE: 9 Spot fluoroscopic images for intraoperative purposes. FLUOROSCOPY TIME: 133.5 seconds CLINICAL INFORMATION: SURGERY COMPARISON: None. FINDINGS: RIGHT ureteroscopy with stricture involving the distal ureter. Deployment of RIGHT double-J ureteral stent. Contrast injection into the LEFT ureter. Diffuse small caliber LEFT ureter visualized. SC/C-arm FL for Urology IMPRESSION: Images obtained for intraoperative purposes.
[2022-05-08] MEDS: levofloxacin-dextrose 5 % 500 MG/100 ML PREMIX 100 MG IV (09:28)
--- NOTE | 2022-05-08 09:52 | SCC_ITS ---
Procedure done: 1. Cystoscopy, bilateral retrograde ureteropyelogram 2. BILATERAL: Ureteroscopy 133.5 seconds of fluoroscopic guidance, for a cumulative dose of 26.02 mGy, was provided to Dr. Hunt by the radiology department. C-arm images of the abdomen and pelvis were saved for the patient's permanent record. [facility]
[2022-05-08] MEDS: iohexol 300 mg/mL 50 mL Btl (OR ONLY) XX (10:09)
--- NOTE | 2022-05-08 10:32 | P.OP_ITS ---
Operative Report Date of procedure: May 08, 2022 Pre-op diagnosis: Bilateral ureteral obstruction Post-op diagnosis: Bilateral ureteral obstruction Procedure done: 1. Cystoscopy, bilateral retrograde ureteropyelogram 2. BILATERAL: Ureteroscopy Surgeon: Marilee Estimated blood loss: Minimal Urine output: Not measured Complications: None Findings: Anesthesia: General Condition: Stable Disposition: PACU Intraoperative findings: * Bilateral extrinsic ureteral narrowing with no evidence of intraluminal obstructing source. * Entire right collecting system accessible via ureteroscopic investigation with no trouble placing a stent to help relieve the obstruction. 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 * The left ureter could not be bridged at the UPJ level. No stent therefore was left indwelling on the LEFT. Brief History: Mrs. Beaulieu is a very pleasant 66-year-old white female with a history of breast cancer who recently was evaluated in the emergency department early this month for abdominal pain nausea and vomiting. There was evidence of a urinary tract infection and a CT scan showed bilateral hydroureteronephrosis extending down to the pelvis. No clear evidence of intra ureteral luminal mass or stone. No obvious lymphadenopathy. Her infection was treated and she did well from that point of view but was still having ongoing nausea. Admitted now for evaluation of bilateral ureteral obstruction of unknown clear etiology. Procedure: After routine preoperative evaluation examination and obtaining of informed consent she was taken to the operating suite on 05/08/2022 where general anesthesia was administered without difficulty after appropriate timeout was performed, SCDs confirmed to be functioning, preoperative antibiotics administered, beta-zully protocol confirmed. Prepped and draped in usual sterile fashion in dorsolithotomy position paying careful attention to voiding pressure points. 21 [place] cystoscope with 30 degree lens was introduced into the urethra meatus and advanced into the bladder without difficulty. The bladder was systematically examined with both 30 and 70 degree lenses. No gross abnormality identified except for thousands of little tiny crystals suspicious for uric acid. These were flushed from the bladder. An 8 [place] cone-tip catheter was intubated into the right ureteral orifice for right retrograde ureteropyelogram and then the left ureteral orifice for the same. Findings: * In the right distal ureter extending approximately 4 cm was a distinctly narrowed area beginning about 2 cm above the right ureteral orifice. Proximal to the narrowed area the ureter showed dilation. The pyelocalyceal system as expected was also dilated. * The left ureter retrograde demonstrated essentially diffuse narrowing from the very distal ureter all the way to the UPJ where there was even more distinct narrowing in the ureter distal to that point. The ureter demonstrated some tortuosity at that very narrowed area as well with proximal dilation of the pyelocalyceal system. Flexible tip guidewire was then advanced up the right ureter into the renal pelvis. A 7 [place] offset semirigid ureteroscope was then advanced and was easily advanced through the narrowed distal aspect of the right ureter but could not be manipulated beyond the pelvic vessels. The semirigid ureteroscope was removed and a flexible ureteroscope was easily passed up the right ureter bypassing the area of the vessels (the limits of the rigid scope) and easily advancing into the renal pelvis. The renal pelvis was drained of fairly jaren- colored urine. The scope was used to inspect the pyelocalyceal system which sh owed no gross pathology. The scope was then withdrawn with direct visualization of the ureter as it was withdrawn there was no intrinsic abnormality that could be identified explaining the obstruction. The wire was repassed through the scope and the scope removed and a 7 [place] by 24 cm double-pigtail stent was advanced over the guidewire through the cystoscope into appropriate position as confirmed via fluoroscopy. Of note the middle aspect of the ureter appeared to deviate medially suspicious for retroperitoneal fibrosis type of the positioning. At this point an additional retrograde ureteropyelogram was performed on the left confirming the previous findings and to help visualize the ureter. A flexible tip guidewire was easily advanced up the ureter but could not be easily manipulated beyond the UPJ area where there was that distinct narrowing mentioned above in the tortuosity of the ureter. The wire was then exchanged for a zip wire but it is well did not make the curve. An open-ended ureteral catheter was then passed to just below this area but it did not allow any further advancement of the wire. At this point an attempt at retrograde access to the renal pelvis was abandoned. No stent was left on the patient's left side. The bladder was drained. The right ureter stent was confirmed to be draining. Procedure was complete She tolerated procedure well without complications and was awakened in the operating room and returned to recovery in stable condition. PLANS: 1. Anticipate discharge from outpatient surgery if she is symptomatically okay 2. Will discuss options including antegrade nephrostomy tube placement hopefully a stent from that direction. 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
--- NOTE | 2022-05-08 14:46 | ANE.PACU2 ---
Inpatient post-anesthesia follow up: Airway intact: Yes Vital signs: Temperature 98.8 F Pulse Rate 67 Respiratory Rate 16 Blood Pressure 125/64 Pulse Oximetry 96 Oxygen Delivery Me thod Room Air Oxygen Flow Rate 6 Fraction of Inspir ed Oxygen Hydration adequate: Yes Nausea and vomiting: No Pain level: 1 Mental status: Baseline
== END 2022-05-08 12:17 | disposition home or self-care (01) ==
PROVIDERS: Visit Provider Urology
PROC: 0TJB8ZZ Inspection of Bladder, Via Natural or Artificial Opening Endoscopic (ICD-10-PCS; CPT 52000; principal; 2022-05-08 09:35)
PROC: (CPT 74420; 2022-05-08 09:35)
PROC: 0TJ98ZZ Inspection of Ureter, Via Natural or Artificial Opening Endoscopic (ICD-10-PCS; CPT 52351; 2022-05-08 09:35)
PROC: (CPT 50605; 2022-05-08 09:35)
DX: N13.5 Crossing vessel and stricture of ureter without hydronephrosis (principal); I10 Essential (primary) hypertension; K21.9 Gastro-esophageal reflux disease without esophagitis
CPT/HCPCS: 52332; 52351; 51702; 76000; 93005; C2625; J1100; J1956; J2250; J2405; J2704; J3010; J3490; J7030